=== PATIENT | female | born 1945 | race Caucasian/White ===

== ENCOUNTER → 2021-01-07 12:57 | Outpatient (BNVA) | payer MEDICARE, MEDICAID, SELFPAY | PROVIDERS: Family Provider Family Medicine; PCP Family Medicine; Referring Provider Family Medicine; Visit Provider Anesthesiology Pain Medicine | DX: G89.29 Other chronic pain (principal); M54.9 Dorsalgia, unspecified; M51.36 Other intervertebral disc degeneration, lumbar region; M47.816 Spondylosis without myelopathy or radiculopathy, lumbar region; M51.16 Intervertebral disc disorders with radiculopathy, lumbar region; Z79.891 Long term (current) use of opiate analgesic | CPT/HCPCS: 99205 ==

== ENCOUNTER 2021-06-14 12:58 | Emergency (ER) | payer MEDICARE, MEDICAID, SELFPAY ==
[2021-06-14] VITALS (8 sets, daily range): BP systolic 112–143; BP diastolic 52–79; PULSE 60–91; RESP 14–20; TEMP 37.1; O2SAT 90–98; BMI 28.3
--- NOTE | 2021-06-14 13:04 | CT_ITS ---
WS: [id number] CT HEAD TECHNIQUE: Noncontrast CT of the head obtained from the skullbase to the vertex. CLINICAL INFORMATION: AMS COMPARISON: None. DLP: 799.[address] scans at [facility] use at least one of these dose optimization techniques: automat ed exposure control; mA and/or kV adjustment per patient size (includes targeted exams where dose is matched to clinical indication); or iterative reconstruction. FINDINGS: No evidence of intracranial hemorrhage or mass effect. Ventricular system and basal cisterns are agarwal nt. Mild small vessel changes with moderate parenchymal volume loss. Mild prominence of the lateral v entricles and third ventricle can be seen with normal pressure hydrocephalus in the appropriate clini sukumar setting. No transependymal edema. Chronic lacunar infarcts in the ruben. . Paranasal sinuses and mastoid air cells are well aerated. .Normal visualized soft tissues. CT/CT head wo con* [id number] IMPRESSION: 1. No evidence of intracranial hemorrhage or mass effect. 2. Moderate small vessel changes with moderate parenchymal volume loss. 3. Mild prominence of the lateral ventricles and third ventricle may be incide ntal but can be seen with normal pressure hydrocephalus in the appropriate clin ical setting. No transependymal edema. 4. Chronic lacunar infarcts in the ruben.
--- NOTE | 2021-06-14 13:04 | XRR_ITS ---
PROCEDURE INFORMATION: Exam: XR Chest Exam date and time: 06/14/2021 1:04 PM Age: 75 years old Clinical indication: Cough and dyspnea; Patient HX: AMS; Additional info: Dyspnea/cough TECHNIQUE: Imaging protocol: XR of the chest. Views: 1 view. COMPARISON: CR Chest 1 [place] [id number] 07/03/2019 11:19 AM FINDINGS: Lungs: Unremarkable. No consolidation. Pleural spaces: Unremarkable. No pleural effusion. No pneumothorax. Heart/Mediastinum: Unremarkable. No cardiomegaly. Bones/joints: Unremarkable. XR/XR chest 1V portable [id number] IMPRESSION: No acute findings.
--- NOTE | 2021-06-14 13:05 | ECG_ITS ---
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 Measurements Intervals [place] Rate: 60 P: 27 WY: 152 QRS: 64 QRSD: 102 T: 43 QT: 430 QTc: 430 Interpretive Statements SINUS RHYTHM Compared to ECG 07/03/2019 11:09:48 Short W[place] interval no longer present Electronically Signed On 06-14-2021 17:26:31 CDT by Jj Veronica M.D. [email or web address]
--- NOTE | 2021-06-14 14:16 | W.ED.AMS ---
HPI - Altered Mental Status General: Chief Complaint: Altered Mental Status Stated Complaint: AMS/ INCONTINENCE Time Seen by Provider: 06/14/21 13:04 History of Present Illness: HPI narrative: 75-year-old female rise did ER via the nurse EMS. She is brought in from home she was found unable to get up altered mental status and incontinence. She denies any particular pain she will respond verbally but only gives nonsensical responses to questions. She is aware she is in [place] but not where she is at or why she is here. She denies any fever shortness of breath she states she is not had any pain or burning with urination though denies diarrhea or abdominal pain. MD complaint: confusion Onset (ago): hour(s) Timing confirmed by: family member Severity: mild Consistency of symptoms: Waxing and Waning Associated symptoms: Deny auditory hallucinations, visual hallucinations or delusions Review of Systems Const: Denies: fever(s), chills, body aches, change in appetite, fatigue or malaise ENMT: Denies: throat pain, ear or mastoid pain, nasal discharge or nasal congestion Card: Denies: chest pain, edema, dyspnea on exertion or orthopnea Resp: Denies: dyspnea, productive cough or non-productive cough GI: Denies: abdominal pain, nausea, vomiting, hematemesis, coffee ground emesis, diarrhea, constipation, bloating, hematochezia or melena : Denies: flank pain, difficulty voiding, dysuria, urinary frequency or urinary urgency Skin/Breast: Denies: rash or pruritus Psych: Denies: visual hallucinations or auditory hallucinations Physical Exam Const: COMMON NORMALS: no acute distress GENERAL APPEARANCE: cooperative and comfortable ORIENTATION/CONSCIOUSNESS: Yes awake HENMT: COMMON NORMALS: normocephalic and hearing grossly normal bilaterally HEAD & SCALP: normocephalic Neck/C-Spine: COMMON NORMALS: no JVD Resp: COMMON NORMALS: normal respiratory effort, No retractions, No use of accessory muscles and clear to auscultation bilaterally AUSCULTATION: clear to auscultation bilaterally Cardio: COMMON NORMALS: no JVD, regular rate, regular rhythm and No murmurs present (Cardio) RATE: regular rate RHYTHM: regular rhythm GI: COMMON NORMALS: Soft to palpation and No hepatosplenomegaly present AUSCULTATION: Yes normoactive bowel sounds PALPATION: Yes Soft to palpation, No Tenderness to palpation present (GI), No Guarding due to palpation present (GI) and Yes No hepatosplenomegaly present Extremity: COMMON NORMALS: normal to inspection, capillary refill normal, no clubbing, cyanosis or edema, no calf tenderness and no pedal edema Psych: THOUGHT CONTENT: No delusions Skin: COMMON NORMALS: no rashes or lesions noted GENERAL SKIN EXAM: no rashes or lesions noted Course Vital Signs: Vital signs: Vital Signs Temperature 98.7 F 06/14/21 13:35 Pulse Rate 91 06/14/21 23:26 Respiratory Rate 18 06/14/21 23:26 Blood Pressure 115/78 06/14/21 23:26 Pulse Oximetry 98 06/14/21 23:26 MDM - Altered Mental Status MDM Narrative: Medical decision making narrative: Patient has a mild cystitis and hypokalemia potassium replaced him. We will go ahead and discharge her back home. Was given Rocephin here. Time that he signed the chart the prescription for Macrobid had fallen off of the discharge sequence however it is on the discharge papers that the patient was sent home with 400 mg twice daily for 7 days. Lab Data: Labs: Lab Results 06/14/21 06/14/21 06/14/21 Range/Units 15:45 15:45 15:45 WBC 8.1 (4.0-10.0) 10^3/ uL RBC 5.06 (4.1-5.3) 10^6/u L Hgb 12.0 (11.5-15.3) g/dL Hct 38.2 (37.0-47.0) % MCV 75.5 L (81-99) fL MCH 23.7 L (28.0-34.0) pg MCHC 31.4 (30.0-36.0) g/dL RDW 14.8 (12.1-15.1) % Plt Count 386 (130-400) 10^3/c mm MPV 10.9 H (7.4-10.4) fL Neut % (Auto) 69.9 % Lymph % (Auto) 21.1 % O'Brien % (Auto) 7.2 % Eos % (Auto) 0.9 % Baso % (Auto) 0.2 % Neut # (Auto) 5.67 (1.8-7.7) 10^3/u L Lymph # (Auto) 1.7 (0.8-4.8) 10^3/u L O'Brien # (Auto) 0.6 (0.2-0.9) 10^3/u L Eos # (Auto) 0.1 (0.0-0.8) 10^3/u L Baso # (Auto) 0.0 (0.0-0.1) 10^3/u L Nucleated RBC % (a uto) 0 % Nucleated RBCs # 0.0 /100WBC Sodium 136 (136-145) mmol/L Potassium 2.6 L* (3.5-5.1) mmol/L Chloride 96 L (98-107) mmol/L Carbon Dioxide 25 (22-29) mmol/L Anion Gap 17.6 (5-19) BUN 6 L (8-23) mg/dL Creatinine 0.7 (0.5-0.9) mg/dL GFR Calculation Not Reportable Glucose 156 H (65-115) mg/dL Calculated Osmolal ity 283 L (285-295) mOsm/k g Lactic Acid 1.2 (0.5-2.2) mmol/L Calcium 9.3 (8.5-10.5) mg/dL Magnesium 2.0 (1.7-2.3) mg/dL Total Bilirubin 0.8 (0.15-1.2) mg/dL AST 15 (0-32) U/L ALT 8 (0-33) U/L Alkaline Phosphata se 98 (35-105) IU/L Creatine Kinase 125 (26-192) U/L Troponin T Baselin e (0-10) ng/L Troponin T 120 Min [place] (0-10) ng/L Delta Troponin T (0-10) ABS# Total Protein 7.6 (6.6-8.7) g/dL Albumin 3.7 (3.5-5.2) g/dL Globulin 3.9 (1.3-4.6) g/dL Lipase 31 (13-60) U/L Serum Ketones (Negative) 06/14/21 06/14/21 06/14/21 Range/Units 15:45 15:45 18:05 WBC (4.0-10.0) 10^3/ uL RBC (4.1-5.3) 10^6/u L Hgb (11.5-15.3) g/dL Hct (37.0-47.0) % MCV (81-99) fL MCH (28.0-34.0) pg MCHC (30.0-36.0) g/dL RDW (12.1-15.1) % Plt Count (130-400) 10^3/c mm MPV (7.4-10.4) fL Neut % (Auto) % Lymph % (Auto) % O'Brien % (Auto) % Eos % (Auto) % Baso % (Auto) % Neut # (Auto) (1.8-7.7) 10^3/u L Lymph # (Auto) (0.8-4.8) 10^3/u L O'Brien # (Auto) (0.2-0.9) 10^3/u L Eos # (Auto) (0.0-0.8) 10^3/u L Baso # (Auto) (0.0-0.1) 10^3/u L Nucleated RBC % (a uto) % Nucleated RBCs # /100WBC Sodium (136-145) mmol/L Potassium (3.5-5.1) mmol/L Chloride (98-107) mmol/L Carbon Dioxide (22-29) mmol/L Anion Gap (5-19) BUN (8-23) mg/dL Creatinine (0.5-0.9) mg/dL GFR Calculation Glucose (65-115) mg/dL Calculated Osmolal ity (285-295) mOsm/k g Lactic Acid (0.5-2.2) mmol/L Calcium (8.5-10.5) mg/dL Magnesium (1.7-2.3) mg/dL Total Bilirubin (0.15-1.2) mg/dL AST (0-32) U/L ALT (0-33) U/L Alkaline Phosphata se (35-105) IU/L Creatine Kinase (26-192) U/L Troponin T Baselin e 9 (0-10) ng/L Troponin T 120 Min [place] 9.29 (0-10) ng/L Delta Troponin T 0.29 (0-10) ABS# Total Protein (6.6-8.7) g/dL Albumin (3.5-5.2) g/dL Globulin (1.3-4.6) g/dL Lipase (13-60) U/L Serum Ketones Negative (Negative) 06/14/21 Range/Units 19:54 WBC (4.0-10.0) 10^3/ uL RBC (4.1-5.3) 10^6/u L Hgb (11.5-15.3) g/dL Hct (37.0-47.0) % MCV (81-99) fL MCH (28.0-34.0) pg MCHC (30.0-36.0) g/dL RDW (12.1-15.1) % Plt Count (130-400) 10^3/c mm MPV (7.4-10.4) fL Neut % (Auto) % Lymph % (Auto) % O'Brien % (Auto) % Eos % (Auto) % Baso % (Auto) % Neut # (Auto) (1.8-7.7) 10^3/u L Lymph # (Auto) (0.8-4.8) 10^3/u L O'Brien # (Auto) (0.2-0.9) 10^3/u L Eos # (Auto) (0.0-0.8) 10^3/u L Baso # (Auto) (0.0-0.1) 10^3/u L Nucleated RBC % (a uto) % Nucleated RBCs # /100WBC Sodium (136-145) mmol/L Potassium 3.5 (3.5-5.1) mmol/L Chloride (98-107) mmol/L Carbon Dioxide (22-29) mmol/L Anion Gap (5-19) BUN (8-23) mg/dL Creatinine (0.5-0.9) mg/dL GFR Calculation Glucose (65-115) mg/dL Calculated Osmolal ity (285-295) mOsm/k g Lactic Acid (0.5-2.2) mmol/L Calcium (8.5-10.5) mg/dL Magnesium (1.7-2.3) mg/dL Total Bilirubin (0.15-1.2) mg/dL AST (0-32) U/L ALT (0-33) U/L Alkaline Phosphata se (35-105) IU/L Creatine Kinase (26-192) U/L Troponin T Baselin e (0-10) ng/L Troponin T 120 Min [place] (0-10) ng/L Delta Troponin T (0-10) ABS# Total Protein (6.6-8.7) g/dL Albumin (3.5-5.2) g/dL Globulin (1.3-4.6) g/dL Lipase (13-60) U/L Serum Ketones (Negative) Discharge Plan Discharge Patient Disposition: Home Clinical Impression: Cystitis, Hypokalemia Condition: Stable Prescriptions: New potassium chloride 20 mEq tablet,ER particles/crystals 20 meq PO BID Qty: 20 RF: 0 No Action Myrbetriq 50 mg tablet extended release 24 hr 50 mg PO DAILY RF: 0 metformin 1,000 mg tablet 1,000 mg PO BID RF: 0 potassium chloride 10 mEq capsule, extended release 10 meq PO DAILY RF: 0 sucralfate 1 gram tablet 1 g PO BID RF: 0 spironolactone 25 mg tablet 12.5 mg PO DAILY RF: 0 levothyroxine 75 mcg tablet 75 mcg PO DAILY RF: 0 tamsulosin 0.4 mg capsule 0.4 mg PO DAILY RF: 0 fluticasone propionate 50 mcg/actuation spray,suspension 2 spray INTRANASAL DAILY RF: 0 Discharge Orders: Discharge ED (Routine); Ordered 06/14/21 Ordered By: Robert Leigh Referrals: Zeus Young DO [Primary Care Provider] - Discharge Diet: Usual diet Discharge Activity: Resume usual activity Patient Instructions: Opioid Safety Activity Restrictions/Additional Instructions: Follow-up with your primary care doctor in the next 2 days to recheck your potassium. Start oral antibiotics tomorrow as prescribed if you have any worsening or changes symptoms recheck. Coding Level of Care Code ED Center Punch Operator for Clayton Fwd Exam Comprehensive
[2021-06-14 16:11] LABS: Basophils % 0.2 %; Eosinophils # 0.1 10^3/uL (0.0-0.8); Eosinophils % 0.9 %; Hematocrit 38.2 % (37.0-47.0); Lymphocytes # 1.7 10^3/uL (0.8-4.8); Lymphocytes % 21.1 %; Mean Corpuscular HGB Conc 31.4 g/dL (30.0-36.0); Mean Corpuscular Hemoglobin 23.7 pg (28.0-34.0); Mean Corpuscular Volume 75.5 fL (81-99); Mean Platelet Volume 10.9 fL (7.4-10.4); Monocytes # 0.6 10^3/uL (0.2-0.9); Monocytes % 7.2 %; Neutrophils # 5.67 10^3/uL (1.8-7.7); Neutrophils % 69.9 %; Nucleated Red Blood Cells % 0 %; Platelet Count 386 10^3/cmm (130-400); Red Blood Count 5.06 10^6/uL (4.1-5.3); Red Cell Distribution Width 14.8 % (12.1-15.1); White Blood Count 8.1 10^3/uL (4.0-10.0)
[2021-06-14 16:29] LABS: Ketone (Acetest) Serum Negative (Negative)
[2021-06-14 16:51] LABS: Alanine Aminotransferase 8 U/L (0-33); Albumin Level 3.7 g/dL (3.5-5.2); Alkaline Phosphatase 98 IU/L (35-105); Anion Gap 17.6 (5-19); Aspartate Amino Transferase 15 U/L (0-32); Blood Urea Nitrogen 6 mg/dL (8-23); Calcium 9.3 mg/dL (8.5-10.5); Carbon Dioxide 25 mmol/L (22-29); Chloride 96 mmol/L (98-107); Creatine Phosphokinase 125 U/L (26-192); Globulin 3.9 g/dL (1.3-4.6); Glucose 156 mg/dL (65-115); Lipase 31 U/L (13-60); Osmolality Calculated 283 mOsm/kg (285-295); Sodium 136 mmol/L (136-145); Total Bilirubin 0.8 mg/dL (0.15-1.2); Total Protein 7.6 g/dL (6.6-8.7)
[2021-06-14 16:57] LABS: Potassium 2.6 mmol/L (3.5-5.1)
[2021-06-14] MEDS: lidocaine 1% 5 ML in potassium chloride premix 100 ML 25 ML IV (17:22)
[2021-06-14 17:23] LABS: Lactic Sepsis W/Reflex 1.2 mmol/L (0.5-2.2)
[2021-06-14 17:24] LABS: Troponin(5th) Baseline 9 ng/L (0-10)
[2021-06-14] MEDS: cefTRIAXone 2,000 MG in sodium chloride 0.9% (plus) 50 ML 100 MG IV (17:33)
[2021-06-14 18:42] LABS: Troponin 5 2HR 9.29 ng/L (0-10); Troponin 5 2HR Delta 0.29 ABS# (0-10)
[2021-06-14] MEDS: potassium chloride oral liq 20 mEq/15 mL UDC 60 MEQ PO (18:44)
[2021-06-14] MEDS: sodium chloride 0.9% 250 ML 25 ML IV (18:46)
[2021-06-14 20:32] LABS: Potassium 3.5 mmol/L (3.5-5.1)
== END 2021-06-14 23:27 | disposition home or self-care (01) ==
PROVIDERS: Emergency Provider Family Medicine; PCP Family Medicine
DX: N30.90 Cystitis, unspecified without hematuria (principal); E87.6 Hypokalemia
CPT/HCPCS: 36415; 70450; 71045; 80053; 82009; 82550; 83605; 83690; 83735; 84132; 84484; 85025; 87040; 93005; 96361; 96365; 99284; J0696; J3480; J7050

== ENCOUNTER 2021-10-21 13:55 | Emergency (ER) | payer MEDICARE, MEDICAID, SELFPAY ==
[2021-10-21 14:30] VITALS: BP 156/113; PULSE 79; RESP 16; TEMP 36.2; O2SAT 98
[2021-10-21 14:44] VITALS: BP 161/69; PULSE 69; RESP 16; O2SAT 97
--- NOTE | 2021-10-21 14:50 | USCV_ITS ---
Maria Luz Finney Age: 75 Gender: F : 1945 Exam Date: 10/21/2021 15:19 Ordering Phys: Angelo Blanca Technologist: Alexia Del Rosario Exam Location: [facility] [place] Indication: LLE PAIN AND SWELLING H/O DVT ON BLOOD THINNERS HISTORY: Lower extremity swelling. Lower extremity pain. History of deep venous thrombosis. PROCEDURES: Venous duplex imaging was performed in only the left lower extremity. The following venous structures were evaluated: common femoral vein, profunda vein, proximal portion of the greater saphenous vein, superficial femoral vein, and the popliteal vein. In addition, the posterior tibial and peroneal trunk were evaluated. Serial compression, augmentation maneuvers, and spectral Doppler flow evaluation were performed. FINDINGS: Normal 2-D Doppler and augmentation and compressibility throughout the lower extremity venous structures. Additional imaging through the proximal calf veins also reveals no thrombus. Limited evaluation of the greater saphenous vein is patent with no thrombus. CONCLUSIONS No DVT left lower extremity. Dr. Melissa Tee DO (Electronically Signed) Final Date: 21 October 2021 16:01 S
--- NOTE | 2021-10-21 14:54 | W.ED.EXTPRO ---
HPI - Extremity Problem General: Chief complaint: Extremity Problem,Nontraumatic Stated complaint: LEFT KNEE PAIN, WOUND ON RIGHT CALF Time Seen by Provider: 10/21/21 14:45 History of Present Illness: HPI Narrative: Patient is a 75-year-old female comes to the ED with pain and swelling to left lower leg. Patient has a history of blood clots and is currently on Eliquis. She states that 2 days ago she started having some pain and swelling and left lower leg. Denies any injury, fall or trauma to cause pain and swelling. She says her symptoms feel like her previous blood clots. Denies any chest pain, shortness of breath or hemoptysis. Associated symptoms: Deny chest pain, fever(s) or rash Review of Systems Const: Denies: fever(s), chills or fatigue Eyes: Denies: change in vision or eye discomfort ENMT: Denies: throat pain, odynophagia, nasal discharge or nasal congestion Card: Denies: chest pain, palpitations, edema, swelling of feet/ankles, dyspnea on exertion or orthopnea Resp: Denies: dyspnea, productive cough or non-productive cough GI: Denies: abdominal pain, nausea, vomiting, diarrhea, constipation or hematochezia : Denies: flank pain, dysuria or hematuria Musc: Reports: extremity pain (left lower leg) and extremity swelling (left lower leg); Denies: neck pain or back pain Skin/Breast: Denies: rash or new lesions Neuro: Denies: headache(s), numbness in extremities or weakness in extremities Physical Exam Const: COMMON NORMALS: no acute distress, patient oriented x3 and alert GENERAL APPEARANCE: cooperative and comfortable HENMT: COMMON NORMALS: normocephalic HEAD & SCALP: normocephalic MOUTH: Normal oral and palatal mucosa present THROAT: posterior oropharynx normal and uvula midline Neck/C-Spine: COMMON NORMALS: supple GENERAL: Yes normal visual inspection Resp: COMMON NORMALS: normal respiratory effort, No retractions, No use of accessory muscles and clear to auscultation bilaterally AUSCULTATION: clear to auscultation bilaterally Cardio: COMMON NORMALS: regular rate, regular rhythm, S1 normal heart sound present, S2 normal heart sound present, No gallops present (Cardio), No clicks present (Cardio), No murmurs present (Cardio) and Peripheral pulses 2+ throughout RATE: regular rate RHYTHM: regular rhythm HEART SOUNDS: S1 normal heart sound present and S2 normal heart sound present PERIPHERAL PULSES: Peripheral pulses 2+ throughout GI: COMMON NORMALS: Normal to inspection, nondistended, normoactive bowel sounds present, Soft to palpation, non-tender and no masses PALPATION: Yes Soft to palpation : COMMON NORMALS: Yes no CVA tenderness BLADDER/KIDNEY EXAM: Yes no CVA tenderness Back/Pelvis: COMMON NORMALS: no CVA tenderness Extremity: COMMON NORMALS: no pedal edema GENERAL: Yes calf tenderness (Left calf) Neuro: COMMON NORMALS: patient oriented x3 and moves all extremities SENSORIUM/ORIENTATION: Yes alert Skin: GENERAL SKIN EXAM: dry skin Course Vital Signs: Vital signs: Vital Signs Temperature 97.1 F L 10/21/21 14:30 Pulse Rate 69 10/21/21 14:44 Respiratory Rate 16 10/21/21 14:44 Blood Pressure 161/69 10/21/21 14:44 Pulse Oximetry 97 10/21/21 14:44 MDM - Extremity (Nontraumatic) MDM Narrative: Medical decision making narrative: Patient is a 75-year-old female comes to the ED with nontraumatic left lower leg pain and swelling. Has a history of blood clots and is currently on Eliquis. Denies any chest pain, shortness of breath or hemoptysis. Patient has no lower extremity pedal edema and pedal pulse 2+ bilaterally in the lower extremities. She has some left calf tenderness. Ultrasound venous duplex of left lower extremity showed no DVT or blood clots seen. Patient was diagnosed with musculoskeletal left leg pain and discharged home. Rest ice and elevate left leg to help with symptoms. She was told to follow-up with her PCP in 5 to 7 days for reevaluation. Return ED precautions given. Patient stood agree with plan. Imaging Data^: US Vascular: Attestation: I personally reviewed and interpreted this imaging study as follows: Radiologist's impression: Ultrasound venous duplex of left lower extremity?prelim report?no DVT or blood clots seen. Discharge Plan Discharge Patient Disposition: Home Clinical Impression: Musculoskeletal pain of lower extremity Qualifiers: Laterality: left Qualified Code(s): M79.605 - Pain in left leg Condition: Stable Prescriptions: No Action Myrbetriq 50 mg tablet extended release 24 hr 50 mg PO DAILY RF: 0 metformin 1,000 mg tablet 1,000 mg PO BID RF: 0 potassium chloride 10 mEq capsule, extended release 10 meq PO DAILY RF: 0 sucralfate 1 gram tablet 1 g PO BID RF: 0 spironolactone 25 mg tablet 12.5 mg PO DAILY RF: 0 levothyroxine 75 mcg tablet 75 mcg PO DAILY RF: 0 tamsulosin 0.4 mg capsule 0.4 mg PO DAILY RF: 0 fluticasone propionate 50 mcg/actuation spray,suspension 2 spray INTRANASAL DAILY RF: 0 potassium chloride 20 mEq tablet,ER particles/crystals 20 meq PO BID Qty: 20 RF: 0 Discharge Orders: Discharge ED (Routine); Ordered 10/21/21 Ordered By: Angelo Blanca Referrals: Zeus Young, [Primary Care Provider] - Discharge Diet: Regular Discharge Activity: Increase activity as tolerated Patient Instructions: Musculoskeletal Pain (ED) Activity Restrictions/Additional Instructions: Follow-up with medical provider as directed in 5 to 7 days for reevaluation. Continue taking all home medications as previously prescribed. Rest, ice and elevate left leg to help with symptoms. Take [id number] Tylenol for pain. Return to the ER or your medical provider if condition worsens. Please read and understand discharge instructions. Thank you for choosing [facility] for your healthcare needs today. Please realize this is an emergency room and that we are providing you with a medical screening exam and this may not be complete and all inclusive of all the testing and or work up that you may need to determine your ailment or severity of your illness. It is very important that you follow up as instructed or that you return to the Emergency Department should you have concerns or if your condition changes or worsens in any way. Coding Level of Care Code ED Stem Sizer for Clayton Espinoza Exam Comprehensive
== END 2021-10-21 15:50 | disposition home or self-care (01) ==
PROVIDERS: Emergency Provider Physician Assistant; PCP Family Medicine
DX: M79.605 Pain in left leg (principal)
CPT/HCPCS: 93971; 99282

== ENCOUNTER 2021-12-20 13:35 | Emergency (ER) | payer MEDICARE, MEDICAID, SELFPAY ==
[2021-12-20 13:42] VITALS: BP 151/68; PULSE 72; RESP 18; TEMP 36.8; O2SAT 95; BMI 26.2
[2021-12-20 13:57] VITALS: BP 151/68; PULSE 72; RESP 18; TEMP 36.8; O2SAT 95
--- NOTE | 2021-12-20 14:09 | ECG_ITS ---
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 Measurements Intervals [place] Rate: 65 P: 57 UT: 140 QRS: 60 QRSD: 90 T: 58 QT: 402 QTc: 420 Interpretive Statements SINUS RHYTHM NONSPECIFIC T-WAVE ABNORMALITY Compared to ECG 06/14/2021 16:27:26 T-wave abnormality now present Electronically Signed On 12-20-2021 18:06:49 TEXTILE ENGINEER by Jj Veronica M.D. [id number]
--- NOTE | 2021-12-20 14:09 | XRR_ITS ---
PROCEDURE INFORMATION: Exam: XR Chest Exam date and time: 12/20/2021 2:09 PM Age: 75 years old Clinical indication: Pain; Angina pectoris; Additional info: Chest pain TECHNIQUE: Imaging protocol: XR of the chest. Views: 1 view. COMPARISON: CR XR chest 1V portable [id number] 06/14/2021 2:11 PM FINDINGS: Lungs: Unremarkable. No consolidation. Pleural spaces: Unremarkable. No pleural effusion. No pneumothorax. Heart/Mediastinum: Unremarkable. No cardiomegaly. Bones/joints: Surgical hardware is seen in the cervical spine. XR/XR chest 1V portable [id number] IMPRESSION: 1. No acute findings. 2. Surgical hardware cervical spine
--- NOTE | 2021-12-20 14:11 | ED_ITS ---
HPI - Chest Pain General: Chief Complaint: Chest Pain Stated Complaint: CHEST PAIN, SOB Time Seen by Provider: 12/20/21 13:46 History of Present Illness: 85-year-old female presents emergency room chief complaint of chest pain. Stated began today around 11:00 while she was watching TV. Patient was given aspirin nitro and oxygen in route and reports improvement of chest pain he seems to have relatively minimal chest pain now. The oxygen was stopped before I got in room oxygen sat was normal. States pain radiates into her back and her neck Chaar arms. MD complaint: chest pain Onset (ago): hour(s) Timing of current episode: episodic Pain radiation: none Quality: aching and heaviness Relieving factors: nothing Exacerbating factors: nothing Associated symptoms: Deny abdominal pain, diaphoresis, dyspnea, fever(s), leg edema, nausea, palpitations, sense of impending doom, syncope or vomiting Treatment prior to arrival: none Review of Systems Const: Denies: fever(s) or diaphoresis Card: Denies: palpitations or syncope Resp: Denies: dyspnea GI: Denies: abdominal pain, nausea or vomiting PFSH ED PFSH: Medical History (Updated 12/20/21 @ 17:12 by Robert Leigh DO) Degenerative lumbar disc Diabetes mellitus Facet arthropathy, lumbar Hematuria Lumbar disc disease with radiculopathy UTI (urinary tract infection) Physical Exam Const: COMMON NORMALS: no acute distress GENERAL APPEARANCE: cooperative and comfortable HENMT: COMMON NORMALS: normocephalic, atraumatic and hearing grossly normal bilaterally HEAD & SCALP: normocephalic and atraumatic Neck/C-Spine: COMMON NORMALS: no JVD Resp: COMMON NORMALS: normal respiratory effort, No retractions, No use of accessory muscles and clear to auscultation bilaterally AUSCULTATION: clear to auscultation bilaterally Cardio: COMMON NORMALS: no JVD, regular rate, regular rhythm and No murmurs present (Cardio) RATE: regular rate RHYTHM: regular rhythm GI: COMMON NORMALS: Soft to palpation and No hepatosplenomegaly present AUSCULTATION: Yes normoactive bowel sounds PALPATION: Yes Soft to palpation, No Tenderness to palpation present (GI), No Guarding due to palpation present (GI) and Yes No hepatosplenomegaly present Extremity: COMMON NORMALS: normal to inspection, capillary refill normal, no clubbing, cyanosis or edema, no calf tenderness and no pedal edema Skin: COMMON NORMALS: no rashes or lesions noted GENERAL SKIN EXAM: no rashes or lesions noted Course Vital Signs: Vital signs: Vital Signs Temperature 98.3 F 12/20/21 13:57 Pulse Rate 68 12/20/21 16:03 Respiratory Rate 16 12/20/21 16:03 Blood Pressure 161/81 12/20/21 16:03 Pulse Oximetry 96 12/20/21 16:03 MDM - Chest Pain Medical Decision Making Labs and EKG reviewed no acute ST changes patient has no discomfort at this time will discharge home on aspirin Isorbid mononitrate 30 mg once daily and have her follow-up with an outpatient Lexiscan sestamibi stress test. Medical Records I reviewed the patient's medical records. Lab Data I reviewed the patient's lab results. : 12/20/21 Unknown 12/20/21 Unknown Radiology Impressions Chest X-Ray 12/20/21 14:09 IMPRESSION: 1. No acute findings. 2. Surgical hardware cervical spine Laboratory Results WBC 11.0 10^3/uL (4.0-10.0) H 12/20/21 Unknown RBC 4.87 10^6/uL (4.1-5.3) 12/20/21 Unknown Hgb 11.0 g/dL (11.5-15.3) L 12/20/21 Unknown Hct 36.6 % (37.0-47.0) L 12/20/21 Unknown MCV 75.2 fl (81-99) L 12/20/21 Unknown MCH 22.6 pg (28.0-34.0) L 12/20/21 Unknown MCHC 30.1 g/dL (30.0-36.0) 12/20/21 Unknown RDW 15.2 % (12.1-15.1) H 12/20/21 Unknown Plt Count 404 10^3/cmm (130-400) H 12/20/21 Unknown MPV 10.3 fL (7.4-10.4) 12/20/21 Unknown Neut % (Auto) 64.1 % 12/20/21 Unknown Lymph % (Auto) 28.2 % 12/20/21 Unknown [place] % (Auto) 5.6 % 12/20/21 Unknown Eos % (Auto) 1.4 % 12/20/21 Unknown Baso % (Auto) 0.3 % 12/20/21 Unknown Neut # (Auto) 7.08 10^3/uL (1.8-7.7) 12/20/21 Unknown Lymph # (Auto) 3.1 10^3/uL (0.8-4.8) 12/20/21 Unknown [place] # (Auto) 0.6 10^3/uL (0.2-0.9) 12/20/21 Unknown Eos # (Auto) 0.2 10^3/uL (0.0-0.8) 12/20/21 Unknown Baso # (Auto) 0.0 10^3/uL (0.0-0.1) 12/20/21 Unknown Nucleated RBC % (auto) 0 % 12/20/21 Unknown Nucleated RBCs # 0.0 /100WBC 12/20/21 Unknown Sodium 134 mmol/L (136-145) L 12/20/21 Unknown Potassium 3.3 mmol/L (3.5-5.1) L 12/20/21 Unknown Chloride 94 mmol/L (98-107) L 12/20/21 Unknown Carbon Dioxide 25 mmol/L (22-29) 12/20/21 Unknown Anion Gap 18.3 (5-19) 12/20/21 Unknown BUN 6 mg/dL (8-23) L 12/20/21 Unknown Creatinine 0.8 mg/dL (0.5-0.9) 12/20/21 Unknown GFR Calculation Not Reportable 12/20/21 Unknown Glucose 130 mg/dL (65-115) H 12/20/21 Unknown Calculated Osmolality 277 mOsm/kg (285-295) L 12/20/21 Unknown Calcium 9.4 mg/dL (8.5-10.5) 12/20/21 Unknown Total Bilirubin 0.3 mg/dL (0.15-1.2) 12/20/21 Unknown AST 10 U/L (0-32) 12/20/21 Unknown ALT 7 U/L (0-33) 12/20/21 Unknown Alkaline Phosphatase 152 IU/L (35-105) H 12/20/21 Unknown Troponin T Baseline 13 ng/L (0-10) H 12/20/21 Unknown Troponin T 120 Minute 12.63 ng/L (0-10) H 12/20/21 16:21 Delta Troponin T -0.37 ABS# (0-10) L 12/20/21 16:21 Total Protein 7.6 g/dL (6.6-8.7) 12/20/21 Unknown Albumin 4.6 g/dL (3.5-5.2) 12/20/21 Unknown Globulin 3.0 g/dL (1.3-4.6) 12/20/21 Unknown Discharge Plan Discharge Patient Disposition: Home Clinical Impression: Atypical chest pain Condition: Stable Prescriptions: New aspirin 81 mg tablet,delayed release (DR/EC) 81 mg PO DAILY Qty: 30 0RF isosorbide mononitrate 30 mg tablet extended release 24 hr 30 mg PO DAILY Qty: 30 0RF No Action Myrbetriq 50 mg tablet extended release 24 hr 50 mg PO DAILY 0RF metformin 1,000 mg tablet 1,000 mg PO BID 0RF potassium chloride 10 mEq capsule, extended release 10 meq PO DAILY 0RF sucralfate 1 gram tablet 1 g PO BID 0RF Rx Instructions: TAKE ON EMPTY STOMACH spironolactone 25 mg tablet 12.5 mg PO DAILY 0RF levothyroxine 75 mcg tablet 75 mcg PO DAILY 0RF tamsulosin 0.4 mg capsule 0.4 mg PO DAILY 0RF fluticasone propionate 50 mcg/actuation spray,suspension 2 spray INTRANASAL DAILY 0RF Rx Instructions: USE IN EACH NOSTRIL potassium chloride 20 mEq tablet,ER particles/crystals 20 meq PO BID Qty: 20 0RF Discharge Orders: Discharge ED (Routine); Ordered 12/20/21 Ordered By: Robert Leigh Referrals: Zeus Young DO [Primary Care Provider] - Patient Instructions: Opioid Safety Activity Restrictions/Additional Instructions: credit portfolio manager will call to set up a Lexiscan sestamibi stress test Coding Level of Care Code ED Tax Manager for Chg Fwd Exam Comprehensive
[2021-12-20 14:19] LABS: Basophils % 0.3 %; Eosinophils # 0.2 10^3/uL (0.0-0.8); Eosinophils % 1.4 %; Hematocrit 36.6 % (37.0-47.0); Lymphocytes # 3.1 10^3/uL (0.8-4.8); Lymphocytes % 28.2 %; Mean Corpuscular HGB Conc 30.1 g/dL (30.0-36.0); Mean Corpuscular Hemoglobin 22.6 pg (28.0-34.0); Mean Corpuscular Volume 75.2 fl (81-99); Mean Platelet Volume 10.3 fL (7.4-10.4); Monocytes # 0.6 10^3/uL (0.2-0.9); Monocytes % 5.6 %; Neutrophils # 7.08 10^3/uL (1.8-7.7); Neutrophils % 64.1 %; Nucleated Red Blood Cells % 0 %; Platelet Count 404 10^3/cmm (130-400); Red Blood Count 4.87 10^6/uL (4.1-5.3); Red Cell Distribution Width 15.2 % (12.1-15.1)
[2021-12-20 14:41] LABS: Alanine Aminotransferase 7 U/L (0-33); Albumin Level 4.6 g/dL (3.5-5.2); Alkaline Phosphatase 152 IU/L (35-105); Anion Gap 18.3 (5-19); Aspartate Amino Transferase 10 U/L (0-32); Blood Urea Nitrogen 6 mg/dL (8-23); Calcium 9.4 mg/dL (8.5-10.5); Carbon Dioxide 25 mmol/L (22-29); Chloride 94 mmol/L (98-107); Glucose 130 mg/dL (65-115); Osmolality Calculated 277 mOsm/kg (285-295); Potassium 3.3 mmol/L (3.5-5.1); Sodium 134 mmol/L (136-145); Total Bilirubin 0.3 mg/dL (0.15-1.2); Total Protein 7.6 g/dL (6.6-8.7)
[2021-12-20 14:43] LABS: Troponin(5th) Baseline 13 ng/L (0-10)
[2021-12-20 15:19] VITALS: BP 159/77; PULSE 68; RESP 17; O2SAT 96
[2021-12-20 16:03] VITALS: BP 161/81; PULSE 68; RESP 16; O2SAT 96
[2021-12-20 17:02] LABS: Troponin 5 2HR 12.63 ng/L (0-10)
[2021-12-20 17:03] LABS: Troponin 5 2HR Delta -0.37 ABS# (0-10)
[2021-12-20 17:23] VITALS: BP 161/62; PULSE 70; RESP 13; O2SAT 96
== END 2021-12-20 17:20 | disposition home or self-care (01) ==
PROVIDERS: Emergency Provider Family Medicine; PCP Family Medicine
DX: R07.89 Other chest pain (principal); Z79.84 Long term (current) use of oral hypoglycemic drugs; E11.9 Type 2 diabetes mellitus without complications
CPT/HCPCS: 71045; 80053; 84484; 85025; 93005; 99283

== ENCOUNTER → 2022-03-02 12:27 | Outpatient (BNVA) | payer MEDICARE, MEDICAID, SELFPAY | PROVIDERS: PCP Family Medicine; Visit Provider Internal Medicine Cardiovascular Disease | DX: Z01.810 Encounter for preprocedural cardiovascular examination (principal); R07.9 Chest pain, unspecified; I10 Essential (primary) hypertension; Z86.718 Personal history of other venous thrombosis and embolism; E11.9 Type 2 diabetes mellitus without complications; J44.9 Chronic obstructive pulmonary disease, unspecified; M51.36 Other intervertebral disc degeneration, lumbar region; Z79.01 Long term (current) use of anticoagulants; Z79.84 Long term (current) use of oral hypoglycemic drugs | CPT/HCPCS: 99204 ==

== ENCOUNTER 2022-04-06 08:47 | Outpatient (CLI) | payer MEDICARE, MEDICAID, SELFPAY ==
[2022-04-06 09:55] VITALS: BMI 24.2
--- NOTE | 2022-04-06 10:03 | ECG_ITS ---
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 Interpretive Statements NAME OF STUDY: LEXISCAN SESTAMIBI STRESS TEST INDICATION: Chest Pain; Pre OP Clearance RESULTS TO DR CISNEROS DR CISNEROS OUT OF TOWN ON DATE OF SERVICE PROCEDURE: At the baseline, the EKG revealed normal sinus rhythm with normal ST Ts. The baseline blood pressure was 165/66 mm Hg with a heart rate of 62 beats/min. Lexiscan was infused over a period of 20 seconds. A total of 0.4 milligrams of Lexiscan was infused. The stress phase was continued for a total of 5 minutes. Heart rate at the end of the stress phase was 76 with a blood pressure 160/50. The EKG at the peak infusion revealed no significant changes. Sestamibi was injected 20 seconds after the Lexiscan infusion. Blood pressure at the end of the recovery phase was 162/49 with a heart rate of 74 per minute. CONCLUSION: 1. No significant EKG changes with the LexiScan infusion 2. No LexiScan induced chest pain or cardiac arrhythmia 3. Normal blood pressure and heart rate response 4. Sestamibi/sestamibi perfusion scan pending; see separate report. Electronically Signed On 04-08-2022 12:21:46 CDT by Nael Renner M.D. [id number]
--- NOTE | 2022-04-06 10:03 | NMCV_ITS ---
NM jackie perf SPECT r/s* [id number] Maria Luz Finney Age: 76 Gender: F : 1945 Exam Date: 04/06/2022 10:24 Ordering Phys: Rosie Cisneros MD ([email or web address]) Technologist: LIANNE Cook Exam Location: [facility] Indications: CHEST PAIN STRESS TEST Please [facility] for [facility] IMAGE PROTOCOL Rest/Stress 1 Lexiscan Day Radiopharmaceutical Dose (mCi) Administration Site Administered by Rest: Tc-99m 10.7 IV LIANNE Mccullough Sestamibi Stress:Tc-99m 32.5 IV LIANNE Mccullough Sestamibi Rest: 06-Apr-2022 60 Discovery 630 Stress: 06-Apr-2022 30 Discovery 630 0.4mg Lexiscan. Supine position only as patient was unable to lay prone. SPECT RESULTS Technical Quality: Excellent Raw Data Analysis: Normal Image Corrections: No attenuation or motion correction applied Summed Stress Score: 2 Summed Rest Score: 0 Summed Difference Score: 2 PERFUSION FINDINGS Small size perfusion abnormality of mild severity of apical lateral wall on stress images. FUNCTIONAL RESULTS (calculated via Gated SPECT) Stress Image LV EF (%): 76 Stress EDV (mL):54 TID: 0.9 Stress ESV (mL):13 FUNCTIONAL FINDINGS: The left ventricle is normal in size. Transient Ischemia Dilatation of 0.9. There is normal left ventricular systolic function. The left ventricular ejection fraction is normal with a value of 76%. There is normal left ventricular wall thickening. IMPRESSIONS 1. Small sized perfusion abnormality of mild severity of apical lateral wall. This may represent small area of ischemia in LAD artery territory versus attenuation artifact (in absence of prone imaging). 2. Overall left ventricular systolic function is normal without regional wall motion abnormalities, LVEF=76%. 3. No EKG changes with Lexiscan infusion. Refer to separate report for details. Rosie Cisneros MD (Electronically Signed) Final Date: 12 April 2022 14:49 S
[2022-04-06] MEDS: regadenoson 0.4 Mg/5 ml Syringe IVP (11:05)
[2022-04-06 11:44] VITALS: BP 146/64; PULSE 76
== END 2022-04-06 08:48 | disposition home or self-care (01) ==
LOC: CDL 08:51
PROVIDERS: PCP Family Medicine; Visit Provider Internal Medicine Cardiovascular Disease
DX: Z01.818 Encounter for other preprocedural examination (principal); R07.89 Other chest pain
CPT/HCPCS: 78452; 93017; A9500; J2785

== ENCOUNTER → 2022-04-15 09:59 | Outpatient (BNVA) | payer MEDICARE, MEDICAID, SELFPAY | PROVIDERS: PCP Family Medicine; Visit Provider Urology | DX: N30.80 Other cystitis without hematuria (principal); N39.0 Urinary tract infection, site not specified | CPT/HCPCS: 51798; 99213 ==

== ENCOUNTER 2022-05-03 14:24 | Emergency (ER) | payer MEDICARE, MEDICAID, SELFPAY ==
[2022-05-03 15:02] VITALS: BP 120/70; PULSE 83; RESP 17; TEMP 37.3; O2SAT 97; BMI 29.2
[2022-05-03 15:08] VITALS: BP 126/64; PULSE 77; RESP 17; O2SAT 98
--- NOTE | 2022-05-03 15:21 | ECG_ITS ---
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 Measurements Intervals [place] Rate: 75 P: 45 MD: 144 QRS: 55 QRSD: 97 T: 77 QT: 391 QTc: 439 Interpretive Statements SINUS RHYTHM Compared to ECG 12/20/2021 13:51:18 T-wave abnormality no longer present Electronically Signed On 05-03-2022 20:06:51 CDT by Neal Renner M.D. [id number]
--- NOTE | 2022-05-03 15:21 | XR_ITS ---
WS: [id number] XR chest 1V portable [id number] REASON FOR EXAM: chest pain FINDINGS: The chest is unchanged compared to 12/20/2021. The heart and mediastinum are within normal limits. Calcified granulomatous disease in both hemithoraces. No acute pulmonary parenchymal or pleural abnormality is identified. Previous rotator cuff repair right shoulder. Mild to moderate degenerative spondylosis in the mid and lower thoracic spine. XR/XR chest 1V portable [id number] IMPRESSION: No acute chest abnormality.
--- NOTE | 2022-05-03 15:37 | ED_ITS ---
HPI - Chest Pain General: Chief Complaint: Chest Pain Stated Complaint: heartburn Time Seen by Provider: 05/03/22 15:21 Source: patient Mode of arrival: ambulatory Limitations: no limitations History of Present Illness: 76-year-old female presents to the emergency room with complaints of chest discomfort. She has been having this for several weeks she had a Lexiscan sestamibi stress test. Patient tells me she was under the impression that she had had a heart attack based on the findings of the stress test. And I read the stress test report there is a questionable area described as small sized perfusion abnormality of mild severity in the apical lateral wall may represent an area of ischemia in the LAD artery territory versus attenuation artifact . She reports she gets chest pain after she eats each time. Today got worse that resolved by the time she arrived here she did not have any radiation to the neck back or arm. MD complaint: chest pain Onset (ago): minute(s) Timing of current episode: episodic Prior episodes: Yes Onset: during rest Pain location: left chest Pain radiation: none Severity: mild Quality: sharp Relieving factors: nothing Exacerbating factors: eating Associated symptoms: Deny abdominal pain, dyspnea, fever(s), nausea, palpitat ions or vomiting Review of Systems Const: Denies: fever(s), chills, body aches, change in appetite, fatigue or malaise ENMT: Denies: throat pain, ear or mastoid pain, nasal discharge or nasal conge stion Card: Denies: chest pain, palpitations, edema, dyspnea on exertion or orthopnea Resp: Denies: dyspnea, productive cough or non-productive cough GI: Denies: abdominal pain, nausea, vomiting, hematemesis, coffee ground emesis, diarrhea, constipation, bloating, hematochezia or melena : Denies: flank pain, difficulty voiding, dysuria, urinary frequency or urinary urgency Skin/Breast: Denies: rash or pruritus PFSH ED PFSH: Medical History COPD (chronic obstructive pulmonary disease) Degenerative lumbar disc Diabetes mellitus Facet arthropathy, lumbar H/O deep venous thrombosis Hematuria HTN (hypertension) Lumbar disc disease with radiculopathy Recurrent UTI UTI (urinary tract infection) Surgical History History of neck surgery S/P coronary angiogram S/P knee surgery S/P wrist surgery Family History Mother , at age 114 Myocardial infarct Father , in his 70's Hypertension Sister Diabetes Son Diabetes Social History Smoking and tobacco status: never smoked Alcohol intake: never Marital status: / Current occupational status: retired History of recent travel: No Physical Exam Const: GENERAL APPEARANCE: cooperative and comfortable ORIENTATION/CONSCIOUSNESS: Yes awake, Yes oriented to person, Yes oriented to place and Yes oriented to time HENMT: COMMON NORMALS: normocephalic, atraumatic and hearing grossly normal bilaterally HEAD & SCALP: normocephalic and atraumatic Neck/C-Spine: COMMON NORMALS: no JVD Resp: COMMON NORMALS: normal respiratory effort, No retractions, No use of accessory muscles and clear to auscultation bilaterally AUSCULTATION: clear to auscultation bilaterally Cardio: COMMON NORMALS: no JVD, regular rate, regular rhythm and No murmurs present (Cardio) RATE: regular rate RHYTHM: regular rhythm GI: COMMON NORMALS: Soft to palpation and No hepatosplenomegaly present AUSCULTATION: Yes normoactive bowel sounds PALPATION: Yes Soft to palpation, No Tenderness to palpation present (GI), No Guarding due to palpation present (GI) and Yes No hepatosplenomegaly present : COMMON NORMALS: Yes no CVA tenderness BLADDER/KIDNEY EXAM: Yes no CVA tenderness Back/Pelvis: COMMON NORMALS: no CVA tenderness Extremity: COMMON NORMALS: normal to inspection, capillary refill normal, no clubbing, cyanosis or edema, no calf tenderness and no pedal edema Neuro: SENSORIUM/ORIENTATION: Yes oriented to person, Yes oriented to place and Yes oriented to time Skin: COMMON NORMALS: no rashes or lesions noted GENERAL SKIN EXAM: no rashes or lesions noted Course Vital Signs: Vital signs: Vital Signs Temperature 99.2 F 05/03/22 15:02 Pulse Rate 77 05/03/22 15:08 Respiratory Rate 17 05/03/22 15:08 Blood Pressure 126/64 05/03/22 15:08 Pulse Oximetry 98 06/28/22 15:08 MDM - Chest Pain Medical Decision Making Discussed different options with the patient. Doing another stress test does not seem to be helpful to this. She already has a questionably positive test. Reviewed the findings with relatively equivocal. According to cardiology notes that were going to go with medical management. Interestingly though she notes the chest pain only comes after she eats. She not been taking anything for reflux. Adilson started on pantoprazole 40 mg daily sienna increase her isosorbide mononitrate and decrease her amlodipine. We will have her follow-up with her exercise teacher later this week if she has any worsening or recurrent symptoms return. Medical Records I reviewed the patient's medical records. Lab Data I reviewed the patient's lab results. : 05/03/22 15:32 05/03/22 15:32 Radiology Impressions Chest X-Ray 05/03/22 15:21 IMPRESSION: No acute chest abnormality. Laboratory Results WBC 9.7 10^3/uL (4.0-10.0) 05/03/22 15:32 RBC 4.39 10^6/uL (4.1-5.3) 05/03/22 15:32 Hgb 10.2 g/dL (11.5-15.3) L 05/03/22 15:32 Hct 32.0 % (37.0-47.0) L 05/03/22 15:32 MCV 72.9 fl (81-99) L 05/03/22 15:32 MCH 23.2 pg (28.0-34.0) L 05/03/22 15:32 MCHC 31.9 g/dL (30.0-36.0) 05/03/22 15:32 RDW 14.8 % (12.1-15.1) 05/03/22 15:32 Plt Count 395 10^3/cmm (130-400) 05/03/22 15:32 MPV 9.9 fL (7.4-10.4) 05/03/22 15:32 Neut % (Auto) 58.8 % 05/03/22 15:32 Lymph % (Auto) 31.5 % 05/03/22 15:32 [place] % (Auto) 6.8 % 05/03/22 15:32 Eos % (Auto) 2.2 % 05/03/22 15:32 Baso % (Auto) 0.5 % 05/03/22 15:32 Neut # (Auto) 5.70 10^3/uL (1.8-7.7) 05/03/22 15:32 Lymph # (Auto) 3.1 10^3/uL (0.8-4.8) 05/03/22 15:32 [place] # (Auto) 0.7 10^3/uL (0.2-0.9) 05/03/22 15:32 Eos # (Auto) 0.2 10^3/uL (0.0-0.8) 05/03/22 15:32 Baso # (Auto) 0.1 10^3/uL (0.0-0.1) 05/03/22 15:32 Nucleated RBC % (auto) 0 % 05/03/22 15:32 Nucleated RBCs # 0.0 /100WBC 05/03/22 15:32 Sodium 136 mmol/L (136-145) 05/03/22 15:32 Potassium 3.4 mmol/L (3.5-5.1) L 05/03/22 15:32 Chloride 99 mmol/L (98-107) 05/03/22 15:32 Carbon Dioxide 24 mmol/L (22-29) 05/03/22 15:32 Anion Gap 16.4 (5-19) 05/03/22 15:32 BUN 10 mg/dL (8-23) 05/03/22 15:32 Creatinine 0.8 mg/dL (0.5-0.9) 05/03/22 15:32 GFR Calculation Not Reportable 05/03/22 15:32 Glucose 137 mg/dL (65-115) H 05/03/22 15:32 POC Glucose 127 mg/dL (70-110) H 05/03/22 17:56 Calculated Osmolality 283 mOsm/kg (285-295) L 05/03/22 15:32 Calcium 9.5 mg/dL (8.5-10.5) 05/03/22 15:32 Total Bilirubin 0.2 mg/dL (0.15-1.2) 05/03/22 15:32 AST 12 U/L (0-32) 05/03/22 15:32 ALT 9 U/L (0-33) 05/03/22 15:32 Alkaline Phosphatase 130 IU/L (35-105) H 05/03/22 15:32 Troponin T Baseline 11 ng/L (0-10) H 05/03/22 15:32 Troponin T 120 Minute 11.58 ng/L (0-10) H 05/03/22 17:32 Delta Troponin T 0.58 ABS# (0-10) 05/03/22 17:32 Total Protein 7.9 g/dL (6.6-8.7) 05/03/22 15:32 Albumin 4.2 g/dL (3.5-5.2) 05/03/22 15:32 Globulin 3.7 g/dL (1.3-4.6) 05/03/22 15:32 Discharge Plan Discharge Patient Disposition: Home Clinical Impression: Atypical chest pain, Chest pain due to GERD Condition: Stable Prescriptions: New Protonix 40 mg tablet,delayed release (DR/EC) 40 mg PO DAILY Qty: 30 0RF Changed isosorbide mononitrate 30 mg tablet extended release 24 hr 60 mg PO DAILY Qty: 30 0RF amlodipine 5 mg tablet 2.5 mg PO DAILY Qty: 0 0RF No Action Myrbetriq 50 mg tablet extended release 24 hr 50 mg PO DAILY 0RF metformin 1,000 mg tablet 1,000 mg PO BID 0RF hydroxyzine HCl 25 mg tablet 25 mg PO QID PRN (Reason: Anxiety) 0RF nitroglycerin 0.4 mg tablet, sublingual 0.4 mg sublingual Q5M PRN (Reason: chest pain) Qty: 30 3RF Rx Instructions: do not exceed 3 doses per episode nitrofurantoin monohyd/m-cryst 100 mg capsule See Rx Instructions .ROUTE .COMPLEX Qty: 60 1RF Dose Instruction: TAKE ONE CAPSULE BY MOUTH TWICE DAILY WITH FOOD Rx Instructions: TAKE ONE CAPSULE BY MOUTH TWICE DAILY WITH FOOD spironolactone 25 mg tablet 12.5 mg PO DAILY 0RF levothyroxine 75 mcg tablet 75 mcg PO DAILY 0RF tamsulosin 0.4 mg capsule 0.4 mg PO DAILY 0RF fluticasone propionate 50 mcg/actuation spray,suspension 2 spray INTRANASAL DAILY PRN (Reason: Nasal Congestion) 0RF Rx Instructions: USE IN EACH NOSTRIL aspirin 81 mg tablet,delayed release (DR/EC) 81 mg PO DAILY Qty: 30 0RF atorvastatin 20 mg Tablet 20 mg PO DAILY 0RF venlafaxine 150 mg Tablet Extended Release 24 Hr 150 mg PO DAILY 0RF Discharge Orders: Discharge ED (Routine); Ordered 05/03/22 Ordered By: Robert Leigh Referrals: Zeus Young DO [Primary Care Provider] - Discharge Diet: Usual diet Discharge Activity: Limit activity as instructed Patient Instructions: Opioid Safety Activity Restrictions/Additional Instructions: Avoid exertional activity. Decrease amlodipine to 2.5 mg (half tablet) daily. Increase isosorbide to 60 mg (2 tablets) daily. Follow-up with Dr. Camacho later this week. Coding Level of Care Code ED Machine Riveter for Fiorg Fwd Exam Comprehensive
[2022-05-03 15:43] LABS: Basophils # 0.1 10^3/uL (0.0-0.1); Basophils % 0.5 %; Eosinophils # 0.2 10^3/uL (0.0-0.8); Eosinophils % 2.2 %; Hemoglobin 10.2 g/dL (11.5-15.3); Lymphocytes # 3.1 10^3/uL (0.8-4.8); Lymphocytes % 31.5 %; Mean Corpuscular HGB Conc 31.9 g/dL (30.0-36.0); Mean Corpuscular Hemoglobin 23.2 pg (28.0-34.0); Mean Corpuscular Volume 72.9 fl (81-99); Mean Platelet Volume 9.9 fL (7.4-10.4); Monocytes # 0.7 10^3/uL (0.2-0.9); Monocytes % 6.8 %; Neutrophils % 58.8 %; Nucleated Red Blood Cells % 0 %; Platelet Count 395 10^3/cmm (130-400); Red Blood Count 4.39 10^6/uL (4.1-5.3); Red Cell Distribution Width 14.8 % (12.1-15.1); White Blood Count 9.7 10^3/uL (4.0-10.0)
--- NOTE | 2022-05-03 15:46 | PC.PHAR ---
Pt states she was taken off Eliquis 5mg BID about a month ago and no longer takes Potassium Chloride 10 meq once daily
[2022-05-03] MEDS: aspirin 81 mg Chew Tablet 324 MG PO (15:48)
[2022-05-03 16:02] LABS: Troponin(5th) Baseline 11 ng/L (0-10)
[2022-05-03 16:04] LABS: Alanine Aminotransferase 9 U/L (0-33); Albumin Level 4.2 g/dL (3.5-5.2); Alkaline Phosphatase 130 IU/L (35-105); Anion Gap 16.4 (5-19); Aspartate Amino Transferase 12 U/L (0-32); Blood Urea Nitrogen 10 mg/dL (8-23); Calcium 9.5 mg/dL (8.5-10.5); Carbon Dioxide 24 mmol/L (22-29); Chloride 99 mmol/L (98-107); Globulin 3.7 g/dL (1.3-4.6); Glucose 137 mg/dL (65-115); Osmolality Calculated 283 mOsm/kg (285-295); Potassium 3.4 mmol/L (3.5-5.1); Sodium 136 mmol/L (136-145); Total Bilirubin 0.2 mg/dL (0.15-1.2); Total Protein 7.9 g/dL (6.6-8.7)
--- NOTE | 2022-05-03 17:21 | ECG_ITS ---
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 Measurements Intervals [place] Rate: 69 P: 31 AR: 142 QRS: 55 QRSD: 93 T: 79 QT: 391 QTc: 419 Interpretive Statements SINUS RHYTHM NONSPECIFIC T-WAVE ABNORMALITY Compared to ECG 05/03/2022 15:18:05 T-wave abnormality now present Electronically Signed On 05-03-2022 20:15:30 CDT by Neal Renner M.D. [id number]
[2022-05-03 17:58] LABS: Glucose Point of Care 127 mg/dL (70-110)
[2022-05-03 17:59] LABS: Troponin 5 2HR 11.58 ng/L (0-10)
[2022-05-03 18:04] LABS: Troponin 5 2HR Delta 0.58 ABS# (0-10)
--- NOTE | 2022-05-10 07:57 | DCPLANNER ---
Addendum entered by Rosemarie Elizalde 06/29/22 12:04: Patient had a follow up appointment scheduled for 06.01.22 with [facility] - patient did attend appointment. Addendum entered by Rosemarie Elizalde 05/30/22 13:43: Patient has a follow up appointment scheduled for Wednesday, June 01, 2022 at 2:[address] Cisneros at [facility]. Clinic will notify patient with appointment information. Original Note: banking management consulting manager had message to schedule a follow up appointment for patient with cardiology. banking management consulting manager sent patients information to the front office staff at [facility]. Patients information will be printed and reviewed. Clinic will call patient with appointment information.
== END 2022-05-03 18:57 | disposition home or self-care (01) ==
PROVIDERS: Emergency Provider Family Medicine; PCP Family Medicine
DX: R07.89 Other chest pain (principal); K21.9 Gastro-esophageal reflux disease without esophagitis; Z79.84 Long term (current) use of oral hypoglycemic drugs; Z79.82 Long term (current) use of aspirin; J44.9 Chronic obstructive pulmonary disease, unspecified; E11.9 Type 2 diabetes mellitus without complications; I10 Essential (primary) hypertension
CPT/HCPCS: 36415; 36416; 71045; 80053; 82962; 84484; 85025; 93005; 99284

== ENCOUNTER → 2022-06-01 13:35 | Outpatient (BNVA) | payer MEDICARE, MEDICAID, SELFPAY | PROVIDERS: PCP Family Medicine; Visit Provider Internal Medicine Cardiovascular Disease | DX: R07.9 Chest pain, unspecified (principal); I10 Essential (primary) hypertension; Z86.718 Personal history of other venous thrombosis and embolism | CPT/HCPCS: 99214 ==

== ENCOUNTER 2022-06-08 21:26 | Emergency (ER) | payer MEDICARE, MEDICAID, SELFPAY ==
--- NOTE | 2022-06-08 21:27 | ECG_ITS ---
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 Measurements Intervals [place] Rate: 76 P: 90 MD: 140 QRS: 63 QRSD: 94 T: 61 QT: 404 QTc: 455 Interpretive Statements SINUS RHYTHM Compared to ECG 05/03/2022 17:35:23 T-wave abnormality no longer present Electronically Signed On 06-09-2022 14:22:35 CDT by Serge Del Rio M.D. [id number]
--- NOTE | 2022-06-08 21:27 | XRR_ITS ---
PROCEDURE INFORMATION: Exam: XR Chest Exam date and time: 06/08/2022 10:10 PM Age: 76 years old Clinical indication: Angina; Additional info: Chest pain TECHNIQUE: Imaging protocol: Radiologic exam of the chest. Views: 1 view. COMPARISON: CR XR chest 1V portable [id number] 05/03/2022 3:40 PM FINDINGS: Lungs: Visualized portions of the lungs are clear. Pleural spaces: Unremarkable. No pleural effusion. No pneumothorax. Heart/Mediastinum: Heart is within normal limits of size. Vasculature: Atherosclerotic calcification is present in the aortic arch. Bones/joints: Postsurgical changes are seen in the cervical spine. There are degenerative changes in the thoracic spine. XR/XR chest 1V portable [id number] IMPRESSION: No acute infiltrate.
[2022-06-08 21:40] VITALS: BP 122/59; PULSE 77; RESP 18; O2SAT 99
[2022-06-08 21:46] VITALS: BP 122/59; PULSE 79; RESP 18; TEMP 37; O2SAT 99; BMI 26.2
--- NOTE | 2022-06-08 21:58 | W.ED.CHESTPA ---
HPI - Chest Pain General: Chief Complaint: Chest Pain Stated Complaint: CP Time Seen by Provider: 06/08/22 21:44 Source: patient and EMS Mode of arrival: EMS Limitations: no limitations History of Present Illness: 76-year-old female who is states that she had chest pain while she was watching TV tonight. She states that the pain started roughly 2 to 3 hours ago it was a sharp pain in the center of her chest went to her left arm states is worse with deep inspiration patient given aspirin in route states that since then her pain has been completely resolved she feels back to her baseline denies any fever denies any nausea vomiting [facility] ED PFSH: Medical History COPD (chronic obstructive pulmonary disease) Degenerative lumbar disc Diabetes mellitus Facet arthropathy, lumbar H/O deep venous thrombosis Hematuria HTN (hypertension) Lumbar disc disease with radiculopathy Recurrent UTI UTI (urinary tract infection) Surgical History History of neck surgery S/P coronary angiogram S/P knee surgery S/P wrist surgery Family History Mother , at age 114 Myocardial infarct Father , in his 70's Hypertension Sister Diabetes Son Diabetes Social History Smoking and tobacco status: never smoked Alcohol intake: never Marital status: / Current occupational status: retired History of recent travel: No Physical Exam Const: COMMON NORMALS: no acute distress, patient oriented x3 and healthy appearing HENMT: COMMON NORMALS: normocephalic and atraumatic HEAD & SCALP: normocephalic and atraumatic Eye: COMMON NORMALS: Equal, round and reactive pupils present and EOMs intact bilaterally PUPIL: Yes Equal, round and reactive pupils present Neck/C-Spine: COMMON NORMALS: full ROM and supple Chest: COMMONS NORMALS: normal inspection of the chest and normal palpation of entire chest wall Resp: COMMON NORMALS: normal respiratory effort, No retractions, No use of accessory muscles and clear to auscultation bilaterally AUSCULTATION: clear to auscultation bilaterally Cardio: COMMON NORMALS: regular rate, regular rhythm and No murmurs present (Cardio) RATE: regular rate RHYTHM: regular rhythm GI: COMMON NORMALS: Normal to inspection, nondistended, normoactive bowel sounds present, Soft to palpation, non-tender and no masses PALPATION: Yes Soft to palpation Extremity: COMMON NORMALS: normal to inspection and full ROM Neuro: COMMON NORMALS: patient oriented x3, moves all extremities and no focal motor deficits Psych: COMMON NORMALS: mental status grossly normal, Normal thought process present and cooperative THOUGHT PROCESS: Normal thought process present Skin: COMMON NORMALS: no rashes or lesions noted and no wounds GENERAL SKIN EXAM: no rashes or lesions noted Course Vital Signs: Vital signs: Vital Signs Temperature 98.6 F 06/08/22 21:46 Pulse Rate 79 06/08/22 21:46 Respiratory Rate 18 06/08/22 21:46 Blood Pressure 122/59 06/08/22 21:46 Pulse Oximetry 99 06/08/22 21:46 Oxygen Delivery Me thod 06/08/22 21:46 MDM - Chest Pain Medical Decision Making Patient presents for chest pain that is atypical in nature patient's initial repeat troponin here are both negative CTA of her chest is normal as well she feels improved she had no pain here she is stable for discharge she is to follow-up PCP and return if worsening she understands agrees to plan. Lab Data : 06/08/22 21:57 06/08/22 21:57 Radiology Impressions Chest X-Ray 06/08/22 21:27 IMPRESSION: No acute infiltrate. Chest CTA 06/08/22 23:09 IMPRESSION: No evidence of pulmonary embolism. Laboratory Results WBC 11.2 10^3/uL (4.0-10.0) H 06/08/22 21:57 RBC 4.22 10^6/uL (4.1-5.3) 06/08/22 21:57 Hgb 9.6 g/dL (11.5-15.3) L 06/08/22 21:57 Hct 31.6 % (37.0-47.0) L 06/08/22 21:57 MCV 74.9 fl (81-99) L 06/08/22 21:57 MCH 22.7 pg (28.0-34.0) L 06/08/22 21:57 MCHC 30.4 g/dL (30.0-36.0) 06/08/22 21:57 RDW 15.1 % (12.1-15.1) 06/08/22 21:57 Plt Count 409 10^3/cmm (130-400) H 06/08/22 21:57 MPV 9.8 fL (7.4-10.4) 06/08/22 21:57 Neut % (Auto) 61.8 % 06/08/22 21:57 Lymph % (Auto) 29.0 % 06/08/22 21:57 [place] % (Auto) 6.3 % 06/08/22 21:57 Eos % (Auto) 1.9 % 06/08/22 21:57 Baso % (Auto) 0.4 % 06/08/22 21:57 Neut # (Auto) 6.95 10^3/uL (1.8-7.7) 06/08/22 21:57 Lymph # (Auto) 3.3 10^3/uL (0.8-4.8) 06/08/22 21:57 [place] # (Auto) 0.7 10^3/uL (0.2-0.9) 06/08/22 21:57 Eos # (Auto) 0.2 10^3/uL (0.0-0.8) 06/08/22 21:57 Baso # (Auto) 0.0 10^3/uL (0.0-0.1) 06/08/22 21:57 Nucleated RBC % (auto) 0 % 06/08/22 21:57 Nucleated RBCs # 0.0 /100WBC 06/08/22 21:57 D-Dimer 1.69 ug/mIFEU (0-0.59) H 06/08/22 21:57 Sodium 133 mmol/L (136-145) L 06/08/22 21:57 Potassium 3.5 mmol/L (3.5-5.1) 06/08/22 21:57 Chloride 96 mmol/L (98-107) L 06/08/22 21:57 Carbon Dioxide 25 mmol/L (22-29) 06/08/22 21:57 Anion Gap 15.5 (5-19) 06/08/22 21:57 BUN 11 mg/dL (8-23) 06/08/22 21:57 Creatinine 0.8 mg/dL (0.5-0.9) 06/08/22 21:57 GFR Calculation Not Reportable 06/08/22 21:57 Glucose 142 mg/dL (65-115) H 06/08/22 21:57 Calculated Osmolality 278 mOsm/kg (285-295) L 06/08/22 21:57 Calcium 9.6 mg/dL (8.5-10.5) 06/08/22 21:57 Troponin T Baseline 10 ng/L (0-10) 06/08/22 21:57 Troponin T 120 Minute Cancelled 06/08/22 00:39 Delta Troponin T Cancelled 06/08/22 00:39 EKG Data EKG 1: I personally reviewed and interpreted this EKG as follows: EKG interpretation date: 06/08/22 EKG interpretation time: 21:47 Interpretation: sinus tach hr [address] or t wave abnormalities qrs 90 qtc 389 EKG 2: I personally reviewed and interpreted this EKG as follows: EKG interpretation date: 06/08/22 EKG interpretation time: 23:35 Interpretation: nsr hr [address] or t wave abnormalities qrs 102 qtc 425 Discharge Plan Discharge Patient Disposition: Home Clinical Impression: Chest pain Qualifiers: Chest pain type: unspecified Qualified Code(s): R07.9 - Chest pain, unspecified Condition: Stable Prescriptions: No Action Myrbetriq 50 mg tablet extended release 24 hr 50 mg PO DAILY metformin 1,000 mg tablet 1,000 mg PO BID hydroxyzine HCl 25 mg tablet 25 mg PO QID PRN (Reason: Anxiety) nitroglycerin 0.4 mg tablet, sublingual 0.4 mg sublingual Q5M PRN (Reason: chest pain) Qty: 30 3RF Rx Instructions: do not exceed 3 doses per episode isosorbide mononitrate 30 mg tablet extended release 24 hr 90 mg PO DIRECTED Qty: 230 2RF Rx Instructions: 30mg AM and 60mg PM nitrofurantoin monohyd/m-cryst 100 mg capsule See Rx Instructions .ROUTE .COMPLEX Qty: 60 1RF Dose Instruction: TAKE ONE CAPSULE BY MOUTH TWICE DAILY WITH FOOD Rx Instructions: TAKE ONE CAPSULE BY MOUTH TWICE DAILY WITH FOOD spironolactone 25 mg tablet 12.5 mg PO DAILY levothyroxine 75 mcg tablet 75 mcg PO DAILY tamsulosin 0.4 mg capsule 0.4 mg PO DAILY fluticasone propionate 50 mcg/actuation spray,suspension 2 spray INTRANASAL DAILY PRN (Reason: Nasal Congestion) Rx Instructions: USE IN EACH NOSTRIL aspirin 81 mg tablet,delayed release (DR/EC) 81 mg PO DAILY Qty: 30 0RF atorvastatin 20 mg Tablet 20 mg PO DAILY venlafaxine 150 mg Tablet Extended Release 24 Hr 150 mg PO DAILY Protonix 40 mg tablet,delayed release (DR/EC) 40 mg PO DAILY Qty: 30 0RF amlodipine 5 mg tablet 2.5 mg PO DAILY Qty: 0 0RF Discharge Orders: Discharge ED (Routine); Ordered 06/09/22 Ordered By: Chris Wild Referrals: Zeus Young DO [Primary Care Provider] - 1-3 days Discharge Diet: Advance as tolerated Discharge Activity: Resume usual activity Patient Instructions: Chest Pain (ED) Coding Level of Care Code ED Property Management Intern for Fiorg Fwd Exam Comprehensive
[2022-06-08 22:10] LABS: Basophils % 0.4 %; Eosinophils # 0.2 10^3/uL (0.0-0.8); Eosinophils % 1.9 %; Hematocrit 31.6 % (37.0-47.0); Hemoglobin 9.6 g/dL (11.5-15.3); Lymphocytes # 3.3 10^3/uL (0.8-4.8); Mean Corpuscular HGB Conc 30.4 g/dL (30.0-36.0); Mean Corpuscular Hemoglobin 22.7 pg (28.0-34.0); Mean Corpuscular Volume 74.9 fl (81-99); Mean Platelet Volume 9.8 fL (7.4-10.4); Monocytes # 0.7 10^3/uL (0.2-0.9); Monocytes % 6.3 %; Neutrophils # 6.95 10^3/uL (1.8-7.7); Neutrophils % 61.8 %; Nucleated Red Blood Cells % 0 %; Platelet Count 409 10^3/cmm (130-400); Red Blood Count 4.22 10^6/uL (4.1-5.3); Red Cell Distribution Width 15.1 % (12.1-15.1); White Blood Count 11.2 10^3/uL (4.0-10.0)
[2022-06-08 22:34] LABS: Anion Gap 15.5 (5-19); Blood Urea Nitrogen 11 mg/dL (8-23); Calcium 9.6 mg/dL (8.5-10.5); Carbon Dioxide 25 mmol/L (22-29); Chloride 96 mmol/L (98-107); Creatinine Clr Calc Pharmacy 56.5612; Glucose 142 mg/dL (65-115); Osmolality Calculated 278 mOsm/kg (285-295); Potassium 3.5 mmol/L (3.5-5.1); Sodium 133 mmol/L (136-145)
[2022-06-08 22:36] LABS: Troponin(5th) Baseline 10 ng/L (0-10)
[2022-06-08 23:00] VITALS: BP 146/74; PULSE 70; RESP 18; O2SAT 98
[2022-06-08 23:07] LABS: D Dimer 1.69 ug/mIFEU (0-0.59)
--- NOTE | 2022-06-08 23:09 | CTR_ITS ---
PROCEDURE INFORMATION: Exam: CTA Chest With Contrast Exam date and time: 06/08/2022 11:26 PM Age: 76 years old Clinical indication: Pain and abnormal findings; Abnormal diagnostic tests; Elevated d-dimer; Shortness of breath; Chest pressure; Patient HX: C/O chest pain with SOB. Elevated d dimer. TECHNIQUE: Imaging protocol: Computed tomographic angiography of the chest with contrast. 3D rendering (Not supervised by radiologist): MIP and/or 3D reconstructed images were created by the technologist. Radiation optimization: All CT scans at this facility use at least one of these dose optimization techniques: automated exposure control; mA and/or kV adjustment per patient size (includes targeted exams where dose is matched to clinical indication); or iterative reconstruction. Contrast material: OMNI 350; Contrast volume: 70 ml; Contrast route: INTRAVENOUS (IV); COMPARISON: CTA Chest-Pulmonary Emb [id number] 07/03/2019 12:08 PM RADIATION DOSE METRICS: Total DLP (mGy-cm): 189.51 FINDINGS: Pulmonary arteries: There is no evidence of filling defects within the pulmonary arterial circulation to suggest pulmonary embolism. Aorta: There is no thoracic aortic aneurysm or dissection. Lungs: Lungs are clear. There is calcified granuloma in the right lower lobe. Pleural spaces: Unremarkable. No pneumothorax. No pleural effusion. Heart: Unremarkable. No cardiomegaly. No pericardial effusion. Lymph nodes: There is no evidence of lymphadenopathy. Diaphragm: There is a small hiatal hernia. Bones/joints: Unremarkable. No acute fracture. Soft tissues: Unremarkable. CT/CT angio chest PE protcl [id number] IMPRESSION: No evidence of pulmonary embolism.
[2022-06-08] MEDS: iohexol 350 mg/mL 100 mL Btl IV (23:34)
--- NOTE | 2022-06-08 23:35 | ECG_ITS ---
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 Measurements Intervals [place] Rate: 72 P: 52 [place]: 139 QRS: 34 QRSD: 102 T: 66 QT: 401 QTc: 440 Interpretive Statements SINUS RHYTHM NONSPECIFIC T-WAVE ABNORMALITY Compared to ECG 06/08/2022 21:59:20 T-wave abnormality now present Electronically Signed On 06-09-2022 14:26:24 CDT by Serge Del Rio M.D. [id number]
[2022-06-09 01:00] VITALS: BP 138/78; PULSE 75; RESP 16; O2SAT 99
[2022-06-09 01:29] LABS: Troponin 5 2HR 10.68 ng/L (0-10); Troponin 5 2HR Delta 0.68 ABS# (0-10)
[2022-06-09 01:30] VITALS: BP 154/68; PULSE 68; RESP 18; O2SAT 98
== END 2022-06-09 01:56 | disposition home or self-care (01) ==
PROVIDERS: Emergency Medicine; Emergency Provider Emergency Medicine; PCP Family Medicine
DX: R07.9 Chest pain, unspecified (principal); Z79.82 Long term (current) use of aspirin; Z79.84 Long term (current) use of oral hypoglycemic drugs; J44.9 Chronic obstructive pulmonary disease, unspecified; E11.9 Type 2 diabetes mellitus without complications; I10 Essential (primary) hypertension
CPT/HCPCS: 71045; 71275; 80048; 84484; 85025; 85378; 93005; 99285; Q9967

== ENCOUNTER → 2022-06-16 09:43 | Outpatient (BNVA) | payer MEDICARE, MEDICAID, SELFPAY | PROVIDERS: PCP Family Medicine; Visit Provider Urology | DX: N30.80 Other cystitis without hematuria (principal) | CPT/HCPCS: 51798; 81003; 99213 ==

== ENCOUNTER 2022-06-22 13:25 | Emergency (ER) | payer MEDICARE, MEDICAID, SELFPAY ==
[2022-06-22 13:34] VITALS: BP 125/68; PULSE 76; RESP 18; TEMP 36.8; O2SAT 98; BMI 24.0
--- NOTE | 2022-06-22 13:44 | ECG_ITS ---
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 Measurements Intervals [place] Rate: 72 P: 55 [place]: 142 QRS: 63 QRSD: 98 T: 76 QT: 396 QTc: 435 Interpretive Statements SINUS RHYTHM MINIMAL ST DEPRESSION [0.025+ mV ST DEPRESSION] Compared to ECG 06/08/2022 23:35:09 ST (T wave) deviation now present T-wave abnormality no longer present Electronically Signed On 06-22-2022 17:17:02 CDT by Jj Veronica M.D. [email or web address] [id number]
[2022-06-22 14:08] LABS: Basophils # 0.1 10^3/uL (0.0-0.1); Basophils % 0.4 %; Eosinophils # 0.1 10^3/uL (0.0-0.8); Eosinophils % 0.5 %; Hematocrit 35.3 % (37.0-47.0); Hemoglobin 10.5 g/dL (11.5-15.3); Lymphocytes # 2.6 10^3/uL (0.8-4.8); Lymphocytes % 17.7 %; Mean Corpuscular HGB Conc 29.7 g/dL (30.0-36.0); Mean Corpuscular Volume 77.4 fl (81-99); Mean Platelet Volume 9.5 fL (7.4-10.4); Monocytes # 0.7 10^3/uL (0.2-0.9); Monocytes % 4.9 %; Neutrophils # 11.18 10^3/uL (1.8-7.7); Nucleated Red Blood Cells % 0 %; Platelet Count 464 10^3/cmm (130-400); Red Blood Count 4.56 10^6/uL (4.1-5.3); Red Cell Distribution Width 16.8 % (12.1-15.1); White Blood Count 14.7 10^3/uL (4.0-10.0)
[2022-06-22 14:35] LABS: Alanine Aminotransferase 11 U/L (0-33); Alkaline Phosphatase 132 U/L (35-105); Anion Gap 17.9 (5-19); Aspartate Amino Transferase 14 U/L (0-32); Blood Urea Nitrogen 8 mg/dL (8-23); Calcium 9.1 mg/dL (8.5-10.5); Carbon Dioxide 23 mmol/L (22-29); Chloride 97 mmol/L (98-107); Globulin 3.9 g/dL (1.3-4.6); Glucose 257 mg/dL (65-115); Lipase 58 U/L (13-60); Osmolality Calculated 287 mOsm/kg (285-295); Sodium 135 mmol/L (136-145); Total Bilirubin 0.4 mg/dL (0.15-1.2); Total Protein 7.9 g/dL (6.6-8.7)
[2022-06-22 14:38] LABS: Potassium 2.9 mmol/L (3.5-5.1)
--- NOTE | 2022-06-22 14:44 | ECG_ITS ---
[facility] Test Date: 2022-06-22 Pat Name: Maria Luz Finney Department: Room: Gender: Female Tour Conductor: : 1945 Requested By: Ines Aparicio Order Number: [id number] Viry MD: Jj Veronica M.D. Measurements Intervals [place] Rate: 67 P: 40 [place]: 147 QRS: 53 QRSD: 86 T: 83 QT: 407 QTc: 430 Interpretive Statements SINUS RHYTHM Compared to ECG 06/22/2022 15:59:19 No significant changes Electronically Signed On 06-22-2022 17:16:30 CDT by Jj Veronica M.D. [id number]
--- NOTE | 2022-06-22 14:44 | XR_ITS ---
WS: [id number] Portable AP upright chest, 06/22/2022 Clinical Data: chest pain Comparison: Portable chest, 06/08/2022. Findings: No nodules, masses or effusions are seen. The heart is normal. The pulmonary vascularity is not increased. No pneumonia or pneumothorax is seen. The aortic arch shows calcification. There is a dextroscoliosis of the lower thoracic spine. There is an anterior cervical disc fusion of the lower cervical spine. There are orthopedic anchors in the right humeral head. XR/XR chest 1V portable [id number] Impression: Atherosclerosis.
[2022-06-22 15:08] LABS: Troponin(5th) Baseline 14 ng/L (0-10)
[2022-06-22] MEDS: potassium chloride oral liq 20 mEq/15 mL UDC 40 MEQ PO (15:17)
--- NOTE | 2022-06-22 15:34 | PC.NURSE ---
PT PLACED ON CONTINUOUS NIBP, SPO2, AND CM
--- NOTE | 2022-06-22 15:39 | W.ED.CHESTPA ---
HPI - Chest Pain General: Chief Complaint: Chest Pain Stated Complaint: High blood pressure Weakness Time Seen by Provider: 06/22/22 15:07 Source: patient Mode of arrival: ambulatory Limitations: no limitations History of Present Illness: 76-year-old female presents emergency room with complaints of chest pain. Evidently she was at her doctor's office today had an episode of chest pain that resolved spontaneously prior to arrival. She had a stress test in April of this year that was read is rather equivocal. And seen her after that reading the assembler carbon brushes notes they decided for essentially a medical management approach. Since I had last seen the patient in the ER she followed up with Dr. Camacho who continued the same medication changes that we had made and increase the isosorbide slightly. She has not noticed anything that exacerbates or relieves it at this point. The area of questionable ischemia was also thought to possibly be artifact. MD complaint: chest pain Onset (ago): hour(s) Timing of current episode: episodic Prior episodes: Yes Onset: during rest Pain location: left chest Pain radiation: none Severity: mild Quality: tightness, aching and heaviness Relieving factors: nothing Exacerbating factors: nothing Associated symptoms: Deny abdominal pain, diaphoresis, dyspnea, fever(s), leg edema, nausea, palpitations, sense of impending doom, syncope or vomiting Treatment prior to arrival: none Review of Systems Const: Denies: fever(s), chills, fatigue, malaise or diaphoresis ENMT: Denies: throat pain, ear or mastoid pain, nasal discharge or nasal congestion Card: Reports: chest pain; Denies: palpitations, irregular heart rhythm, edema or syncope Resp: Denies: dyspnea GI: Denies: abdominal pain, nausea or vomiting : Denies: flank pain, difficulty voiding, dysuria, urinary frequency or urinary urgency Musc: Denies: neck pain or back pain Skin/Breast: Denies: rash or pruritus PFSH ED PFSH: Medical History COPD (chronic obstructive pulmonary disease) Degenerative lumbar disc Diabetes mellitus Facet arthropathy, lumbar H/O deep venous thrombosis Hematuria HTN (hypertension) Lumbar disc disease with radiculopathy Recurrent UTI UTI (urinary tract infection) Surgical History History of neck surgery S/P coronary angiogram S/P knee surgery S/P wrist surgery Family History Mother , at age 114 Myocardial infarct Father , in his 70's Hypertension Sister Diabetes Son Diabetes Social History Smoking and tobacco status: never smoked Alcohol intake: never Marital status: / Current occupational status: retired History of recent travel: No Physical Exam Const: COMMON NORMALS: no acute distress GENERAL APPEARANCE: cooperative and comfortable ORIENTATION/CONSCIOUSNESS: Yes awake, Yes oriented to person, Yes oriented to place and Yes oriented to time HENMT: COMMON NORMALS: normocephalic, atraumatic and hearing grossly normal bilaterally HEAD & SCALP: normocephalic and atraumatic Resp: COMMON NORMALS: normal respiratory effort, No retractions, No use of accessory muscles and clear to auscultation bilaterally AUSCULTATION: clear to auscultation bilaterally Cardio: COMMON NORMALS: regular rate, regular rhythm and No murmurs present (Cardio) RATE: regular rate RHYTHM: regular rhythm GI: COMMON NORMALS: Soft to palpation and No hepatosplenomegaly present AUSCULTATION: Yes normoactive bowel sounds PALPATION: Yes Soft to palpation, No Tenderness to palpation present (GI), No Guarding due to palpation present (GI) and Yes No hepatosplenomegaly present Extremity: COMMON NORMALS: normal to inspection, capillary refill normal, no clubbing, cyanosis or edema, no calf tenderness and no pedal edema Neuro: SENSORIUM/ORIENTATION: Yes oriented to person, Yes oriented to place and Yes oriented to time Skin: COMMON NORMALS: no rashes or lesions noted GENERAL SKIN EXAM: no rashes or lesions noted Course Vital Signs: Vital signs: Vital Signs Temperature 98.2 F 06/22/22 13:34 Pulse Rate 72 06/22/22 17:21 Respiratory Rate 18 06/22/22 17:21 Blood Pressure 135/105 06/22/22 17:21 Pulse Oximetry 96 06/22/22 17:21 Oxygen Delivery Me thod 06/22/22 13:34 MDM - Chest Pain Medical Decision Making Patient hypokalemia which was treated with p.o. supplement. She is completely pain-free now and repeat EKGs troponins are unremarkable. Discussed option of the patient she has no interest in staying. She has had a couple episodes of this since her stress test. I had seen her earlier this year we started isosorbide DrAmber gonzalez had slightly increased it. We will increase it again today to 60 mg twice a day and have her follow-up with cardiology return if has further problems. Medical Records I reviewed the patient's medical records. Lab Data I reviewed the patient's lab results. : 06/22/22 13:55 06/22/22 13:55 Radiology Impressions Chest X-Ray 06/22/22 14:44 Impression: Atherosclerosis. Laboratory Results WBC 14.7 10^3/uL (4.0-10.0) H 06/22/22 13:55 RBC 4.56 10^6/uL (4.1-5.3) 06/22/22 13:55 Hgb 10.5 g/dL (11.5-15.3) L 06/22/22 13:55 Hct 35.3 % (37.0-47.0) L 06/22/22 13:55 MCV 77.4 fl (81-99) L 06/22/22 13:55 MCH 23.0 pg (28.0-34.0) L 06/22/22 13:55 MCHC 29.7 g/dL (30.0-36.0) L 06/22/22 13:55 RDW 16.8 % (12.1-15.1) H 06/22/22 13:55 Plt Count 464 10^3/cmm (130-400) H 06/22/22 13:55 MPV 9.5 fL (7.4-10.4) 06/22/22 13:55 Neut % (Auto) 76.0 % 06/22/22 13:55 Lymph % (Auto) 17.7 % 06/22/22 13:55 [place] % (Auto) 4.9 % 06/22/22 13:55 Eos % (Auto) 0.5 % 06/22/22 13:55 Baso % (Auto) 0.4 % 06/22/22 13:55 Neut # (Auto) 11.18 10^3/uL (1.8-7.7) H 06/22/22 13:55 Lymph # (Auto) 2.6 10^3/uL (0.8-4.8) 06/22/22 13:55 [place] # (Auto) 0.7 10^3/uL (0.2-0.9) 06/22/22 13:55 Eos # (Auto) 0.1 10^3/uL (0.0-0.8) 06/22/22 13:55 Baso # (Auto) 0.1 10^3/uL (0.0-0.1) 06/22/22 13:55 Nucleated RBC % (auto) 0 % 06/22/22 13:55 Nucleated RBCs # 0.0 /100WBC 06/22/22 13:55 Sodium 135 mmol/L (136-145) L 06/22/22 13:55 Potassium 2.9 mmol/L (3.5-5.1) L 06/22/22 13:55 Chloride 97 mmol/L (98-107) L 06/22/22 13:55 Carbon Dioxide 23 mmol/L (22-29) 06/22/22 13:55 Anion Gap 17.9 (5-19) 06/22/22 13:55 BUN 8 mg/dL (8-23) 06/22/22 13:55 Creatinine 0.9 mg/dL (0.5-0.9) 06/22/22 13:55 GFR Calculation Not Reportable 06/22/22 13:55 Glucose 257 mg/dL (65-115) H 06/22/22 13:55 Calculated Osmolality 287 mOsm/kg (285-295) 06/22/22 13:55 Calcium 9.1 mg/dL (8.5-10.5) 06/22/22 13:55 Total Bilirubin 0.4 mg/dL (0.15-1.2) 06/22/22 13:55 AST 14 U/L (0-32) 06/22/22 13:55 ALT 11 U/L (0-33) 06/22/22 13:55 Alkaline Phosphatase 132 U/L (35-105) H 06/22/22 13:55 Troponin T Baseline 14 ng/L (0-10) H 06/22/22 13:55 Troponin T 120 Minute 12.29 ng/L (0-10) H 06/22/22 15:50 Delta Troponin T -1.71 ABS# (0-10) L 06/22/22 15:50 Total Protein 7.9 g/dL (6.6-8.7) 06/22/22 13:55 Albumin 4.0 g/dL (3.5-5.2) 06/22/22 13:55 Globulin 3.9 g/dL (1.3-4.6) 06/22/22 13:55 Lipase 58 U/L (13-60) 06/22/22 13:55 Discharge Plan Discharge Patient Disposition: Home Clinical Impression: Chest pain, HTN (hypertension), COPD (chronic obstructive pulmonary disease) Condition: Stable Prescriptions: Changed isosorbide mononitrate 30 mg tablet extended release 24 hr 60 mg PO BID Qty: 230 2RF Rx Instructions: 30mg AM and 60mg PM No Action hydroxyzine HCl 25 mg tablet 25 mg PO QID PRN (Reason: Anxiety) nitroglycerin 0.4 mg tablet, sublingual 0.4 mg sublingual Q5M PRN (Reason: chest pain) Qty: 30 3RF Rx Instructions: do not exceed 3 doses per episode methenamine hippurate 1 gram tablet 1 g PO BID Qty: 60 12RF Rx Instructions: Take 1000 mg of vitamin C with each dose of methenamine spironolactone 25 mg tablet 12.5 mg PO DAILY levothyroxine 75 mcg tablet 75 mcg PO DAILY fluticasone propionate 50 mcg/actuation spray,suspension 2 spray INTRANASAL DAILY PRN (Reason: Nasal Congestion) Rx Instructions: USE IN EACH NOSTRIL aspirin 81 mg tablet,delayed release (DR/EC) 81 mg PO DAILY Qty: 30 0RF metformin 500 mg tablet See Rx Instructions .ROUTE .COMPLEX Rx Instructions: 1000 mg orally in the am and 500mg pm Vitamin C 1,000 mg Tablet 1,000 mg PO DAILY sucralfate 1 gram tablet 1 g PO QID atorvastatin 20 mg Tablet 20 mg PO DAILY venlafaxine 150 mg Tablet Extended Release 24 Hr 150 mg PO DAILY pantoprazole [Protonix] 40 mg tablet,delayed release (DR/EC) 40 mg PO DAILY Qty: 30 0RF amlodipine 5 mg tablet 2.5 mg PO DAILY Qty: 0 0RF Discharge Orders: Discharge ED (Routine); Ordered 06/22/22 Ordered By: Robert Leigh Referrals: Zeus Young DO [Primary Care Provider] - Patient Instructions: Opioid Safety Activity Restrictions/Additional Instructions: Follow-up with cardiology within the next week. Return to the emergency room if worsening chest pain. Coding Level of Care Code ED Chain Maker Machine for Chg Fwd Exam Detailed
[2022-06-22 16:02] VITALS: BP 134/71; PULSE 71; RESP 17; O2SAT 100
--- NOTE | 2022-06-22 16:44 | ECG_ITS ---
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 Measurements Intervals [place] Rate: 67 P: 57 [place]: 140 QRS: 56 QRSD: 90 T: 81 QT: 405 QTc: 430 Interpretive Statements SINUS RHYTHM Compared to ECG 06/22/2022 13:44:08 ST (T wave) deviation no longer present Electronically Signed On 06-22-2022 17:19:58 CDT by Jj Veronica M.D. [id number]
[2022-06-22 16:48] LABS: Troponin 5 2HR 12.29 ng/L (0-10); Troponin 5 2HR Delta -1.71 ABS# (0-10)
[2022-06-22 17:21] VITALS: BP 135/105; PULSE 72; RESP 18; O2SAT 96
== END 2022-06-22 17:21 | disposition home or self-care (01) ==
PROVIDERS: Emergency Medicine; Emergency Provider Family Medicine; PCP Family Medicine
DX: R07.9 Chest pain, unspecified (principal); I10 Essential (primary) hypertension; J44.9 Chronic obstructive pulmonary disease, unspecified; Z79.84 Long term (current) use of oral hypoglycemic drugs; Z79.82 Long term (current) use of aspirin; E11.9 Type 2 diabetes mellitus without complications
CPT/HCPCS: 36415; 71045; 80053; 83690; 84484; 85025; 93005; 99285

== ENCOUNTER 2022-09-01 13:41 | Emergency (ER) | payer MEDICARE, MEDICAID, SELFPAY ==
[2022-09-01 14:19] VITALS: BP 145/68; PULSE 72; RESP 15; TEMP 36.9; O2SAT 96; BMI 28.3
[2022-09-01 16:23] LABS: Basophils % 0.2 %; Eosinophils # 0.1 10^3/uL (0.0-0.8); Eosinophils % 0.8 %; Hematocrit 36.1 % (37.0-47.0); Hemoglobin 10.1 g/dL (11.5-15.3); Lymphocytes # 2.3 10^3/uL (0.8-4.8); Lymphocytes % 15.6 %; Mean Corpuscular Hemoglobin 21.4 pg (28.0-34.0); Mean Corpuscular Volume 76.5 fl (81-99); Mean Platelet Volume 10.7 fL (7.4-10.4); Monocytes # 0.5 10^3/uL (0.2-0.9); Monocytes % 3.1 %; Neutrophils # 11.92 10^3/uL (1.8-7.7); Neutrophils % 79.8 %; Nucleated Red Blood Cells % 0 %; Platelet Count 389 10^3/cmm (130-400); Red Blood Count 4.72 10^6/uL (4.1-5.3); Red Cell Distribution Width 15.2 % (12.1-15.1); White Blood Count 14.9 10^3/uL (4.0-10.0)
[2022-09-01] MEDS: sodium chloride 0.9% 1,000 ML 999 ML IV ×2 (17:00→19:00)
[2022-09-01] MEDS: ondansetron 2 mg/ML SDV 2 mL 4 MG IVP (17:00)
--- NOTE | 2022-09-01 17:01 | W.ED.NAVMDI ---
HPI - Nausea/Vomiting/Diarrhea General: Chief complaint: Nausea/Vomiting/Diarrhea Stated complaint: n/v/d Time Seen by Provider: 09/01/22 15:38 Source: patient Mode of arrival: ambulatory History of Present Illness: 76-year-old female presents to the emergency room with nausea vomiting diarrhea for last 2 days. She has not had any hematochezia melena hematemesis coffee-ground emesis she has had a little bit of a cough that just began today she has not had any shortness of breath. She denies dysuria urgency frequency or hematuria no real significant abdominal pain or chest pain. No recent antibiotics. MD elicited complaint: nausea, vomiting and diarrhea Onset (ago): day(s) (2) Description of vomiting: watery and bilious Description of diarrhea: watery and semi-solid Associated nausea: Yes Exacerbating factors: none Relieving factors: none Associated symtoms: Reports cough, fatigue, anorexia, malaise, nausea and weakness; Denies altered mental status, anxiety, bloating, change in vision, chest pain, diaphoresis, decreased urine output, dizziness, dysuria, epistaxis, fecal incontinence, fevers/chills, headache(s), myalgias, numbness, palpitations, rash, short of breath, syncope, tenesmus or tinnitus Review of Systems Const: Reports: fatigue and malaise; Denies: fever(s), chills or diaphoresis Eyes: Denies: change in vision ENMT: Denies: throat pain, tinnitus or epistaxis Card: Denies: chest pain, palpitations or syncope Resp: Denies: dyspnea, productive cough or non-productive cough GI: Reports: abdominal pain, nausea, vomiting and diarrhea; Denies: hematemesis, bloating, fecal incontinence or hematochezia : Denies: flank pain, difficulty voiding, dysuria, urinary frequency or urinary urgency Skin/Breast: Denies: rash or pruritus Neuro: Denies: headache(s) or dizziness Psych: Denies: anxiety PFSH ED PFSH: Medical History COPD (chronic obstructive pulmonary disease) Degenerative lumbar disc Diabetes mellitus Facet arthropathy, lumbar H/O deep venous thrombosis Hematuria HTN (hypertension) Lumbar disc disease with radiculopathy Recurrent UTI UTI (urinary tract infection) Surgical History History of neck surgery S/P coronary angiogram S/P knee surgery S/P wrist surgery Family History Mother , at age 114 Myocardial infarct Father , in his 70's Hypertension Sister Diabetes Son Diabetes Social History Smoking and tobacco status: never smoked Alcohol intake: never Marital status: / Current occupational status: retired History of recent travel: No Physical Exam Const: EXAM LIMITATIONS: no altered mental status GENERAL APPEARANCE: cooperative and comfortable ORIENTATION/CONSCIOUSNESS: Yes awake, Yes oriented to person, Yes oriented to place and Yes oriented to time HENMT: COMMON NORMALS: normocephalic, atraumatic and hearing grossly normal bilaterally HEAD & SCALP: normocephalic and atraumatic Resp: COMMON NORMALS: normal respiratory effort, No retractions, No use of accessory muscles and clear to auscultation bilaterally AUSCULTATION: clear to auscultation bilaterally Cardio: COMMON NORMALS: regular rate, regular rhythm and No murmurs present (Cardio) RATE: regular rate RHYTHM: regular rhythm GI: COMMON NORMALS: Soft to palpation and No hepatosplenomegaly present AUSCULTATION: Yes normoactive bowel sounds PALPATION: Yes Soft to palpation, No Tenderness to palpation present (GI), No Guarding due to palpation present (GI) and Yes No hepatosplenomegaly present Extremity: COMMON NORMALS: normal to inspection, capillary refill normal, no clubbing, cyanosis or edema, no calf tenderness and no pedal edema Neuro: SENSORIUM/ORIENTATION: Yes oriented to person, Yes oriented to place and Yes oriented to time Skin: COMMON NORMALS: no rashes or lesions noted GENERAL SKIN EXAM: no rashes or lesions noted Course Vital Signs: Vital signs: Vital Signs Temperature 98.5 F 09/01/22 14:19 Pulse Rate 68 09/01/22 19:17 Respiratory Rate 20 H 09/01/22 19:17 Blood Pressure 168/80 09/01/22 19:17 Pulse Oximetry 99 09/01/22 19:17 Oxygen Delivery Me thod 09/01/22 14:19 MDM - Nausea/Vomiting/Diarrhea Medical Decision Making Labs unremarkable. Potassium slightly low we will give her potassium supplement. Discharge patient home with promethazine to use as needed follow-up with her primary care doctor persist. Medical Records I reviewed the patient's medical records. Lab Data I reviewed the patient's lab results. : 09/01/22 16:12 09/01/22 16:12 Laboratory Results WBC 14.9 10^3/uL (4.0-10.0) H 09/01/22 16:12 RBC 4.72 10^6/uL (4.1-5.3) 09/01/22 16:12 Hgb 10.1 g/dL (11.5-15.3) L 09/01/22 16:12 Hct 36.1 % (37.0-47.0) L 09/01/22 16:12 MCV 76.5 fl (81-99) L 09/01/22 16:12 MCH 21.4 pg (28.0-34.0) L 09/01/22 16:12 MCHC 28.0 g/dL (30.0-36.0) L 09/01/22 16:12 RDW 15.2 % (12.1-15.1) H 09/01/22 16:12 Plt Count 389 10^3/cmm (130-400) 09/01/22 16:12 MPV 10.7 fL (7.4-10.4) H 09/01/22 16:12 Neut % (Auto) 79.8 % 09/01/22 16:12 Lymph % (Auto) 15.6 % 09/01/22 16:12 [place] % (Auto) 3.1 % 09/01/22 16:12 Eos % (Auto) 0.8 % 09/01/22 16:12 Baso % (Auto) 0.2 % 09/01/22 16:12 Neut # (Auto) 11.92 10^3/uL (1.8-7.7) H 09/01/22 16:12 Lymph # (Auto) 2.3 10^3/uL (0.8-4.8) 09/01/22 16:12 [place] # (Auto) 0.5 10^3/uL (0.2-0.9) 09/01/22 16:12 Eos # (Auto) 0.1 10^3/uL (0.0-0.8) 09/01/22 16:12 Baso # (Auto) 0.0 10^3/uL (0.0-0.1) 09/01/22 16:12 Nucleated RBC % (auto) 0 % 09/01/22 16:12 Nucleated RBCs # 0.0 /100WBC 09/01/22 16:12 Sodium 134 mmol/L (136-145) L 09/01/22 16:12 Potassium 3.3 mmol/L (3.5-5.1) L 09/01/22 16:12 Chloride 97 mmol/L (98-107) L 09/01/22 16:12 Carbon Dioxide 19 mmol/L (22-29) L 09/01/22 16:12 Anion Gap 21.3 (5-19) H 09/01/22 16:12 BUN 7 mg/dL (8-23) L 09/01/22 16:12 Creatinine 0.8 mg/dL (0.5-0.9) 09/01/22 16:12 GFR Calculation Not Reportable 09/01/22 16:12 Glucose 145 mg/dL (65-115) H 09/01/22 16:12 Calculated Osmolality 279 mOsm/kg (285-295) L 09/01/22 16:12 Calcium 9.3 mg/dL (8.5-10.5) 09/01/22 16:12 Magnesium 1.8 mg/dL (1.7-2.3) 09/01/22 16:12 Total Bilirubin 0.4 mg/dL (0.15-1.2) 09/01/22 16:12 AST 12 U/L (0-32) 09/01/22 16:12 ALT 8 U/L (0-33) 09/01/22 16:12 Alkaline Phosphatase 158 U/L (35-105) H 09/01/22 16:12 Total Protein 8.0 g/dL (6.6-8.7) 09/01/22 16:12 Albumin 4.1 g/dL (3.5-5.2) 09/01/22 16:12 Globulin 3.9 g/dL (1.3-4.6) 09/01/22 16:12 Lipase 31 U/L (13-60) 09/01/22 16:12 Discharge Plan Discharge Patient Disposition: Home Clinical Impression: Nausea & vomiting, Diarrhea Condition: Stable Prescriptions: New promethazine 25 mg tablet 25 mg PO Q6H PRN (Reason: nausea and vomiting) Qty: 20 0RF No Action hydroxyzine HCl 25 mg tablet 25 mg PO QID PRN (Reason: Anxiety) nitroglycerin 0.4 mg tablet, sublingual 0.4 mg sublingual Q5M PRN (Reason: chest pain) Qty: 30 3RF Rx Instructions: do not exceed 3 doses per episode methenamine hippurate 1 gram tablet 1 g PO BID Qty: 60 12RF Rx Instructions: Take 1000 mg of vitamin C with each dose of methenamine spironolactone 25 mg tablet 12.5 mg PO DAILY levothyroxine 75 mcg tablet 75 mcg PO DAILY fluticasone propionate 50 mcg/actuation spray,suspension 2 spray INTRANASAL DAILY PRN (Reason: Nasal Congestion) Rx Instructions: USE IN EACH NOSTRIL aspirin 81 mg tablet,delayed release (DR/EC) 81 mg PO DAILY Qty: 30 0RF metformin 500 mg tablet See Rx Instructions .ROUTE .COMPLEX Rx Instructions: 1000 mg orally in the am and 500mg pm Vitamin C 1,000 mg Tablet 1,000 mg PO DAILY sucralfate 1 gram tablet 1 g PO QID isosorbide mononitrate 30 mg tablet extended release 24 hr 60 mg PO BID Qty: 230 2RF Rx Instructions: 30mg AM and 60mg PM atorvastatin 20 mg Tablet 20 mg PO DAILY venlafaxine 150 mg Tablet Extended Release 24 Hr 150 mg PO DAILY pantoprazole [Protonix] 40 mg tablet,delayed release (DR/EC) 40 mg PO DAILY Qty: 30 0RF amlodipine 5 mg tablet 2.5 mg PO DAILY Qty: 0 0RF Discharge Orders: Discharge ED (Routine); Ordered 09/01/22 Ordered By: Robert Leigh Referrals: Zeus Young DO [Primary Care Provider] - Discharge Diet: Clear Liquid Discharge Activity: Increase activity as tolerated Patient Instructions: Opioid Safety, Pain Management Activity Restrictions/Additional Instructions: Liquid diet for the next 24 to 48 hours and advance as tolerated. Use the promethazine as needed for nausea vomiting. If symptoms persist follow-up with your primary care doctor you may need to adjust some your medications particularly the metformin. Coding Level of Care Code ED Premium Note Interest Calculator Clerk for Chg Fwd Exam Detailed
[2022-09-01 17:42] LABS: Alanine Aminotransferase 8 U/L (0-33); Albumin Level 4.1 g/dL (3.5-5.2); Alkaline Phosphatase 158 U/L (35-105); Anion Gap 21.3 (5-19); Aspartate Amino Transferase 12 U/L (0-32); Blood Urea Nitrogen 7 mg/dL (8-23); Calcium 9.3 mg/dL (8.5-10.5); Carbon Dioxide 19 mmol/L (22-29); Chloride 97 mmol/L (98-107); Globulin 3.9 g/dL (1.3-4.6); Glucose 145 mg/dL (65-115); Lipase 31 U/L (13-60); Magnesium 1.8 mg/dL (1.7-2.3); Osmolality Calculated 279 mOsm/kg (285-295); Potassium 3.3 mmol/L (3.5-5.1); Sodium 134 mmol/L (136-145); Total Bilirubin 0.4 mg/dL (0.15-1.2)
[2022-09-01] MEDS: potassium chloride oral liq 20 mEq/15 mL UDC 40 MEQ PO (19:01)
[2022-09-01 19:17] VITALS: BP 168/80; PULSE 68; RESP 20; O2SAT 99
== END 2022-09-01 19:18 | disposition home or self-care (01) ==
PROVIDERS: Emergency Provider Family Medicine; PCP Family Medicine
DX: R11.2 Nausea with vomiting, unspecified (principal); R19.7 Diarrhea, unspecified; Z79.82 Long term (current) use of aspirin; Z79.84 Long term (current) use of oral hypoglycemic drugs; J44.9 Chronic obstructive pulmonary disease, unspecified; E11.9 Type 2 diabetes mellitus without complications; I10 Essential (primary) hypertension
CPT/HCPCS: 36415; 80053; 83690; 83735; 85025; 96361; 96374; 99284; J2405; J7030

== ENCOUNTER 2022-10-14 11:05 | Observation (INO) | payer MEDICARE, MEDICAID, SELFPAY ==
[2022-10-14] VITALS (14 sets, daily range): BP systolic 91–185; BP diastolic 57–90; PULSE 69–73; RESP 16–19; TEMP 36.7–36.8; O2SAT 96–99; BMI 24.2
--- NOTE | 2022-10-14 11:14 | XR_ITS ---
WS: [id number] EXAMINATION: XR abdomen 1V* [id number] REASON FOR EXAM: pain; n/v COMPARISON: None available. ORDER DATE: 10/14/2022 11:14 AM FINDINGS: There is a nonspecific colonic gas pattern with scattered fecal content and gas. There is no sign of significant small bowel dilation. No pathologic abdominal calcification is seen. XR/XR abdomen 1V* [id number] IMPRESSION: No acute intra-abdominal findings
--- NOTE | 2022-10-14 11:15 | W.ED.ABDPA2 ---
HPI - Abdominal Pain General: Chief Complaint: Abdominal Pain Stated Complaint: Abd pain Time Seen by Provider: 10/14/22 11:07 Source: patient Mode of arrival: EMS Limitations: no limitations History of Present Illness: See nursing assessment. Patient with complaints of mid abdominal pain and epigastric ángel pain since this morning. Patient started having nausea vomiting this morning as well. She denies any blood in her emesis or stool. She states she feels like she may have diarrhea but has not had any diarrhea at this point. Patient denies any fever or chills. She had a similar episode of nausea vomiting approximately 5 weeks ago. Pain Consistency: colicky Location: Epigastric Severity: moderate Quality: aching Radiation: none Associated Symptoms: Reports nausea, vomiting and other (Denies blood in the stool or emesis); Denies chills and fever(s) Treatments prior to arrival: other (Patient received Zofran 4 mg IV.) Review of Systems Const: Denies: fever(s) or chills Eyes: Denies: change in vision ENMT: Denies: throat pain Card: Denies: chest pain or palpitations Resp: Denies: dyspnea or wheezing GI: Reports: abdominal pain, nausea, vomiting and other (Denies blood in the stool or emesis) : Denies: flank pain Musc: Reports: back pain (Mild low back pain); Denies: neck pain Skin/Breast: Denies: rash or pruritus Neuro: Denies: headache(s) or numbness in extremities Psych: Denies: anxiety [place]ago/Lymph: Denies: enlarged lymph nodes PFSH ED PFSH: Medical History COPD (chronic obstructive pulmonary disease) Degenerative lumbar disc Diabetes mellitus Facet arthropathy, lumbar H/O deep venous thrombosis Hematuria HTN (hypertension) Lumbar disc disease with radiculopathy Recurrent UTI UTI (urinary tract infection) Surgical History History of neck surgery S/P coronary angiogram S/P knee surgery S/P wrist surgery Family History Mother , at age 114 Myocardial infarct Father , in his 70's Hypertension Sister Diabetes Son Diabetes Social History Smoking and tobacco status: never smoked Alcohol intake: never Marital status: / Current occupational status: retired History of recent travel: No Supplemental [facility] Information: Patient reports a history of hysterectomy. She states she still has her appendix and gallbladder. Physical Exam Const: COMMON NORMALS: no acute distress, patient oriented x3, no limitations and well nourished GENERAL APPEARANCE: cooperative HENMT: COMMON NORMALS: normocephalic and atraumatic HEAD & SCALP: normocephalic and atraumatic FACE & SINUS: normal facial exam Eye: COMMON NORMALS: EOMs intact bilaterally Neck/C-Spine: COMMON NORMALS: full ROM, no lymphadenopathy, supple and no meningeal signs GENERAL: Yes normal visual inspection Lymph: LYMPHATIC: no lymphadenopathy noted Chest: COMMONS NORMALS: normal inspection of the chest and normal palpation of entire chest wall CHEST: No Ecchymosis present and No rash Resp: COMMON NORMALS: normal respiratory effort, No retractions and clear to auscultation bilaterally EFFORT & INSPECTION: No respiratory distress AUSCULTATION: clear to auscultation bilaterally Cardio: COMMON NORMALS: regular rate, regular rhythm and Peripheral pulses 2+ throughout JUGULAR VENOUS DISTENTION: no JVD RATE: regular rate RHYTHM: regular rhythm PERIPHERAL PULSES: Peripheral pulses 2+ throughout GI: COMMON NORMALS: Soft to palpation, No hepatosplenomegaly present, no masses and no bruits AUSCULTATION: Yes normoactive bowel sounds PALPATION: Yes Soft to palpation, No Firmness to palpation present (GI), Yes Tenderness to palpation present (GI) (Mild epigastric abdominal pain with palpation. No masses palpated no bruit), No Guarding due to palpation present (GI), No Rigid due to palpation, Yes No hepatosplenomegaly present and Yes Other GI palpation findings present (No pulsatile masses.) : COMMON NORMALS: Yes no CVA tenderness BLADDER/KIDNEY EXAM: Yes no CVA tenderness OTHER: Rectal exam shows nonthrombosed hemorrhoids, stool is very soft and brown. Guaiac negative Back/Pelvis: COMMON NORMALS: no CVA tenderness Extremity: COMMON NORMALS: normal to inspection, full ROM and capillary refill normal Neuro: COMMON NORMALS: patient oriented x3, CN's II-XII intact bilaterally, no focal motor deficits and no sensory deficits noted MENINGEAL SIGNS: Yes no meningeal signs Psych: COMMON NORMALS: mental status grossly normal and Normal thought process present THOUGHT PROCESS: Normal thought process present Skin: COMMON NORMALS: no rashes or lesions noted and no wounds GENERAL SKIN EXAM: no rashes or lesions noted Course Vital Signs: Vital signs: Vital Signs Blood Pressure 127/81 10/14/22 13:31 Pulse Oximetry 97 10/14/22 13:31 MDM - Abdominal Pain Medical Decision Making Patient with epigastric pain with nausea vomiting. Patient may have viral gastroenteritis versus obstruction versus colitis 1245: Sons have arrived. They state patient has had poor appetite for the past few days. Patient is complained of gastric reflux for the past 3 weeks. Patient has occasional nausea and vomiting and epigastric abdominal pain. Lab Data On 09/01/2022, white blood cell count 14.9 hemoglobin 10.1 hematocrit 36.1. On 06/22/2022 white blood cell count 14.7 hemoglobin 10.5 hematocrit 35.3 platelet count 464,000. The stool specimen collected and did Hemoccult on was negative. However, lab called and stated they had a stool specimen over there that was Hemoccult positive. I will have the lab clarify. 1243: ep tech states stool specimen has not been analyzed yet. Therefore, will await final result of stool heomoccult test. 1450: Discussed with hospitalist Dr. Richard. He agreed to observe the patient in the hospital. He would like IV Cipro and metronidazole given now. 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 Generalized colitis Laboratory Results WBC 14.4 10^3/uL (4.0-10.0) H 10/14/22 11:20 RBC 4.38 10^6/uL (4.1-5.3) 10/14/22 11:20 Hgb 9.2 g/dL (11.5-15.3) L 10/14/22 11:20 Hct 31.3 % (37.0-47.0) L 10/14/22 11:20 MCV 71.5 fl (81-99) L 10/14/22 11:20 MCH 21.0 pg (28.0-34.0) L 10/14/22 11:20 MCHC 29.4 g/dL (30.0-36.0) L 10/14/22 11:20 RDW 16.5 % (12.1-15.1) H 10/14/22 11:20 Plt Count 484 10^3/cmm (130-400) H 10/14/22 11:20 MPV 10.4 fL (7.4-10.4) 10/14/22 11:20 Neut % (Auto) 74.0 % 10/14/22 11:20 Lymph % (Auto) 20.4 % 10/14/22 11:20 [place] % (Auto) 3.9 % 10/14/22 11:20 Eos % (Auto) 0.8 % 10/14/22 11:20 Baso % (Auto) 0.3 % 10/14/22 11:20 Neut # (Auto) 10.68 10^3/uL (1.8-7.7) H 10/14/22 11:20 Lymph # (Auto) 3.0 10^3/uL (0.8-4.8) 10/14/22 11:20 [place] # (Auto) 0.6 10^3/uL (0.2-0.9) 10/14/22 11:20 Eos # (Auto) 0.1 10^3/uL (0.0-0.8) 10/14/22 11:20 Baso # (Auto) 0.0 10^3/uL (0.0-0.1) 10/14/22 11:20 Nucleated RBC % (auto) 0 % 10/14/22 11:20 Nucleated RBCs # 0.0 /100WBC 10/14/22 11:20 Sodium 135 mmol/L (136-145) L 10/14/22 11:20 Potassium 3.3 mmol/L (3.5-5.1) L 10/14/22 11:20 Chloride 99 mmol/L (98-107) 10/14/22 11:20 Carbon Dioxide 20 mmol/L (22-29) L 10/14/22 11:20 Anion Gap 19.3 (5-19) H 10/14/22 11:20 BUN 8 mg/dL (8-23) 10/14/22 11:20 Creatinine 1.0 mg/dL (0.5-0.9) H 10/14/22 11:20 GFR Calculation Not Reportable 10/14/22 11:20 Glucose 270 mg/dL (65-115) H 10/14/22 11:20 POC Glucose 279 mg/dL (70-110) H 10/14/22 11:44 Calculated Osmolality 288 mOsm/kg (285-295) 10/14/22 11:20 Calcium 9.2 mg/dL (8.5-10.5) 10/14/22 11:20 Total Bilirubin 0.3 mg/dL (0.15-1.2) 10/14/22 11:20 AST 16 U/L (0-32) 10/14/22 11:20 ALT 6 U/L (0-33) 10/14/22 11:20 Alkaline Phosphatase 150 U/L (35-105) H 10/14/22 11:20 Total Protein 7.7 g/dL (6.6-8.7) 10/14/22 11:20 Albumin 3.8 g/dL (3.5-5.2) 10/14/22 11:20 Globulin 3.9 g/dL (1.3-4.6) 10/14/22 11:20 Lipase 35 U/L (13-60) 10/14/22 11:20 Urine Color Straw (Yellow) 10/14/22 12:56 Urine Appearance Cloudy (CLEAR) A 10/14/22 12:56 Urine pH 7 (5-7) 10/14/22 12:56 Ur Specific [place] 1.010 (1.005-1.030) 10/14/22 12:56 Urine Protein Trace (Negative) 10/14/22 12:56 Urine Glucose (UA) 2+ (Normal) H 10/14/22 12:56 Urine Ketones Negative (Negative) 10/14/22 12:56 Urine Blood 2+ (Negative) H 10/14/22 12:56 Urine Nitrate Negative (Negative) 10/14/22 12:56 Urine Bilirubin Neg (Negative) 10/14/22 12:56 Urine Urobilinogen Norm mg/dL (Negative) 10/14/22 12:56 Ur Leukocyte Esterase 2+ (Negative) H 10/14/22 12:56 Urine RBC 5-10 /hpf (0-2) H 10/14/22 12:56 Urine WBC 25-40 /hpf (0-5) H 10/14/22 12:56 Ur Squamous Epith Cells 0-4 /hpf (0-5) H 10/14/22 12:56 Amorphous Sediment Not Reportable 10/14/22 12:56 Urine Bacteria 2+ /hpf (NONE) H 10/14/22 12:56 Imaging Data KUB: My impression: Nothing acute except moderate amount of stool in colon. Radiologist's impression: Ordering Provider/Ordering MD: Galdino Benavidez MD Date of Service: 10/14/22 Procedure(s): XR abdomen 1V* [id number] Accession Number(s): [id number] Report Number: [id number] WS: [id number] EXAMINATION: XR abdomen 1V* [id number] REASON FOR EXAM: pain; n/v COMPARISON: None available. ORDER DATE:? 10/14/2022 11:14 AM FINDINGS: There is a nonspecific colonic gas pattern with scattered fecal content and gas.? There is no sign of significant small bowel dilation.? No pathologic abdominal calcification is seen. XR/XR abdomen 1V* [id number] IMPRESSION: No acute intra-abdominal findings ? Dictated By: Dank Aarngo MD Signed By: Dank Arango MD Signed Date/Time: 10/14/22 1143 DD/ 1143 CT Abd/Pel: Radiologist's impression: Ordering Provider/Ordering MD: Galdino Benavidze MD Date of Service: 10/14/22 Procedure(s): CT abdomen pelvis w con* [id number] Accession Number(s): [id number] Report Number: [id number] WS: [email or web address] EXAMINATION: CT abdomen pelvis w con* [id number] REASON FOR EXAM: Epigastric abdominal pain, nausea vomiting COMPARISON: 11/26/2021 ORDER DATE: 10/14/2022 12:48 PM TOTAL EXAM DLP: 363.[address] scans at [facility] use at least one of these dose optimization techniques: automated exposure control; mA and/or kV adjustment per patient size (includes targeted exams where dose is matched to clinical indication); or iterative reconstruction. TECHNIQUE: Transaxial imaging through the abdomen and pelvis was performed with 2-D reformats following the intravenous administration of Omnipaque 350 100 ml FINDINGS: There are no acute changes in the visualized lung bases.? There is no sign of pneumoperitoneum. The liver was unremarkable. The gallbladder, spleen and pancreas were unremarkable. There is a normal appearance of both adrenal glands. There are wedge-shaped zones cortical atrophy in the upper and lower poles of the right kidney and lower pole left kidney which corresponds with previous areas of ischemia/inflammation on prior study, but are now consistent with focal infarcts.. There is moderate dilatation of the right renal pelvis and proximal ureter which tapers gradually but without sign of obstruction. No evidence of calculi. The small bowel pattern is not significantly dilated and there are no significant air-fluid levels. Right hemicolectomy. No sign of obstruction. There is diffuse wall thickening of submucosal edema in the colon suggesting mild colitis. There is scattered diverticula in the sigmoid colon.. There is no ascites or increased cul-de-sac fluid. Previous hysterectomy. The urinary bladder as imaged is unremarkable. There are degenerative disc and spine changes with generalized spondylosis. Mild disc narrowing at L3-S1. Left lateral disc protrusion with possible foraminal impingement at L4-5 and L5-S1. CT/CT abdomen pelvis w con* [id number] IMPRESSION: ? 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 Generalized colitis ? ? Dictated By: Dank Arango MD Signed By: Dank Arango MD Signed Date/Time: 10/14/22 0997 Discharge Plan Discharge Patient Disposition: Placed in Observation Clinical Impression: Colitis Abdominal pain Qualifiers: Abdominal location: epigastric Qualified Code(s): R10.13 - Epigastric pain Nausea & vomiting Qualifiers: Vomiting type: unspecified Qualified Code(s): R11.2 - Nausea with vomiting, unspecified Anemia Qualifiers: Anemia type: iron deficiency Iron deficiency anemia type: unspecified iron deficiency Qualified Code(s): D50.9 - Iron deficiency anemia, unspecified Coding Level of Care Code ED Education Program Manager for Chg Fwd History Comprehensive Exam Comprehensive Medical Decision Making High Complexity
[2022-10-14] MEDS: sodium chloride 0.9% 1,000 ML 999 ML IV (11:47)
[2022-10-14 11:49] LABS: Glucose Point of Care 279 mg/dL (70-110)
[2022-10-14 11:51] LABS: Basophils % 0.3 %; Eosinophils # 0.1 10^3/uL (0.0-0.8); Eosinophils % 0.8 %; Hematocrit 31.3 % (37.0-47.0); Hemoglobin 9.2 g/dL (11.5-15.3); Lymphocytes % 20.4 %; Mean Corpuscular HGB Conc 29.4 g/dL (30.0-36.0); Mean Corpuscular Volume 71.5 fl (81-99); Mean Platelet Volume 10.4 fL (7.4-10.4); Monocytes # 0.6 10^3/uL (0.2-0.9); Monocytes % 3.9 %; Neutrophils # 10.68 10^3/uL (1.8-7.7); Nucleated Red Blood Cells % 0 %; Platelet Count 484 10^3/cmm (130-400); Red Blood Count 4.38 10^6/uL (4.1-5.3); Red Cell Distribution Width 16.5 % (12.1-15.1); White Blood Count 14.4 10^3/uL (4.0-10.0)
[2022-10-14 12:09] LABS: Alanine Aminotransferase 6 U/L (0-33); Albumin Level 3.8 g/dL (3.5-5.2); Alkaline Phosphatase 150 U/L (35-105); Anion Gap 19.3 (5-19); Aspartate Amino Transferase 16 U/L (0-32); Blood Urea Nitrogen 8 mg/dL (8-23); Calcium 9.2 mg/dL (8.5-10.5); Carbon Dioxide 20 mmol/L (22-29); Chloride 99 mmol/L (98-107); Globulin 3.9 g/dL (1.3-4.6); Glucose 270 mg/dL (65-115); Lipase 35 U/L (13-60); Osmolality Calculated 288 mOsm/kg (285-295); Potassium 3.3 mmol/L (3.5-5.1); Sodium 135 mmol/L (136-145); Total Bilirubin 0.3 mg/dL (0.15-1.2); Total Protein 7.7 g/dL (6.6-8.7)
[2022-10-14] MEDS: metoclopramide 5 mg/mL SDV 2 mL 10 MG IVP (12:11)
--- NOTE | 2022-10-14 12:46 | CT_ITS ---
WS: [email or web address] EXAMINATION: CT abdomen pelvis w con* [id number] REASON FOR EXAM: Epigastric abdominal pain, nausea vomiting COMPARISON: 11/26/2021 ORDER DATE: 10/14/2022 12:48 PM TOTAL EXAM DLP: 363.[address] scans at [facility] use at least one of these dose optimization techniques: automated e xposure control; mA and/or kV adjustment per patient size (includes targeted exams where dose is matc hed to clinical indication); or iterative reconstruction. TECHNIQUE: Transaxial imaging through the abdomen and pelvis was performed with 2-D reformats followi ng the intravenous administration of Omnipaque 350 100 ml FINDINGS: There are no acute changes in the visualized lung bases. There is no sign of pneumoperitoneum. The liver was unremarkable. The gallbladder, spleen and pancreas were unremarkable. There is a normal appearance of both adrenal glands. There are wedge-shaped zones cortical atrophy in the upper and lower poles of the right kidney and lo wer pole left kidney which corresponds with previous areas of ischemia/inflammation on prior study, b ut are now consistent with focal infarcts.. There is moderate dilatation of the right renal pelvis an d proximal ureter which tapers gradually but without sign of obstruction. No evidence of calculi. The small bowel pattern is not significantly dilated and there are no significant air-fluid levels. R ight hemicolectomy. No sign of obstruction. There is diffuse wall thickening of submucosal edema in t he colon suggesting mild colitis. There is scattered diverticula in the sigmoid colon.. There is no ascites or increased cul-de-sac fluid. Previous hysterectomy. The urinary bladder as imag ed is unremarkable. There are degenerative disc and spine changes with generalized spondylosis. Mild disc narrowing at L3 -S1. Left lateral disc protrusion with possible foraminal impingement at L4-5 and L5-S1. 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 Generalized colitis
[2022-10-14] MEDS: iohexol 350 mg/mL 500 mL Btl (per mL) IV (13:20)
[2022-10-14 13:22] LABS: Add Urine Culture? Yes; Add Urine Microscopic? YES; Bacteria Urine 2+ /hpf; Bilirubin Urine Neg (Negative); Blood Urine 2+ (Negative); Glucose Urine UA 2+ (Normal); Ketones Urine Negative (Negative); Leukocyte Esterase Urine 2+ (Negative); Nitrate Urine Negative (Negative); Protein Urine Trace (Negative); Squamous Epithelial Cell Urine 0-4 /hpf (0-5); Urine Appearance Cloudy (CLEAR); Urine Color Straw (Yellow); Urobilinogen Urine Norm (Negative); WBC Urine 25-40 /hpf (0-5); pH Urine 7 (5-7)
[2022-10-14] MEDS: ciprofloxacin 400 MG/200 ML PREMIX 200 MG IV (15:43)
[2022-10-14] MEDS: dextrose 5%-sod chloride 0.45% 1,000 ML 125 ML IV (15:43)
[2022-10-14] MEDS: metroNIDAZOLE IV 500 MG/100 ML PREMIX 100 MG IV ×2 (15:43→23:06)
--- NOTE | 2022-10-14 15:50 | PM.HP ---
Providers/Chief Complaint Admitting Physician: Fredy Richard Primary Care Provider: Zeus Young DO Chief Complaint: Abd pain History of Present Illness 76-year-old lady has had GI problems since this morning, including diarrhea, nausea and vomiting, abdominal pain, denies any blood in vomit or stool, no melena. A few days ago also reported having burning with urination. She has been having trouble keeping anything down at home other than sweet tea. In ER found to have pancolitis on imaging. Recently for several weeks she has been having also heartburn, and at the same time also having some cough. Denies any antibiotic therapy recently. Had a colonoscopy about 7 years ago. Denies any NSAID use or EtOH. Review of Systems Const: Reports: change in appetite Eyes: Denies: change in vision, eye discomfort or eye redness ENMT: Denies: throat pain, oral sores or ear or mastoid pain Card: Denies: chest pain, edema, pre-syncope or dyspnea on exertion Resp: Reports: non-productive cough; Denies: dyspnea, productive cough, change in phlegm color or hemoptysis GI: Reports: nausea, vomiting, heartburn and diarrhea; Denies: abdominal pain, constipation, hematochezia or melena : Denies: flank pain, urinary frequency or hematuria Musc: Denies: back pain, joint swelling or joint redness Skin/Breast: Denies: rash or new lesions Neuro: Denies: headache(s), numbness in extremities, weakness in extremities, dizziness, confusion or seizure-like activity Endo: Denies: polyuria or polydipsia Dago/Lymph: Denies: easy bleeding or tender lymph nodes All/Imm: Denies: urticaria or tongue swelling Medications/Allergies Home Medications Medication Instructions Recorded Confirmed Last Taken Type spironolactone 25 mg tablet 12.5 mg PO DAILY 06/14/21 10/14/22 06/21/22 History hydroxyzine HCl 25 mg tablet 25 mg PO QID PRN Anxiety 03/02/22 10/14/22 Unknown History nitroglycerin 0.4 mg sublingual 0.4 mg sublingual Q5M PRN chest 03/02/22 10/14/22 Unknown Rx tablet pain #30 tabs atorvastatin 20 mg tablet 20 mg PO DAILY 05/03/22 10/14/22 06/21/22 History venlafaxine 150 mg tablet,extended 150 mg PO DAILY 05/03/22 10/14/22 06/21/22 History release 24 hr metformin 500 mg tablet See Rx Instructions .Route .COMPLEX 06/22/22 10/14/22 06/21/22 History amlodipine 5 mg tablet 5 mg PO DAILY 10/14/22 10/14/22 Unknown History Allergies Allergy/AdvReac Type Severity Reaction Status Date / Time morphine AdvReac Intermediate vomiting Verified 10/14/22 12:14 pneumococcal vaccine AdvReac Intermediate Unknown Verified 10/14/22 12:14 PFSH Acute PFSH: Medical History (Updated 10/14/22 @ 16:13 by Fredy Richard MD) COPD (chronic obstructive pulmonary disease) Degenerative lumbar disc Diabetes mellitus Facet arthropathy, lumbar H/O deep venous thrombosis Hematuria History of myocardial infarction HTN (hypertension) Lumbar disc disease with radiculopathy Recurrent UTI UTI (urinary tract infection) Surgical History History of neck surgery Hx of knee surgery S/P coronary angiogram S/P knee surgery S/P wrist surgery Family History Mother , at age 114 Myocardial infarct Father , in his 70's Hypertension Sister Diabetes Son Diabetes Social History Smoking and tobacco status: never smoked Alcohol intake: never Marital status: / Current occupational status: retired History of recent travel: No Vitals/I&O/Wt Last Vital Signs BP 127/81 10/14/22 13:31 Pulse Ox 97 10/14/22 13:31 10/14/22 10/14/22 10/14/22 06:59 14:59 22:59 Intake Total 1000 / 1000 Balance 1000 / 1000 Weight last 48 hrs Weight 54.431 kg Physical Exam Narrative: Accompanied by her sons Const: COMMON NORMALS: patient oriented x3 and alert GENERAL APPEARANCE: cooperative ORIENTATION/CONSCIOUSNESS: Yes awake HENMT: COMMON NORMALS: oropharynx normal Neck/C-Spine: COMMON NORMALS: no JVD Resp: COMMON NORMALS: normal respiratory effort and clear to auscultation bilaterally AUSCULTATION: clear to auscultation bilaterally Cardio: COMMON NORMALS: no JVD, regular rhythm, S1 normal heart sound present, S2 normal heart sound present and No murmurs present (Cardio) RHYTHM: regular rhythm HEART SOUNDS: S1 normal heart sound present and S2 normal heart sound present GI: COMMON NORMALS: Soft to palpation PALPATION: Yes Soft to palpation Extremity: COMMON NORMALS: no joint enlargement and no pedal edema Neuro: COMMON NORMALS: patient oriented x3 and moves all extremities SENSORIUM/ORIENTATION: Yes alert Skin: COMMON NORMALS: no rashes or lesions noted GENERAL SKIN EXAM: no rashes or lesions noted Sepsis: Is patient septic: Yes Focused sepsis exam performed: Yes Data 10/14/22 11:20 10/14/22 11:20 Micro: Microbiology 10/14/22 11:29 Occult Blood (FIT) - Final Stool A&P Assessment and plan (1) Colitis: Colitis, sepsis, leukocytosis 14.4, tachycardia 96. Colitis on CT. Received Cipro, Flagyl. Collect blood culture, check lactic acid. Continue antibiotics. Check stool for C. difficile, stool culture, ova and parasites. NPO sips, chips. Lab stool Hemoccult reported positive. Follow-up colonoscopy in 6 weeks after recovers. (2) UTI (urinary tract infection): Cipro as above. Follow-up urine culture. (3) Heartburn: PPI If symptoms persistent consider follow-up with endoscopy after carcinoma. (4) Cough: May be related to heartburn symptoms she has been having recently. As above PPI. Antitussives as needed. Albuterol as needed. Check chest x-ray. Check COVID-19. (5) Microcytic anemia: Check iron studies. Reassess hemoglobin. (6) Hypokalemia: Replace. Check magnesium. Plan COPD: Albuterol as needed. DM: Mild SSI HTN: For now medications held as she is currently dehydrated, has not been eating or drinking. Other medical problems Attestations Medical Necessity Statement*: Place in observation for additional cyst management of colitis, sepsis. Coding Level of Care Code Acute [employer] for [facility] Fwd Diagnoses Colitis K52.9 UTI (urinary tract infection) N39.0 Heartburn R12 Cough R05.9 Microcytic anemia D50.9 Hypokalemia E87.6
--- NOTE | 2022-10-14 16:33 | XR_ITS ---
WS: [id number] EXAMINATION: XR chest 1V portable [id number] REASON FOR EXAM: cough COMPARISON: 06/22/2022 ORDER DATE: 10/14/2022 4:33 PM TECHNIQUE: A single, portable frontal chest x-ray was obtained. X-RAY FINDINGS: The lungs are clear. Pleural spaces are clear. No pleural effusions or pneumothorax. Cardiomediastinal silhouette is unremarkable except for atherosclerotic aortic calcification. Soft tissue and osseous structures are unremarkable. Rotator cuff repair anchors noted in the right humeral head. Previous cervical fusion change. XR/XR chest 1V portable [id number] IMPRESSION: Unremarkable frontal portable chest x-ray.
[2022-10-14 17:04] LABS: Magnesium 1.8 mg/dL (1.7-2.3)
[2022-10-14] MEDS: lactated ringers 1,000 ML 75 ML IV (17:09)
[2022-10-14] MEDS: lidocaine 1% 5 ML in potassium chloride premix 100 ML 50 ML IV (17:10)
[2022-10-14] MEDS: pantoprazole 40 mg SDV IVP (17:10)
[2022-10-14 17:21] LABS: Glucose Point of Care 174 mg/dL (70-110)
[2022-10-14 18:55] LABS: Lactic Sepsis W/Reflex 2.4 mmol/L (0.5-2.2)
[2022-10-14 20:09] LABS: Reflex Lactate Order REFLEX LACTIC ORDERD
[2022-10-14 20:49] LABS: Lactic Acid level (Lactate) 1.2 mmol/L (0.5-2.2)
[2022-10-14 22:42] LABS: Glucose Point of Care 115 mg/dL (70-110)
[2022-10-15] VITALS (8 sets, daily range): BP systolic 128–163; BP diastolic 56–78; PULSE 61–66; RESP 15–18; TEMP 36.4–37.2; O2SAT 95–99
[2022-10-15 00:34] LABS: Glucose Point of Care 118 mg/dL (70-110)
[2022-10-15] MEDS: ciprofloxacin 400 MG/200 ML PREMIX 200 MG IV (03:25)
[2022-10-15 04:56] LABS: Basophils # 0.1 10^3/uL (0.0-0.1); Basophils % 0.5 %; Eosinophils # 0.1 10^3/uL (0.0-0.8); Eosinophils % 1.1 %; Hematocrit 28.7 % (37.0-47.0); Hemoglobin 8.4 g/dL (11.5-15.3); Lymphocytes # 2.3 10^3/uL (0.8-4.8); Lymphocytes % 22.1 %; Mean Corpuscular HGB Conc 29.3 g/dL (30.0-36.0); Mean Corpuscular Hemoglobin 21.3 pg (28.0-34.0); Mean Corpuscular Volume 72.7 fl (81-99); Mean Platelet Volume 9.9 fL (7.4-10.4); Monocytes # 0.6 10^3/uL (0.2-0.9); Monocytes % 5.3 %; Neutrophils % 70.6 %; Nucleated Red Blood Cells % 0 %; Platelet Count 378 10^3/cmm (130-400); Red Blood Count 3.95 10^6/uL (4.1-5.3); Red Cell Distribution Width 16.4 % (12.1-15.1); White Blood Count 10.3 10^3/uL (4.0-10.0)
[2022-10-15 04:58] LABS: Adenovirus Not Detected (NOT DETECT); Chlamydia Pneumoniae Not Detected (NOT DETECT); Coronavirus 229E,HKU1,NL63,OC4 Not Detected (NOT DETECT); Human Metapneumovirus Not Detected (NOT DETECT); Human Rhinovirus/Enterovirus Not Detected (NOT DETECT); Influenza A Not Detected (NOT DETECT); Influenza A H1 Not Detected (NOT DETECT); Influenza A H1-2009 Not Detected (NOT DETECT); Influenza A H3 Not Detected (NOT DETECT); Influenza B Not Detected (NOT DETECT); Mycoplasma Pneumoniae Not Detected (NOT DETECT); Parainfluenza Virus Type 1 Not Detected (NOT DETECT); Parainfluenza Virus Type 2 Not Detected (NOT DETECT); Parainfluenza Virus Type 3 Not Detected (NOT DETECT); Parainfluenza Virus Type 4 Not Detected (NOT DETECT); Respiratory Syncytial Virus A Not Detected (NOT DETECT); Respiratory Syncytial Virus B Not Detected (NOT DETECT); SARS-COV-2 Not Detected (NOT DETECT)
[2022-10-15 05:26] LABS: Alanine Aminotransferase < 5 U/L (0-33); Albumin Level 3.3 g/dL (3.5-5.2); Alkaline Phosphatase 149 U/L (35-105); Anion Gap 12.5 (5-19); Aspartate Amino Transferase 10 U/L (0-32); Blood Urea Nitrogen 5 mg/dL (8-23); Calcium 9.1 mg/dL (8.5-10.5); Carbon Dioxide 25 mmol/L (22-29); Chloride 101 mmol/L (98-107); Ferritin 18 ng/mL (15-150); Globulin 3.6 g/dL (1.3-4.6); Glucose 166 mg/dL (65-115); Iron 17 ug/dL (37-145); Osmolality Calculated 281 mOsm/kg (285-295); Percent Saturation 5.6 % (20-50); Potassium 3.5 mmol/L (3.5-5.1); Sodium 135 mmol/L (136-145); Total Bilirubin 0.4 mg/dL (0.15-1.2); Total Iron Binding Capacity 300 mcg/dl; Total Protein 6.9 g/dL (6.6-8.7); Unsaturated Iron Binding 283 ug/dL (112-347)
[2022-10-15] MEDS: metroNIDAZOLE IV 500 MG/100 ML PREMIX 100 MG IV ×2 (06:30→14:32)
[2022-10-15 07:56] LABS: Glucose Point of Care 174 mg/dL (70-110)
[2022-10-15] MEDS: insulin lispro 100 unit/1 mL SUBCUT (09:13)
[2022-10-15] MEDS: lactated ringers 1,000 ML 75 ML IV (09:14)
[2022-10-15] MEDS: venlafaxine ER (24HR) 150 mg Capsule PO (09:15)
--- NOTE | 2022-10-15 15:11 | P.DS_ITS ---
Discharge Providers Date of Admission: 10/14/22 15:48 Date of Discharge: October 15, 2022 Attending Provider at Admission: Fredy Richard Attending Provider at Discharge: Fredy Richard Primary Care Provider: Zeus Young DO Diagnoses at Discharge Discharge Diagnosis (1) Colitis: Status: Acute (2) UTI (urinary tract infection): Status: Acute (3) Heartburn: Status: Acute (4) Cough: Status: Acute (5) Microcytic anemia: Status: Acute (6) Hypokalemia: Status: Acute Reason for Visit Reason for Visit: Abd pain Brief History: 76-year-old lady has had GI problems since this morning, including diarrhea, nausea and vomiting, abdominal pain, denies any blood in vomit or stool, no melena.? A few days ago also reported having burning with urination. She has been having trouble keeping anything down at home other than sweet tea.? In ER found to have pancolitis on imaging. Recently for several weeks she has been having also heartburn, and at the same time also having some cough. Denies any antibiotic therapy recently. Had a colonoscopy about 7 years ago. Denies any NSAID use or EtOH. Hospital Course Hospital Course During hospital stay stool studies were ordered including C. difficile, she was kept on bowel rest last night with ice chips and sips, otherwise n.p.o., started on ciprofloxacin, Flagyl antibiotics, IV hydration. Antiemetic as needed. Ciprofloxacin given coverage also for urinary tract infection suspected on UA. Recently she has also been having quite a bit of heartburn. During hospitalization also noted to have iron deficiency anemia with microcytic anemia, iron deficiency on iron studies. Overnight she did well, had no further vomiting, no diarrhea so stool sample could not be collected. As she was feeling better she requested to advance to clear liquid diet which was done this morning. She tolerated breakfast without issue. At home reportedly when she was trying to have solid food is when she would have vomiting and diarrhea. She is asked to continue on clear liquids for now, advance diet slowly after 3 days as tolerating. Complete antibiotic course. Follow-up for reassessment and endoscopic evaluation both upper and lower for assessment after colitis, as well as persistent heartburn and iron deficiency anemia. Physical Exam Narrative: Accompanied by her son Const: COMMON NORMALS: patient oriented x3 and alert GENERAL APPEARANCE: cooperative ORIENTATION/CONSCIOUSNESS: Yes awake HENMT: COMMON NORMALS: oropharynx normal Neck/C-Spine: COMMON NORMALS: no JVD Resp: COMMON NORMALS: normal respiratory effort and clear to auscultation bilaterally AUSCULTATION: clear to auscultation bilaterally Cardio: COMMON NORMALS: no JVD, regular rhythm, S1 normal heart sound present, S2 normal heart sound present and No murmurs present (Cardio) RHYTHM: regular rhythm HEART SOUNDS: S1 normal heart sound present and S2 normal heart sound present GI: COMMON NORMALS: Soft to palpation and non-tender PALPATION: Yes Soft to palpation Extremity: COMMON NORMALS: no joint enlargement and no pedal edema Neuro: COMMON NORMALS: patient oriented x3 and moves all extremities SENSORIUM/ORIENTATION: Yes alert Skin: COMMON NORMALS: no rashes or lesions noted GENERAL SKIN EXAM: no rashes or lesions noted Discharge Data Studies Completed and Pending Completed Studies During Hospitalization Category Date Time Status CT abdomen pelvis w con* [id number] Urgent Cat Scan 10/14/22 12:46 Completed CXRP [XR chest 1V portable [id number]] Routine Exams 10/14/22 16:33 Completed XR abdomen 1V* [id number] Urgent Exams 10/14/22 11:14 Completed Pending at discharge Category Date Time Status Blood Culture Stat Lab 10/14/22 18:17 Results C DIFF [Clostridioides Difficile PCR] Routine Lab 10/14/22 14:54 Ordered Complete Blood Count w/Auto AM LABS Lab 10/16/22 04:00 Ordered Complete Blood Count w/Auto AM LABS Lab 10/17/22 04:00 Ordered Comprehensive Metabolic Panel AM LABS Lab 10/16/22 04:00 Ordered Comprehensive Metabolic Panel AM LABS Lab 10/17/22 04:00 Ordered OVA and Parasites, Conc and PE Routine Lab 10/14/22 16:33 Ordered Stool Culture, Bacterial [Enteric Bacterial Panel by Lab 10/14/22 16:33 Ordered PCR] Routine Urine Culture Stat Lab 10/14/22 12:56 Results Radiology Impressions Abdomen X-Ray 10/14/22 11:14 IMPRESSION: No acute intra-abdominal findings Abdomen/Pelvis CT 10/14/22 12:46 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 Generalized colitis Chest X-Ray 10/14/22 16:33 IMPRESSION: Unremarkable frontal portable chest x-ray. Laboratory Results WBC 10.3 10^3/uL (4.0-10.0) H 10/15/22 04:34 RBC 3.95 10^6/uL (4.1-5.3) L 10/15/22 04:34 Hgb 8.4 g/dL (11.5-15.3) L 10/15/22 04:34 Hct 28.7 % (37.0-47.0) L 10/15/22 04:34 MCV 72.7 fl (81-99) L 10/15/22 04:34 MCH 21.3 pg (28.0-34.0) L 10/15/22 04:34 MCHC 29.3 g/dL (30.0-36.0) L 10/15/22 04:34 RDW 16.4 % (12.1-15.1) H 10/15/22 04:34 Plt Count 378 10^3/cmm (130-400) 10/15/22 04:34 MPV 9.9 fL (7.4-10.4) 10/15/22 04:34 Neut % (Auto) 70.6 % 10/15/22 04:34 Lymph % (Auto) 22.1 % 10/15/22 04:34 [place] % (Auto) 5.3 % 10/15/22 04:34 Eos % (Auto) 1.1 % 10/15/22 04:34 Baso % (Auto) 0.5 % 10/15/22 04:34 Neut # (Auto) 7.30 10^3/uL (1.8-7.7) 10/15/22 04:34 Lymph # (Auto) 2.3 10^3/uL (0.8-4.8) 10/15/22 04:34 [place] # (Auto) 0.6 10^3/uL (0.2-0.9) 10/15/22 04:34 Eos # (Auto) 0.1 10^3/uL (0.0-0.8) 10/15/22 04:34 Baso # (Auto) 0.1 10^3/uL (0.0-0.1) 10/15/22 04:34 Nucleated RBC % (auto) 0 % 10/15/22 04:34 Nucleated RBCs # 0.0 /100WBC 10/15/22 04:34 Sodium 135 mmol/L (136-145) L 10/15/22 04:36 Potassium 3.5 mmol/L (3.5-5.1) 10/15/22 04:36 Chloride 101 mmol/L (98-107) 10/15/22 04:36 Carbon Dioxide 25 mmol/L (22-29) 10/15/22 04:36 Anion Gap 12.5 (5-19) 10/15/22 04:36 BUN 5 mg/dL (8-23) L 10/15/22 04:36 Creatinine 1.0 mg/dL (0.5-0.9) H 10/15/22 04:36 GFR Calculation Not Reportable 10/15/22 04:36 Glucose 166 mg/dL (65-115) H 10/15/22 04:36 POC Glucose 174 mg/dL (70-110) H 10/15/22 07:53 Calculated Osmolality 281 mOsm/kg (285-295) L 10/15/22 04:36 Lactic Acid 2.4 mmol/L (0.5-2.2) H 10/14/22 18:06 Lactic Acid (Sepsis) 1.2 mmol/L (0.5-2.2) 10/14/22 20:23 Calcium 9.1 mg/dL (8.5-10.5) 10/15/22 04:36 Magnesium 1.8 mg/dL (1.7-2.3) 10/14/22 11:20 Iron 17 ug/dL (37-145) L 10/15/22 04:36 TIBC 300 mcg/dl 10/15/22 04:36 % Saturation 5.6 % (20-50) L 10/15/22 04:36 Unsat Iron Binding 283 ug/dL (112-347) 10/15/22 04:36 Ferritin 18 ng/mL (15-150) 10/15/22 04:36 Total Bilirubin 0.4 mg/dL (0.15-1.2) 10/15/22 04:36 AST 10 U/L (0-32) 10/15/22 04:36 ALT < 5 U/L (0-33) 10/15/22 04:36 Alkaline Phosphatase 149 U/L (35-105) H 10/15/22 04:36 Total Protein 6.9 g/dL (6.6-8.7) 10/15/22 04:36 Albumin 3.3 g/dL (3.5-5.2) L 10/15/22 04:36 Globulin 3.6 g/dL (1.3-4.6) 10/15/22 04:36 Lipase 35 U/L (13-60) 10/14/22 11:20 Urine Color Straw (Yellow) 10/14/22 12:56 Urine Appearance Cloudy (CLEAR) A 10/14/22 12:56 Urine pH 7 (5-7) 10/14/22 12:56 Ur Specific [place] 1.010 (1.005-1.030) 10/14/22 12:56 Urine Protein Trace (Negative) 10/14/22 12:56 Urine Glucose (UA) 2+ (Normal) H 10/14/22 12:56 Urine Ketones Negative (Negative) 10/14/22 12:56 Urine Blood 2+ (Negative) H 10/14/22 12:56 Urine Nitrate Negative (Negative) 10/14/22 12:56 Urine Bilirubin Neg (Negative) 10/14/22 12:56 Urine Urobilinogen Norm mg/dL (Negative) 10/14/22 12:56 Ur Leukocyte Esterase 2+ (Negative) H 10/14/22 12:56 Urine RBC 5-10 /hpf (0-2) H 10/14/22 12:56 Urine WBC 25-40 /hpf (0-5) H 10/14/22 12:56 Ur Squamous Epith Cells 0-4 /hpf (0-5) H 10/14/22 12:56 Amorphous Sediment Not Reportable 10/14/22 12:56 Urine Bacteria 2+ /hpf (NONE) H 10/14/22 12:56 Coronavirus 229E (PCR) Not detected (NOT DETECT) 10/14/22 17:35 SARS-CoV-2 (PCR) Not detected (NOT DETECT) 10/14/22 17:35 Vitals Last Vital Signs Temp 97.6 F 10/15/22 11:40 Pulse 66 10/15/22 11:40 Resp 15 10/15/22 11:40 BP 148/58 10/15/22 11:40 Pulse Ox 98 10/15/22 11:40 O2 Del Method 10/15/22 11:40 Discharge Plan Discharge Patient Disposition: Home Condition: Stable Prescriptions: New ciprofloxacin HCl 500 mg tablet 500 mg PO BID Qty: 6 0RF pantoprazole 40 mg tablet,delayed release (DR/EC) 40 mg PO DAILY 42 Days Qty: 42 0RF metronidazole 500 mg tablet 500 mg PO Q8H 6 Days Qty: 18 0RF Continued hydroxyzine HCl 25 mg tablet 25 mg PO QID PRN (Reason: Anxiety) nitroglycerin 0.4 mg tablet, sublingual 0.4 mg sublingual Q5M PRN (Reason: chest pain) Qty: 30 3RF Rx Instructions: do not exceed 3 doses per episode spironolactone 25 mg tablet 12.5 mg PO DAILY amlodipine 5 mg tablet 5 mg PO DAILY atorvastatin 20 mg Tablet 20 mg PO DAILY venlafaxine 150 mg Tablet Extended Release 24 Hr 150 mg PO DAILY Held metformin 500 mg tablet See Rx Instructions .ROUTE .COMPLEX Hold Instructions: Resume on 10/18/22. Rx Instructions: 1000 mg orally in the am and 500mg pm Discharge Orders: Discharge Order (Routine); Ordered 10/15/22 Ordered By: Fredy Richard Referrals: Zeus Young, [Primary Care Provider] - 4-7 days (Please call primary c are provider's office Monday morning to schedule a hospital follow up appointment within 1 week. ) Discharge Diet: As Directed and Clear Liquid Discharge Activity: Increase activity as tolerated Patient Instructions: Ciprofloxacin (By mouth), Metronidazole (By mouth), Pantoprazole (By mouth), Iron Deficiency Anemia (GEN), GERD (Gastroesophageal R eflux Disease) (GEN), Abdominal Pain (ED), Colitis (ED), Opioid Safety Activity Restrictions/Additional Instructions: Continue clear liquid diet for the next 3 days, consider adding [employer] Jell-O or clear protein supplement/drink. Advance as tolerated to full liquid then GI soft bland diet, avoid spicy and acidic foods. Consider avoiding dairy product covering. Hold metformin for now monitoring as well and metformin can contribute to diarrhea. Follow-up with your primary doctor for reassessment of colitis for improvement for acute illness, as well as follow-up for endoscopic evaluation in 6 weeks with colonoscopy. He will also need upper endoscopic relation due to persistent heartburn as well as iron deficiency anemia. Ciprofloxacin is also covering for urinary tract infection. Urine culture is currently pending. Please follow-up with your primary doctor for reassessment. Discharge Attestations Time Spent in Discharge Care*: greater than 30 min Quality Metrics Clinical Quality Measures [ No reported AMI, CVA or VTE this stay] Coding Level of Care Code Acute Chg [facility] note Diagnoses Colitis K52.9 UTI (urinary tract infection) N39.0 Heartburn R12 Cough R05.9 Microcytic anemia D50.9 Hypokalemia E87.6
== END 2022-10-15 16:06 | disposition home or self-care (01) ==
LOC: ER 15:05 → MEDSURG 15:49
PROVIDERS: Admitting Provider Internal Medicine; Emergency Provider Family Medicine; PCP Family Medicine; Visit Provider Internal Medicine
DX: K52.9 Noninfective gastroenteritis and colitis, unspecified (principal); N39.0 Urinary tract infection, site not specified; R12 Heartburn; D50.9 Iron deficiency anemia, unspecified; E87.6 Hypokalemia; R05.9 Cough, unspecified; J44.9 Chronic obstructive pulmonary disease, unspecified; I10 Essential (primary) hypertension; Z86.718 Personal history of other venous thrombosis and embolism
CPT/HCPCS: 36415; 36416; 51701; 71045; 74018; 74177; 80053; 81001; 82274; 82728; 82962; 83540; 83550; 83605; 83690; 83735; 85025; 87040; 87077; 87086; 87186; 87635; 96365; 96366; 96367; 96372; 96375; 99285; C9113; G0378; J0744; J1815; J2765; J3480; J3490; J7030; J7120; J7799; Q9967

== ENCOUNTER 2022-10-19 19:17 | Inpatient (IN) | payer MEDICARE, MEDICAID, SELFPAY ==
[2022-10-19] VITALS (32 sets, daily range): BP systolic 147–191; BP diastolic 72–96; PULSE 90–107; RESP 18–20; TEMP 37.9–38.8; O2SAT 96–99; BMI 28.3
--- NOTE | 2022-10-19 19:36 | W.ED.NAVMDI ---
HPI - Nausea/Vomiting/Diarrhea General: Chief complaint: General Medical Stated complaint: vomiting Time Seen by Provider: 10/19/22 19:36 History of Present Illness: Ms. Finney is a 76-year-old lady with recent history of hospitalization for colitis presenting to the emergency department due to inability tolerate oral intake. She reports essentially since discharge having continued symptoms despite taking her medications and she was no longer able to tolerate her medications this morning. Continues to have just generalized malaise. Denies fevers or chills. Intensity symptoms moderate. Course is worsened. No other specific changes in health, exacerbating, or alleviating factors identified. Onset (ago): day(s) Description of vomiting: watery Description of diarrhea: watery Associated nausea: Yes Associated abdominal pain: Yes Location of pain: Diffuse Severity: moderate Exacerbating factors: eating Relieving factors: none Associated symtoms: Reports nausea Review of Systems General: Reports: 10 or more systems reviewed and unremarkable except in HPI and below GI: Reports: nausea PFSH ED PFSH: Medical History COPD (chronic obstructive pulmonary disease) Degenerative lumbar disc Diabetes mellitus Facet arthropathy, lumbar H/O deep venous thrombosis Hematuria History of myocardial infarction HTN (hypertension) Lumbar disc disease with radiculopathy Recurrent UTI UTI (urinary tract infection) Surgical History History of neck surgery Hx of knee surgery S/P coronary angiogram S/P knee surgery S/P wrist surgery Family History Mother , at age 114 Myocardial infarct Father , in his 70's Hypertension Sister Diabetes Son Diabetes Social History Smoking and tobacco status: never smoked Alcohol intake: never Marital status: / Current occupational status: retired History of recent travel: No Physical Exam Const: COMMON NORMALS: alert GENERAL APPEARANCE: cooperative, well developed and ill appearing (Somewhat) HENMT: COMMON NORMALS: normocephalic and atraumatic HEAD & SCALP: normocephalic and atraumatic THROAT: posterior oropharynx normal Eye: COMMON NORMALS: conjunctivae normal CONJUNCTIVA: Yes conjunctivae normal SCLERA: sclerae normal Neck/C-Spine: COMMON NORMALS: supple GENERAL: Yes trachea midline Resp: COMMON NORMALS: normal respiratory effort and clear to auscultation bilaterally EFFORT & INSPECTION: Yes able to speak in complete sentences AUSCULTATION: clear to auscultation bilaterally Cardio: COMMON NORMALS: regular rhythm RATE: tachycardic RHYTHM: regular rhythm GI: COMMON NORMALS: Soft to palpation PALPATION: Yes Soft to palpation, Yes Tenderness to palpation present (GI), No Guarding due to palpation present (GI) and No Rigid due to palpation Extremity: GENERAL: Yes normal exam except as noted and No edema Neuro: COMMON NORMALS: moves all extremities SENSORIUM/ORIENTATION: Yes alert and No Orientation impaired Psych: COMMON NORMALS: mental status grossly normal and Normal thought process present THOUGHT PROCESS: Normal thought process present Course Vital Signs: Vital signs: Vital Signs Temperature 98.2 F 10/23/22 10:49 Pulse Rate 62 10/23/22 10:49 Respiratory Rate 16 10/23/22 10:49 Blood Pressure 174/74 10/23/22 10:49 Pulse Oximetry 91 10/23/22 10:49 Oxygen Delivery Me thod 10/23/22 07:36 MDM - Nausea/Vomiting/Diarrhea Medical Decision Making 76-year-old lady with recent hospitalization for colitis and UTI presenting with worsening symptoms and inability to tolerate medications at home. Exam as above. Labs notable for leukocytosis, microcytic anemia. Metabolic panel with dehydration and hypokalemia as well as hypomagnesemia. Continues to have evidence of UTI. X-ray without evidence of acute pathology. Patient treated with antiemetic, IV fluids, potassium and magnesium replenishment, antibiotics. Given degree of derangement and inability to tolerate home treatment patient requires hospitalization. Most likely etiology of symptoms is UTI and associated metabolic derangement. The results of ED evaluation were discussed with the patient including plan for admission due to requirement for level of care not available if discharged to prevent significant worsening/deterioration. Patient agreeable with plan. Discussed with hospitalist service who was agreeable to admit patient. Medical Records I reviewed the patient's medical records. Lab Data I reviewed the patient's lab results. 10/19/22 19:53 10/19/22 19:53 Radiology Impressions Abdomen X-Ray 10/19/22 19:59 IMPRESSION: No acute findings. Abdomen/Pelvis CT 10/20/22 09:40 IMPRESSION: 1. Previously described RIGHT hydroureter has improved with mild dilatation of the RIGHT ureter. No obstructing renal or ureteral calculi. Dilatation RIGHT renal pelvis has improved. No significant hydronephrosis. 2. Previously described colitis appears improved/resolved. 3. Esophageal hiatal hernia with air-fluid level. Fluid level in stomach. 4. No other significant changes compared to previous. Laboratory Results WBC 12.3 10^3/uL (4.0-10.0) H 10/19/22 19:53 RBC 4.20 10^6/uL (4.1-5.3) 10/19/22 19:53 Hgb 8.9 g/dL (11.5-15.3) L 10/19/22 19:53 Hct 30.4 % (37.0-47.0) L 10/19/22 19:53 MCV 72.4 fl (81-99) L 10/19/22 19:53 MCH 21.2 pg (28.0-34.0) L 10/19/22 19:53 MCHC 29.3 g/dL (30.0-36.0) L 10/19/22 19:53 RDW 17.0 % (12.1-15.1) H 10/19/22 19:53 Plt Count 420 10^3/cmm (130-400) H 10/19/22 19:53 MPV 9.8 fL (7.4-10.4) 10/19/22 19:53 Neut % (Auto) 90.4 % 10/19/22 19:53 Lymph % (Auto) 3.5 % 10/19/22 19:53 [place] % (Auto) 5.1 % 10/19/22 19:53 Eos % (Auto) 0.1 % 10/19/22 19:53 Baso % (Auto) 0.4 % 10/19/22 19:53 Neut # (Auto) 11.08 10^3/uL (1.8-7.7) H 10/19/22 19:53 Lymph # (Auto) 0.4 10^3/uL (0.8-4.8) L 10/19/22 19:53 [place] # (Auto) 0.6 10^3/uL (0.2-0.9) 10/19/22 19:53 Eos # (Auto) 0.0 10^3/uL (0.0-0.8) 10/19/22 19:53 Baso # (Auto) 0.1 10^3/uL (0.0-0.1) 10/19/22 19:53 Nucleated RBC % (auto) 0 % 10/19/22 19:53 Nucleated RBCs # 0.0 /100WBC 10/19/22 19:53 Sodium 130 mmol/L (136-145) L 10/19/22 19:53 Potassium 2.7 mmol/L (3.5-5.1) L* 10/19/22 19:53 Chloride 93 mmol/L (98-107) L 10/19/22 19:53 Carbon Dioxide 23 mmol/L (22-29) 10/19/22 19:53 Anion Gap 16.7 (5-19) 10/19/22 19:53 BUN 4 mg/dL (8-23) L 10/19/22 19:53 Creatinine 1.1 mg/dL (0.5-0.9) H 10/19/22 19:53 GFR Calculation Not Reportable 10/19/22 19:53 Glucose 181 mg/dL (65-115) H 10/19/22 19:53 Calculated Osmolality 271 mOsm/kg (285-295) L 10/19/22 19:53 Lactic Acid 1.6 mmol/L (0.5-2.2) 10/19/22 21:46 Calcium 8.9 mg/dL (8.5-10.5) 10/19/22 19:53 Magnesium 1.6 mg/dL (1.7-2.3) L 10/19/22 19:53 Total Bilirubin 0.4 mg/dL (0.15-1.2) 10/19/22 19:53 AST 11 U/L (0-32) 10/19/22 19:53 ALT 6 U/L (0-33) 10/19/22 19:53 Alkaline Phosphatase 133 U/L (35-105) H 10/19/22 19:53 Total Protein 7.7 g/dL (6.6-8.7) 10/19/22 19:53 Albumin 3.8 g/dL (3.5-5.2) 10/19/22 19:53 Globulin 3.9 g/dL (1.3-4.6) 10/19/22 19:53 Vitamin B12 437 pg/mL (232-1245) 10/19/22 19:53 Procalcitonin 0.70 ng/mL (0-0.5) H 10/19/22 19:53 Urine Color Yellow (Yellow) 10/19/22 20:43 Urine Appearance Sl hazy (CLEAR) A 10/19/22 20:43 Urine pH 6 (5-7) 10/19/22 20:43 Ur Specific [place] 1.010 (1.005-1.030) 10/19/22 20:43 Urine Protein Neg (Negative) 10/19/22 20:43 Urine Glucose (UA) Trace (Normal) H 10/19/22 20:43 Urine Ketones Negative (Negative) 10/19/22 20:43 Urine Blood Trace (Negative) H 10/19/22 20:43 Urine Nitrate Positive (Negative) H 10/19/22 20:43 Urine Bilirubin Neg (Negative) 10/19/22 20:43 Urine Urobilinogen Norm mg/dL (Negative) 10/19/22 20:43 Ur Leukocyte Esterase 1+ (Negative) H 10/19/22 20:43 Urine RBC 0-4 /hpf (0-2) H 10/19/22 20:43 Urine WBC 55-80 /hpf (0-5) H 10/19/22 20:43 Ur Squamous Epith Cells 0-4 /hpf (0-5) H 10/19/22 20:43 Amorphous Sediment Not Reportable 10/19/22 20:43 Urine Bacteria 4+ /hpf (NONE) H 10/19/22 20:43 Discharge Plan Discharge Patient Disposition: Admitted As Inpatient Admit Provider: Annie Newby Clinical Impression: Recurrent UTI, Nausea and vomiting, Hypokalemia, Leukocytosis, Dehydration Condition: Stable Discharge Diet: Advance as tolerated Discharge Activity: Resume usual activity and Increase activity as tolerated Coding Level of Care Code ED 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
--- NOTE | 2022-10-19 19:59 | XRR_ITS ---
PROCEDURE INFORMATION: Exam: XR Abdomen Exam date and time: 10/19/2022 8:02 PM Age: 76 years old Clinical indication: Vomiting; Additional info: N/v, recent hospitalization for colitis TECHNIQUE: Imaging protocol: Radiologic exam of the abdomen. Views: Frontal supine view of the abdomen. 1 View. COMPARISON: CT abdomen pelvis w con* [id number] 10/14/2022 1:18 PM FINDINGS: Gastrointestinal tract: Nonspecific bowel gas pattern with no obvious bowel obstruction or pneumatosis. Moderate colorectal stool burden. Bones/joints: Mild bilateral hip joint space narrowing consistent with early degenerative disease. Other findings: Single supine views submitted. XR/XR abdomen 1V* [id number] IMPRESSION: No acute findings.
[2022-10-19 20:07] LABS: Basophils # 0.1 10^3/uL (0.0-0.1); Basophils % 0.4 %; Eosinophils % 0.1 %; Hematocrit 30.4 % (37.0-47.0); Hemoglobin 8.9 g/dL (11.5-15.3); Lymphocytes # 0.4 10^3/uL (0.8-4.8); Lymphocytes % 3.5 %; Mean Corpuscular HGB Conc 29.3 g/dL (30.0-36.0); Mean Corpuscular Hemoglobin 21.2 pg (28.0-34.0); Mean Corpuscular Volume 72.4 fl (81-99); Mean Platelet Volume 9.8 fL (7.4-10.4); Monocytes # 0.6 10^3/uL (0.2-0.9); Monocytes % 5.1 %; Neutrophils # 11.08 10^3/uL (1.8-7.7); Neutrophils % 90.4 %; Nucleated Red Blood Cells % 0 %; Platelet Count 420 10^3/cmm (130-400); White Blood Count 12.3 10^3/uL (4.0-10.0)
[2022-10-19] MEDS: sodium chloride 0.9% 1,000 ML 999 ML IV ×2 (20:09→22:37)
[2022-10-19] MEDS: ondansetron 2 mg/ML SDV 2 mL 4 MG IVP (20:09)
[2022-10-19 20:25] LABS: Alanine Aminotransferase 6 U/L (0-33); Albumin Level 3.8 g/dL (3.5-5.2); Alkaline Phosphatase 133 U/L (35-105); Anion Gap 16.7 (5-19); Aspartate Amino Transferase 11 U/L (0-32); Blood Urea Nitrogen 4 mg/dL (8-23); Calcium 8.9 mg/dL (8.5-10.5); Carbon Dioxide 23 mmol/L (22-29); Chloride 93 mmol/L (98-107); Globulin 3.9 g/dL (1.3-4.6); Glucose 181 mg/dL (65-115); Osmolality Calculated 271 mOsm/kg (285-295); Sodium 130 mmol/L (136-145); Total Bilirubin 0.4 mg/dL (0.15-1.2); Total Protein 7.7 g/dL (6.6-8.7)
[2022-10-19 20:30] LABS: Potassium 2.7 mmol/L (3.5-5.1)
[2022-10-19] MEDS: potassium chloride ER 20 mEq Tablet 40 MEQ PO (20:43)
[2022-10-19 20:48] LABS: Magnesium 1.6 mg/dL (1.7-2.3)
[2022-10-19] MEDS: lidocaine 1% 5 ML in potassium chloride premix 100 ML 25 ML IV (20:50)
[2022-10-19 21:03] LABS: Bilirubin Urine Neg (Negative); Blood Urine Trace (Negative); Glucose Urine UA Trace (Normal); Ketones Urine Negative (Negative); Nitrate Urine Positive (Negative); Protein Urine Neg (Negative); Urine Appearance SL Hazy (CLEAR); Urine Color Yellow (Yellow); Urobilinogen Urine Norm (Negative); pH Urine 6 (5-7)
[2022-10-19 21:04] LABS: Add Urine Culture? Yes; Add Urine Microscopic? YES; Bacteria Urine 4+ /hpf; Leukocyte Esterase Urine 1+ (Negative); RBC Urine 0-4 /hpf (0-2); Squamous Epithelial Cell Urine 0-4 /hpf (0-5); WBC Urine 55-80 /hpf (0-5)
--- NOTE | 2022-10-19 22:00 | P.HP_ITS ---
Providers/Chief Complaint Primary Care Provider: Zeus Young DO Chief Complaint: vomiting History of Present Illness Maria Luz Finney is a 76 year old female who was recently discharged from the hospital on 10/15 on ciprofloxacin for UTI, her urine culture is showing E. coli which is resistant to ciprofloxacin and she is returning back to the hospital with chief complaint of recurrent emesis. In the ER she has been diagnosed with sepsis related to UTI. I have requested septic bolus lactic acid is pending. She meets sepsis criteria with temp 100.3, tachycardia and leukocytosis. Dr. Richard recommended endoscopy for her colitis and iron deficiency anemia. Is stating that since her discharge from the hospital her vomiting never improved, she has been noticing chills, subjective fevers, diarrhea has improved. She is extremely tired and fatigued. Her last proper meal was roughly 48 hours ago, she is not able to keep anything down. 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 and generalized colitis Review of Systems Const: Reports: fever(s), chills, body aches, change in appetite and fatigue Eyes: Denies: change in vision ENMT: Denies: throat pain Card: Denies: chest pain Resp: Denies: dyspnea GI: Reports: nausea and vomiting : Reports: flank pain Musc: Denies: neck pain Skin/Breast: Denies: rash Neuro: Denies: headache(s) Psych: Reports: anxiety Endo: Denies: polyuria Dago/Lymph: Denies: easy bruising All/Imm: Denies: urticaria Medications/Allergies Home Medications Medication Instructions Recorded Confirmed Last Taken Type spironolactone 25 mg tablet 12.5 mg PO DAILY 06/14/21 10/14/22 06/21/22 History hydroxyzine HCl 25 mg tablet 25 mg PO QID PRN Anxiety 03/02/22 10/14/22 Unknown History nitroglycerin 0.4 mg sublingual 0.4 mg sublingual Q5M PRN chest 03/02/22 10/14/22 Unknown Rx tablet pain #30 tabs atorvastatin 20 mg tablet 20 mg PO DAILY 05/03/22 10/14/22 06/21/22 History venlafaxine 150 mg tablet,extended 150 mg PO DAILY 05/03/22 10/14/22 06/21/22 History release 24 hr metformin 500 mg tablet See Rx Instructions .Route .COMPLEX 06/22/22 10/14/22 06/21/22 History amlodipine 5 mg tablet 5 mg PO DAILY 10/14/22 10/14/22 Unknown History ciprofloxacin HCl 500 mg tablet 500 mg PO BID #6 tabs 10/15/22 Unknown Rx metronidazole 500 mg tablet 500 mg PO Q8H 6 days #18 tabs 10/15/22 Unknown Rx pantoprazole 40 mg tablet,delayed 40 mg PO DAILY 6 weeks #42 tabs 10/15/22 Unknown Rx release Allergies Allergy/AdvReac Type Severity Reaction Status Date / Time morphine AdvReac Intermediate vomiting Verified 10/19/22 19:40 pneumococcal vaccine AdvReac Intermediate Unknown Verified 10/19/22 19:40 PFSH Acute PFSH: Medical History COPD (chronic obstructive pulmonary disease) Degenerative lumbar disc Diabetes mellitus Facet arthropathy, lumbar H/O deep venous thrombosis Hematuria History of myocardial infarction HTN (hypertension) Lumbar disc disease with radiculopathy Recurrent UTI UTI (urinary tract infection) Surgical History History of neck surgery Hx of knee surgery S/P coronary angiogram S/P knee surgery S/P wrist surgery Family History Mother , at age 114 Myocardial infarct Father , in his 70's Hypertension Sister Diabetes Son Diabetes Social History Smoking and tobacco status: never smoked Alcohol intake: never Marital status: / Current occupational status: retired History of recent travel: No Vitals/I&O/Wt Last Vital Signs Temp 100.3 F H 10/19/22 19:35 Pulse 107 H 10/19/22 19:35 Resp 18 10/19/22 19:35 BP 191/79 10/19/22 20:00 Pulse Ox 98 10/19/22 21:15 O2 Del Method 10/19/22 19:35 Weight last 48 hrs Weight 63.503 kg Physical Exam Narrative: Pleasant cooperative early female Looks dehydrated No audible stridor or wheezing Currently on room air Hemodynamically stable S1, S2 No signs of fluid overload EOMI, PERRLA Nonfocal neuro exam Appropriate mood and affect No sign of cellulitis Abdomen soft to palpate Data 10/19/22 19:53 10/19/22 19:53 Micro: Microbiology 10/19/22 21:46 Blood Culture - Preliminary Blood SPECIMEN COLLECTED 10/19/22 21:40 Blood Culture - Preliminary Blood SPECIMEN COLLECTED A&P Assessment and plan (1) Nausea and vomiting: (2) Hypokalemia: (3) Dehydration: (4) Hypokalemia: (5) Microcytic anemia: (6) UTI (urinary tract infection): (7) Sepsis: Plan Sepsis related to recurrent UTI Patient was discharged on ciprofloxacin according to culture and sensitivity E. coli was resistant to ciprofloxacin She is dehydrated Hyponatremic hypokalemic hypomagnesemic Sepsis criteria met with tachypnea tachycardia, T-max 100.3 with leukocytosis, lactic acid is pending, endorgan damage of KATLYN of creatinine 1.1 I will start patient on IV Zosyn repeat urine culture Hydrate her with IV fluids Septic bolus requested in the ER Patient was recommended EGD and colonoscopy for iron deficiency anemia and generalized colitis work-up Hemoglobin has remained stable Hemodynamically stable She is diabetic we will keep her on sliding scale COPD without acute exacerbation Full code [place] diet KATLYN related to dehydration anticipating provement with IV fluids Attestations Medical Necessity Statement*: More than 2 midnights anticipated for sepsis related to UTI Time Spent in Patient Care: 40 Coding Level of Care Code Acute Hospice Aide for [facility] Fwd Diagnoses Nausea and vomiting R11.2 Hypokalemia E87.6 Dehydration E86.0 Hypokalemia E87.6 Microcytic anemia D50.9 UTI (urinary tract infection) N39.0 Sepsis A41.9
[2022-10-19] MEDS: piperacillin-tazobactam 4.5 GM in sodium chloride 0.9% (plus) 50 ML IV (22:36)
[2022-10-19 22:37] LABS: Lactic Sepsis W/Reflex 1.6 mmol/L (0.5-2.2)
--- NOTE | 2022-10-19 22:43 | PC.NURSE ---
Report given to Vera ALEJANDRO.
[2022-10-20] VITALS (8 sets, daily range): BP systolic 130–188; BP diastolic 65–71; PULSE 70–84; RESP 15–22; TEMP 36.3–38.2; O2SAT 95–97; BMI 24.9
[2022-10-20] MEDS: heparin 5,000 unit/mL INJ 1 mL 5000 UNIT SUBCUT ×3 (00:05→23:11)
[2022-10-20] MEDS: acetaminophen 500 mg Tablet PO ×2 (00:05→11:52)
[2022-10-20] MEDS: sodium chlor 0.9% + KCl 40 mEq 40 MEQ/1,000 ML BAG 75 MEQ IV ×2 (00:07→18:10)
[2022-10-20] MEDS: magnesium sulfate premix 2 GM/50 ML PIGGYBACK IV (00:51)
[2022-10-20 05:01] LABS: Basophils % 0.3 %; Eosinophils % 0.1 %; Hematocrit 27.3 % (37.0-47.0); Hemoglobin 7.9 g/dL (11.5-15.3); Lymphocytes # 0.7 10^3/uL (0.8-4.8); Lymphocytes % 9.7 %; Mean Corpuscular HGB Conc 28.9 g/dL (30.0-36.0); Mean Corpuscular Hemoglobin 20.9 pg (28.0-34.0); Mean Corpuscular Volume 72.2 fl (81-99); Mean Platelet Volume 9.7 fL (7.4-10.4); Monocytes # 0.5 10^3/uL (0.2-0.9); Monocytes % 7.1 %; Neutrophils # 6.04 10^3/uL (1.8-7.7); Neutrophils % 82.1 %; Nucleated Red Blood Cells % 0 %; Platelet Count 341 10^3/cmm (130-400); Red Blood Count 3.78 10^6/uL (4.1-5.3); Red Cell Distribution Width 17.2 % (12.1-15.1); White Blood Count 7.4 10^3/uL (4.0-10.0)
[2022-10-20 05:30] LABS: Blood Urea Nitrogen 5 mg/dL (8-23); C Reactive Protein 75.9 mg/L (0.0-4.9); Calcium 8.3 mg/dL (8.5-10.5); Carbon Dioxide 21 mmol/L (22-29); Chloride 105 mmol/L (98-107); Glucose 140 mg/dL (65-115); Magnesium 2.2 mg/dL (1.7-2.3); Osmolality Calculated 282 mOsm/kg (285-295); Phosphorus 1.9 mg/dL (2.5-4.5); Sodium 136 mmol/L (136-145)
[2022-10-20 05:52] LABS: Vitamin B12 437 pg/mL (232-1245)
[2022-10-20 06:45] LABS: Glucose Point of Care 138 mg/dL (70-110)
[2022-10-20] MEDS: insulin lispro 100 unit/1 mL SUBCUT (09:20)
[2022-10-20] MEDS: venlafaxine ER (24HR) 150 mg Capsule PO (09:20)
[2022-10-20] MEDS: amlodipine 5 mg Tablet PO (09:21)
[2022-10-20] MEDS: pantoprazole DR 40 mg Tablet PO (09:21)
[2022-10-20] MEDS: piperacillin-tazobactam 3.375 GM in sodium chloride 0.9% (plus) 50 ML IV ×2 (09:21→17:59)
--- NOTE | 2022-10-20 09:40 | CT_ITS ---
WS: [id number] CT ABDOMEN PELVIS TECHNIQUE: Noncontrast CT of the abdomen and pelvis with coronal and sagittal reformatted images. CLINICAL INFORMATION: evalute for pyelonpehritis, obstcrution COMPARISON: CT October 14, 2022 DLP: 368.[address] scans at [facility] use at least one of these dose optimization techniques: automated e xposure control; mA and/or kV adjustment per patient size (includes targeted exams where dose is matc hed to clinical indication); or iterative reconstruction. FINDINGS: Moderate dilatation of the RIGHT ureter has improved compared to the recent CT. Mild dilatation RIGHT renal pelvis. No significant hydronephrosis. No hydronephrosis in the LEFT kidney. No obstructing re nal or ureteral calculi. Urine distended bladder. Previously described colitis appears improved compared to previous. No evide nce of high-grade small or large bowel obstruction. No free fluid in the abdomen or pelvis. A few sig moid diverticuli. Lung bases are well aerated. Noncontrast liver is normal. Normal noncontrast gallbl adder. Small esophageal hiatal hernia with air-fluid level. Air-fluid level in the stomach. Fluid distended stomach. Fat-containing umbilical hernia. Fatty atrophy of the pancreas. Splenic artery calcification . Normal caliber abdominal aorta. Aortic calcification. Adrenal glands are normal. Mild lumbar curve. Disc space narrowing worse L5-S1. Mobile cecum and RIGHT colon in the upper abdomen and LEFT upper q uadrant. This is unchanged from the prior studies. CT/CT kidney stone [id number] IMPRESSION: 1. Previously described RIGHT hydroureter has improved with mild dilatation of the RIGHT ureter. No obstructing renal or ureteral calculi. Dilatation RIGHT r enal pelvis has improved. No significant hydronephrosis. 2. Previously described colitis appears improved/resolved. 3. Esophageal hiatal hernia with air-fluid level. Fluid level in stomach. 4. No other significant changes compared to previous.
--- NOTE | 2022-10-20 10:30 | PC.CHAP ---
Pastoral Care Encounter/Spiritual Assessment Type of Contact [] Declined manager home improvement visit [] Patient/Family/Request visit [] Outpatient visit [] Follow-up visit [] Physician referral [] Code/Alert [x] Routine visit [] Staff referral [] Actively dying [] Patient sleeping [] Family support [] [] Out of room [] Palliative care [] [x] Receiving care in room [] Pre-surgical visit [] Trauma [] Long length of stay [] ICU visit [] Other: Relational/Emotional Strength [x] Patient feels connected with others/family/visitors/staff [] Distress [] Loneliness/isolation [] Abandonment Spirituality of Patient [] Person of Rosamaria [] Attends Anglican of their Rosamaria [] Believes in Prayer [] Reads Bible or Yazidism materials [] There are Spiritual issues to be addressed Continuous Churn Buttermaker Interventions [] Prayer [] Active listening [] Non-anxious presence [] Spiritual/emotional support [] Crisis/trauma care [] Spiritual counseling [] Bereavement support [] Provided bereavement packet [] Provided Bible/devotional materials [] Provided toy/stuffed animal, coloring book to patient or family member [] Provided Communion [] Anointing/[place] [] Salvation [] Completed spiritual assessment [] Other: Impact on Illness or Injury [] Angry [] Fearful [x] Anxious [] Often cries [] Exhaustion [] Unable to work [] Unable to attend gnosticist [] Unable to walk/stand [] Unable to read [] Unable to drive [] Unable to eat/drink [] Unable to sleep [] Unable to be with family [] Patient intubated [] Other: Summary unable to keep food stomack has a good attitude Time spent with patient 10 mins
[2022-10-20 11:23] LABS: Glucose Point of Care 126 mg/dL (70-110)
--- NOTE | 2022-10-20 13:21 | PC.NURSE ---
Patient had an episode of vomiting after eating her lunch.
[2022-10-20 17:12] LABS: Glucose Point of Care 125 mg/dL (70-110)
--- NOTE | 2022-10-20 17:20 | P.PN_ITS ---
Subjective Subjective: Continues to be nauseous. Still having fever. States that she has been coughing a lot and trying to bring up phlegm. States that most of her vomitus is in the setting of trying to cough up some phlegm. CT of the abdomen and pelvis was performed today which was negative for any hydronephrosis. No perinephric stranding. Colitis is much improved compared to previously. Medications: Reviewed: Yes Vitals/I&O/Wt Last Vital Signs Temp 97.4 F L 10/20/22 16:31 Pulse 74 10/20/22 16:31 Resp 16 10/20/22 16:31 BP 130/68 10/20/22 16:31 Pulse Ox 96 10/20/22 16:31 O2 Del Method 10/20/22 16:31 10/20/22 10/20/22 10/20/22 06:59 14:59 22:59 Intake Total 1305 / 2305 240 / 240 Balance 1305 / 2305 240 / 240 Weight last 48 hrs Weight 55.962 kg Weight 63.503 kg Physical Exam Narrative: General: No acute distress, AO x3 HEENT: PERRLA, pupils bilaterally equal and reactive, pallors not present Chest: Normal vesicular breath sounds, no added sounds, equal good air entry bilaterally CVS: S1-S2 regular, no murmurs, no tachycardia, no gallops, no rubs Abdomen: Soft, nontender, no organomegaly, bowel sounds present Neuro: No focal deficits, no facial deformity, AO x3, power 5/5 in all limbs Data 10/20/22 03:41 10/20/22 03:41 Micro: Microbiology 10/19/22 21:46 Blood Culture - Preliminary Blood SPECIMEN COLLECTED 10/19/22 21:40 Blood Culture - Preliminary Blood SPECIMEN COLLECTED A&P Assessment and plan (1) Nausea and vomiting: (2) Hypokalemia: (3) Dehydration: (4) Microcytic anemia: (5) UTI (urinary tract infection): (6) Sepsis: Plan Sepsis without any endorgan damage. Source is currently under evaluation. Possibilities include a urinary tract infection given a positive UA, recent urine culture with E. coli which was resistant to ciprofloxacin, patient's most recent antibiotic. CT of the abdomen and pelvis without signs of obstructive hydronephrosis. Her chief complaint right now is cough, we will check a viral respiratory panel. Chest x-ray without any gross consolidation. Hyponatremic hypokalemic hypomagnesemic all currently improving with IV hydration Continue empirically piperacillin tazobactam, pending current urine culture Patient was recommended EGD and colonoscopy for iron deficiency anemia and gene ralized colitis work-up. Will likely need to wait 3 weeks before undergoing colonoscopy after an active colitis. Colitis in itself is significantly improved. She is diabetic we will keep her on sliding scale COPD without acute exacerbation Full code [place] diet KATLYN related to dehydration anticipating provement with IV fluids Attestations Medical Necessity Statement*: Need for IV antibiotic panel today. Coding Level of Care Code Acute Potato Grader for Chg Fwd Diagnoses Nausea and vomiting R11.2 Hypokalemia E87.6 Dehydration E86.0 Microcytic anemia D50.9 UTI (urinary tract infection) N39.0 Sepsis A41.9
[2022-10-20 20:58] LABS: Glucose Point of Care 146 mg/dL (70-110)
[2022-10-21] VITALS (7 sets, daily range): BP systolic 132–190; BP diastolic 74–81; PULSE 72–87; RESP 15–19; TEMP 36.9–37.7; O2SAT 95–98
[2022-10-21] MEDS: piperacillin-tazobactam 3.375 GM in sodium chloride 0.9% (plus) 50 ML IV ×2 (01:19→08:18)
[2022-10-21 05:13] LABS: Basophils % 0.6 %; Eosinophils # 0.1 10^3/uL (0.0-0.8); Eosinophils % 0.7 %; Hemoglobin 8.9 g/dL (11.5-15.3); Lymphocytes # 0.9 10^3/uL (0.8-4.8); Lymphocytes % 13.1 %; Mean Corpuscular HGB Conc 30.7 g/dL (30.0-36.0); Mean Corpuscular Hemoglobin 21.5 pg (28.0-34.0); Mean Corpuscular Volume 70.2 fl (81-99); Mean Platelet Volume 11.3 fL (7.4-10.4); Monocytes # 0.5 10^3/uL (0.2-0.9); Monocytes % 6.7 %; Neutrophils # 5.25 10^3/uL (1.8-7.7); Neutrophils % 78.5 %; Nucleated Red Blood Cells % 0 %; Platelet Count 410 10^3/cmm (130-400); Red Blood Count 4.13 10^6/uL (4.1-5.3); Red Cell Distribution Width 17.3 % (12.1-15.1); White Blood Count 6.7 10^3/uL (4.0-10.0)
[2022-10-21 06:15] LABS: Glucose Point of Care 131 mg/dL (70-110)
[2022-10-21 06:37] LABS: Alanine Aminotransferase 6 U/L (0-33); Albumin Level 4.1 g/dL (3.5-5.2); Alkaline Phosphatase 109 U/L (35-105); Anion Gap 16.2 (5-19); Aspartate Amino Transferase 15 U/L (0-32); Blood Urea Nitrogen 5 mg/dL (8-23); Calcium 8.8 mg/dL (8.5-10.5); Carbon Dioxide 21 mmol/L (22-29); Chloride 96 mmol/L (98-107); Globulin 3.4 g/dL (1.3-4.6); Glucose 116 mg/dL (65-115); Osmolality Calculated 266 mOsm/kg (285-295); Potassium 4.2 mmol/L (3.5-5.1); Sodium 129 mmol/L (136-145); Total Bilirubin 0.4 mg/dL (0.15-1.2); Total Protein 7.5 g/dL (6.6-8.7)
[2022-10-21 07:35] LABS: Adenovirus Not Detected (NOT DETECT); Chlamydia Pneumoniae Not Detected (NOT DETECT); Coronavirus 229E,HKU1,NL63,OC4 Not Detected (NOT DETECT); Human Metapneumovirus Not Detected (NOT DETECT); Human Rhinovirus/Enterovirus Not Detected (NOT DETECT); Influenza A Detected (NOT DETECT); Influenza A H1 Not Detected (NOT DETECT); Influenza A H1-2009 Not Detected (NOT DETECT); Influenza A H3 Detected (NOT DETECT); Influenza B Not Detected (NOT DETECT); Mycoplasma Pneumoniae Not Detected (NOT DETECT); Parainfluenza Virus Type 1 Not Detected (NOT DETECT); Parainfluenza Virus Type 2 Not Detected (NOT DETECT); Parainfluenza Virus Type 3 Not Detected (NOT DETECT); Parainfluenza Virus Type 4 Not Detected (NOT DETECT); Respiratory Syncytial Virus A Not Detected (NOT DETECT); Respiratory Syncytial Virus B Not Detected (NOT DETECT); SARS-COV-2 Not Detected (NOT DETECT)
[2022-10-21] MEDS: sodium chlor 0.9% + KCl 40 mEq 40 MEQ/1,000 ML BAG 75 MEQ IV ×2 (08:15→19:57)
[2022-10-21] MEDS: venlafaxine ER (24HR) 150 mg Capsule PO (08:18)
[2022-10-21] MEDS: amlodipine 5 mg Tablet PO (08:18)
[2022-10-21] MEDS: pantoprazole DR 40 mg Tablet PO (08:18)
[2022-10-21 10:52] LABS: Glucose Point of Care 158 mg/dL (70-110)
[2022-10-21] MEDS: insulin lispro 100 unit/1 mL SUBCUT (12:43)
[2022-10-21] MEDS: heparin 5,000 unit/mL INJ 1 mL 5000 UNIT SUBCUT ×2 (12:43→22:25)
--- NOTE | 2022-10-21 13:15 | PM.PN ---
Subjective Subjective: Afebrile, hemodynamically stable. Still complains of extreme weakness. States that she got out of bed and felt a little bit dizzy. Saturating well on room air. Sodium is at 129 today, dropped from 136 yesterday. Hemoglobin stable at 8.9. Influenza A positive. Medications: Reviewed: Yes Vitals/I&O/Wt Last Vital Signs Temp 98.5 F 10/21/22 11:49 Pulse 77 10/21/22 11:49 Resp 15 10/21/22 11:49 BP 132/74 10/21/22 11:49 Pulse Ox 96 10/21/22 11:49 O2 Del Method 10/21/22 11:49 10/20/22 10/21/22 10/21/22 22:59 06:59 14:59 Intake Total 880 / 2170 1050 / 3220 1240 / 1240 Balance 880 / 2170 1050 / 3220 1240 / 1240 Weight last 48 hrs Weight 53.433 kg Weight 55.962 kg Weight 63.503 kg Physical Exam Narrative: General: No acute distress, AO x3 HEENT: PERRLA, pupils bilaterally equal and reactive, pallors not present Chest: Normal vesicular breath sounds, no added sounds, equal good air entry bilaterally CVS: S1-S2 regular, no murmurs, no tachycardia, no gallops, no rubs Abdomen: Soft, nontender, no organomegaly, bowel sounds present Neuro: No focal deficits, no facial deformity, AO x3, power 5/5 in all limbs Data 10/21/22 03:52 10/21/22 06:13 Micro: Microbiology 10/19/22 21:46 Blood Culture - Preliminary Blood NEGATIVE TO DATE 10/19/22 21:40 Blood Culture - Preliminary Blood NEGATIVE TO DATE A&P Assessment and plan (1) Nausea and vomiting: (2) Hypokalemia: (3) Dehydration: (4) Microcytic anemia: (5) UTI (urinary tract infection): (6) Sepsis: (7) Influenza A: Plan Sepsis suspected on admission, ruled out now. Patient's fever and all her symptoms are related to influenza A. Also has a UTI positive UA, recent urine culture with E. coli which was resistant to ciprofloxacin, patient's most recent antibiotic. CT of the abdomen and pelvis without signs of obstructive hydronephrosis. Colitis was resolved. Chest x-ray without any gross consolidation. Hyponatremic hypokalemic hypomagnesemic all currently improving with IV hydration, sodium initially corrected to 136 after which IV fluids were discontinued, now resumed again with sodium dropped to 129. Still not able to have adequate p.o. intake. Change antibiotic to ceftriaxone 1 g IV daily in keeping with past urine cultures. Patient was recommended EGD and colonoscopy for iron deficiency anemia and generalized colitis work-up. Will likely need to wait 3 weeks before undergoing colonoscopy after an active colitis. Colitis in itself is significantly improved. She is diabetic we will keep her on sliding scale COPD without acute exacerbation Full code Attestations Medical Necessity Statement*: Hyponatremia sodium 129, fluid positive, started Tamiflu today, awaiting urine culture, on empiric antibiotics until then Coding Level of Care Code Acute Director Translation for Chg Fwd Diagnoses Nausea and vomiting R11.2 Hypokalemia E87.6 Dehydration E86.0 Microcytic anemia D50.9 UTI (urinary tract infection) N39.0 Sepsis A41.9 Influenza A J10.1
[2022-10-21] MEDS: cefTRIAXone 1,000 MG in sodium chloride 0.9% (plus) 50 ML 100 MG IV (14:44)
[2022-10-21 15:28] LABS: Glucose Point of Care 130 mg/dL (70-110)
[2022-10-21 17:39] LABS: Glucose Point of Care 120 mg/dL (70-110)
[2022-10-21] MEDS: oseltamivir phosphate 75 mg Capsule PO (17:39)
[2022-10-21 21:37] LABS: Glucose Point of Care 145 mg/dL (70-110)
[2022-10-22] VITALS (8 sets, daily range): BP systolic 144–159; BP diastolic 64–83; PULSE 63–84; RESP 16–22; TEMP 36.7–37.1; O2SAT 93–97
--- NOTE | 2022-10-22 03:05 | PC.NURSE ---
Patient incontinent. Unable to measure urine output.
[2022-10-22 05:42] LABS: Basophils % 0.5 %; Eosinophils # 0.1 10^3/uL (0.0-0.8); Eosinophils % 2.7 %; Hematocrit 32.3 % (37.0-47.0); Hemoglobin 9.5 g/dL (11.5-15.3); Lymphocytes # 1.5 10^3/uL (0.8-4.8); Lymphocytes % 36.2 %; Mean Corpuscular HGB Conc 29.4 g/dL (30.0-36.0); Mean Corpuscular Hemoglobin 21.2 pg (28.0-34.0); Mean Corpuscular Volume 71.9 fl (81-99); Mean Platelet Volume 10.1 fL (7.4-10.4); Monocytes # 0.4 10^3/uL (0.2-0.9); Monocytes % 10.3 %; Neutrophils # 2.02 10^3/uL (1.8-7.7); Neutrophils % 49.8 %; Nucleated Red Blood Cells % 0 %; Platelet Count 361 10^3/cmm (130-400); Red Blood Count 4.49 10^6/uL (4.1-5.3); Red Cell Distribution Width 17.4 % (12.1-15.1); White Blood Count 4.1 10^3/uL (4.0-10.0)
[2022-10-22 06:16] LABS: Alanine Aminotransferase 7 U/L (0-33); Albumin Level 3.7 g/dL (3.5-5.2); Alkaline Phosphatase 113 U/L (35-105); Aspartate Amino Transferase 17 U/L (0-32); Blood Urea Nitrogen 5 mg/dL (8-23); Carbon Dioxide 21 mmol/L (22-29); Globulin 3.7 g/dL (1.3-4.6); Glucose 105 mg/dL (65-115); Total Bilirubin 0.2 mg/dL (0.15-1.2); Total Protein 7.4 g/dL (6.6-8.7)
[2022-10-22 06:24] LABS: Glucose Point of Care 104 mg/dL (70-110)
[2022-10-22 06:47] LABS: Osmolality Calculated 270 mOsm/kg (285-295)
[2022-10-22] MEDS: venlafaxine ER (24HR) 150 mg Capsule PO (09:41)
[2022-10-22] MEDS: oseltamivir phosphate 75 mg Capsule PO ×2 (09:41→17:24)
[2022-10-22] MEDS: pantoprazole DR 40 mg Tablet PO (09:41)
[2022-10-22] MEDS: amlodipine 5 mg Tablet PO (09:41)
[2022-10-22] MEDS: sodium chlor 0.9% + KCl 40 mEq 40 MEQ/1,000 ML BAG 75 MEQ IV ×2 (09:41→22:28)
[2022-10-22 10:52] LABS: Glucose Point of Care 139 mg/dL (70-110)
[2022-10-22 11:15] LABS: Chloride 98 mmol/L (98-107)
[2022-10-22 11:16] LABS: Sodium 131 mmol/L (136-145)
--- NOTE | 2022-10-22 11:20 | PM.PN ---
Subjective Subjective: seen this am no acute events overnight. pt seen having breakfast offers no complaints Vitals/I&O/Wt Last Vital Signs Temp 98.8 F 10/22/22 07:43 Pulse 84 10/22/22 09:07 Resp 18 10/22/22 09:07 BP 159/73 10/22/22 07:43 Pulse Ox 95 10/22/22 09:07 O2 Del Method 10/22/22 09:07 10/21/22 10/22/22 10/22/22 22:59 06:59 14:59 Intake Total 1547.5 / 3027.5 600 / 3627.5 1000 / 1000 Balance 1547.5 / 3027.5 600 / 3627.5 1000 / 1000 Weight last 48 hrs Weight 53.342 kg Weight 53.433 kg Physical Exam Narrative: General: No acute distress, AO x3 HEENT: pupils bilaterally equal and reactive, pallors not present Chest: Normal vesicular breath sounds, no added sounds, equal good air entry bilaterally CVS: S1-S2 regular, no murmurs, no tachycardia, no gallops, no rubs Abdomen: Soft, nontender, no organomegaly, bowel sounds present Neuro: No focal deficits, no facial deformity, AO x3 Data 10/22/22 05:15 10/22/22 05:15 Micro: Microbiology 10/19/22 20:43 Urine Culture - Preliminary Urine,Clean Catch Gram Negative Rods A&P Assessment and plan (1) Nausea and vomiting: (2) Hypokalemia: (3) Dehydration: (4) Microcytic anemia: (5) UTI (urinary tract infection): (6) Sepsis: (7) Influenza A: Plan Sepsis suspected on admission, ruled out now. Patient's fever and all her symptoms are related to influenza A. Also has a UTI positive UA, recent urine culture with E. coli which was resistant to ciprofloxacin, patient's most recent antibiotic. UCx obtained this admission is growing gram negative rods. Awaiting sensitivity. CT of the abdomen and pelvis without signs of obstructive hydronephrosis. Colitis was resolved. Chest x-ray without any gross consolidation. Continue ceftriaxone 1 g IV daily in keeping with past urine cultures. - Sodium 131 today. Continue to monitor. Patient was recommended EGD and colonoscopy for iron deficiency anemia and generalized colitis work-up. Will likely need to wait 3 weeks before undergoing colonoscopy after an active colitis. Colitis in itself is significantly improved. Denies abdominal pain today. She is diabetic we will keep her on sliding scale COPD without acute exacerbation Full code Attestations Medical Necessity Statement*: Continue to monitor in hospital. Awaiting urine culture. Coding Level of Care Code Acute [place] Worker for Chg Fwd Diagnoses Nausea and vomiting R11.2 Hypokalemia E87.6 Dehydration E86.0 Microcytic anemia D50.9 UTI (urinary tract infection) N39.0 Sepsis A41.9 Influenza A J10.1
--- NOTE | 2022-10-22 12:04 | PC.SOCIAL ---
Pg 2 IMM Explained to pt Pg 2 IMM. No questions voiced. Provided pt a copy. Initialed, dated, & timed a copy & placed in chart.
[2022-10-22] MEDS: heparin 5,000 unit/mL INJ 1 mL 5000 UNIT SUBCUT ×2 (12:08→22:28)
[2022-10-22] MEDS: cefTRIAXone 1,000 MG in sodium chloride 0.9% (plus) 50 ML 100 MG IV (12:55)
[2022-10-22 16:51] LABS: Glucose Point of Care 100 mg/dL (70-110)
[2022-10-22 21:37] LABS: Glucose Point of Care 100 mg/dL (70-110)
[2022-10-23] VITALS: BP 138/62; PULSE 68; RESP 19; TEMP 36.9; O2SAT 98
[2022-10-23 04:00] VITALS: BP 148/71; PULSE 65; RESP 18; TEMP 36.8; O2SAT 96
[2022-10-23 06:16] LABS: Glucose Point of Care 88 mg/dL (70-110)
[2022-10-23 07:36] VITALS: BP 174/74; PULSE 62; RESP 16; TEMP 36.8; O2SAT 91
[2022-10-23] MEDS: oseltamivir phosphate 75 mg Capsule PO (08:33)
[2022-10-23] MEDS: venlafaxine ER (24HR) 150 mg Capsule PO (08:33)
[2022-10-23] MEDS: amlodipine 5 mg Tablet PO (08:33)
[2022-10-23] MEDS: pantoprazole DR 40 mg Tablet PO (08:34)
--- NOTE | 2022-10-23 08:34 | PM.DCS ---
Discharge Providers Date of Admission: 10/19/22 23:04 Date of Discharge: October 23, 2022 Attending Provider at Admission: Annie Newby MD Attending Provider at Discharge: Lorena Turner MD Primary Care Provider: Zeus Young DO Diagnoses at Discharge Discharge Diagnosis (1) Nausea and vomiting: Status: Acute (2) Hypokalemia: Status: Acute (3) Dehydration: Status: Acute (4) Microcytic anemia: Status: Acute (5) UTI (urinary tract infection): Status: Acute (6) Sepsis: Status: Acute (7) Influenza A: Status: Acute Reason for Visit Reason for Visit: vomiting Hospital Course Hospital Course Maria Luz Finney is a 76 year old female who was recently discharged from the hospital on 10/15 on ciprofloxacin for UTI and colitis, she returned to the hospital on 10/19 with fever, recurrent vomiting, bouts of cough. Initial diagnosis was that of UTI since her last urine cx had shown cipro resistant E.coli, however patient has no urinary symptoms, therefore this is considered less likely to be the caus eof her worsening. She tested positive for influenza A,sepsis suspected at admission has been ruled out. CT abdomen was repeated to evaluate for possible obstructive uropathy or worsened colitis- negative for both. Colitis is significantly improved, no signs of obstructive uropathy. She was treated with Tamiflu, Ceftriaxone and improved with treatment. She remained on room air during course of admission. CXR without consolidation. She had hyponatremia likely as result of dehydration from vomiting, improving at discharge with Iv hydration. She is being discharged today in stable to improved condition, She was noted to have anemia on last admission and has been recommended colonoscopy as outpatient. to be completed 3 weeks post hospital discharge. For the colitis, she has had overall 10 days of abx. Improving as of most recent CT. For her UTI, she received 5 days of inpatient abx, being stopped at discharge. Tecommended to follow up with Dr. Boothe for chronic UTI. Physical Exam Narrative: General: No acute distress, AO x3, dry cough HEENT: PERRLA, pupils bilaterally equal and reactive, pallors not present Chest: Normal vesicular breath sounds, no added sounds, equal good air entry bilaterally CVS: S1-S2 regular, no murmurs, no tachycardia, no gallops, no rubs Abdomen: Soft, nontender, no organomegaly, bowel sounds present Neuro: No focal deficits, no facial deformity, AO x3, power 5/5 in all limbs Discharge Data Studies Completed and Pending Completed Studies During Hospitalization Category Date Time Status CT abdomen renal stone [CT kidney stone [id number]] Routine Cat Scan 10/20/22 09:40 Completed XR abdomen 1V* [id number] Stat Exams 10/19/22 19:59 Completed Pending at discharge Category Date Time Status BMP [Basic Metabolic Panel] Routine Lab 10/22/22 11:22 Ordered Blood Culture Stat Lab 10/19/22 21:46 Results C DIFF [Clostridioides Difficile PCR] Routine Lab 10/20/22 09:40 Uncollected Fecal Occult Blood [Immunochemical Fecal OCB] Routine Lab 10/20/22 17:22 Uncollected Radiology Impressions Abdomen X-Ray 10/19/22 19:59 IMPRESSION: No acute findings. Abdomen/Pelvis CT 10/20/22 09:40 IMPRESSION: 1. Previously described RIGHT hydroureter has improved with mild dilatation of the RIGHT ureter. No obstructing renal or ureteral calculi. Dilatation RIGHT renal pelvis has improved. No significant hydronephrosis. 2. Previously described colitis appears improved/resolved. 3. Esophageal hiatal hernia with air-fluid level. Fluid level in stomach. 4. No other significant changes compared to previous. Laboratory Results WBC 4.1 10^3/uL (4.0-10.0) 10/22/22 05:15 RBC 4.49 10^6/uL (4.1-5.3) 10/22/22 05:15 Hgb 9.5 g/dL (11.5-15.3) L 10/22/22 05:15 Hct 32.3 % (37.0-47.0) L 10/22/22 05:15 MCV 71.9 fl (81-99) L 10/22/22 05:15 MCH 21.2 pg (28.0-34.0) L 10/22/22 05:15 MCHC 29.4 g/dL (30.0-36.0) L 10/22/22 05:15 RDW 17.4 % (12.1-15.1) H 10/22/22 05:15 Plt Count 361 10^3/cmm (130-400) 10/22/22 05:15 MPV 10.1 fL (7.4-10.4) 10/22/22 05:15 Neut % (Auto) 49.8 % 10/22/22 05:15 Lymph % (Auto) 36.2 % 10/22/22 05:15 Fisher % (Auto) 10.3 % 10/22/22 05:15 Eos % (Auto) 2.7 % 10/22/22 05:15 Baso % (Auto) 0.5 % 10/22/22 05:15 Neut # (Auto) 2.02 10^3/uL (1.8-7.7) 10/22/22 05:15 Lymph # (Auto) 1.5 10^3/uL (0.8-4.8) 10/22/22 05:15 Fisher # (Auto) 0.4 10^3/uL (0.2-0.9) 10/22/22 05:15 Eos # (Auto) 0.1 10^3/uL (0.0-0.8) 10/22/22 05:15 Baso # (Auto) 0.0 10^3/uL (0.0-0.1) 10/22/22 05:15 Nucleated RBC % (auto) 0 % 10/22/22 05:15 Nucleated RBCs # 0.0 /100WBC 10/22/22 05:15 Sodium 131 mmol/L (136-145) L 10/22/22 05:15 Potassium 4.0 mmol/L (3.5-5.1) 10/22/22 05:15 Chloride 98 mmol/L (98-107) 10/22/22 05:15 Carbon Dioxide 21 mmol/L (22-29) L 10/22/22 05:15 Anion Gap 16.0 (5-19) 10/22/22 05:15 BUN 5 mg/dL (8-23) L 10/22/22 05:15 Creatinine 1.0 mg/dL (0.5-0.9) H 10/22/22 05:15 GFR Calculation Not Reportable 10/22/22 05:15 Glucose 105 mg/dL (65-115) 10/22/22 05:15 POC Glucose 88 mg/dL (70-110) 10/23/22 06:02 Calculated Osmolality 270 mOsm/kg (285-295) L 10/22/22 05:15 Lactic Acid 1.6 mmol/L (0.5-2.2) 10/19/22 21:46 Calcium 9.0 mg/dL (8.5-10.5) 10/22/22 05:15 Phosphorus 1.9 mg/dL (2.5-4.5) L 10/20/22 03:41 Magnesium 2.2 mg/dL (1.7-2.3) 10/20/22 03:41 Total Bilirubin 0.2 mg/dL (0.15-1.2) 10/22/22 05:15 AST 17 U/L (0-32) 10/22/22 05:15 ALT 7 U/L (0-33) 10/22/22 05:15 Alkaline Phosphatase 113 U/L (35-105) H 10/22/22 05:15 C-Reactive Protein 75.9 mg/L (0.0-4.9) H 10/20/22 03:41 Total Protein 7.4 g/dL (6.6-8.7) 10/22/22 05:15 Albumin 3.7 g/dL (3.5-5.2) 10/22/22 05:15 Globulin 3.7 g/dL (1.3-4.6) 10/22/22 05:15 Vitamin B12 437 pg/mL (232-1245) 10/19/22 19:53 Procalcitonin 0.70 ng/mL (0-0.5) H 10/19/22 19:53 Urine Color Yellow (Yellow) 10/19/22 20:43 Urine Appearance Sl hazy (CLEAR) A 10/19/22 20:43 Urine pH 6 (5-7) 10/19/22 20:43 Ur Specific [place] 1.010 (1.005-1.030) 10/19/22 20:43 Urine Protein Neg (Negative) 10/19/22 20:43 Urine Glucose (UA) Trace (Normal) H 10/19/22 20:43 Urine Ketones Negative (Negative) 10/19/22 20:43 Urine Blood Trace (Negative) H 10/19/22 20:43 Urine Nitrate Positive (Negative) H 10/19/22 20:43 Urine Bilirubin Neg (Negative) 10/19/22 20:43 Urine Urobilinogen Norm mg/dL (Negative) 10/19/22 20:43 Ur Leukocyte Esterase 1+ (Negative) H 10/19/22 20:43 Urine RBC 0-4 /hpf (0-2) H 10/19/22 20:43 Urine WBC 55-80 /hpf (0-5) H 10/19/22 20:43 Ur Squamous Epith Cells 0-4 /hpf (0-5) H 10/19/22 20:43 Amorphous Sediment Not Reportable 10/19/22 20:43 Urine Bacteria 4+ /hpf (NONE) H 10/19/22 20:43 Nasal Influ A H1 2009 PCR Not detected (NOT DETECT) 10/20/22 05:35 Adenovirus (PCR) Not detected (NOT DETECT) 10/20/22 05:35 C. pneumoniae DNA (PCR) Not detected (NOT DETECT) 10/20/22 05:35 Coronavirus 229E (PCR) Not detected (NOT DETECT) 10/20/22 05:35 Human Metapneumovir PCR Not detected (NOT DETECT) 10/20/22 05:35 Influenza A (H1) PCR Not detected (NOT DETECT) 10/20/22 05:35 Influenza A (H3) PCR Detected (NOT DETECT) A 10/20/22 05:35 Influenza Type A (PCR) Detected (NOT DETECT) A 10/20/22 05:35 Influenza Type B (PCR) Not detected (NOT DETECT) 10/20/22 05:35 M. pneumoniae (PCR) Not detected (NOT DETECT) 10/20/22 05:35 Parainfluenza 1 (PCR) Not detected (NOT DETECT) 10/20/22 05:35 Parainfluenza 2 (PCR) Not detected (NOT DETECT) 10/20/22 05:35 Parainfluenza 3 (PCR) Not detected (NOT DETECT) 10/20/22 05:35 Parainfluenza 4 (PCR) Not detected (NOT DETECT) 10/20/22 05:35 RSV Type A (PCR) Not detected (NOT DETECT) 10/20/22 05:35 RSV Type B (PCR) Not detected (NOT DETECT) 10/20/22 05:35 Entero/Rhino (PCR) Not detected (NOT DETECT) 10/20/22 05:35 SARS-CoV-2 (PCR) Not detected (NOT DETECT) 10/20/22 05:35 Vitals Last Vital Signs Temp 98.2 F 10/23/22 07:36 Pulse 62 10/23/22 07:36 Resp 16 10/23/22 07:36 BP 174/74 10/23/22 07:36 Pulse Ox 91 10/23/22 07:36 O2 Del Method 10/23/22 07:36 Discharge Plan Discharge Patient Disposition: Home Condition: Stable Prescriptions: New dextromethorphan HBr 15 mg capsule 15 mg PO Q8H PRN (Reason: cough) Qty: 30 0RF oseltamivir 75 mg Capsule 75 mg PO BID 2 Days Qty: 4 0RF ondansetron 4 mg tablet,disintegrating 4 mg PO Q8H PRN (Reason: nausea and vomiting) 4 Days Qty: 30 0RF Continued hydroxyzine HCl 25 mg tablet 25 mg PO QID PRN (Reason: Anxiety) nitroglycerin 0.4 mg tablet, sublingual 0.4 mg sublingual Q5M PRN (Reason: chest pain) Qty: 30 3RF Rx Instructions: do not exceed 3 doses per episode spironolactone 25 mg tablet 12.5 mg PO DAILY metformin 500 mg tablet See Rx Instructions .ROUTE .COMPLEX Hold Instructions: Resume on 10/18/22. Rx Instructions: 1000 mg orally in the am and 500mg pm amlodipine 5 mg tablet 5 mg PO DAILY pantoprazole 40 mg tablet,delayed release (DR/EC) 40 mg PO DAILY 42 Days Qty: 42 0RF atorvastatin 20 mg Tablet 20 mg PO DAILY venlafaxine 150 mg Tablet Extended Release 24 Hr 150 mg PO DAILY Discontinued ciprofloxacin HCl 500 mg tablet 500 mg PO BID Qty: 6 0RF metronidazole 500 mg tablet 500 mg PO Q8H 6 Days Qty: 18 0RF Discharge Orders: Discharge Order (Routine); Ordered 10/23/22 Ordered By: Melissa Velásquez Referrals: Taran Haile DO [Physician] - 2 weeks (anemia, colitis, referral for colonoscopy ) Discharge Diet: Advance as tolerated Discharge Activity: Resume usual activity and Increase activity as tolerated Patient Instructions: Opioid Safety Discharge Attestations Time Spent in Discharge Care*: greater than 30 min Quality Metrics Clinical Quality Measures [ No reported AMI, CVA or VTE this stay] Coding Level of Care Code Acute Chg FW DC note Diagnoses Nausea and vomiting R11.2 Hypokalemia E87.6 Dehydration E86.0 Microcytic anemia D50.9 UTI (urinary tract infection) N39.0 Sepsis A41.9 Influenza A J10.1
[2022-10-23 10:03] VITALS: O2SAT 96; O2SAT 99
[2022-10-23 10:49] VITALS: BP 174/74; PULSE 62; RESP 16; TEMP 36.8; O2SAT 91
== END 2022-10-23 10:53 | disposition home or self-care (01) | DRG 866 ==
LOC: ER 22:01 → MEDSURG 23:04
PROVIDERS: Student in an Organized Health Care Education/Training Program; Admitting Provider Internal Medicine; Emergency Provider Emergency Medicine; PCP Family Medicine; Visit Provider Internal Medicine
DX: J10.2 Influenza due to other identified influenza virus with gastrointestinal manifestations (principal); E87.1 Hypo-osmolality and hyponatremia; N39.0 Urinary tract infection, site not specified; N17.9 Acute kidney failure, unspecified; Z16.29 Resistance to other single specified antibiotic; E86.0 Dehydration; K52.9 Noninfective gastroenteritis and colitis, unspecified; B96.20 Unspecified Escherichia coli [E. coli] as the cause of diseases classified elsewhere; R11.2 Nausea with vomiting, unspecified; D50.9 Iron deficiency anemia, unspecified; E87.6 Hypokalemia; E83.42 Hypomagnesemia; E11.9 Type 2 diabetes mellitus without complications; I25.2 Old myocardial infarction; I10 Essential (primary) hypertension; J44.9 Chronic obstructive pulmonary disease, unspecified; Z87.440 Personal history of urinary (tract) infections; Z82.49 Family history of ischemic heart disease and other diseases of the circulatory system; Z86.718 Personal history of other venous thrombosis and embolism; Z79.84 Long term (current) use of oral hypoglycemic drugs
CPT/HCPCS: 36415; 36416; 74018; 74176; 80048; 80053; 81001; 82607; 82962; 83605; 83735; 84100; 84145; 85025; 86140; 87040; 87077; 87086; 87186; 87486; 87581; 87633; 94760; 96365; 96367; 96372; 96375; 99285; J0696; J1644; J1815; J2405; J2543; J3475; J3480; J7030

== ENCOUNTER 2023-03-03 13:59 | Emergency (ER) | payer MEDICARE, MEDICAID, SELFPAY ==
[2023-03-03 14:02] VITALS: BP 140/53; PULSE 61; RESP 15; TEMP 36.9; O2SAT 97
[2023-03-03 14:35] VITALS: BP 140/53; PULSE 56; RESP 16; O2SAT 98
--- NOTE | 2023-03-03 14:50 | CTR_ITS ---
PROCEDURE INFORMATION: Exam: CT Abdomen And Pelvis With Contrast Exam date and time: 03/03/2023 4:54 PM Age: 77 years old Clinical indication: Nausea and vomiting; Prior surgery; Surgery date: 6+ months; Surgery type: Hyster; Additional info: N/v/d TECHNIQUE: Imaging protocol: Computed tomography of the abdomen and pelvis with contrast. Radiation optimization: All CT scans at this facility use at least one of these dose optimization techniques: automated exposure control; mA and/or kV adjustment per patient size (includes targeted exams where dose is matched to clinical indication); or iterative reconstruction. Contrast material: OMNI 350; Contrast volume: 100 ml; Contrast route: INTRAVENOUS (IV); REPORTING DATA: Count of CT and Cardiac NM exams in prior 12 months: This patient has received 4 known CTs and 0 known cardiac nuclear medicine studies in the 12 months prior to the current study. COMPARISON: CT kidney stone [id number] 10/20/2022 10:20 AM RADIATION DOSE METRICS: Total DLP (mGy-cm): 372.94 FINDINGS: Lungs: There is subpleural atelectasis of the dependent portions of the lungs. Mediastinal space: There is circumferential wall thickening of the distal esophagus that may reflect lack of distension or esophagitis. Diaphragm: A small hiatal hernia is present. Liver: There is a diffuse decrease in hepatic parenchymal density, consistent with fatty infiltration. Gallbladder and bile ducts: Normal. No calcified stones. No ductal dilation. Pancreas: The pancreas is normal. Spleen: The spleen is normal. Adrenal glands: The adrenal glands are normal. Kidneys and ureters: There is no evidence of renal calcifications. The wall of the bilateral proximal ureters and renal pelves is thickened and enhancing concerning for urinary tract infection. Stomach and bowel: Moderate diverticulosis is present in the distal colon. Gastric wall is thickened but the stomach is also partially collapsed in this may reflect lack of distension versus gastritis. There is no evidence of intestinal perforation or obstruction. There is diffuse moderate wall thickening of the remaining colon with haziness of the adjacent fat compatible with colitis. Appendix: A normal appendix is identified. A normal appendix is identified. Intraperitoneal space: Unremarkable. No free air. No significant fluid collection. No abscess. Vasculature: Unremarkable.No abdominal aortic aneurysm. Lymph nodes: There is a 1.1 cm short axis of lymph node adjacent to the gastroesophageal junction increase in the prior exam where it measured 0.9 cm. No additional adenopathy. Urinary bladder: There is nonspecific bladder wall thickening. This may be related to cystitis versus incomplete distention. Reproductive: There has been a hysterectomy. Bones/joints: There is no obstructing calculus. Mild dilatation of bilateral ureters to the level of the sacral promontory is unchanged. There is mild dextroscoliosis. Mild degenerative grade 1 spondylolisthesis of L5 on S1 is noted. There are moderate degenerative changes in the spine. No acute bony abnormality. Soft tissues: Unremarkable. Other findings: There is laxity of the pelvic floor. CT/CT abdomen pelvis w con* [id number] IMPRESSION: 1. There is diffuse moderate wall thickening of the remaining colon with haziness of the adjacent fat compatible with colitis. 2. Gastric wall is thickened but the stomach is also partially collapsed in this may reflect lack of distension versus gastritis. 3. The wall of the bilateral proximal ureters and renal pelves is thickened and enhancing concerning for urinary tract infection. Urinary bladder wall thickening may reflect cystitis versus lack of distension. 4. There is circumferential wall thickening of the distal esophagus that may reflect lack of distension or esophagitis. There is a larger lymph node adjacent to the gastroesophageal junction.
--- NOTE | 2023-03-03 14:50 | XR_ITS ---
WS: [id number] Exam: XR chest 1V portable [id number] Date/Time of Exam: 03/03/2023 2:55 PM Reason For Exam: weakness Comparison 10/14/2022. The lungs are clear and fully expanded. Normal cardiomediastinal silhouette. No pleural effusions. Th e bony thorax is intact. Fusion hardware partially visualized in the lower C-spine. Anchoring screws in the right humeral head. XR/XR chest 1V portable [id number] IMPRESSION: 1. No acute cardiopulmonary process.
--- NOTE | 2023-03-03 14:59 | W.ED.NAVMDI ---
HPI - Nausea/Vomiting/Diarrhea General: Chief complaint: Nausea/Vomiting/Diarrhea Stated complaint: N/V & Weakness Time Seen by Provider: 03/03/23 14:17 History of Present Illness: 77-year-old female presents to emergency department chief complaint of having nausea vomiting diarrhea this been ongoing for the past 1 week. Patient also presents with her son reporting that she has discontinued the use of any of her medications for her heart and for her diabetes cholesterol and thyroid over the last 2 months of which she quit because she got tired of taking her meds the Per the son the. The patient recalls last 1 week she has had several episodes of watery diarrhea followed by nonbloody emesis. 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 The patient presents to the ER for further assessment and management she reports significant weakness and fatigue. Associated nausea: Yes Associated symtoms: Reports fatigue, malaise and nausea; Denies anxiety, change in vision, chest pain, headache(s) or palpitations Review of Systems General: Reports: 10 or more systems reviewed and unremarkable except in HPI and below Const: Reports: change in appetite, fatigue and malaise; Denies: fever(s) or chills Eyes: Denies: change in vision or blurry vision Card: Denies: chest pain or palpitations Resp: Denies: dyspnea or productive cough GI: Reports: nausea, vomiting and diarrhea; Denies: abdominal pain or hematochezia : Denies: flank pain Musc: Denies: extremity pain or extremity swelling Skin/Breast: Denies: rash or pruritus Neuro: Denies: headache(s) Psych: Denies: anxiety or depression [place]ago/Lymph: Denies: easy bleeding All/Imm: Denies: urticaria, throat swelling or facial swelling PFSH ED PFSH: Medical History COPD (chronic obstructive pulmonary disease) Degenerative lumbar disc Diabetes mellitus Facet arthropathy, lumbar H/O deep venous thrombosis Hematuria History of myocardial infarction HTN (hypertension) Lumbar disc disease with radiculopathy Recurrent UTI UTI (urinary tract infection) Surgical History History of neck surgery Hx of knee surgery S/P coronary angiogram S/P knee surgery S/P wrist surgery Family History Mother , at age 114 Myocardial infarct Father , in his 70's Hypertension Sister Diabetes Son Diabetes Social History Smoking and tobacco status: never smoked Alcohol intake: never Substance/Drug Use: never Marital status: / Current occupational status: retired Physical Exam Const: COMMON NORMALS: no acute distress and patient oriented x3 OTHER: Patient appears somewhat weak and frail on exam slightly anorexic however appears in no obvious acute distress afebrile and nontoxic-appearing HENMT: COMMON NORMALS: normocephalic and atraumatic HEAD & SCALP: normocephalic and atraumatic Eye: COMMON NORMALS: Equal, round and reactive pupils present and EOMs intact bilaterally PUPIL: Yes Equal, round and reactive pupils present Neck/C-Spine: COMMON NORMALS: full ROM, supple and no JVD Lymph: LYMPHATIC: no lymphadenopathy noted Chest: COMMONS NORMALS: normal inspection of the chest and normal palpation of entire chest wall Resp: COMMON NORMALS: normal respiratory effort, No retractions and clear to auscultation bilaterally EFFORT & INSPECTION: Yes able to speak in complete sentences and Yes symmetric chest movement AUSCULTATION: clear to auscultation bilaterally Cardio: COMMON NORMALS: no JVD, regular rate and regular rhythm RATE: regular rate RHYTHM: regular rhythm GI: COMMON NORMALS: Normal to inspection, nondistended, normoactive bowel sounds present, Soft to palpation and non-tender INSPECTION: Yes normal to inspection PALPATION: Yes Soft to palpation OTHER: Abdomen is soft nontender nondistended no guarding or rebound noted normal active bowel sounds appreciated : COMMON NORMALS: Yes no CVA tenderness BLADDER/KIDNEY EXAM: Yes no CVA tenderness Back/Pelvis: COMMON NORMALS: no CVA tenderness Extremity: COMMON NORMALS: normal to inspection and full ROM Neuro: COMMON NORMALS: patient oriented x3, CN's II-XII intact bilaterally, moves all extremities and no focal motor deficits Psych: COMMON NORMALS: mental status grossly normal, Normal thought process present, cooperative and normal affect THOUGHT PROCESS: Normal thought process present Skin: COMMON NORMALS: no rashes or lesions noted GENERAL SKIN EXAM: no rashes or lesions noted Course Vital Signs: Vital signs: Vital Signs Temperature 98.4 F 03/03/23 14:02 Pulse Rate 72 03/03/23 18:43 Respiratory Rate 16 03/03/23 18:43 Blood Pressure 179/48 03/03/23 18:43 Pulse Oximetry 97 03/03/23 18:43 Oxygen Delivery Me thod Room Air 03/03/23 18:43 MDM - Nausea/Vomiting/Diarrhea Medical Decision Making Due to the patient's symptoms and condition IV established IV fluids provided for hydration medication provided for the patient's nausea we will continue to follow additional work-up will be obtained the patient's cardiac and thyroid due to the patient being off her medications last 2 months to help determine any concerns of hypothyroidism another concerning findings due to her noncompliance with the medication regimen. Patient was found to have hypokalemia she was provided both an IV and oral dose of potassium she was able to tolerate p.o. intake while she was emergency department she was also found have a urinary tract infection that she started on additional antibiotics for it advised the patient further follow-up with her primary care doctor for her colitis as well as her anemia that appears to be microcytic in nature advised further follow-up with primary care on Monday for further assessment management medication regimens which advised her to return the interim if any of her symptoms persist or worse. Lab Data 03/03/23 15:37 03/03/23 15:37 Radiology Impressions Abdomen/Pelvis CT 03/03/23 14:50 IMPRESSION: 1. There is diffuse moderate wall thickening of the remaining colon with haziness of the adjacent fat compatible with colitis. 2. Gastric wall is thickened but the stomach is also partially collapsed in this may reflect lack of distension versus gastritis. 3. The wall of the bilateral proximal ureters and renal pelves is thickened and enhancing concerning for urinary tract infection. Urinary bladder wall thickening may reflect cystitis versus lack of distension. 4. There is circumferential wall thickening of the distal esophagus that may reflect lack of distension or esophagitis. There is a larger lymph node adjacent to the gastroesophageal junction. Chest X-Ray 03/03/23 14:50 IMPRESSION: 1. No acute cardiopulmonary process. Laboratory Results WBC 10.2 10^3/uL (4.0-10.0) H 03/03/23 15:37 RBC 4.27 10^6/uL (4.1-5.3) 03/03/23 15:37 Hgb 8.9 g/dL (11.5-15.3) L 03/03/23 15:37 Hct 30.8 % (37.0-47.0) L 03/03/23 15:37 MCV 72.1 fl (81-99) L 03/03/23 15:37 MCH 20.8 pg (28.0-34.0) L 03/03/23 15:37 MCHC 28.9 g/dL (30.0-36.0) L 03/03/23 15:37 RDW 16.6 % (12.1-15.1) H 03/03/23 15:37 Plt Count 464 10^3/cmm (130-400) H 03/03/23 15:37 MPV 9.5 fL (7.4-10.4) 03/03/23 15:37 Neut % (Auto) 68.2 % 03/03/23 15:37 Lymph % (Auto) 25.3 % 03/03/23 15:37 [place] % (Auto) 5.1 % 03/03/23 15:37 Eos % (Auto) 0.7 % 03/03/23 15:37 Baso % (Auto) 0.4 % 03/03/23 15:37 Neut # (Auto) 6.93 10^3/uL (1.8-7.7) 03/03/23 15:37 Lymph # (Auto) 2.6 10^3/uL (0.8-4.8) 03/03/23 15:37 [place] # (Auto) 0.5 10^3/uL (0.2-0.9) 03/03/23 15:37 Eos # (Auto) 0.1 10^3/uL (0.0-0.8) 03/03/23 15:37 Baso # (Auto) 0.0 10^3/uL (0.0-0.1) 03/03/23 15:37 Nucleated RBC % (auto) 0 % 03/03/23 15:37 Nucleated RBCs # 0.0 /100WBC 03/03/23 15:37 Sodium 136 mmol/L (136-145) 03/03/23 15:37 Potassium 2.9 mmol/L (3.5-5.1) L 03/03/23 15:37 Chloride 96 mmol/L (98-107) L 03/03/23 15:37 Carbon Dioxide 27 mmol/L (22-29) 03/03/23 15:37 Anion Gap 15.9 (5-19) 03/03/23 15:37 BUN 7 mg/dL (8-23) L 03/03/23 15:37 Creatinine 0.9 mg/dL (0.5-0.9) 03/03/23 15:37 GFR Calculation Not Reportable 03/03/23 15:37 Glucose 121 mg/dL (65-115) H 03/03/23 15:37 Calculated Osmolality 281 mOsm/kg (285-295) L 03/03/23 15:37 Calcium 8.9 mg/dL (8.5-10.5) 03/03/23 15:37 Total Bilirubin 0.5 mg/dL (0.15-1.2) 03/03/23 15:37 AST 11 U/L (0-32) 03/03/23 15:37 ALT 7 U/L (0-33) 03/03/23 15:37 Alkaline Phosphatase 131 U/L (35-105) H 03/03/23 15:37 Troponin T Baseline 13 ng/L (0-10) H 03/03/23 15:37 Troponin T 120 Minute 12.86 ng/L (0-10) H 03/03/23 17:26 Delta Troponin T -0.14 ABS# (0-10) L 03/03/23 17:26 C-Reactive Protein 6.9 mg/L (0.0-4.9) H 03/03/23 15:37 NT-Pro-B Natriuret Pep 242 pg/mL (0-450) 03/03/23 15:37 Total Protein 7.3 g/dL (6.6-8.7) 03/03/23 15:37 Albumin 4.1 g/dL (3.5-5.2) 03/03/23 15:37 Globulin 3.2 g/dL (1.3-4.6) 03/03/23 15:37 Lipase 42 U/L (13-60) 03/03/23 15:37 TSH 3.51 uIU/mL (0.27-4.20) 03/03/23 15:37 Urine Color Light yellow (Yellow) 03/03/23 17:35 Urine Appearance Cloudy (CLEAR) A 03/03/23 17:35 Urine pH 7 (5-7) 03/03/23 17:35 Ur Specific [place] 1.010 (1.005-1.030) 03/03/23 17:35 Urine Protein Trace (Negative) 03/03/23 17:35 Urine Glucose (UA) Norm (Normal) 03/03/23 17:35 Urine Ketones Negative (Negative) 03/03/23 17:35 Urine Blood 3+ (Negative) H 03/03/23 17:35 Urine Nitrate Negative (Negative) 03/03/23 17:35 Urine Bilirubin Neg (Negative) 03/03/23 17:35 Urine Urobilinogen Norm mg/dL (Negative) 03/03/23 17:35 Ur Leukocyte Esterase 2+ (Negative) H 03/03/23 17:35 Urine RBC 15-25 /hpf (0-2) H 03/03/23 17:35 Urine WBC >100 /hpf (0-5) H 03/03/23 17:35 Ur Squamous Epith Cells 0-4 /hpf (0-5) H 03/03/23 17:35 Amorphous Sediment 2+ /hpf 03/03/23 17:35 Urine Bacteria 3+ /hpf (NONE) H 03/03/23 17:35 Urine Mucus 3+ /hpf 03/03/23 17:35 Discharge Plan Discharge Patient Disposition: Home Clinical Impression: UTI (urinary tract infection), Gastroenteritis, Dehydration, mild, Noncompliance with medication regimen, Microcytic anemia, Hypokalemia Condition: Stable Prescriptions: New Cipro 500 mg tablet 500 mg PO Q12H Qty: 14 0RF ondansetron 4 mg tablet,disintegrating 4 mg PO Q8H PRN (Reason: nausea and vomiting) 4 Days Qty: 20 0RF No Action hydroxyzine HCl 25 mg tablet 25 mg PO TID PRN (Reason: Anxiety) nitroglycerin 0.4 mg tablet, sublingual 0.4 mg sublingual Q5M PRN (Reason: chest pain) Qty: 30 3RF Rx Instructions: do not exceed 3 doses per episode spironolactone 25 mg tablet 12.5 mg PO DAILY metformin 500 mg tablet See Rx Instructions .ROUTE .COMPLEX Hold Instructions: Resume on 10/18/22. Rx Instructions: 1000 mg orally in the am and 500mg pm amlodipine 5 mg tablet 5 mg PO DAILY Vitamin C 1,000 mg Tablet 1,000 mg PO BID sucralfate 1 gram tablet 1 g PO QID isosorbide mononitrate 30 mg tablet extended release 24 hr See Rx Instructions .ROUTE .COMPLEX Rx Instructions: TAKE ONE TABLET BY MOUTH IN THE MORNING AND TAKE TWO TABLETS IN THE EVENING Aspir-81 81 mg Tablet,Delayed Release (Dr/Ec) 81 mg PO DAILY levothyroxine 75 mcg tablet 75 mcg PO DAILY methenamine hippurate 1 gram tablet 1 g PO BID Rx Instructions: take 1000mg of vitamin CAPSULE with each DOSE methenamine Flonase 50 mcg/actuation [place],Suspension 2 spray INTRANASAL DAILY PRN (Reason: Allergy Symptoms) Rx Instructions: administer into each nostril atorvastatin 20 mg Tablet 20 mg PO DAILY venlafaxine 150 mg Tablet Extended Release 24 Hr 150 mg PO DAILY Discharge Orders: Discharge ED (Routine); Ordered 03/03/23 Ordered By: Venancio Calderón Referrals: Zeus Young, DO [Primary Care Provider] - 1-3 days (For further assessment management of your medication regimen your urinary tract infection as well as your colitis) Discharge Diet: Advance as tolerated Discharge Activity: Increase activity as tolerated Patient Instructions: Gastroenteritis (ED), Acute Nausea and Vomiting (ED), Urinary Tract Infection - Women Activity Restrictions/Additional Instructions: Please further follow-up with your primary care doctor on Monday or Monday for further assessment management of your chronic anemia and your medication regimen as well as to reevaluate your regards to your current symptoms you have been found to have a urinary tract infection please take these antibiotics as prescribed please also drink lots of water in the next several days to reduce likelihood additional dehydration. Please return the interim if any of your symptoms persist or worse. Coding Level of Care Code ED Washing Machine Operator for Clayton Espinoza
--- NOTE | 2023-03-03 15:24 | ECG_ITS ---
[facility] Test Date: 2023-03-03 Pat Name: Maria Luz Finney Department: Room: Gender: Female Audit Officer: : 1945 Requested By: Venancio Calderón Order Number: [id number] Viry MD: Neal Renner M.D. Measurements Intervals [place] Rate: 59 P: 56 [place]: 153 QRS: 79 QRSD: 93 T: 100 QT: 442 QTc: 440 Interpretive Statements SINUS BRADYCARDIA Compared to ECG 06/22/2022 17:02:56 Sinus rhythm no longer present Electronically Signed On 03-04-2023 16:34:10 CDT by Neal Renner M.D. [id number]
[2023-03-03] MEDS: ondansetron 2 mg/ML SDV 2 mL 4 MG IVP (15:32)
--- NOTE | 2023-03-03 15:34 | PC.PHAR ---
pt and pts son brought in pts medications bottles-pts son states the pt hasnt been taking her meds for months-pt had a percocet 7.5/325mg paper from the pharmacy from 06/23/22 pts son states that is all gone-
[2023-03-03] MEDS: sodium chloride 0.9% 1,000 ML 999 ML IV (15:44)
[2023-03-03 15:53] LABS: Basophils % 0.4 %; Eosinophils # 0.1 10^3/uL (0.0-0.8); Eosinophils % 0.7 %; Hematocrit 30.8 % (37.0-47.0); Hemoglobin 8.9 g/dL (11.5-15.3); Lymphocytes # 2.6 10^3/uL (0.8-4.8); Lymphocytes % 25.3 %; Mean Corpuscular HGB Conc 28.9 g/dL (30.0-36.0); Mean Corpuscular Hemoglobin 20.8 pg (28.0-34.0); Mean Corpuscular Volume 72.1 fl (81-99); Mean Platelet Volume 9.5 fL (7.4-10.4); Monocytes # 0.5 10^3/uL (0.2-0.9); Monocytes % 5.1 %; Neutrophils # 6.93 10^3/uL (1.8-7.7); Neutrophils % 68.2 %; Nucleated Red Blood Cells % 0 %; Platelet Count 464 10^3/cmm (130-400); Red Blood Count 4.27 10^6/uL (4.1-5.3); Red Cell Distribution Width 16.6 % (12.1-15.1); White Blood Count 10.2 10^3/uL (4.0-10.0)
[2023-03-03 16:18] LABS: Troponin(5th) Baseline 13 ng/L (0-10)
[2023-03-03 16:26] LABS: Alanine Aminotransferase 7 U/L (0-33); Albumin Level 4.1 g/dL (3.5-5.2); Alkaline Phosphatase 131 U/L (35-105); Anion Gap 15.9 (5-19); Aspartate Amino Transferase 11 U/L (0-32); Blood Urea Nitrogen 7 mg/dL (8-23); C Reactive Protein 6.9 mg/L (0.0-4.9); Calcium 8.9 mg/dL (8.5-10.5); Carbon Dioxide 27 mmol/L (22-29); Chloride 96 mmol/L (98-107); Globulin 3.2 g/dL (1.3-4.6); Glucose 121 mg/dL (65-115); Lipase 42 U/L (13-60); NT Pro B Type Natriuretic Pept 242 pg/mL (0-450); Osmolality Calculated 281 mOsm/kg (285-295); Sodium 136 mmol/L (136-145); Thyroid Stimulating Hormone 3.51 uIU/mL (0.27-4.20); Total Bilirubin 0.5 mg/dL (0.15-1.2); Total Protein 7.3 g/dL (6.6-8.7)
[2023-03-03 16:28] LABS: Potassium 2.9 mmol/L (3.5-5.1)
[2023-03-03 16:30] VITALS: BP 140/53; PULSE 58; RESP 16; O2SAT 98
[2023-03-03] MEDS: potassium chloride premix 100 ML 25 MEQ IV (16:39)
[2023-03-03] MEDS: sodium chloride 0.9% 1,000 ML 150 ML IV (17:37)
[2023-03-03 17:56] LABS: Troponin 5 2HR 12.86 ng/L (0-10)
[2023-03-03 17:59] LABS: Troponin 5 2HR Delta -0.14 ABS# (0-10)
[2023-03-03 18:20] LABS: Add Urine Microscopic? YES; Bilirubin Urine Neg (Negative); Blood Urine 3+ (Negative); Glucose Urine UA Norm (Normal); Ketones Urine Negative (Negative); Leukocyte Esterase Urine 2+ (Negative); Nitrate Urine Negative (Negative); Protein Urine Trace (Negative); Urine Appearance Cloudy (CLEAR); Urine Color Light yellow (Yellow); Urobilinogen Urine Norm (Negative); pH Urine 7 (5-7)
[2023-03-03 18:21] LABS: Add Urine Culture? Yes; Amorphous Sediment Urine 2+ /hpf; Bacteria Urine 3+ /hpf; Mucus Urine 3+ /hpf; RBC Urine 15-25 /hpf (0-2); Squamous Epithelial Cell Urine 0-4 /hpf (0-5); WBC Urine >100 /hpf (0-5)
[2023-03-03 18:43] VITALS: BP 179/48; PULSE 72; RESP 16; O2SAT 97
[2023-03-03] MEDS: potassium chloride ER 20 mEq Tablet 40 MEQ PO (18:55)
[2023-03-04 03:14] LABS: Glucose Point of Care 110 mg/dL (70-110)
== END 2023-03-03 19:07 | disposition home or self-care (01) ==
PROVIDERS: Emergency Provider Emergency Medicine; PCP Family Medicine
DX: N39.0 Urinary tract infection, site not specified (principal); K52.9 Noninfective gastroenteritis and colitis, unspecified; E86.0 Dehydration; D50.9 Iron deficiency anemia, unspecified; E87.6 Hypokalemia; Z91.148 Patient's other noncompliance with medication regimen for other reason; Z79.82 Long term (current) use of aspirin; Z79.84 Long term (current) use of oral hypoglycemic drugs; J44.9 Chronic obstructive pulmonary disease, unspecified; E11.9 Type 2 diabetes mellitus without complications; I25.2 Old myocardial infarction; I10 Essential (primary) hypertension; Z87.440 Personal history of urinary (tract) infections
CPT/HCPCS: 36415; 36416; 71045; 74177; 80053; 81001; 82962; 83690; 83880; 84443; 84484; 85025; 86140; 87077; 87086; 87186; 93005; 96361; 96365; 96375; 99285; J2405; J3480; J7030; Q9967

== ENCOUNTER 2023-05-18 18:51 | Inpatient (IN) | payer MEDICARE, MEDICAID, SELFPAY ==
[2023-05-18] VITALS (7 sets, daily range): BP systolic 160–180; BP diastolic 57–73; PULSE 69–81; RESP 16–20; TEMP 37.4–38.1; O2SAT 95–98; BMI 26.2
--- NOTE | 2023-05-18 19:14 | XRR_ITS ---
PROCEDURE INFORMATION: Exam: XR Chest Exam date and time: 05/18/2023 7:49 PM Age: 77 years old Clinical indication: Fever TECHNIQUE: Imaging protocol: Radiologic exam of the chest. Views: 1 view. COMPARISON: CR XR chest 1V portable [id number] 03/03/2023 3:02 PM FINDINGS: Lungs: Mild atelectasis or scar in the medial right lung base and left mid lung. Small calcified granuloma in the right base. Pleural spaces: Unremarkable. No pleural effusion. No pneumothorax. Heart/Mediastinum: Unremarkable. No cardiomegaly. Diaphragm: Mild elevation of the left diaphragm. Bones/joints: C-spine fusion hardware. Anchors in the right humeral head. Degenerative changes of the shoulders with left rotator cuff arthropathy. XR/XR chest 1V portable [id number] IMPRESSION: No acute findings.
--- NOTE | 2023-05-18 19:14 | CTR_ITS ---
PROCEDURE INFORMATION: Exam: CT Head Without Contrast Exam date and time: 05/18/2023 7:46 PM Age: 77 years old Clinical indication: Altered mental status/memory loss; Additional info: AMS TECHNIQUE: Imaging protocol: Computed tomography of the head without contrast. Radiation optimization: All CT scans at this facility use at least one of these dose optimization techniques: automated exposure control; mA and/or kV adjustment per patient size (includes targeted exams where dose is matched to clinical indication); or iterative reconstruction. REPORTING DATA: Count of CT and Cardiac NM exams in prior 12 months: This patient has received 4 known CTs and 0 known cardiac nuclear medicine studies in the 12 months prior to the current study. COMPARISON: CT head wo con* [id number] 06/14/2021 2:46 PM RADIATION DOSE METRICS: Total DLP (mGy-cm): 978.57 FINDINGS: Brain: Mild diffuse cortical volume loss. Mild hypodensities in supratentorial periventricular and subcortical white matter, consistent with microangiopathy. No intracranial hemorrhage. Cerebral ventricles: Stable prominence of the lateral ventricles, temporal horns, and 3rd ventricle. Paranasal sinuses: Mucus in the left sphenoid sinus. The other sinuses are clear. Mastoid air cells: Bilateral mastoid effusions. Auditory system: Fluid in the left middle ear cavity. Orbital cavities: Prior cataract surgery. Bones/joints: Unremarkable. No acute fracture. Soft tissues: Unremarkable. Vasculature: No hyperdense artery. CT/CT head wo con* [id number] IMPRESSION: 1. No acute intracranial abnormality. 2. Stable prominence of the lateral and 3rd ventricles. This may relate to central volume loss, but normal pressure hydrocephalus is not excluded.
--- NOTE | 2023-05-18 19:15 | ECG_ITS ---
[facility] Test Date: 2023-05-18 Pat Name: Maria Luz Finney Department: Room: Gender: Female An/Syq 13 Nav/C2 Operator: : 1945 Requested By: Chris Wild Order Number: [id number] Viry MD: Rosie Cisneros M.D. Measurements Intervals [place] Rate: 79 P: 42 [place]: 145 QRS: 66 QRSD: 98 T: 59 QT: 401 QTc: 462 Interpretive Statements SINUS RHYTHM NONSPECIFIC ST & T-WAVE ABNORMALITY Compared to ECG 03/03/2023 15:24:57 T-wave abnormality now present Sinus bradycardia no longer present Electronically Signed On 05-18-2023 21:41:30 CDT by Rosie Cisneros M.D. [id number]
--- NOTE | 2023-05-18 19:20 | W.ED.AMS ---
HPI - Altered Mental Status General: Chief Complaint: Altered Mental Status Stated Complaint: weakness Time Seen by Provider: 05/18/23 18:57 Source: patient and EMS Mode of arrival: EMS History of Present Illness: 77-year-old female is brought here by EMS she has a history dementiaFamily notes she has had some weakness today she does have a fever here she states she just felt very fatigued throughout the day she has had a slight cough. She denies any pain anywhere denies any headache EMS states she had some confusion but she seems to be at her baseline here and family agrees. Review of Systems Const: Reports: fever(s), chills, fatigue and malaise; Denies: body aches Eyes: Denies: blurry vision or eye discomfort ENMT: Denies: throat pain or dental pain Card: Denies: chest pain Resp: Denies: dyspnea GI: Denies: abdominal pain, nausea, vomiting or diarrhea : Denies: dysuria Musc: Denies: neck pain or back pain Skin/Breast: Denies: rash Neuro: Reports: confusion; Denies: headache(s) PFSH ED PFSH: Medical History COPD (chronic obstructive pulmonary disease) Degenerative lumbar disc Diabetes mellitus Facet arthropathy, lumbar H/O deep venous thrombosis Hematuria History of myocardial infarction HTN (hypertension) Lumbar disc disease with radiculopathy Recurrent UTI UTI (urinary tract infection) Surgical History History of neck surgery Hx of knee surgery S/P coronary angiogram S/P knee surgery S/P wrist surgery Family History Mother , at age 114 Myocardial infarct Father , in his 70's Hypertension Sister Diabetes Son Diabetes Social History Smoking and tobacco status: never smoked Alcohol intake: never Substance/Drug Use: never Marital status: / Current occupational status: retired Physical Exam Const: COMMON NORMALS: alert; negative for patient oriented x3 GENERAL APPEARANCE: frail appearing ORIENTATION/CONSCIOUSNESS: Yes oriented to person; not oriented to place and not oriented to time HENMT: COMMON NORMALS: normocephalic and atraumatic HEAD & SCALP: normocephalic and atraumatic Eye: COMMON NORMALS: conjunctivae normal CONJUNCTIVA: Yes conjunctivae normal Neck/C-Spine: COMMON NORMALS: full ROM and no meningeal signs Chest: COMMONS NORMALS: normal inspection of the chest Resp: COMMON NORMALS: normal respiratory effort and clear to auscultation bilaterally AUSCULTATION: clear to auscultation bilaterally Cardio: COMMON NORMALS: regular rate and regular rhythm RATE: regular rate RHYTHM: regular rhythm GI: COMMON NORMALS: Normal to inspection, nondistended, normoactive bowel sounds present, Soft to palpation and non-tender PALPATION: Yes Soft to palpation Extremity: COMMON NORMALS: normal to inspection Neuro: COMMON NORMALS: moves all extremities; negative for patient oriented x3 SENSORIUM/ORIENTATION: Yes alert, Yes oriented to person, No oriented to place and No oriented to time MENINGEAL SIGNS: Yes no meningeal signs Psych: COMMON NORMALS: cooperative Skin: COMMON NORMALS: no rashes or lesions noted GENERAL SKIN EXAM: no rashes or lesions noted Course Vital Signs: Vital signs: Vital Signs Temperature 100.6 F H 05/18/23 19:06 Pulse Rate 70 05/18/23 22:13 Respiratory Rate 16 05/18/23 22:13 Blood Pressure 171/70 05/18/23 22:13 Pulse Oximetry 97 05/18/23 22:13 Oxygen Delivery Me thod Room Air 05/18/23 19:06 MDM - Altered Mental Status Medical Decision Making Patient presents here with fever along with weakness she was found to have a UTI likely causing this. Blood pressures here been stable patient has received fluids along with IV antibiotics spoke to hospitalist will admit at this time. Medical Records I reviewed the patient's medical records. Lab Data I reviewed the patient's lab results. 05/18/23 19:18 05/18/23 19:18 Radiology Impressions Chest X-Ray 05/18/23 19:14 IMPRESSION: No acute findings. Head CT 05/18/23 19:14 IMPRESSION: 1. No acute intracranial abnormality. 2. Stable prominence of the lateral and 3rd ventricles. This may relate to central volume loss, but normal pressure hydrocephalus is not excluded. Laboratory Results WBC 16.7 10^3/uL (4.0-10.0) H 05/18/23 19:18 RBC 4.00 10^6/uL (4.1-5.3) L 05/18/23 19:18 Hgb 8.4 g/dL (11.5-15.3) L 05/18/23 19:18 Hct 28.6 % (37.0-47.0) L 05/18/23 19:18 MCV 71.5 fl (81-99) L 05/18/23 19:18 MCH 21.0 pg (28.0-34.0) L 05/18/23 19:18 MCHC 29.4 g/dL (30.0-36.0) L 05/18/23 19:18 RDW 15.7 % (12.1-15.1) H 05/18/23 19:18 Plt Count 386 10^3/cmm (130-400) 05/18/23 19:18 MPV 9.7 fL (7.4-10.4) 05/18/23 19:18 Neut % (Auto) 92.3 % 05/18/23 19:18 Lymph % (Auto) 4.2 % 05/18/23 19:18 [place] % (Auto) 2.6 % 05/18/23 19:18 Eos % (Auto) 0.1 % 05/18/23 19:18 Baso % (Auto) 0.2 % 05/18/23 19:18 Neut # (Auto) 15.40 10^3/uL (1.8-7.7) H 05/18/23 19:18 Lymph # (Auto) 0.7 10^3/uL (0.8-4.8) L 05/18/23 19:18 [place] # (Auto) 0.4 10^3/uL (0.2-0.9) 05/18/23 19:18 Eos # (Auto) 0.0 10^3/uL (0.0-0.8) 05/18/23 19:18 Baso # (Auto) 0.0 10^3/uL (0.0-0.1) 05/18/23 19:18 Nucleated RBC % (auto) 0 % 05/18/23 19:18 Nucleated RBCs # 0.0 /100WBC 05/18/23 19:18 PT 14.90 SECONDS (12.1-14.9) 05/18/23 19:18 INR 1.13 (0.8-1.2) 05/18/23 19:18 Sodium 134 mmol/L (136-145) L 05/18/23 19:18 Potassium 2.9 mmol/L (3.5-5.1) L 05/18/23 19:18 Chloride 97 mmol/L (98-107) L 05/18/23 19:18 Carbon Dioxide 20 mmol/L (22-29) L 05/18/23 19:18 Anion Gap 19.9 (5-19) H 05/18/23 19:18 BUN 8 mg/dL (8-23) 05/18/23 19:18 Creatinine 1.0 mg/dL (0.5-0.9) H 05/18/23 19:18 GFR Calculation Not Reportable 05/18/23 19:18 Glucose 228 mg/dL (65-115) H 05/18/23 19:18 Calculated Osmolality 284 mOsm/kg (285-295) L 05/18/23 19:18 Lactic Acid 3.4 mmol/L (0.5-2.2) H 05/18/23 19:18 Calcium 8.8 mg/dL (8.5-10.5) 05/18/23 19:18 Magnesium 1.7 mg/dL (1.7-2.3) 05/18/23 19:18 Total Bilirubin 0.3 mg/dL (0.15-1.2) 05/18/23 19:18 AST 8 U/L (0-32) 05/18/23 19:18 ALT 6 U/L (0-33) 05/18/23 19:18 Alkaline Phosphatase 122 U/L (35-105) H 05/18/23 19:18 Total Protein 7.7 g/dL (6.6-8.7) 05/18/23 19:18 Albumin 3.7 g/dL (3.5-5.2) 05/18/23 19:18 Globulin 4.0 g/dL (1.3-4.6) 05/18/23 19:18 Urine Color Yellow (Yellow) 05/18/23 21:40 Urine Appearance Hazy (CLEAR) A 05/18/23 21:40 Urine pH 6 (5-7) 05/18/23 21:40 Ur Specific [place] 1.030 (1.005-1.030) 05/18/23 21:40 Urine Protein Neg (Negative) 05/18/23 21:40 Urine Glucose (UA) Norm (Normal) 05/18/23 21:40 Urine Ketones Negative (Negative) 05/18/23 21:40 Urine Blood Neg (Negative) 05/18/23 21:40 Urine Nitrate Positive (Negative) H 05/18/23 21:40 Urine Bilirubin Neg (Negative) 05/18/23 21:40 Urine Urobilinogen Neg mg/dL (Negative) 05/18/23 21:40 Ur Leukocyte Esterase 2+ (Negative) H 05/18/23 21:40 Urine RBC 0-4 /hpf (0-2) H 05/18/23 21:40 Urine WBC 25-40 /hpf (0-5) H 05/18/23 21:40 Ur Squamous Epith Cells None /hpf (0-5) 05/18/23 21:40 Amorphous Sediment Not Reportable 05/18/23 21:40 Urine Bacteria 4+ /hpf (NONE) H 05/18/23 21:40 SARS-CoV-2 Ag (Rapid) Negative (Negative) 05/18/23 21:34 EKG Data EKG 1: I personally reviewed and interpreted this EKG as follows: EKG interpretation date: 05/18/23 EKG interpretation time: 19:21 Interpretation: nsr hr [address] or t wave abnormalities qrs 98 qtc 436 Discharge Plan Discharge Condition: Stable Prescriptions: No Action hydroxyzine HCl 25 mg tablet 25 mg PO TID PRN (Reason: Anxiety) nitroglycerin 0.4 mg tablet, sublingual 0.4 mg sublingual Q5M PRN (Reason: chest pain) Qty: 30 3RF Rx Instructions: do not exceed 3 doses per episode spironolactone 25 mg tablet 12.5 mg PO DAILY metformin 500 mg tablet See Rx Instructions .ROUTE .COMPLEX Hold Instructions: Resume on 10/18/22. Rx Instructions: 1000 mg orally in the am and 500mg pm amlodipine 5 mg tablet 5 mg PO DAILY Vitamin C 1,000 mg Tablet 1,000 mg PO BID sucralfate 1 gram tablet 1 g PO QID isosorbide mononitrate 30 mg tablet extended release 24 hr See Rx Instructions .ROUTE .COMPLEX Rx Instructions: TAKE ONE TABLET BY MOUTH IN THE MORNING AND TAKE TWO TABLETS IN THE EVENING Aspir-81 81 mg Tablet,Delayed Release (Dr/Ec) 81 mg PO DAILY levothyroxine 75 mcg tablet 75 mcg PO DAILY methenamine hippurate 1 gram tablet 1 g PO BID Rx Instructions: take 1000mg of vitamin CAPSULE with each DOSE methenamine Flonase 50 mcg/actuation [place],Suspension 2 spray INTRANASAL DAILY PRN (Reason: Allergy Symptoms) Rx Instructions: administer into each nostril Cipro 500 mg tablet 500 mg PO Q12H Qty: 14 0RF atorvastatin 20 mg Tablet 20 mg PO DAILY venlafaxine 150 mg Tablet Extended Release 24 Hr 150 mg PO DAILY Referrals: Zeus Young DO [Primary Care Provider] - Patient Instructions: Hyponatremia (ED), Benzodiazepine Use Disorder (ED), Dementia (ED), Non-diabetic Hypoglycemia (ED), Hypoglycemia in a Person with Diabetes (ED), Concussion (ED), Alcohol Intoxication (ED), Subarachnoid Hemorrhage (GEN), Altered Mental Status (ED) Coding Level of Care Code ED Director Emergency Services for [facility]
[2023-05-18] MEDS: acetaminophen 325 mg Tablet 650 MG PO (19:33)
[2023-05-18] MEDS: sodium chloride 0.9% 1,000 ML 999 ML IV ×2 (19:33→21:09)
[2023-05-18 19:40] LABS: Basophils % 0.2 %; Eosinophils % 0.1 %; Hematocrit 28.6 % (37.0-47.0); Hemoglobin 8.4 g/dL (11.5-15.3); Lymphocytes # 0.7 10^3/uL (0.8-4.8); Lymphocytes % 4.2 %; Mean Corpuscular HGB Conc 29.4 g/dL (30.0-36.0); Mean Corpuscular Volume 71.5 fl (81-99); Mean Platelet Volume 9.7 fL (7.4-10.4); Monocytes # 0.4 10^3/uL (0.2-0.9); Monocytes % 2.6 %; Neutrophils % 92.3 %; Nucleated Red Blood Cells % 0 %; Platelet Count 386 10^3/cmm (130-400); Red Cell Distribution Width 15.7 % (12.1-15.1); White Blood Count 16.7 10^3/uL (4.0-10.0)
[2023-05-18 19:51] LABS: INR 1.13 (0.8-1.2)
[2023-05-18 19:55] LABS: Alanine Aminotransferase 6 U/L (0-33); Albumin Level 3.7 g/dL (3.5-5.2); Alkaline Phosphatase 122 U/L (35-105); Anion Gap 19.9 (5-19); Aspartate Amino Transferase 8 U/L (0-32); Blood Urea Nitrogen 8 mg/dL (8-23); Calcium 8.8 mg/dL (8.5-10.5); Carbon Dioxide 20 mmol/L (22-29); Chloride 97 mmol/L (98-107); Glucose 228 mg/dL (65-115); Magnesium 1.7 mg/dL (1.7-2.3); Osmolality Calculated 284 mOsm/kg (285-295); Sodium 134 mmol/L (136-145); Total Bilirubin 0.3 mg/dL (0.15-1.2); Total Protein 7.7 g/dL (6.6-8.7)
[2023-05-18 19:56] LABS: Lactic Sepsis W/Reflex 3.4 mmol/L (0.5-2.2); Potassium 2.9 mmol/L (3.5-5.1)
[2023-05-18] MEDS: cefTRIAXone 1,000 MG in sodium chloride 0.9% (plus) 50 ML 100 MG IV (21:09)
[2023-05-18 21:23] LABS: Reflex Lactate Order REFLEX LACTIC ORDERD
[2023-05-18 21:56] LABS: Add Urine Microscopic? YES; Bacteria Urine 4+ /hpf; Bilirubin Urine Neg (Negative); Blood Urine Neg (Negative); Glucose Urine UA Norm (Normal); Ketones Urine Negative (Negative); Leukocyte Esterase Urine 2+ (Negative); Nitrate Urine Positive (Negative); Protein Urine Neg (Negative); RBC Urine 0-4 /hpf (0-2); Urine Appearance Hazy (CLEAR); Urine Color Yellow (Yellow); Urobilinogen Urine Neg (Negative); WBC Urine 25-40 /hpf (0-5); pH Urine 6 (5-7)
[2023-05-18 21:57] LABS: Add Urine Culture? Yes
[2023-05-18 22:19] LABS: SARS Covid-2 Antigen Negative (Negative)
--- NOTE | 2023-05-18 22:19 | P.HP_ITS ---
Providers/Chief Complaint Primary Care Provider: Zeus Young DO Chief Complaint: weakness History of Present Illness Maria Luz Finney is a 77 year old female No intubation. With a past medical history of UTIs, chronic cystitis with cystitis cystica for which she is on methenamine suppression. She is brought to the emergency room today with chief complaints of weakness over the past 2 to 3 days and fever. Patient has a known history of dementia, she appeared to be more confused over her baseline and was brought to the emergency. Review of systems negative for any chest pain dyspnea palpitations syncope. Review of Systems General: Reports: 10 or more systems reviewed and unremarkable except in HPI and below Const: Denies: fever(s), chills or body aches Eyes: Denies: change in vision, blurry vision or photophobia ENMT: Reports: hoarseness; Denies: throat pain, enlarged tonsils, odynophagia or nasal congestion Card: Denies: chest pain, palpitations, irregular heart rhythm, edema, swelling of feet/ankles, lightheadedness, pre-syncope, dyspnea on exertion or orthopnea Resp: Denies: dyspnea, productive cough, non-productive cough, wheezing, stridor, pain on inspiration, change in phlegm color, hemoptysis or chest congestion GI: Denies: abdominal pain, nausea, vomiting, hematemesis, coffee ground emesis, dysphagia, heartburn, diarrhea, constipation, GI cramping, change in stool character, hematochezia or melena : Denies: flank pain, difficulty voiding, dysuria, urinary frequency, urinary urgency, urinary hesitancy or hematuria Musc: Denies: neck pain, back pain, extremity pain, joint swelling, joint warmth or deformity Neuro: Denies: headache(s), numbness in extremities, weakness in extremities, sensory changes, difficulty walking, frequent falls, dizziness, vertigo, behavioral changes, Slurred speech present or seizure-like activity Psych: Denies: anxiety, depression, suicidal ideation or homicidal ideation Endo: Denies: polyuria, polydipsia, tired all the time, cold intolerance or hot flashes Dago/Lymph: Denies: easy bruising or easy bleeding Medications/Allergies Home Medications Medication Instructions Recorded Confirmed Last Taken Type spironolactone 25 mg tablet 12.5 mg PO DAILY 06/14/21 03/03/23 3 Months Ago History ~12/03/22 hydroxyzine HCl 25 mg tablet 25 mg PO TID PRN Anxiety 03/02/22 03/03/23 3 Months Ago History ~12/03/22 nitroglycerin 0.4 mg sublingual 0.4 mg sublingual Q5M PRN chest 03/02/22 03/03/23 Unknown Rx tablet pain #30 tabs atorvastatin 20 mg tablet 20 mg PO DAILY 05/03/22 03/03/23 3 Months Ago History ~12/03/22 venlafaxine 150 mg tablet,extended 150 mg PO DAILY 05/03/22 03/03/23 3 Months Ago History release 24 hr ~12/03/22 metformin 500 mg tablet See Rx Instructions .Route .COMPLEX 06/22/22 03/03/23 3 Months Ago History ~12/03/22 amlodipine 5 mg tablet 5 mg PO DAILY 10/14/22 03/03/23 3 Months Ago History ~12/03/22 ascorbic acid (vitamin C) 1,000 mg 1,000 mg PO BID 03/03/23 03/03/23 Unknown History tablet (Vitamin C) aspirin 81 mg tablet,delayed 81 mg PO DAILY 03/03/23 03/03/23 3 Months Ago History release ~12/03/22 ciprofloxacin HCl 500 mg tablet 500 mg PO Q12H #14 tabs 03/03/23 Unknown Rx (Cipro) fluticasone propionate 50 2 spray intranasal DAILY PRN 03/03/23 03/03/23 Unknown History mcg/actuation nasal Allergy Symptoms spray,suspension isosorbide mononitrate 30 mg See Rx Instructions .Route .COMPLEX 03/03/23 03/03/23 3 Months Ago History tablet,extended release 24 hr ~12/03/22 levothyroxine 75 mcg tablet 75 mcg PO DAILY 03/03/23 03/03/23 3 Months Ago History ~12/03/22 methenamine hippurate 1 gram tablet 1 g PO BID 03/03/23 03/03/23 3 Months Ago History ~12/03/22 sucralfate 1 gram tablet 1 g PO QID 03/03/23 03/03/23 Unknown History Allergies Allergy/AdvReac Type Severity Reaction Status Date / Time morphine AdvReac Intermediate vomiting Verified 01/02/23 11:13 pneumococcal vaccine AdvReac Intermediate Unknown Verified 01/02/23 11:13 PFSH Acute PFSH: Medical History COPD (chronic obstructive pulmonary disease) Degenerative lumbar disc Diabetes mellitus Facet arthropathy, lumbar H/O deep venous thrombosis Hematuria History of myocardial infarction HTN (hypertension) Lumbar disc disease with radiculopathy Recurrent UTI UTI (urinary tract infection) Surgical History History of neck surgery Hx of knee surgery S/P coronary angiogram S/P knee surgery S/P wrist surgery Family History Mother , at age 114 Myocardial infarct Father , in his 70's Hypertension Sister Diabetes Son Diabetes Social History Smoking and tobacco status: never smoked Alcohol intake: never Substance/Drug Use: never Marital status: / Current occupational status: retired Vitals/I&O/Wt Last Vital Signs Temp 100.6 F H 05/18/23 19:06 Pulse 70 05/18/23 22:13 Resp 16 05/18/23 22:13 BP 171/70 05/18/23 22:13 Pulse Ox 97 05/18/23 22:13 O2 Del Method Room Air 05/18/23 19:06 05/18/23 05/18/23 05/18/23 06:59 14:59 22:59 Intake Total 1050 / 1050 Balance 1050 / 1050 Weight last 48 hrs Weight 58.967 kg Physical Exam Narrative: General: No acute distress, AO x3 HEENT: PERRLA, pupils bilaterally equal and reactive, pallors not present Chest: Normal vesicular breath sounds, no added sounds, equal good air entry bilaterally CVS: S1-S2 regular, no murmurs, no tachycardia, no gallops, no rubs Abdomen: Soft, nontender, no organomegaly, bowel sounds present Neuro: No focal deficits, no facial deformity, AO x3, power 5/5 in all limbs Data 05/18/23 19:18 05/18/23 19:18 Micro: Microbiology 05/18/23 20:20 Blood Culture - Preliminary Blood SPECIMEN COLLECTED 05/18/23 20:20 Blood Culture - Preliminary Blood SPECIMEN COLLECTED A&P Assessment and plan (1) Sepsis: 77-year-old lady presenting today with chief complaints of lower, generalized fatigue and malaise. Meet sepsis criteria with elevated leukocytosis, fever, elevated lactate and metabolic encephalopathy where she was noted to be more confused than at baseline by family.No signs of acute organ dysfunction. She received sepsis bolus 2 L in the emergency room. Currently on normal saline at 100 cc an hour Started empirically on treatment with ceftriaxone 1 g IV every 24 hours while awaiting urine and blood cultures. Received supplemental potassium (2) UTI (urinary tract infection): (3) Recurrent UTI: (4) Anemia: Chronic anemia with Hb stable today at 8.4 Qualifiers: Anemia type: iron deficiency Iron deficiency anemia type: unspecified iron deficiency Qualified Code(s): D50.9 - Iron deficiency anemia, unspecified Attestations Medical Necessity Statement*: > 2 midnight admission is anticipated for mangement of UTI, sepsis , iv abx and iv fluids Coding Level of Care Code Acute Code for [facility] Diagnoses Sepsis A41.9 UTI (urinary tract infection) N39.0 Recurrent UTI N39.0 Anemia D50.9 Anemia type: iron deficiency Iron deficiency anemia type: unspecified iron deficiency
[2023-05-18] MEDS: sodium chlor 0.9% + KCl 20 mEq 20 MEQ/1,000 ML BAG 100 MEQ IV (22:36)
[2023-05-18] MEDS: enoxaparin 40 mg/0.4 mL Syringe SUBCUT (22:39)
[2023-05-18 22:40] LABS: Lactic Acid level (Lactate) 1.7 mmol/L (0.5-2.2)
[2023-05-18] MEDS: lidocaine 1% 5 ML in potassium chloride premix 100 ML 26.25 ML IV (23:47)
[2023-05-19] VITALS (9 sets, daily range): BP systolic 154–188; BP diastolic 71–78; PULSE 71–78; RESP 14–16; TEMP 36.9–37.7; O2SAT 94–98
[2023-05-19 05:50] LABS: Basophils % 0.3 %; Eosinophils # 0.1 10^3/uL (0.0-0.8); Eosinophils % 0.6 %; Hematocrit 27.3 % (37.0-47.0); Hemoglobin 7.9 g/dL (11.5-15.3); Lymphocytes # 1.5 10^3/uL (0.8-4.8); Lymphocytes % 15.5 %; Mean Corpuscular HGB Conc 28.9 g/dL (30.0-36.0); Mean Corpuscular Hemoglobin 20.9 pg (28.0-34.0); Mean Corpuscular Volume 72.2 fl (81-99); Mean Platelet Volume 9.5 fL (7.4-10.4); Monocytes # 0.5 10^3/uL (0.2-0.9); Neutrophils # 7.49 10^3/uL (1.8-7.7); Neutrophils % 78.3 %; Nucleated Red Blood Cells % 0 %; Platelet Count 325 10^3/cmm (130-400); Red Blood Count 3.78 10^6/uL (4.1-5.3); White Blood Count 9.6 10^3/uL (4.0-10.0)
[2023-05-19 06:13] LABS: Lactic Sepsis W/Reflex 2.1 mmol/L (0.5-2.2)
[2023-05-19 06:14] LABS: Alanine Aminotransferase < 5 U/L (0-33); Albumin Level 3.7 g/dL (3.5-5.2); Alkaline Phosphatase 110 U/L (35-105); Anion Gap 16.3 (5-19); Aspartate Amino Transferase 14 U/L (0-32); Blood Urea Nitrogen 5 mg/dL (8-23); Calcium 8.4 mg/dL (8.5-10.5); Carbon Dioxide 20 mmol/L (22-29); Chloride 109 mmol/L (98-107); Globulin 3.4 g/dL (1.3-4.6); Glucose 139 mg/dL (65-115); Osmolality Calculated 294 mOsm/kg (285-295); Potassium 3.3 mmol/L (3.5-5.1); Sodium 142 mmol/L (136-145); Total Bilirubin 0.3 mg/dL (0.15-1.2); Total Protein 7.1 g/dL (6.6-8.7)
[2023-05-19 07:36] LABS: Reflex Lactate Order REFLEX LACTIC ORDERD
[2023-05-19] MEDS: atorvastatin 40 mg Tablet 20 MG PO (08:30)
[2023-05-19] MEDS: venlafaxine ER (24HR) 150 mg Capsule PO (08:30)
[2023-05-19] MEDS: spironolactone 25 mg Tablet 12.5 MG PO (08:31)
[2023-05-19] MEDS: pantoprazole DR 40 mg Tablet PO (08:31)
[2023-05-19] MEDS: amlodipine 5 mg Tablet PO (08:31)
[2023-05-19] MEDS: aspirin 81 mg EC Tablet PO (08:31)
[2023-05-19] MEDS: isosorbide mononitrate ER 30 mg Tablet PO (08:31)
[2023-05-19] MEDS: levothyroxine 75 mcg Tablet PO (08:31)
[2023-05-19 09:08] LABS: Glucose Point of Care 236 mg/dL (70-110)
[2023-05-19 09:45] LABS: Lactic Acid level (Lactate) 2.2 mmol/L (0.5-2.2)
[2023-05-19] MEDS: sodium chlor 0.9% + KCl 20 mEq 20 MEQ/1,000 ML BAG 100 MEQ IV ×2 (09:50→17:43)
--- NOTE | 2023-05-19 10:32 | PC.PHAR ---
05/19/23 Patient's son (Cj Finney) states pt is no longer taking the following medications: Amlodipine 5 mg, Cipro 500mg, Flonase 50 mg, Hydroxyzine 25mg, Isosorbide Monitrate 30mg ER, Levothyroxine 75 mcg, Zofran ODT 4mg, Albuterol inhaler, Methenamine Hippurate 1 gram, Spironolactone 25mg, Venlafaine 150mg ER, Vitamin C 1,000mg.
[2023-05-19 12:10] LABS: Procalcitonin 0.21 ng/mL (0-0.5); Vitamin B12 354 pg/mL (232-1245)
[2023-05-19 12:36] LABS: Thyroid Stimulating Hormone 2.86 uIU/mL (0.27-4.20)
[2023-05-19 13:17] LABS: Glucose Point of Care 172 mg/dL (70-110)
[2023-05-19 13:17] LABS: Iron 13 ug/dL (37-145); Total Iron Binding Capacity 322 mcg/dl; Unsaturated Iron Binding 309 ug/dL (112-347)
[2023-05-19] MEDS: insulin lispro 100 unit/1 mL SUBCUT ×2 (13:26→21:16)
[2023-05-19] MEDS: lidocaine 1% INJ 10 mL (per mL) 5 ML XX (13:27)
[2023-05-19] MEDS: potassium chloride premix 100 ML 25 MEQ IV (13:28)
--- NOTE | 2023-05-19 14:51 | PM.PN ---
Subjective Subjective: Again labs appreciated. Seen with son at bedside. Patient seen laying comfortably in bed, on room air, awake and alert though slow to respond. As per nursing staff there was concern for her choking today morning. Blood pressure is high since admission. Has remained afebrile. Blood work shows hemoglobin of 7.9 down from 8.4 yesterday, resolution of leukocytosis, BMP showing hypokalemia with improvement of potassium to 3.3, sodium level improving to 142, resolution of KATLYN, resolution of lactic acidosis, iron deficiency anemia Vitals/I&O/Wt Last Vital Signs Temp 99.0 F 05/19/23 12:00 Pulse 73 05/19/23 12:00 Resp 15 05/19/23 12:00 BP 172/75 05/19/23 12:00 Pulse Ox 97 05/19/23 12:00 O2 Del Method Room Air 05/19/23 03:59 05/18/23 05/19/23 05/19/23 22:59 06:59 14:59 Intake Total 1050 / 1050 1105 / 2155 1000 / 1000 Balance 1050 / 1050 1105 / 2155 1000 / 1000 Weight last 48 hrs Weight 58.967 kg Physical Exam Narrative: General: No acute distress, AO x3 though slow to respond, chronically sick appearing HEENT: PERRLA, pupils bilaterally equal and reactive, pallors present Chest: Normal vesicular breath sounds, no added sounds, equal good air entry bilaterally CVS: S1-S2 regular, no murmurs, no tachycardia, no gallops, no rubs Abdomen: Soft, nontender, no organomegaly, bowel sounds present Neuro: No focal deficits, no facial deformity, AO x3, power 5/5 in all limbs Data 05/19/23 05:39 05/19/23 05:39 Micro: Microbiology 05/18/23 20:20 Blood Culture - Preliminary Blood SPECIMEN COLLECTED 05/18/23 20:20 Blood Culture - Preliminary Blood SPECIMEN COLLECTED A&P Assessment and plan (1) Sepsis: 77-year-old lady presenting today with chief complaints of lower, generalized fatigue and malaise. Meet sepsis on admission criteria with elevated leukocytosis, fever, elevated lactate and metabolic encephalopathy where she was noted to be more confused than at baseline by family with mild KATLYN on admission. Altered mental status and KATLYN seems to have been resolved. Most likely in setting of UTI. Follow-up blood culture, urine culture. For now continue with empiric IV ceftriaxone. (2) UTI (urinary tract infection): (3) Recurrent UTI: (4) Anemia: Chronic anemia with Hb stable today at 8.4. Appreciate iron panel. Start on oral iron supplementation. Vitamin B12 within normal limits. Check folate. Awaiting stool for occult blood. Qualifiers: Anemia type: iron deficiency Iron deficiency anemia type: unspecified iron deficiency Qualified Code(s): D50.9 - Iron deficiency anemia, unspecified (5) HTN (hypertension): Uncontrolled. Goal blood pressure less than 140/90 mmHg. At home patient takes Imdur 30 mg every morning, 60 mg every afternoon, amlodipine 5 mg. Increase amlodipine to 10 mg daily, Imdur to 60 mg twice daily, add Coreg 6.25 mg twice daily. Will uptitrate as for goal blood pressures. (6) COPD (chronic obstructive pulmonary disease): No exacerbation. DuoNebs as needed (7) Diabetes mellitus: Check A1c. Insulin sliding scale at moderate dose protocol. Carb consistent diet. Plan Full code. Carb consistent cardiac diet. Lovenox for DVT prophylaxis Protonix for PUD prophylaxis. Discharge planning: Awaiting PT evaluation. SNF versus home with home health. Attestations Medical Necessity Statement*: Requires further hospitalization for further evaluation and management of sepsis, anemia Diagnoses Sepsis A41.9 UTI (urinary tract infection) N39.0 Recurrent UTI N39.0 Anemia D50.9 Anemia type: iron deficiency Iron deficiency anemia type: unspecified iron deficiency HTN (hypertension) I10 COPD (chronic obstructive pulmonary disease) J44.9 Diabetes mellitus E11.9
[2023-05-19 17:22] LABS: Glucose Point of Care 104 mg/dL (70-110)
[2023-05-19] MEDS: isosorbide mononitrate ER 60 mg Tablet PO (17:44)
[2023-05-19 21:02] LABS: Glucose Point of Care 144 mg/dL (70-110)
[2023-05-19] MEDS: enoxaparin 40 mg/0.4 mL Syringe SUBCUT (21:15)
[2023-05-19] MEDS: carvedilol 6.25 mg Tablet PO (21:16)
[2023-05-19] MEDS: cefTRIAXone 1,000 MG in sodium chloride 0.9% (plus) 50 ML 100 MG IV (21:16)
[2023-05-20] VITALS (10 sets, daily range): BP systolic 102–172; BP diastolic 7–70; PULSE 59–70; RESP 15–16; TEMP 36.4–37; O2SAT 92–97
[2023-05-20] MEDS: sodium chlor 0.9% + KCl 20 mEq 20 MEQ/1,000 ML BAG 100 MEQ IV ×2 (04:02→13:57)
[2023-05-20 05:31] LABS: Basophils % 0.5 %; Eosinophils # 0.1 10^3/uL (0.0-0.8); Eosinophils % 0.8 %; Hematocrit 25.5 % (37.0-47.0); Hemoglobin 7.3 g/dL (11.5-15.3); Lymphocytes % 23.2 %; Mean Corpuscular HGB Conc 28.6 g/dL (30.0-36.0); Mean Corpuscular Hemoglobin 20.9 pg (28.0-34.0); Mean Corpuscular Volume 73.1 fl (81-99); Mean Platelet Volume 9.7 fL (7.4-10.4); Monocytes # 0.5 10^3/uL (0.2-0.9); Neutrophils # 6.09 10^3/uL (1.8-7.7); Neutrophils % 69.2 %; Nucleated Red Blood Cells % 0 %; Platelet Count 294 10^3/cmm (130-400); Red Blood Count 3.49 10^6/uL (4.1-5.3); Red Cell Distribution Width 16.4 % (12.1-15.1); White Blood Count 8.8 10^3/uL (4.0-10.0)
[2023-05-20 05:56] LABS: Alanine Aminotransferase < 5 U/L (0-33); Albumin Level 3.3 g/dL (3.5-5.2); Alkaline Phosphatase 95 U/L (35-105); Aspartate Amino Transferase 10 U/L (0-32); Blood Urea Nitrogen 5 mg/dL (8-23); Calcium 8.3 mg/dL (8.5-10.5); Carbon Dioxide 19 mmol/L (22-29); Chloride 107 mmol/L (98-107); Glucose 109 mg/dL (65-115); Osmolality Calculated 280 mOsm/kg (285-295); Sodium 136 mmol/L (136-145); Total Bilirubin 0.3 mg/dL (0.15-1.2); Total Protein 6.3 g/dL (6.6-8.7)
[2023-05-20 06:04] LABS: Estmated Average Glucose 169; Hemoglobin A1C 7.5 % (4.0-6.0)
[2023-05-20 06:18] LABS: Folate Level 6.6 ng/mL (4.8-37.3)
[2023-05-20 06:40] LABS: Glucose Point of Care 110 mg/dL (70-110)
[2023-05-20 06:58] LABS: Chol HDL Ratio 2.91 mg/dL (0.0-4.40); Cholesterol 102 mg/dL (0-200); HDL Cholesterol 35 mg/dL (60-100); LDL Cholesterol Calculated 46 mg/dL (50-129); Triglycerides 104 mg/dL (0-150); VLDL Cholestrol Calculation 21 mg/dL (0-30)
[2023-05-20] MEDS: pantoprazole DR 40 mg Tablet PO (10:16)
[2023-05-20] MEDS: isosorbide mononitrate ER 60 mg Tablet PO ×2 (10:16→18:24)
[2023-05-20] MEDS: venlafaxine ER (24HR) 150 mg Capsule PO (10:16)
[2023-05-20] MEDS: carvedilol 6.25 mg Tablet PO ×2 (10:17→23:10)
[2023-05-20] MEDS: atorvastatin 40 mg Tablet 20 MG PO (10:17)
[2023-05-20] MEDS: amlodipine 10 mg Tablet PO (10:17)
[2023-05-20] MEDS: aspirin 81 mg EC Tablet PO (10:17)
[2023-05-20] MEDS: levothyroxine 75 mcg Tablet PO (10:17)
[2023-05-20 10:51] LABS: Glucose Point of Care 136 mg/dL (70-110)
[2023-05-20] MEDS: acetaminophen 650 mg/20.3 mL UDC PO (13:57)
--- NOTE | 2023-05-20 14:05 | PM.PN ---
Subjective Subjective: Patient is awake and alert. She is up to her bedside chair. Per report she is still confused. Her son is bedside and very supportive. He reports that she is more confused today as compared to yesterday. I discussed the lab results. Discussed anemia. He reports her last colonoscopy was definitely over 10 years ago. Patient denies any fevers, chills, nausea or emesis. Medications: Reviewed: Yes Vitals/I&O/Wt Last Vital Signs Temp 97.6 F 05/20/23 12:00 Pulse 66 05/20/23 12:00 Resp 16 05/20/23 12:00 BP 102/7 05/20/23 12:00 Pulse Ox 97 05/20/23 12:00 O2 Del Method Room Air 05/20/23 03:52 05/19/23 05/20/23 05/20/23 22:59 06:59 14:59 Intake Total 998.333 / 2238.333 1060 / 3298.333 1471.667 / 1471.667 Balance 998.333 / 2238.333 1060 / 3298.333 1471.667 / 1471.667 Weight last 48 hrs Weight 58.967 kg Physical Exam Narrative: General: Patient is awake. Frail appearing. Head: Normocephalic. Atraumatic. Neck: No JVD. Cardiovascular: RRR. No gallops. No murmurs. Lungs: Clear to auscultation, no use of accessory muscles, no crackles or wheezes. Skin: No jaundice. No rashes. Abdomen: Normal bowel sounds, abdomen soft and nontender. Extremities: No cyanosis or clubbing. Musculoskeletal: No swollen or erythematous joints. Neurological: Moves all 4 extremities. No myoclonus. Data 05/20/23 05:05 05/20/23 05:05 Micro: Microbiology 05/18/23 21:40 Urine Culture - Preliminary Urine,Clean Catch Gram Negative Rods 05/18/23 20:20 Blood Culture - Preliminary Blood NEGATIVE TO DATE 05/18/23 20:20 Blood Culture - Preliminary Blood NEGATIVE TO DATE 05/19/23 12:43 Occult Blood (FIT) - Final Stool Routine Collection A&P Assessment and plan (1) UTI (urinary tract infection): Associated with sepsis in the setting of recurrent UTIs Associated with acute metabolic encephalopathy, worsening With associated debility and physical deconditioning Prior urine cultures reviewed Continue ceftriaxone Encourage family participation in care Avoid sedating medications (2) Microcytic anemia: Hemoglobin is worsening, possible component of dilution Fecal occult reportedly negative Patient denies black or bloody stools, no black or bloody stools noted since admission Repeat hemoglobin in a.m. Continue iron supplementation (3) Diabetes mellitus: (4) HTN (hypertension): Continue Imdur Continue Coreg Continue Norvasc (5) COPD (chronic obstructive pulmonary disease): Not in acute exacerbation Continue to monitor Plan DVT prophylaxis: Lovenox CODE STATUS: Full code Attestations Medical Necessity Statement*: Patient remains with altered mental status secondary to UTI and sepsis requiring ongoing hospitalization for serial labs, cultures, and IV antibiotics. Coding Level of Care Code Acute Code for [facility] Diagnoses UTI (urinary tract infection) N39.0 Microcytic anemia D50.9 Diabetes mellitus E11.9 HTN (hypertension) I10 COPD (chronic obstructive pulmonary disease) J44.9
[2023-05-20 18:25] LABS: Glucose Point of Care 174 mg/dL (70-110)
[2023-05-20 21:58] LABS: Glucose Point of Care 165 mg/dL (70-110)
[2023-05-20] MEDS: cefTRIAXone 1,000 MG in sodium chloride 0.9% (plus) 50 ML 100 MG IV (23:12)
[2023-05-20] MEDS: enoxaparin 40 mg/0.4 mL Syringe SUBCUT (23:14)
[2023-05-20] MEDS: insulin lispro 100 unit/1 mL SUBCUT (23:15)
[2023-05-21] VITALS (7 sets, daily range): BP systolic 101–175; BP diastolic 59–71; PULSE 55–65; RESP 15–16; TEMP 36.2–36.8; O2SAT 92–99
[2023-05-21] MEDS: sodium chlor 0.9% + KCl 20 mEq 20 MEQ/1,000 ML BAG 100 MEQ IV ×2 (03:28→16:56)
[2023-05-21 05:55] LABS: Basophils % 0.4 %; Eosinophils # 0.1 10^3/uL (0.0-0.8); Hematocrit 26.2 % (37.0-47.0); Hemoglobin 7.3 g/dL (11.5-15.3); Lymphocytes # 1.7 10^3/uL (0.8-4.8); Mean Corpuscular HGB Conc 27.9 g/dL (30.0-36.0); Mean Corpuscular Hemoglobin 20.9 pg (28.0-34.0); Mean Corpuscular Volume 75.1 fl (81-99); Mean Platelet Volume 9.8 fL (7.4-10.4); Monocytes # 0.4 10^3/uL (0.2-0.9); Neutrophils # 8.04 10^3/uL (1.8-7.7); Neutrophils % 78.1 %; Nucleated Red Blood Cells % 0 %; Platelet Count 275 10^3/cmm (130-400); Red Blood Count 3.49 10^6/uL (4.1-5.3); Red Cell Distribution Width 16.2 % (12.1-15.1); White Blood Count 10.3 10^3/uL (4.0-10.0)
[2023-05-21 06:12] LABS: Albumin Level 3.5 g/dL (3.5-5.2); Anion Gap 15.1 (5-19); Blood Urea Nitrogen 5 mg/dL (8-23); Calcium 8.1 mg/dL (8.5-10.5); Carbon Dioxide 18 mmol/L (22-29); Chloride 103 mmol/L (98-107); Glucose 107 mg/dL (65-115); Magnesium 1.7 mg/dL (1.7-2.3); Phosphorus 3.3 mg/dL (2.5-4.5); Potassium 4.1 mmol/L (3.5-5.1); Sodium 132 mmol/L (136-145)
[2023-05-21 06:55] LABS: Glucose Point of Care 112 mg/dL (70-110)
[2023-05-21] MEDS: aspirin 81 mg EC Tablet PO (09:04)
[2023-05-21] MEDS: carvedilol 6.25 mg Tablet PO ×2 (09:04→20:27)
[2023-05-21] MEDS: atorvastatin 40 mg Tablet 20 MG PO (09:04)
[2023-05-21] MEDS: pantoprazole DR 40 mg Tablet PO (09:04)
[2023-05-21] MEDS: venlafaxine ER (24HR) 150 mg Capsule PO (09:04)
[2023-05-21] MEDS: levothyroxine 75 mcg Tablet PO (09:04)
[2023-05-21] MEDS: amlodipine 10 mg Tablet PO (09:04)
[2023-05-21] MEDS: isosorbide mononitrate ER 60 mg Tablet PO ×2 (09:04→16:56)
--- NOTE | 2023-05-21 09:47 | PC.OT ---
per OT weekend protocol: patient to be evaluated for OT services on Monday.
[2023-05-21 11:48] LABS: Glucose Point of Care 143 mg/dL (70-110)
--- NOTE | 2023-05-21 13:41 | PC.SOCIAL ---
Pg 2 IMM Explained to pt & son Pg 2 IMM. No questions voiced. Provided pt a copy. Initialed, dated, & timed a copy & placed in chart.
--- NOTE | 2023-05-21 14:00 | PM.PN ---
Subjective Subjective: Patient's c diff came back positive last evening for which she was started on vancomycin. She is up to chair. Son is bedside and supportive. She reports she is feeling a little better today. Endorses left knee pain. Continues to have diarrhea. Endorses diffuse weakness. Denies fevers, chills, or emesis. Medications: Reviewed: Yes Vitals/I&O/Wt Last Vital Signs Temp 97.2 F L 05/21/23 12:00 Pulse 58 L 05/21/23 12:00 Resp 16 05/21/23 12:00 BP 145/71 05/21/23 12:00 Pulse Ox 97 05/21/23 12:00 O2 Del Method Room Air 05/21/23 12:00 05/20/23 05/21/23 05/21/23 22:59 06:59 14:59 Intake Total 240 / 6280.491 9702 / 2761.667 1720 / 1720 Balance 240 / 3290.730 1625 / 2761.667 1720 / 1720 Physical Exam Narrative: General: Patient is awake. Frail appearing. Sitting in bedside chair. Pleasant. Head: Normocephalic. Atraumatic. Neck: No JVD. Cardiovascular: RRR. No gallops. No murmurs. Lungs: Clear to auscultation, no use of accessory muscles, no crackles or wheezes. Skin: No jaundice. No rashes. Abdomen: Normal bowel sounds, abdomen soft and nontender. Extremities: No cyanosis or clubbing. Musculoskeletal: No erythematous joints. Left knee is swollen. Neurological: Moves all 4 extremities. No myoclonus. Data 05/21/23 05:30 05/21/23 05:30 Micro: Microbiology 05/20/23 17:20 C.difficile Toxin B Gene (PCR) - Final Stool Routine Collection 05/19/23 14:58 MRSA Culture - Final Nose 05/18/23 21:40 Urine Culture - Preliminary Urine,Clean Catch Gram Negative Rods A&P Assessment and plan (1) UTI (urinary tract infection): Associated with sepsis in the setting of recurrent UTIs Associated with acute metabolic encephalopathy, improving With associated debility and physical deconditioning Prior urine cultures reviewed Current Ux w/ GNB, follow up C&S Continue ceftriaxone Encourage family participation in care Avoid sedating medications (2) C. difficile colitis: Continue oral vancomycin (3) Left knee pain: Hx of fall Knee is swollen Plan films ordered Analgesics as needed (4) Debility: Debility and physical deconditioning Treat underlying infections Continue therapy Will need post acute when medically ready (5) Microcytic anemia: HGB stable Continue iron supplementation (6) Diabetes mellitus: SSI Avoid hypoglycemia (7) HTN (hypertension): Continue Imdur Continue Coreg Continue Norvasc (8) COPD (chronic obstructive pulmonary disease): Not in acute exacerbation Continue to monitor Plan DVT prophylaxis: Lovenox CODE STATUS: Full code Attestations Medical Necessity Statement*: Patient requires ongoing hospitalization for IV abx, serial labs, telemetry, and supportive care. Coding Level of Care Code Acute Code for [facility] Diagnoses UTI (urinary tract infection) N39.0 C. difficile colitis A04.72 Left knee pain M25.562 Debility R53.81 Microcytic anemia D50.9 Diabetes mellitus E11.9 HTN (hypertension) I10 COPD (chronic obstructive pulmonary disease) J44.9
--- NOTE | 2023-05-21 14:05 | XRR_ITS ---
PROCEDURE INFORMATION: Exam: XR Left Knee Exam date and time: 05/21/2023 2:29 PM Age: 77 years old Clinical indication: Pain and swollen knee, HX of fall TECHNIQUE: Imaging protocol: Radiologic exam of the left knee. Views: 1 or 2 views. COMPARISON: No relevant prior studies available. FINDINGS: Bones/joints: Tricompartmental primary osteoarthritic changes including joint space narrowing, subchondral cystic/sclerotic changes, and marginal osteophyte formations. Joint space narrowing is most severe across the medial joint compartment. Soft tissues: Normal. XR/XR knee LT 1-2V [id number] IMPRESSION: Tricompartmental osteoarthritic changes are present as described above. No visualized acute fracture.
[2023-05-21] MEDS: acetaminophen 650 mg/20.3 mL UDC PO (14:40)
[2023-05-21 16:48] LABS: Glucose Point of Care 123 mg/dL (70-110)
[2023-05-21] MEDS: cefTRIAXone 1,000 MG in sodium chloride 0.9% (plus) 50 ML 100 MG IV (20:26)
[2023-05-21 21:47] LABS: Glucose Point of Care 156 mg/dL (70-110)
[2023-05-21] MEDS: enoxaparin 40 mg/0.4 mL Syringe SUBCUT (21:54)
[2023-05-21] MEDS: insulin lispro 100 unit/1 mL SUBCUT (21:54)
[2023-05-22] VITALS (10 sets, daily range): BP systolic 109–166; BP diastolic 57–77; PULSE 60–73; RESP 16–18; TEMP 36.4–37.1; O2SAT 91–97
[2023-05-22] MEDS: sodium chlor 0.9% + KCl 20 mEq 20 MEQ/1,000 ML BAG 100 MEQ IV ×2 (02:54→14:45)
[2023-05-22 06:20] LABS: Basophils % 0.2 %; Eosinophils % 0.5 %; Hematocrit 26.2 % (37.0-47.0); Hemoglobin 7.6 g/dL (11.5-15.3); Lymphocytes # 1.4 10^3/uL (0.8-4.8); Lymphocytes % 15.4 %; Mean Corpuscular Hemoglobin 21.1 pg (28.0-34.0); Mean Corpuscular Volume 72.8 fl (81-99); Mean Platelet Volume 9.3 fL (7.4-10.4); Monocytes # 0.3 10^3/uL (0.2-0.9); Neutrophils # 7.08 10^3/uL (1.8-7.7); Neutrophils % 80.3 %; Nucleated Red Blood Cells % 0 %; Platelet Count 327 10^3/cmm (130-400); Red Cell Distribution Width 16.2 % (12.1-15.1); White Blood Count 8.8 10^3/uL (4.0-10.0)
[2023-05-22 06:48] LABS: Albumin Level 3.5 g/dL (3.5-5.2); Anion Gap 16.6 (5-19); Blood Urea Nitrogen 5 mg/dL (8-23); Calcium 8.3 mg/dL (8.5-10.5); Carbon Dioxide 18 mmol/L (22-29); Chloride 106 mmol/L (98-107); Glucose 136 mg/dL (65-115); Magnesium 1.8 mg/dL (1.7-2.3); Potassium 4.6 mmol/L (3.5-5.1); Sodium 136 mmol/L (136-145)
[2023-05-22 06:57] LABS: Glucose Point of Care 110 mg/dL (70-110)
[2023-05-22] MEDS: pantoprazole DR 40 mg Tablet PO (08:29)
[2023-05-22] MEDS: atorvastatin 40 mg Tablet 20 MG PO (08:29)
[2023-05-22] MEDS: aspirin 81 mg EC Tablet PO (08:29)
[2023-05-22] MEDS: venlafaxine ER (24HR) 150 mg Capsule PO (08:29)
[2023-05-22] MEDS: carvedilol 6.25 mg Tablet PO ×2 (08:29→21:26)
[2023-05-22] MEDS: amlodipine 10 mg Tablet PO (08:30)
[2023-05-22] MEDS: isosorbide mononitrate ER 60 mg Tablet PO ×2 (08:30→17:57)
[2023-05-22] MEDS: levothyroxine 75 mcg Tablet PO (08:30)
[2023-05-22 11:31] LABS: Glucose Point of Care 141 mg/dL (70-110)
[2023-05-22] MEDS: oxyCODONE-APAP 5-325 mg Tablet 1 TAB PO (11:59)
[2023-05-22 18:10] LABS: Glucose Point of Care 131 mg/dL (70-110)
--- NOTE | 2023-05-22 18:58 | PM.PN ---
Subjective Subjective: Patient is complaining of diarrhea. Has been afebrile. Medications: Reviewed: Yes Medication Review Details: Generic Name Dose Route Start Last Admin Trade Name Marshal PRN Reason Stop Dose Admin Acetaminophen 650 mg 05/20/23 12:45 05/21/23 14:40 Acetaminophen 65 0 Mg/20.3 Ml Udc PO 650 mg ONCE SAAD Administration Amlodipine Besylat e 10 mg 05/20/23 09:00 05/22/23 08:30 Amlodipine 10 Mg Tablet PO 10 mg DAILY SAAD Administration Aspirin 81 mg 05/19/23 09:00 05/22/23 08:29 Aspirin 81 Mg Ec Tablet PO 81 mg DAILY SAAD Administration Atorvastatin Calci um 20 mg 05/19/23 09:00 05/22/23 08:29 Atorvastatin 40 Mg Tablet PO 20 mg DAILY SAAD Administration Carvedilol 6.25 mg 05/19/23 21:00 05/22/23 08:29 Carvedilol 6.25 Mg Tablet PO 6.25 mg BID@0900,2100 SAAD Administration Enoxaparin Sodium 40 mg 05/18/23 22:15 05/21/23 21:54 Enoxaparin 40 Mg /0.4 Ml Syringe SUBCUT 40 mg Q24H SAAD Administration Potassium Chloride /Sodium Chloride 20 meq in 1,000 m ls @ 100 mls/hr 05/18/23 22:15 05/22/23 14:45 Sodium Chlor 0.9 % + Kcl 20 Meq IV 100 mls/hr .Q10H SAAD Administration Ceftriaxone Sodium 1,000 mg/ 50 mls @ 100 mls/ hr 05/19/23 21:00 05/21/23 21:18 Sodium Chloride IV Infused Q24H SAAD Infusion Protocol Insulin Human Lisp ro 0 unit 05/19/23 12:00 05/22/23 17:40 Insulin Lispro 1 00 Unit/1 Ml SUBCUT Not Given WM&BEDTIME SAAD Protocol Isosorbide Mononit rate 60 mg 05/19/23 18:00 05/22/23 17:57 Isosorbide [place] itrate Er 60 Mg Ta blet PO 60 mg BID SAAD Administration Levothyroxine Sodi um 75 mcg 05/19/23 09:00 05/22/23 08:30 Levothyroxine 75 Mcg Tablet PO 75 mcg DAILY SAAD Administration Oxycodone/Acetamin ophen 1 tab 05/21/23 14:05 05/22/23 11:59 Oxycodone-Apap 5 -325 Mg Tablet PO 1 tab Q4H PRN Administration MODERATE PAIN Pantoprazole Sodiu m 40 mg 05/19/23 09:00 05/22/23 08:[address] 40 Mg Tablet PO 40 mg DAILY SAAD Administration Vancomycin HCl 125 mg 05/20/23 21:30 05/22/23 14:46 Vancomycin 1,000 Mg Oral Caitlyn (Btl) PO 125 mg Q6H SAAD Administration Venlafaxine HCl 150 mg 05/19/23 09:00 05/22/23 08:29 Venlafaxine Er ( 24hr) 150 Mg Capsu le PO 150 mg DAILY SAAD Administration Vitals/I&O/Wt Last Vital Signs Temp 98.3 F 05/22/23 16:00 Pulse 73 05/22/23 16:00 Resp 16 05/22/23 16:00 BP 114/67 05/22/23 16:00 Pulse Ox 91 05/22/23 16:00 O2 Del Method Room Air 05/22/23 03:54 05/22/23 05/22/23 05/22/23 06:59 14:59 22:59 Intake Total 996.667 / 3126.667 1240 / 1240 240 / 1480 Balance 996.667 / 3126.667 1240 / 1240 240 / 1480 Physical Exam HENMT: COMMON NORMALS: normocephalic and atraumatic HEAD & SCALP: normocephalic and atraumatic Resp: COMMON NORMALS: clear to auscultation bilaterally AUSCULTATION: clear to auscultation bilaterally Cardio: COMMON NORMALS: regular rate, regular rhythm, S1 normal heart sound present, S2 normal heart sound present, No gallops present (Cardio), No murmurs present (Cardio), No rub (Cardio) and Peripheral pulses 2+ throughout RATE: regular rate RHYTHM: regular rhythm HEART SOUNDS: S1 normal heart sound present and S2 normal heart sound present PERIPHERAL PULSES: Peripheral pulses 2+ throughout GI: COMMON NORMALS: Normal to inspection, nondistended, normoactive bowel sounds present, Soft to palpation, non-tender, No hepatosplenomegaly present and no masses AUSCULTATION: Yes normoactive bowel sounds PALPATION: Yes Soft to palpation and Yes No hepatosplenomegaly present RECTAL EXAM: deferred Extremity: COMMON NORMALS: no clubbing, cyanosis or edema and no pedal edema Data 05/22/23 06:11 05/22/23 06:11 Micro: Microbiology 05/18/23 21:40 Urine Culture - Final Urine,Clean Catch Escherichia coli 05/20/23 17:20 Enteric Pathogens (PCR) - Final Stool Routine Collection A&P Assessment and plan (1) Sepsis: 77-year-old lady presenting today with chief complaints of lower, generalized fatigue and malaise. Meet sepsis on admission criteria with elevated leukocytosis, fever, elevated lactate and metabolic encephalopathy where she was noted to be more confused than at baseline by family with mild KATLYN on admission. Altered mental status and KATLYN seems to have been resolved. Most likely in setting of UTI. Follow-up blood culture, urine culture. For now continue with empiric IV ceftriaxone. (2) UTI (urinary tract infection): (3) Recurrent UTI: (4) Anemia: Chronic anemia with Hb stable today at 8.4. Appreciate iron panel. Start on oral iron supplementation. Vitamin B12 within normal limits. Check folate. Awaiting stool for occult blood. Qualifiers: Anemia type: iron deficiency Iron deficiency anemia type: unspecified iron deficiency Qualified Code(s): D50.9 - Iron deficiency anemia, unspecified (5) HTN (hypertension): Uncontrolled. Goal blood pressure less than 140/90 mmHg. At home patient takes Imdur 30 mg every morning, 60 mg every afternoon, amlodipine 5 mg. Increase amlodipine to 10 mg daily, Imdur to 60 mg twice daily, add Coreg 6.25 mg twice daily. Will uptitrate as for goal blood pressures. (6) COPD (chronic obstructive pulmonary disease): No exacerbation. DuoNebs as needed (7) Diabetes mellitus: Check A1c. Insulin sliding scale at moderate dose protocol. Carb consistent diet. Plan Full code. Carb consistent cardiac diet. Lovenox for DVT prophylaxis Protonix for PUD prophylaxis. Discharge planning: Awaiting placement to SNF. Attestations Medical Necessity Statement*: Currently awaiting placement. Coding Level of Care Code Acute Code for Chg Fwd Diagnoses Sepsis A41.9 UTI (urinary tract infection) N39.0 Recurrent UTI N39.0 Anemia D50.9 Anemia type: iron deficiency Iron deficiency anemia type: unspecified iron deficiency HTN (hypertension) I10 COPD (chronic obstructive pulmonary disease) J44.9 Diabetes mellitus E11.9
[2023-05-22] MEDS: cefTRIAXone 1,000 MG in sodium chloride 0.9% (plus) 50 ML 100 MG IV (21:26)
[2023-05-22 21:47] LABS: Glucose Point of Care 131 mg/dL (70-110)
[2023-05-22] MEDS: enoxaparin 40 mg/0.4 mL Syringe SUBCUT (22:51)
[2023-05-23] VITALS (8 sets, daily range): BP systolic 112–160; BP diastolic 58–80; PULSE 69–72; RESP 14–18; TEMP 36.6–37; O2SAT 90–97
[2023-05-23] MEDS: sodium chlor 0.9% + KCl 20 mEq 20 MEQ/1,000 ML BAG 100 MEQ IV ×2 (01:00→12:03)
[2023-05-23 06:55] LABS: Glucose Point of Care 94 mg/dL (70-110)
[2023-05-23] MEDS: venlafaxine ER (24HR) 150 mg Capsule PO (09:23)
[2023-05-23] MEDS: amlodipine 10 mg Tablet PO (09:23)
[2023-05-23] MEDS: atorvastatin 40 mg Tablet 20 MG PO (09:23)
[2023-05-23] MEDS: pantoprazole DR 40 mg Tablet PO (09:23)
[2023-05-23] MEDS: aspirin 81 mg EC Tablet PO (09:23)
[2023-05-23] MEDS: isosorbide mononitrate ER 60 mg Tablet PO ×2 (09:23→17:32)
[2023-05-23] MEDS: levothyroxine 75 mcg Tablet PO (09:24)
[2023-05-23] MEDS: carvedilol 6.25 mg Tablet PO ×2 (10:42→20:52)
[2023-05-23 11:53] LABS: Glucose Point of Care 135 mg/dL (70-110)
--- NOTE | 2023-05-23 12:43 | USCV_ITS ---
Reg Maria Luz Age: 77 Gender: F : 1945 Exam Date: 05/23/2023 14:04 Ordering Phys: Praneeth Lozoya MD Technologist: Anselmo Garg Exam Location: [facility] [place]_ Indication: lt leg pain and swelling hx of dvt HISTORY: Lower extremity swelling. PROCEDURES: Venous duplex imaging was performed in only the left lower extremity. The following venous structures were evaluated: common femoral vein, profunda vein, proximal portion of the greater saphenous vein, superficial femoral vein, and the popliteal vein. In addition, the posterior tibial and peroneal trunk were evaluated. FINDINGS: Normal 2-D Doppler and augmentation and compressibility throughout the lower extremity venous structures. Additional imaging through the proximal calf veins also reveals no thrombus. Limited evaluation of the greater saphenous vein is patent with no thrombus. CONCLUSIONS No evidence of left lower extremity DVT. Refugio Benson MD (Electronically Signed) Final Date: 23 May 2023 16:39 S
[2023-05-23 15:35] LABS: SARS Covid-2 Antigen negative (Negative)
[2023-05-23 17:10] LABS: Glucose Point of Care 128 mg/dL (70-110)
--- NOTE | 2023-05-23 19:38 | P.PN_ITS ---
Subjective Subjective: Patient was seen and examined this morning, diarrhea has resolved, she was complaining of left lower extremity pain, left lower extremity Doppler vein is negative for DVT, has prior history of left lower extremity DVT. Medications: Reviewed: Yes Medication Review Details: Generic Name Dose Route Start Last Admin Trade Name Marshal PRN Reason Stop Dose Admin Acetaminophen 650 mg 05/20/23 12:45 05/21/23 14:40 Acetaminophen 65 0 Mg/20.3 Ml Udc PO 650 mg ONCE SAAD Administration Amlodipine Besylat e 10 mg 05/20/23 09:00 05/22/23 08:30 Amlodipine 10 Mg Tablet PO 10 mg DAILY SAAD Administration Aspirin 81 mg 05/19/23 09:00 05/22/23 08:29 Aspirin 81 Mg Ec Tablet PO 81 mg DAILY SAAD Administration Atorvastatin Calci um 20 mg 05/19/23 09:00 05/22/23 08:29 Atorvastatin 40 Mg Tablet PO 20 mg DAILY SAAD Administration Carvedilol 6.25 mg 05/19/23 21:00 05/22/23 08:29 Carvedilol 6.25 Mg Tablet PO 6.25 mg BID@0900,2100 SAAD Administration Enoxaparin Sodium 40 mg 05/18/23 22:15 05/21/23 21:54 Enoxaparin 40 Mg /0.4 Ml Syringe SUBCUT 40 mg Q24H SAAD Administration Potassium Chloride /Sodium Chloride 20 meq in 1,000 m ls @ 100 mls/hr 05/18/23 22:15 05/22/23 14:45 Sodium Chlor 0.9 % + Kcl 20 Meq IV 100 mls/hr .Q10H SAAD Administration Ceftriaxone Sodium 1,000 mg/ 50 mls @ 100 mls/ hr 05/19/23 21:00 05/21/23 21:18 Sodium Chloride IV Infused Q24H SAAD Infusion Protocol Insulin Human Lisp ro 0 unit 05/19/23 12:00 05/22/23 17:40 Insulin Lispro 1 00 Unit/1 Ml SUBCUT Not Given WM&BEDTIME SAAD Protocol Isosorbide Mononit rate 60 mg 05/19/23 18:00 05/22/23 17:57 Isosorbide [place] itrate Er 60 Mg Ta blet PO 60 mg BID SAAD Administration Levothyroxine Sodi um 75 mcg 05/19/23 09:00 05/22/23 08:30 Levothyroxine 75 Mcg Tablet PO 75 mcg DAILY SAAD Administration Oxycodone/Acetamin ophen 1 tab 05/21/23 14:05 05/22/23 11:59 Oxycodone-Apap 5 -325 Mg Tablet PO 1 tab Q4H PRN Administration MODERATE PAIN Pantoprazole Sodiu m 40 mg 05/19/23 09:00 05/22/23 08:[address] 40 Mg Tablet PO 40 mg DAILY SAAD Administration Vancomycin HCl 125 mg 05/20/23 21:30 05/22/23 14:46 Vancomycin 1,000 Mg Oral Caitlyn (Btl) PO 125 mg Q6H SAAD Administration Venlafaxine HCl 150 mg 05/19/23 09:00 05/22/23 08:29 Venlafaxine Er ( 24hr) 150 Mg Capsu le PO 150 mg DAILY SAAD Administration Vitals/I&O/Wt Last Vital Signs Temp 98.4 F 05/23/23 15:32 Pulse 69 05/23/23 15:32 Resp 18 05/23/23 15:32 BP 125/67 05/23/23 15:32 Pulse Ox 90 05/23/23 15:32 O2 Del Method Room Air 05/23/23 15:32 05/23/23 05/23/23 05/23/23 06:59 14:59 22:59 Intake Total 1000 / 2530 1240 / 1240 240 / 1480 Balance 1000 / 2530 1240 / 1240 240 / 1480 Physical Exam HENMT: COMMON NORMALS: normocephalic and atraumatic HEAD & SCALP: normocephalic and atraumatic Resp: COMMON NORMALS: clear to auscultation bilaterally AUSCULTATION: clear to auscultation bilaterally Cardio: COMMON NORMALS: regular rate, regular rhythm, S1 normal heart sound present, S2 normal heart sound present, No gallops present (Cardio), No murmurs present (Cardio), No rub (Cardio) and Peripheral pulses 2+ throughout RATE: regular rate RHYTHM: regular rhythm HEART SOUNDS: S1 normal heart sound present and S2 normal heart sound present PERIPHERAL PULSES: Peripheral pulses 2+ throughout GI: COMMON NORMALS: Normal to inspection, nondistended, normoactive bowel sounds present, Soft to palpation, non-tender, No hepatosplenomegaly present and no masses AUSCULTATION: Yes normoactive bowel sounds PALPATION: Yes Soft to palpation and Yes No hepatosplenomegaly present RECTAL EXAM: deferred Extremity: COMMON NORMALS: no clubbing, cyanosis or edema and no pedal edema Data 05/22/23 06:11 05/22/23 06:11 A&P Assessment and plan (1) Sepsis: 77-year-old lady presenting today with chief complaints of lower, generalized fatigue and malaise. Meet sepsis on admission criteria with elevated leukocytosis, fever, elevated lactate and metabolic encephalopathy where she was noted to be more confused than at baseline by family with mild KATLYN on admission. Altered mental status and KATLYN seems to have been resolved. Most likely in setting of UTI. Urine culture is growing E. coli Blood culture is negative MRSA PCR negative Stool C. difficile positive Stool enteric PCR negative. CT head without contrast no acute intracranial pathology Has been on ceftriaxone, will discharge her on p.o. Augmentin for additional 7 d ays. Currently she is also on p.o. vancomycin 125 p.o. every 6h will complete 7-day course. (2) UTI (urinary tract infection): (3) Recurrent UTI: (4) Anemia: Chronic anemia with Hb stable today at 8.4. Appreciate iron panel. Start on oral iron supplementation. Vitamin B12 within normal limits. Check folate. FOBT is negative Qualifiers: Anemia type: iron deficiency Iron deficiency anemia type: unspecified iron deficiency Qualified Code(s): D50.9 - Iron deficiency anemia, unspecified (5) HTN (hypertension): Uncontrolled. Goal blood pressure less than 140/90 mmHg. At home patient takes Imdur 30 mg every morning, 60 mg every afternoon, amlodipine 5 mg. Increase amlodipine to 10 mg daily, Imdur to 60 mg twice daily, add Coreg 6.25 mg twice daily. Will uptitrate as for goal blood pressures. (6) COPD (chronic obstructive pulmonary disease): No exacerbation. DuoNebs as needed (7) Diabetes mellitus: Check A1c. Insulin sliding scale at moderate dose protocol. Carb consistent diet. (8) C. difficile diarrhea: Currently she is on p.o. vancomycin 125 p.o. every 6h will complete 7-day course. Plan Full code. Carb consistent cardiac diet. Lovenox for DVT prophylaxis Protonix for PUD prophylaxis. Discharge planning: Awaiting placement to SNF. Discharge tomorrow in the morni ng. Attestations Medical Necessity Statement*: Awaiting placement to SNF. Coding Level of Care Code Acute Code for Chg Fwd Diagnoses Sepsis A41.9 UTI (urinary tract infection) N39.0 Recurrent UTI N39.0 Anemia D50.9 Anemia type: iron deficiency Iron deficiency anemia type: unspecified iron deficiency HTN (hypertension) I10 COPD (chronic obstructive pulmonary disease) J44.9 Diabetes mellitus E11.9 C. difficile diarrhea A04.72
[2023-05-23] MEDS: cefTRIAXone 1,000 MG in sodium chloride 0.9% (plus) 50 ML 100 MG IV (20:51)
[2023-05-23 21:21] LABS: Glucose Point of Care 139 mg/dL (70-110)
[2023-05-23] MEDS: enoxaparin 40 mg/0.4 mL Syringe SUBCUT (23:14)
[2023-05-24] VITALS: BP 110/49; PULSE 70; RESP 14; TEMP 36.9; O2SAT 93
[2023-05-24 04:00] VITALS: BP 129/57; PULSE 62; RESP 14; TEMP 36.8; O2SAT 89
[2023-05-24 06:30] LABS: Glucose Point of Care 112 mg/dL (70-110)
[2023-05-24 08:00] VITALS: BP 138/72; PULSE 68; RESP 17; TEMP 37.1; O2SAT 95
[2023-05-24] MEDS: atorvastatin 40 mg Tablet 20 MG PO (08:16)
[2023-05-24] MEDS: venlafaxine ER (24HR) 150 mg Capsule PO (08:16)
[2023-05-24] MEDS: amlodipine 10 mg Tablet PO (08:17)
[2023-05-24] MEDS: pantoprazole DR 40 mg Tablet PO (08:17)
[2023-05-24] MEDS: carvedilol 6.25 mg Tablet PO (08:17)
[2023-05-24] MEDS: levothyroxine 75 mcg Tablet PO (08:17)
[2023-05-24] MEDS: aspirin 81 mg EC Tablet PO (08:17)
[2023-05-24] MEDS: isosorbide mononitrate ER 60 mg Tablet PO (08:17)
--- NOTE | 2023-05-24 10:18 | PM.DCS ---
Discharge Providers Date of Admission: 05/18/23 22:14 Date of Discharge: May 24, 2023 Attending Provider at Admission: Melissa Velásquez MD Attending Provider at Discharge: Praneeth Lozoya MD Primary Care Provider: Zeus Young DO Diagnoses at Discharge Discharge Diagnosis (1) Sepsis: Status: Resolved (2) UTI (urinary tract infection): Status: Acute (3) Recurrent UTI: Status: Acute (4) Anemia: Status: Inactive Qualifiers: Anemia type: iron deficiency Iron deficiency anemia type: unspecified iron deficiency Qualified Code(s): D50.9 - Iron deficiency anemia, unspecified (5) HTN (hypertension): Status: Acute (6) COPD (chronic obstructive pulmonary disease): Status: Acute (7) Diabetes mellitus: Status: Acute (8) C. difficile diarrhea: Status: Acute Reason for Visit Reason for Visit: weakness Hospital Course Hospital Course 77 year old female? No intubation.? With a past medical history of UTIs, chronic cystitis with cystitis cystica for which she is on methenamine suppression.? She is brought to the emergency room today with chief complaints of weakness over the past 2 to 3 days?, confusion and fever.During the hospital stay she was managed for sepsis secondary to UTI, blood culture was negative, urine culture grew E. coli, MRSA PCR was negative, she was also found to be C. difficile positive, stool enteric pathogen PCR negative, during the hospital stay she was kept on IV fluids, ceftriaxone, p.o. vancomycin, she was discharged on p.o. Augmentin, for another 5 days to complete the antibiotic course for UTI, she was also discharged on p.o. vancomycin for another 4 days to complete total 7-day course of p.o. vancomycin for C. difficile diarrhea. At the time of discharge her diarrhea had significantly improved, altered mental status which was likely secondary to sepsis KATLYN UTI, had resolved at the time of discharge, she was at her baseline mentation, CT head without contrast failed to show any acute intracranial pathology. During the hospital stay she was also complaining of left lower extremity pain x-ray left knee showed: Tricompartmental primary osteoarthritic changes including joint space narrowing, subchondral cystic/sclerotic changes, and marginal osteophyte formations. Joint space narrowing is most severe across the medial joint compartment.Left lower extremity Doppler vein was negative for DVT. She was discharged on extra strength Tylenol for pain control.Patient appropriately responded to above medical manage, at the time of discharge she was hemodynamically stable afebrile, though she had significant weakness, and hence, she was discharged for short-term rehab to SNF. She will continue to follow her PCP as outpatient Physical Exam HENMT: COMMON NORMALS: normocephalic and atraumatic HEAD & SCALP: normocephalic and atraumatic Resp: COMMON NORMALS: clear to auscultation bilaterally AUSCULTATION: clear to auscultation bilaterally Cardio: COMMON NORMALS: regular rate, regular rhythm, S1 normal heart sound present, S2 normal heart sound present, No gallops present (Cardio), No murmurs present (Cardio), No rub (Cardio) and Peripheral pulses 2+ throughout RATE: regular rate RHYTHM: regular rhythm HEART SOUNDS: S1 normal heart sound present and S2 normal heart sound present PERIPHERAL PULSES: Peripheral pulses 2+ throughout GI: COMMON NORMALS: Normal to inspection, nondistended, normoactive bowel sounds present, Soft to palpation, non-tender, No hepatosplenomegaly present and no masses AUSCULTATION: Yes normoactive bowel sounds PALPATION: Yes Soft to palpation and Yes No hepatosplenomegaly present RECTAL EXAM: deferred Extremity: COMMON NORMALS: no clubbing, cyanosis or edema and no pedal edema Discharge Data Studies Completed and Pending Completed Studies During Hospitalization Category Date Time Status CT head wo con* [id number] Stat Cat Scan 05/18/23 19:14 Completed XR chest 1V portable [id number] Stat Exams 05/18/23 19:14 Completed XR knee LT 1-2V [id number] Routine Exams 05/21/23 14:05 Completed US venous duplex lower extremity LT [CV venous duplex Ultrasound 05/23/23 12:43 [place] [id number]] Routine Pending at discharge Category Date Time Status SARS Covid-2 Antigen Routine Lab 05/24/23 08:24 Uncollected Radiology Impressions Chest X-Ray 05/18/23 19:14 IMPRESSION: No acute findings. Head CT 05/18/23 19:14 IMPRESSION: 1. No acute intracranial abnormality. 2. Stable prominence of the lateral and 3rd ventricles. This may relate to central volume loss, but normal pressure hydrocephalus is not excluded. Knee X-Ray 05/21/23 14:05 IMPRESSION: Tricompartmental osteoarthritic changes are present as described above. No visualized acute fracture. Laboratory Results WBC 8.8 10^3/uL (4.0-10.0) 05/22/23 06:11 RBC 3.60 10^6/uL (4.1-5.3) L 05/22/23 06:11 Hgb 7.6 g/dL (11.5-15.3) L 05/22/23 06:11 Hct 26.2 % (37.0-47.0) L 05/22/23 06:11 MCV 72.8 fl (81-99) L 05/22/23 06:11 MCH 21.1 pg (28.0-34.0) L 05/22/23 06:11 MCHC 29.0 g/dL (30.0-36.0) L 05/22/23 06:11 RDW 16.2 % (12.1-15.1) H 05/22/23 06:11 Plt Count 327 10^3/cmm (130-400) 05/22/23 06:11 MPV 9.3 fL (7.4-10.4) 05/22/23 06:11 Neut % (Auto) 80.3 % 05/22/23 06:11 Lymph % (Auto) 15.4 % 05/22/23 06:11 [place] % (Auto) 3.0 % 05/22/23 06:11 Eos % (Auto) 0.5 % 05/22/23 06:11 Baso % (Auto) 0.2 % 05/22/23 06:11 Neut # (Auto) 7.08 10^3/uL (1.8-7.7) 05/22/23 06:11 Lymph # (Auto) 1.4 10^3/uL (0.8-4.8) 05/22/23 06:11 [place] # (Auto) 0.3 10^3/uL (0.2-0.9) 05/22/23 06:11 Eos # (Auto) 0.0 10^3/uL (0.0-0.8) 05/22/23 06:11 Baso # (Auto) 0.0 10^3/uL (0.0-0.1) 05/22/23 06:11 Nucleated RBC % (auto) 0 % 05/22/23 06:11 Nucleated RBCs # 0.0 /100WBC 05/22/23 06:11 PT 14.90 SECONDS (12.1-14.9) 05/18/23 19:18 INR 1.13 (0.8-1.2) 05/18/23 19:18 Sodium 136 mmol/L (136-145) 05/22/23 06:11 Potassium 4.6 mmol/L (3.5-5.1) 05/22/23 06:11 Chloride 106 mmol/L (98-107) 05/22/23 06:11 Carbon Dioxide 18 mmol/L (22-29) L 05/22/23 06:11 Anion Gap 16.6 (5-19) 05/22/23 06:11 BUN 5 mg/dL (8-23) L 05/22/23 06:11 Creatinine 0.8 mg/dL (0.5-0.9) 05/22/23 06:11 GFR Calculation Not Reportable 05/22/23 06:11 Glucose 136 mg/dL (65-115) H 05/22/23 06:11 POC Glucose 112 mg/dL (70-110) H 05/24/23 06:24 Estimat Average Glucose 169 05/20/23 05:05 Hemoglobin A1c 7.5 % (4.0-6.0) H 05/20/23 05:05 Calculated Osmolality 280 mOsm/kg (285-295) L 05/20/23 05:05 Lactic Acid 2.1 mmol/L (0.5-2.2) 05/19/23 05:39 Lactic Acid (Sepsis) 2.2 mmol/L (0.5-2.2) 05/19/23 09:10 Calcium 8.3 mg/dL (8.5-10.5) L 05/22/23 06:11 Phosphorus 4.0 mg/dL (2.5-4.5) 05/22/23 06:11 Magnesium 1.8 mg/dL (1.7-2.3) 05/22/23 06:11 Iron 13 ug/dL (37-145) L 05/19/23 05:39 TIBC 322 mcg/dl 05/19/23 05:39 % Saturation 4.0 % (20-50) L 05/19/23 05:39 Unsat Iron Binding 309 ug/dL (112-347) 05/19/23 05:39 Total Bilirubin 0.3 mg/dL (0.15-1.2) 05/20/23 05:05 AST 10 U/L (0-32) 05/20/23 05:05 ALT < 5 U/L (0-33) 05/20/23 05:05 Alkaline Phosphatase 95 U/L (35-105) 05/20/23 05:05 Total Protein 6.3 g/dL (6.6-8.7) L 05/20/23 05:05 Albumin 3.5 g/dL (3.5-5.2) 05/22/23 06:11 Globulin 3.0 g/dL (1.3-4.6) 05/20/23 05:05 Triglycerides 104 mg/dL (0-150) 05/20/23 05:05 Cholesterol 102 mg/dL (0-200) 05/20/23 05:05 LDL Cholesterol, Calc 46 mg/dL (50-129) L 05/20/23 05:05 Total VLDL Cholesterol 21 mg/dL (0-30) 05/20/23 05:05 HDL Cholesterol 35 mg/dL (60-100) L 05/20/23 05:05 Cholesterol/HDL Ratio 2.91 mg/dL (0.0-4.40) 05/20/23 05:05 Vitamin B12 354 pg/mL (232-1245) 05/19/23 05:39 Folate 6.6 ng/mL (4.8-37.3) 05/20/23 05:05 Procalcitonin 0.21 ng/mL (0-0.5) 05/19/23 05:39 TSH 2.86 uIU/mL (0.27-4.20) 05/19/23 05:39 Urine Color Yellow (Yellow) 05/18/23 21:40 Urine Appearance Hazy (CLEAR) A 05/18/23 21:40 Urine pH 6 (5-7) 05/18/23 21:40 Ur Specific [place] 1.030 (1.005-1.030) 05/18/23 21:40 Urine Protein Neg (Negative) 05/18/23 21:40 Urine Glucose (UA) Norm (Normal) 05/18/23 21:40 Urine Ketones Negative (Negative) 05/18/23 21:40 Urine Blood Neg (Negative) 05/18/23 21:40 Urine Nitrate Positive (Negative) H 05/18/23 21:40 Urine Bilirubin Neg (Negative) 05/18/23 21:40 Urine Urobilinogen Neg mg/dL (Negative) 05/18/23 21:40 Ur Leukocyte Esterase 2+ (Negative) H 05/18/23 21:40 Urine RBC 0-4 /hpf (0-2) H 05/18/23 21:40 Urine WBC 25-40 /hpf (0-5) H 05/18/23 21:40 Ur Squamous Epith Cells None /hpf (0-5) 05/18/23 21:40 Amorphous Sediment Not Reportable 05/18/23 21:40 Urine Bacteria 4+ /hpf (NONE) H 05/18/23 21:40 SARS-CoV-2 Ag (Rapid) negative (Negative) 05/23/23 13:48 Vitals Last Vital Signs Temp 98.7 F 05/24/23 08:00 Pulse 68 05/24/23 08:00 Resp 17 05/24/23 08:00 BP 138/72 05/24/23 08:00 Pulse Ox 95 05/24/23 08:00 O2 Del Method Room Air 05/24/23 08:00 Discharge Plan Discharge Patient Disposition: Home Condition: Stable Prescriptions: New venlafaxine 150 mg Capsule,Extended Release 24hr 150 mg PO DAILY 30 Days Qty: 30 2RF levothyroxine 75 mcg Tablet 75 mcg PO DAILY 30 Days Qty: 30 2RF isosorbide mononitrate 60 mg Tablet Extended Release 24 Hr 60 mg PO BID 30 Days Qty: 60 2RF spironolactone 25 mg tablet 25 mg PO DAILY 30 Days Qty: 30 0RF amlodipine 5 mg tablet 5 mg PO DAILY 30 Days Qty: 30 3RF Augmentin 500-125 mg tablet 1 tab PO BID 5 Days Qty: 10 0RF vancomycin 1,000 mg Recon Soln 125 mg PO Q6H 4 Days Qty: 16 0RF Pain Relief ES (acetaminophen) 500 mg tablet 500 mg PO Q6H PRN (Reason: pain) Qty: 14 0RF Continued nitroglycerin 0.4 mg tablet, sublingual 0.4 mg sublingual Q5M PRN (Reason: chest pain) Qty: 30 3RF Rx Instructions: do not exceed 3 doses per episode metformin 500 mg tablet See Rx Instructions .ROUTE .COMPLEX Hold Instructions: Resume on 10/18/22. Rx Instructions: 1000 mg orally in the am and 500mg pm aspirin 81 mg Tablet,Delayed Release (Dr/Ec) 81 mg PO DAILY atorvastatin 20 mg Tablet 20 mg PO DAILY Discharge Orders: Discharge Order (Routine); Ordered 05/24/23 Ordered By: Praneeth Lozoya Referrals: Zeus Young DO [Primary Care Provider] - Patient Instructions: Levothyroxine (By mouth), Amoxicillin/Clavulanate Potassium (By mouth), Amlodipine (By mouth), Vancomycin (By mouth), C. Diff (Clostridioides Difficile) Infection (GEN) Discharge Attestations Time Spent in Discharge Care*: less than 30 min Quality Metrics Clinical Quality Measures [ No reported AMI, CVA or VTE this stay] Coding Level of Care Code Acute Code for Chg Fwd Diagnoses Sepsis A41.9 UTI (urinary tract infection) N39.0 Recurrent UTI N39.0 Anemia D50.9 Anemia type: iron deficiency Iron deficiency anemia type: unspecified iron deficiency HTN (hypertension) I10 COPD (chronic obstructive pulmonary disease) J44.9 Diabetes mellitus E11.9 C. difficile diarrhea A04.72
[2023-05-24] MEDS: ondansetron 2 mg/ML SDV 2 mL 4 MG IVP (10:39)
[2023-05-24 10:56] LABS: Glucose Point of Care 131 mg/dL (70-110)
[2023-05-24 11:25] VITALS: BP 138/72; PULSE 68; RESP 17; TEMP 37.1; O2SAT 95
== END 2023-05-24 11:29 | disposition skilled nursing facility (03) | DRG 871 ==
LOC: ER 19:24 → MEDSURG 22:39
PROVIDERS: Internal Medicine; Student in an Organized Health Care Education/Training Program; Admitting Provider Student in an Organized Health Care Education/Training Program; Emergency Provider Emergency Medicine; PCP Family Medicine; Visit Provider Internal Medicine
DX: A41.51 Sepsis due to Escherichia coli [E. coli] (principal); G93.41 Metabolic encephalopathy; A04.72 Enterocolitis due to Clostridium difficile, not specified as recurrent; N17.9 Acute kidney failure, unspecified; N30.20 Other chronic cystitis without hematuria; Z87.440 Personal history of urinary (tract) infections; Z79.2 Long term (current) use of antibiotics; M17.12 Unilateral primary osteoarthritis, left knee; Z79.84 Long term (current) use of oral hypoglycemic drugs; Z79.82 Long term (current) use of aspirin; F03.90 Unspecified dementia, unspecified severity, without behavioral disturbance, psychotic disturbance, mood disturbance, and anxiety; J44.9 Chronic obstructive pulmonary disease, unspecified; E11.65 Type 2 diabetes mellitus with hyperglycemia; M54.16 Radiculopathy, lumbar region; Z86.718 Personal history of other venous thrombosis and embolism; I25.2 Old myocardial infarction; D50.9 Iron deficiency anemia, unspecified; Z91.81 History of falling; M79.662 Pain in left lower leg; E87.6 Hypokalemia
CPT/HCPCS: 36415; 36416; 70450; 71045; 73560; 80053; 80061; 80069; 81001; 82274; 82607; 82746; 82962; 83036; 83540; 83550; 83605; 83735; 84145; 84443; 85025; 85610; 87040; 87077; 87086; 87186; 87426; 87493; 87506; 87641; 92523; 92526; 92610; 93005; 93971; 96365; 96367; 96372; 97110; 97116; 97161; 97166; 97530; 99285; J0696; J1650; J1815; J2405; J3370; J3480; J7030; Q3014

== ENCOUNTER 2023-06-10 17:47 | Observation (INO) | payer MEDICARE, MEDICAID, SELFPAY ==
[2023-06-10 17:54] VITALS: BP 142/68; PULSE 73; RESP 14; TEMP 36.8; O2SAT 97
[2023-06-10 18:28] LABS: Basophils # 0.1 10^3/uL (0.0-0.1); Basophils % 0.6 %; Eosinophils # 0.1 10^3/uL (0.0-0.8); Eosinophils % 1.1 %; Hematocrit 28.9 % (37.0-47.0); Hemoglobin 8.5 g/dL (11.5-15.3); Lymphocytes # 2.8 10^3/uL (0.8-4.8); Lymphocytes % 24.5 %; Mean Corpuscular HGB Conc 29.4 g/dL (30.0-36.0); Mean Corpuscular Hemoglobin 21.2 pg (28.0-34.0); Mean Corpuscular Volume 72.1 fl (81-99); Mean Platelet Volume 9.3 fL (7.4-10.4); Monocytes # 0.7 10^3/uL (0.2-0.9); Monocytes % 5.7 %; Neutrophils # 7.74 10^3/uL (1.8-7.7); Neutrophils % 67.9 %; Nucleated Red Blood Cells % 0 %; Platelet Count 501 10^3/cmm (130-400); Red Blood Count 4.01 10^6/uL (4.1-5.3); Red Cell Distribution Width 16.3 % (12.1-15.1); White Blood Count 11.4 10^3/uL (4.0-10.0)
[2023-06-10 19:02] LABS: Alanine Aminotransferase 8 U/L (0-33); Albumin Level 4.4 g/dL (3.5-5.2); Alkaline Phosphatase 111 U/L (35-105); Anion Gap 17.6 (5-19); Aspartate Amino Transferase 14 U/L (0-32); Blood Urea Nitrogen 14 mg/dL (8-23); Calcium 9.7 mg/dL (8.5-10.5); Carbon Dioxide 24 mmol/L (22-29); Chloride 92 mmol/L (98-107); Globulin 3.6 g/dL (1.3-4.6); Glucose 117 mg/dL (65-115); Osmolality Calculated 270 mOsm/kg (285-295); Potassium 4.6 mmol/L (3.5-5.1); Sodium 129 mmol/L (136-145); Total Bilirubin 0.3 mg/dL (0.15-1.2)
--- NOTE | 2023-06-10 19:55 | W.ED.ABDPA2 ---
HPI - Abdominal Pain General: Chief Complaint: Abdominal Pain Stated Complaint: c-diff, called Time Seen by Provider: 06/10/23 19:55 History of Present Illness: 77-year-old lady with recent history of C. difficile and discharged to group home presenting with weakness and recurrent diarrhea. Apparently she was discharged from the group home today and much had profuse diarrhea since she got home. She feels generalized weakness. Moderate intensity. No other specific changes in health, exacerbating, or alleviating factors identified. Onset (ago): hour(s) Pain Consistency: intermittent Severity: moderate Quality: cramping Associated Symptoms: Reports diarrhea, nausea and other Review of Systems General: Reports: 10 or more systems reviewed and unremarkable except in HPI and below GI: Reports: nausea, diarrhea and other PFSH ED PFSH: Medical History Anemia C. difficile colitis C. difficile diarrhea COPD (chronic obstructive pulmonary disease) Cystitis cystica Debility Degenerative lumbar disc Dehydration Diabetes mellitus Facet arthropathy, lumbar H/O deep venous thrombosis Heartburn Hematuria History of myocardial infarction HTN (hypertension) Incomplete bladder emptying Influenza A Left knee pain Lumbar disc disease with radiculopathy Microcytic anemia Recurrent UTI UTI (urinary tract infection) Surgical History History of neck surgery Hx of knee surgery S/P coronary angiogram S/P knee surgery S/P wrist surgery Family History Mother , at age 114 Myocardial infarct Father , in his 70's Hypertension Sister Diabetes Son Diabetes Social History Smoking and tobacco status: never smoked Alcohol intake: never Substance/Drug Use: never Marital status: / Current occupational status: retired Physical Exam Const: COMMON NORMALS: alert GENERAL APPEARANCE: cooperative and well developed HENMT: COMMON NORMALS: normocephalic and atraumatic HEAD & SCALP: normocephalic and atraumatic Eye: COMMON NORMALS: conjunctivae normal CONJUNCTIVA: Yes conjunctivae normal SCLERA: sclerae normal Neck/C-Spine: COMMON NORMALS: supple GENERAL: Yes trachea midline Resp: COMMON NORMALS: normal respiratory effort EFFORT & INSPECTION: Yes able to speak in complete sentences Cardio: COMMON NORMALS: regular rate and regular rhythm RATE: regular rate RHYTHM: regular rhythm GI: COMMON NORMALS: Soft to palpation PALPATION: Yes Soft to palpation, Yes Tenderness to palpation present (GI), No Guarding due to palpation present (GI) and No Rigid due to palpation Extremity: GENERAL: Yes normal exam except as noted and No edema Neuro: COMMON NORMALS: moves all extremities SENSORIUM/ORIENTATION: Yes alert and No Orientation impaired Psych: COMMON NORMALS: mental status grossly normal and Normal thought process present THOUGHT PROCESS: Normal thought process present Course Vital Signs: Vital signs: Vital Signs Temperature 98.1 F 06/15/23 13:12 Pulse Rate 65 06/15/23 13:12 Respiratory Rate 16 06/15/23 13:12 Blood Pressure 132/72 06/15/23 13:12 Pulse Oximetry 99 06/15/23 13:12 Oxygen Delivery Me thod Room Air 06/15/23 11:32 MDM - Abdominal Pain Medical Decision Making 77-year-old lady presenting with abdominal symptoms. Exam as above abdominal tenderness with no evidence of acute surgical abdomen. Labs with mild leukocytosis, microcytic anemia. Metabolic panel with dehydration. Suspected UTI CT with diarrheal illness. Patient did have catheter insertion which likely is the cause of gas in the bladder additionally she she has fluid-filled appendix. No specific right lower quadrant abdominal tenderness. Challenging finding. Treated with fluids and antibiotics. Overall continues to be largely unchanged. Unable to ambulate. The results of ED evaluation were discussed with the patient including plan for admission due to requirement for level of care not available if discharged to prevent significant worsening/deterioration. Patient agreeable with plan. Discussed with hospitalist service who was agreeable to admit patient. Low clinical suspicion for appendicitis however patient will be seen by general surgery and inpatient setting. Medical Records I reviewed the patient's medical records. Lab Data I reviewed the patient's lab results. 06/13/23 05:32 06/13/23 05:32 Labs/Radiology: Radiology Impressions Abdomen/Pelvis CT 06/10/23 21:39 IMPRESSION: 1. Fluid-filled appendix measures up to 10 mm. Findings may reflect appendiceal mucocele. Mild or early acute appendicitis could also have this appearance. 2. There is also extensive fecal debris throughout the colon suggesting an acute diarrheal illness. No transmural inflammatory change. 3. Gas in the urinary bladder may also reflect infection with a gas-forming organism. ADDENDUM: 06/10/23 [id number] THIS REPORT CONTAINS FINDINGS THAT MAY BE CRITICAL TO PATIENT CARE. The findings were verbally communicated via telephone conference with Milo Ring at 11:54 PM CDT on 06/10/2023. The findings were acknowledged and understood. Laboratory Results WBC 11.4 10^3/uL (4.0-10.0) H 06/10/23 18:22 RBC 4.01 10^6/uL (4.1-5.3) L 06/10/23 18:22 Hgb 8.5 g/dL (11.5-15.3) L 06/10/23 18: Hct 28.9 % (37.0-47.0) L 06/10/23 18: MCV 72.1 fl (81-99) L 06/10/23 18: MCH 21.2 pg (28.0-34.0) L 06/10/23 18: MCHC 29.4 g/dL (30.0-36.0) L 06/10/23 18:22 RDW 16.3 % (12.1-15.1) H 06/10/23 18: Plt Count 501 10^3/cmm (130-400) H 06/10/23 18:22 MPV 9.3 fL (7.4-10.4) 06/10/23 18:22 Neut % (Auto) 67.9 % 06/10/23 18: Lymph % (Auto) 24.5 % 06/10/23 18:22 [place] % (Auto) 5.7 % 06/10/23 18: Eos % (Auto) 1.1 % 06/10/23 18:22 Baso % (Auto) 0.6 % 06/10/23 18:22 Neut # (Auto) 7.74 10^3/uL (1.8-7.7) H 06/10/23 18:22 Lymph # (Auto) 2.8 10^3/uL (0.8-4.8) 06/10/23 18:22 [place] # (Auto) 0.7 10^3/uL (0.2-0.9) 06/10/23 18:22 Eos # (Auto) 0.1 10^3/uL (0.0-0.8) 06/10/23 18:22 Baso # (Auto) 0.1 10^3/uL (0.0-0.1) 06/10/23 18:22 Nucleated RBC % (auto) 0 % 06/10/23 18:22 Nucleated RBCs # 0.0 /100WBC 06/10/23 18:22 Sodium 129 mmol/L (136-145) L 06/10/23 18:22 Potassium 4.6 mmol/L (3.5-5.1) 06/10/23 18:22 Chloride 92 mmol/L (98-107) L 06/10/23 18:22 Carbon Dioxide 24 mmol/L (22-29) 06/10/23 18:22 Anion Gap 17.6 (5-19) 06/10/23 18:22 BUN 14 mg/dL (8-23) 06/10/23 18:22 Creatinine 1.0 mg/dL (0.5-0.9) H 06/10/23 18:22 GFR Calculation Not Reportable 06/10/23 18:22 Glucose 117 mg/dL (65-115) H 06/10/23 18:22 Calculated Osmolality 270 mOsm/kg (285-295) L 06/10/23 18:22 Calcium 9.7 mg/dL (8.5-10.5) 06/10/23 18:22 Total Bilirubin 0.3 mg/dL (0.15-1.2) 06/10/23 18:22 AST 14 U/L (0-32) 06/10/23 18:22 ALT 8 U/L (0-33) 06/10/23 18:22 Alkaline Phosphatase 111 U/L (35-105) H 06/10/23 18:22 Total Protein 8.0 g/dL (6.6-8.7) 06/10/23 18:22 Albumin 4.4 g/dL (3.5-5.2) 06/10/23 18:22 Globulin 3.6 g/dL (1.3-4.6) 06/10/23 18:22 Urine Color Straw (Yellow) 06/10/23 21:41 Urine Appearance Clear (CLEAR) 06/10/23 21:41 Urine pH 5 (5-7) 06/10/23 21:41 Ur Specific [place] 1.005 (1.005-1.030) 06/10/23 21:41 Urine Protein Neg (Negative) 06/10/23 21:41 Urine Glucose (UA) Norm (Normal) 06/10/23 21:41 Urine Ketones 1+ (Negative) H 06/10/23 21:41 Urine Blood Neg (Negative) 06/10/23 21:41 Urine Nitrate Negative (Negative) 06/10/23 21:41 Urine Bilirubin 1+ (Negative) H 06/10/23 21:41 Urine Urobilinogen Norm mg/dL (Negative) 06/10/23 21:41 Ur Leukocyte Esterase 1+ (Negative) H 06/10/23 21:41 Urine RBC 0-4 /hpf (0-2) H 06/10/23 21:41 Urine WBC 80-100 /hpf (0-5) H 06/10/23 21:41 Ur Squamous Epith Cells 0-4 /hpf (0-5) H 06/10/23 21:41 Amorphous Sediment Not Reportable 06/10/23 21:41 Urine Bacteria Trace /hpf (NONE) 06/10/23 21:41 Urine Mucus Trace /hpf 06/10/23 21:41 Discharge Plan Discharge Patient Disposition: Placed in Observation Admit Provider: Angelo Castillo Clinical Impression: Acute diarrhea, History of Clostridium difficile colitis, Recurrent UTI, Dehydration, Abnormal CT of the abdomen Discharge Diet: Usual diet Discharge Activity: Resume usual activity Coding Level of Care Code ED [employer] for Clayton Espinoza
[2023-06-10] MEDS: sodium chloride 0.9% 1,000 ML 999 ML IV (21:28)
--- NOTE | 2023-06-10 21:39 | CTR_ITS ---
PROCEDURE INFORMATION: Exam: CT Abdomen And Pelvis With Contrast Exam date and time: 06/10/2023 10:51 PM Age: 77 years old Clinical indication: Abdominal pain; Generalized; Prior surgery; Surgery date: 6+ months; Surgery type: Coronary stent; Patient HX: Abd pain with diarrhea. C diff +; Additional info: Abd pain, weakness TECHNIQUE: Imaging protocol: Computed tomography of the abdomen and pelvis with contrast. Radiation optimization: All CT scans at this facility use at least one of these dose optimization techniques: automated exposure control; mA and/or kV adjustment per patient size (includes targeted exams where dose is matched to clinical indication); or iterative reconstruction. Contrast material: OMNI 350; Contrast volume: 75 ml; Contrast route: INTRAVENOUS (IV); REPORTING DATA: Count of CT and Cardiac NM exams in prior 12 months: This patient has received 4 known CTs and 0 known cardiac nuclear medicine studies in the 12 months prior to the current study. COMPARISON: CT abdomen pelvis w con* [id number] 03/03/2023 4:54 PM RADIATION DOSE METRICS: Total DLP (mGy-cm): 356.93 FINDINGS: Lungs: Clear basilar lung parenchyma. Pleural spaces: No pleural fluid. Heart: Normal heart size. Diaphragm: Sliding hiatal hernia. Liver: Normal configuration. Homogeneous parenchyma. Gallbladder and bile ducts: No regional inflammation. No calcified stones. No ductal dilation. Pancreas: Normal. No ductal dilation. Spleen: Calcified granulomata are noted in the 8.5 cm spleen. Adrenal glands: Normal configuration. Kidneys and ureters: Mild renal parenchymal scarring. No evidence of renal obstruction, mass, or inflammation. Stomach and bowel: There is very large volume fecal debris throughout the entire colon concerning for acute diarrheal illness. No transmural inflammatory change of the colon. Appendix: The appendix is fluid-filled measuring 10 mm in diameter. Intraperitoneal space: No free air. No significant fluid collection. Vasculature: Mild aortoiliac calcific atherosclerosis. Lymph nodes: No enlarged lymph nodes. Urinary bladder: There is a small focus of gas in the urinary bladder. There is enhancement of bladder mucosa. Reproductive: Prior hysterectomy. No evidence of vaginal cuff or adnexal mass. Bones/joints: Mild lumbar degenerative disc and facet disease. Patent spinal canal. Mild bilateral sacroiliac osteoarthritis. Diffuse lumbar dextroscoliosis is noted. Moderate bilateral hip osteoarthritis. Soft tissues: Unremarkable. CT/CT abdomen pelvis w con* [id number] IMPRESSION: 1. Fluid-filled appendix measures up to 10 mm. Findings may reflect appendiceal mucocele. Mild or early acute appendicitis could also have this appearance. 2. There is also extensive fecal debris throughout the colon suggesting an acute diarrheal illness. No transmural inflammatory change. 3. Gas in the urinary bladder may also reflect infection with a gas-forming organism.
[2023-06-10 22:05] VITALS: BP 179/50; PULSE 71; RESP 22; O2SAT 97
[2023-06-10 22:14] LABS: Urine Appearance Clear (CLEAR); Urine Color Straw (Yellow)
[2023-06-10 22:15] LABS: Add Urine Microscopic? YES; Bilirubin Urine 1+ (Negative); Blood Urine Neg (Negative); Glucose Urine UA Norm (Normal); Ketones Urine 1+ (Negative); Leukocyte Esterase Urine 1+ (Negative); Nitrate Urine Negative (Negative); Protein Urine Neg (Negative); Specific Gravity, Urine 1.005 (1.005-1.030); Urobilinogen Urine Norm (Negative); pH Urine 5 (5-7)
[2023-06-10 22:16] LABS: Add Urine Culture? Yes; Bacteria Urine TRACE /hpf; Mucus Urine TRACE /hpf; RBC Urine 0-4 /hpf (0-2); Squamous Epithelial Cell Urine 0-4 /hpf (0-5); WBC Urine 80-100 /hpf (0-5)
[2023-06-10] MEDS: iohexol 350 mg/mL 500 mL Btl (per mL) IV (22:52)
[2023-06-11] VITALS (7 sets, daily range): BP systolic 113–164; BP diastolic 55–75; PULSE 63–80; RESP 15–25; TEMP 36.6–37.1; O2SAT 95–99
--- NOTE | 2023-06-11 00:26 | P.HP_ITS ---
Providers/Chief Complaint Admitting Physician: Angelo Castillo MD Primary Care Provider: Zeus Young DO Chief Complaint: c-diff, called History of Present Illness Maria Luz Finney is a 77 year old female with a past medical history significant for C. difficile colitis, deep vein thrombosis, hypertension, and hypothyroidism who presents emergency department with black diarrhea. She is accompanied by her 2 sons which also help provide history. Of note, patient was recently admitted from 05/18 to 05/24 being treated for sepsis secondary to urinary tract infection and C. difficile colitis. She was discharged to nursing facility. She reports she was discharged home today. Once home, she developed severe weakness and almost constant black loose stools. She became too weak to even stand. Reports associated very mild abdominal pain in all 4 quadrants. Patient denies fevers or chills. Reports poor intake of food but reports oral intake of liquids has been okay. Review of Systems Narrative: A complete review of systems was obtained and is negative except as stated in HPI. Medications/Allergies Home Medications Medication Instructions Recorded Confirmed Last Taken Type nitroglycerin 0.4 mg sublingual 0.4 mg sublingual Q5M PRN chest 03/02/22 05/19/23 Unknown Rx tablet pain #30 tabs atorvastatin 20 mg tablet 20 mg PO DAILY 05/03/22 05/19/23 3 Months Ago History ~12/03/22 metformin 500 mg tablet See Rx Instructions .Route .COMPLEX 06/22/22 05/19/23 3 Months Ago History ~12/03/22 aspirin 81 mg tablet,delayed 81 mg PO DAILY 03/03/23 05/19/23 3 Months Ago History release ~12/03/22 acetaminophen 500 mg tablet (Pain 500 mg PO Q6H PRN pain #14 tabs 05/24/23 Unknown Rx Relief Extra Strength (acetaminophen)) amlodipine 5 mg tablet 5 mg PO DAILY 30 days #30 tabs 05/24/23 Unknown Rx isosorbide mononitrate 60 mg 60 mg PO BID 30 days #60 tabs 05/24/23 Unknown Rx tablet,extended release 24 hr levothyroxine 75 mcg tablet 75 mcg PO DAILY 30 days #30 tabs 05/24/23 Unknown Rx spironolactone 25 mg tablet 25 mg PO DAILY 30 days #30 tabs 05/24/23 Unknown Rx venlafaxine 150 mg 150 mg PO DAILY 30 days #30 caps 05/24/23 Unknown Rx capsule,extended release 24 hr Allergies Allergy/AdvReac Type Severity Reaction Status Date / Time morphine AdvReac Intermediate vomiting Verified 06/10/23 17:59 pneumococcal vaccine AdvReac Intermediate Unknown Verified 06/10/23 17:59 PFSH Acute PFSH: Medical History Anemia C. difficile colitis C. difficile diarrhea COPD (chronic obstructive pulmonary disease) Cystitis cystica Debility Degenerative lumbar disc Dehydration Diabetes mellitus Facet arthropathy, lumbar H/O deep venous thrombosis Heartburn Hematuria History of myocardial infarction HTN (hypertension) Incomplete bladder emptying Influenza A Left knee pain Lumbar disc disease with radiculopathy Microcytic anemia Recurrent UTI UTI (urinary tract infection) Surgical History History of neck surgery Hx of knee surgery S/P coronary angiogram S/P knee surgery S/P wrist surgery Family History Mother , at age 114 Myocardial infarct Father , in his 70's Hypertension Sister Diabetes Son Diabetes Social History Smoking and tobacco status: never smoked Alcohol intake: never Substance/Drug Use: never Marital status: / Current occupational status: retired Vitals/I&O/Wt Last Vital Signs Temp 98.3 F 06/10/23 17:54 Pulse 71 06/10/23 22:05 Resp 22 H 06/10/23 22:05 BP 179/50 06/10/23 22:05 Pulse Ox 97 06/10/23 22:05 O2 Del Method Room Air 06/10/23 22:05 Weight last 48 hrs Weight 51.528 kg Physical Exam 2 Narrative: General: Patient is awake. Frail appearing. Appears fatigued. Head: Normocephalic. Atraumatic. EOM intact. Dry mucous membranes. Neck: No JVD. Cardiovascular: RRR. No gallops. No murmurs. No peripheral edema. Lungs: Clear to auscultation, no use of accessory muscles, no crackles or wheezes. Skin: No jaundice. No rashes. Abdomen: Normal bowel sounds, abdomen soft and nontender. Extremities: No cyanosis or clubbing. Musculoskeletal: No swollen or erythematous joints. Neurological: Moves all 4 extremities. No myoclonus. Data 06/10/23 18:22 06/10/23 18:22 A&P Assessment and plan (1) Acute diarrhea: In the setting of recent C. difficile raises concern for recurrent C. difficile Hold off on C. difficile testing as likely be positive regardless Start oral vancomycin Stool studies (2) Recurrent UTI: Recent urine cultures reviewed Start Rocephin Follow-up urine culture (3) Dehydration: Associated with hyponatremia, hypochloremia Start IV fluids (4) Appendix disease: Abnormal appendix noted on CT imaging General surgery consulted, appreciate recommendations (5) Weakness: Likely multifactorial Start IV fluids Supportive care (6) Hypothyroidism: Continue Synthroid Plan DVT prophylaxis: SCD CODE STATUS: Full code Attestations Medical Necessity Statement*: Patient presents with recurrent diarrhea and weakness with expected hospitalization not to cross 2 midnights Coding Level of Care Code Acute Code for Chg Fwd Diagnoses Acute diarrhea R19.7 Recurrent UTI N39.0 Dehydration E86.0 Appendix disease K38.9 Weakness R53.1 Hypothyroidism E03.9
[2023-06-11] MEDS: cefTRIAXone 1,000 MG in sodium chloride 0.9% (plus) 50 ML 100 MG IV (00:47)
--- NOTE | 2023-06-11 01:18 | PC.NURSE ---
Pt was transferred to [facility]. Report called to GENA Dos Santos.
[2023-06-11] MEDS: sodium chloride 0.9% 1,000 ML 75 ML IV ×2 (01:53→14:52)
[2023-06-11 04:40] LABS: Basophils % 0.4 %; Eosinophils # 0.1 10^3/uL (0.0-0.8); Eosinophils % 1.4 %; Hematocrit 31.5 % (37.0-47.0); Hemoglobin 8.8 g/dL (11.5-15.3); Lymphocytes # 2.6 10^3/uL (0.8-4.8); Lymphocytes % 28.7 %; Mean Corpuscular HGB Conc 27.9 g/dL (30.0-36.0); Mean Corpuscular Hemoglobin 21.1 pg (28.0-34.0); Mean Corpuscular Volume 75.5 fl (81-99); Mean Platelet Volume 9.5 fL (7.4-10.4); Monocytes # 0.5 10^3/uL (0.2-0.9); Monocytes % 5.8 %; Nucleated Red Blood Cells % 0 %; Platelet Count 430 10^3/cmm (130-400); Red Blood Count 4.17 10^6/uL (4.1-5.3); Red Cell Distribution Width 16.6 % (12.1-15.1); White Blood Count 9.1 10^3/uL (4.0-10.0)
[2023-06-11 05:09] LABS: Alanine Aminotransferase 8 U/L (0-33); Albumin Level 4.3 g/dL (3.5-5.2); Alkaline Phosphatase 118 U/L (35-105); Anion Gap 19.6 (5-19); Aspartate Amino Transferase 15 U/L (0-32); Blood Urea Nitrogen 11 mg/dL (8-23); Calcium 9.5 mg/dL (8.5-10.5); Carbon Dioxide 18 mmol/L (22-29); Chloride 102 mmol/L (98-107); Globulin 2.9 g/dL (1.3-4.6); Glucose 97 mg/dL (65-115); Magnesium 1.8 mg/dL (1.7-2.3); Osmolality Calculated 279 mOsm/kg (285-295); Phosphorus 4.4 mg/dL (2.5-4.5); Potassium 4.6 mmol/L (3.5-5.1); Sodium 135 mmol/L (136-145); Total Bilirubin 0.2 mg/dL (0.15-1.2); Total Protein 7.2 g/dL (6.6-8.7)
--- NOTE | 2023-06-11 08:45 | PM.CONSULT ---
Providers/Reason For Consult Consulting Physician/Specialty*: General surgery Reason for Consult*: Abdominal pain possible acute appendicitis Attending Physician: Fredy Richard Primary Care Provider: Zeus Young DO History of Present Illness History of Present Illness Maria Luz Finney is a 77 year old female who has extensive medical history including multiple episodes of C. difficile colitis. She was recently discharged from a skilled nursing after being treated for C. difficile colitis, she then presented to our hospital complaining of abdominal pain, diarrhea and malaise. There was a mild elevation of the white count upon arrival. A CT scan was done which show evidence of apparent infectious process of the colon and an incidental finding of a dilated appendix up to 1 cm which was read as possible early appendicitis versus mucocele. I was consulted for this finding. Review of Systems Narrative: A 10 point review of system was conducted and was negative otherwise noted in HPI. Patient has history of cognitive decline which may limit the review of systems accuracy Medications/Allergies Home Medications Medication Instructions Recorded Confirmed Last Taken Type nitroglycerin 0.4 mg sublingual 0.4 mg sublingual Q5M PRN chest 03/02/22 05/19/23 Unknown Rx tablet pain #30 tabs atorvastatin 20 mg tablet 20 mg PO DAILY 05/03/22 05/19/23 3 Months Ago History ~12/03/22 metformin 500 mg tablet See Rx Instructions .Route .COMPLEX 06/22/22 05/19/23 3 Months Ago History ~12/03/22 aspirin 81 mg tablet,delayed 81 mg PO DAILY 03/03/23 05/19/23 3 Months Ago History release ~12/03/22 acetaminophen 500 mg tablet (Pain 500 mg PO Q6H PRN pain #14 tabs 05/24/23 Unknown Rx Relief Extra Strength (acetaminophen)) amlodipine 5 mg tablet 5 mg PO DAILY 30 days #30 tabs 05/24/23 Unknown Rx isosorbide mononitrate 60 mg 60 mg PO BID 30 days #60 tabs 05/24/23 Unknown Rx tablet,extended release 24 hr levothyroxine 75 mcg tablet 75 mcg PO DAILY 30 days #30 tabs 05/24/23 Unknown Rx spironolactone 25 mg tablet 25 mg PO DAILY 30 days #30 tabs 05/24/23 Unknown Rx venlafaxine 150 mg 150 mg PO DAILY 30 days #30 caps 05/24/23 Unknown Rx capsule,extended release 24 hr Allergies Allergy/AdvReac Type Severity Reaction Status Date / Time morphine AdvReac Intermediate vomiting Verified 06/10/23 17:59 pneumococcal vaccine AdvReac Intermediate Unknown Verified 06/10/23 17:59 Current Medications Generic Name Dose Route Start Last Admin Trade Name Prestonq PRN Reason Stop Dose Admin Sodium Chloride 1,000 mls @ 75 mls/hr 06/11/23 01:30 06/11/23 01:53 Sodium Chloride 0.9% IV 75 mls/hr .[id number] SAAD Administration PFSH Acute PFSH: Medical History Anemia C. difficile colitis C. difficile diarrhea COPD (chronic obstructive pulmonary disease) Cystitis cystica Debility Degenerative lumbar disc Dehydration Diabetes mellitus Facet arthropathy, lumbar H/O deep venous thrombosis Heartburn Hematuria History of myocardial infarction HTN (hypertension) Incomplete bladder emptying Influenza A Left knee pain Lumbar disc disease with radiculopathy Microcytic anemia Recurrent UTI UTI (urinary tract infection) Surgical History History of neck surgery Hx of knee surgery S/P coronary angiogram S/P knee surgery S/P wrist surgery Family History Mother , at age 114 Myocardial infarct Father , in his 70's Hypertension Sister Diabetes Son Diabetes Social History Smoking and tobacco status: never smoked Alcohol intake: never Substance/Drug Use: never Marital status: / Current occupational status: retired Vitals/I&O/Wt Last Vital Signs Temp 98.0 F 06/11/23 04:00 Pulse 65 06/11/23 04:00 Resp 17 06/11/23 04:00 BP 151/60 06/11/23 04:00 Pulse Ox 97 06/11/23 04:00 O2 Del Method Room Air 06/11/23 04:00 06/10/23 06/11/23 06/11/23 22:59 06:59 14:59 Intake Total 1150 / 1150 Output Total 0 / 0 Balance 1150 / 1150 Weight last 48 hrs Weight 113 lb 9.6 oz Physical Exam Narrative: General : Patient is well developed , no acute distress, oriented x3 Head : Normal cephalic, a-traumatic. Nose : Mucous membranes are without erythema. Lungs : Equal chest rise bilaterally, no use of accessory muscles, trachea is midline. CV : Rate and rhythm are normal. Abdomen : Soft, nondistended, there is minimal diffuse tenderness, no localized tenderness in the right lower quadrant, no evidence of McBurney or Rovsing sign Data 06/11/23 03:36 06/11/23 03:36 A&P Assessment and plan (1) History of Clostridium difficile colitis: (2) Acute diarrhea: Plan After a complete history physical examination and review of all available clinical data the following is my assessment. At this point symptoms are likely caused due to infectious process in the colon as opposed to acute appendicitis. I Personally reviewed the CT scan, while there is some mild dilation of the appendiceal lumen, appendix appears to be filled with stool, has a thin wall and no periappendiceal fat stranding. In addition abdominal exam is not consistent with a diagnosis of acute appendicitis. White count has improved since admission after initiation of antibiotic therapy. There is a high likelihood that the symptoms presented due to a recurrent episode of C. difficile colitis as this has been a problem the patient has been dealing in the long-term. If recurrent C. difficile colitis is confirmed, primary team may consider fidaxomicin as an alternative to vancomycin due to the recurrent nature of the symptoms. ? No acute surgical intervention is indicated, surgery will remain available if clinical condition changes. ? Symptoms likely caused by recurrent C. difficile colitis versus other infectious colitis ? Consider fidaxomicin if recurrent C. difficile colitis is confirmed ? Agree with IV ceftriaxone as indicated by primary team ? Appreciate all other management by hospitalist department. Coding Level of Care Code 78526 Diagnoses History of Clostridium difficile colitis Z86.19 Acute diarrhea R19.7
--- NOTE | 2023-06-11 10:01 | PC.NURSE ---
Patient refused vanc po at 9:00, wants to try again in an hour.
--- NOTE | 2023-06-11 10:01 | PC.NURSE ---
Patient transferred to [facility] at 10:00
--- NOTE | 2023-06-11 10:15 | PC.NURSE ---
Patient arrived to med/surg 273.
--- NOTE | 2023-06-11 10:15 | PC.PHAR ---
pts son kenisha [phone] verified pts medications-states the pt just got released from [facility] yesterday 06/10/23 states the pt no longer takes aspirin 81mg daily
--- NOTE | 2023-06-11 16:12 | P.PN_ITS ---
Subjective Subjective: She has overall been feeling generally weak.? Restarted with diarrhea multiple times a day.? Was unable to manage at home. Denies any vomiting.? No abdominal pain.? Tolerating small mount of fluid, although appetite has not been good, and son states stopped eating early. Vitals/I&O/Wt Last Vital Signs Temp 97.9 F 06/11/23 16:06 Pulse 63 06/11/23 16:06 Resp 17 06/11/23 16:06 BP 152/74 06/11/23 16:06 Pulse Ox 96 06/11/23 16:06 O2 Del Method Room Air 06/11/23 16:06 06/11/23 06/11/23 06/11/23 06:59 14:59 22:59 Intake Total 1150 / 1150 1453.75 / 1453.75 Output Total 0 / 0 Balance 1150 / 1150 1453.75 / 1453.75 Weight last 48 hrs Weight 51.528 kg Physical Exam Narrative: Sounds accompany her at bedside. Const: COMMON NORMALS: patient oriented x3 and alert GENERAL APPEARANCE: cooperative ORIENTATION/CONSCIOUSNESS: Yes awake OTHER: Awake, alert, sitting up in bed. Having small amount of lunch. HENMT: COMMON NORMALS: oropharynx normal Neck/C-Spine: COMMON NORMALS: no JVD Resp: COMMON NORMALS: normal respiratory effort and clear to auscultation bilaterally AUSCULTATION: clear to auscultation bilaterally Cardio: COMMON NORMALS: no JVD, regular rhythm, S1 normal heart sound present, S2 normal heart sound present and No murmurs present (Cardio) RHYTHM: regular rhythm HEART SOUNDS: S1 normal heart sound present and S2 normal heart sound present GI: COMMON NORMALS: Normal to inspection, nondistended, normoactive bowel sounds present, Soft to palpation and non-tender PALPATION: Yes Soft to palpation Extremity: COMMON NORMALS: no joint enlargement and no pedal edema Neuro: COMMON NORMALS: patient oriented x3 and moves all extremities SENSORIUM/ORIENTATION: Yes alert Skin: COMMON NORMALS: no rashes or lesions noted GENERAL SKIN EXAM: no rashes or lesions noted Data 06/11/23 03:36 06/11/23 03:36 A&P Assessment and plan (1) Acute diarrhea: Multiple liquid bowel movements in a day at risk of dehydration, symptomatic C. difficile colitis, with decreased appetite, poor oral intake per history from her sons. Risk of malnutrition. Recent C. difficile. Suspected recurrence of C. difficile. Restarted on vancomycin. Continue. Isolation precautions. Please note, fidaxomicin is not available on the formulary, but please consider prescription with discharge. Stool cultures ordered. Follow-up. Follow-up CBC, CMP requested. (2) Recurrent UTI: Urine culture is ordered. UA suggestive of recurrent UTI. Continue Rocephin. Follow-up urine culture. So far no results. CT abdomen pelvis reviewed, mild renal parenchymal scarring, no evidence of renal obstruction, mass or inflammation. (3) Dehydration: At risk of electrolyte abnormalities, has had poor appetite. Continue IV hydration. Associated with hyponatremia, hypochloremia, both doing better today. Sodium 135. Chloride 102. Continue IV fluids (4) Appendix disease: Noted general surgical consultation. Note reviewed. No surgical intervention indicated. Monitor for changes of condition. (5) Weakness: Likely multifactorial with recurrence of C. difficile colitis, UTI. Treat underlying infections. Dehydration, gentle IV hydration. Yesterday discharge from long-term after recent rehabilitation. Cannot manage at home. Will obtain PT assessment. Discussed with case management, consideration of need for additional rehabilitation after discharge. (6) Hypothyroidism: Continue Synthroid Plan [facility]. Hold oral hypoglycemics. Requesting to confirm medications from recent long-term discharge. Please review and reorder once available. DVT prophylaxis: SCD CODE STATUS: Full code Attestations Medical Necessity Statement*: Continue hospitalization for assessment management of recurrent C. difficile, UTI, generalized weakness, functional decline. Diagnoses Acute diarrhea R19.7 Recurrent UTI N39.0 Dehydration E86.0 Appendix disease K38.9 Weakness R53.1 Hypothyroidism E03.9
[2023-06-11 16:54] LABS: Glucose Point of Care 113 mg/dL (70-110)
[2023-06-11 20:55] LABS: Glucose Point of Care 117 mg/dL (70-110)
[2023-06-12] VITALS: BP 151/55; PULSE 67; RESP 16; TEMP 36.9; O2SAT 98
[2023-06-12] MEDS: cefTRIAXone 1,000 MG in sodium chloride 0.9% (plus) 50 ML 100 MG IV (01:15)
[2023-06-12] MEDS: sodium chloride 0.9% 1,000 ML 75 ML IV ×2 (03:28→18:26)
[2023-06-12 03:51] VITALS: BP 172/61; PULSE 66; RESP 15; TEMP 36.9; O2SAT 96
[2023-06-12 05:00] LABS: Basophils % 0.5 %; Eosinophils # 0.1 10^3/uL (0.0-0.8); Eosinophils % 1.6 %; Hematocrit 28.4 % (37.0-47.0); Hemoglobin 8.2 g/dL (11.5-15.3); Lymphocytes # 2.7 10^3/uL (0.8-4.8); Lymphocytes % 36.5 %; Mean Corpuscular HGB Conc 28.9 g/dL (30.0-36.0); Mean Corpuscular Hemoglobin 21.5 pg (28.0-34.0); Mean Corpuscular Volume 74.3 fl (81-99); Mean Platelet Volume 9.6 fL (7.4-10.4); Monocytes # 0.5 10^3/uL (0.2-0.9); Neutrophils # 4.02 10^3/uL (1.8-7.7); Neutrophils % 54.3 %; Nucleated Red Blood Cells % 0 %; Platelet Count 369 10^3/cmm (130-400); Red Blood Count 3.82 10^6/uL (4.1-5.3); Red Cell Distribution Width 16.9 % (12.1-15.1); White Blood Count 7.4 10^3/uL (4.0-10.0)
[2023-06-12 05:44] LABS: Alanine Aminotransferase 7 U/L (0-33); Albumin Level 3.9 g/dL (3.5-5.2); Alkaline Phosphatase 105 U/L (35-105); Anion Gap 17.1 (5-19); Aspartate Amino Transferase 13 U/L (0-32); Blood Urea Nitrogen 5 mg/dL (8-23); Calcium 9.2 mg/dL (8.5-10.5); Carbon Dioxide 20 mmol/L (22-29); Chloride 105 mmol/L (98-107); Globulin 2.6 g/dL (1.3-4.6); Glucose 88 mg/dL (65-115); Osmolality Calculated 283 mOsm/kg (285-295); Potassium 4.1 mmol/L (3.5-5.1); Sodium 138 mmol/L (136-145); Total Bilirubin 0.2 mg/dL (0.15-1.2); Total Protein 6.5 g/dL (6.6-8.7)
[2023-06-12 06:40] LABS: Glucose Point of Care 91 mg/dL (70-110)
[2023-06-12 07:17] VITALS: BP 148/93; PULSE 62; RESP 16; TEMP 36.4; O2SAT 95
[2023-06-12 10:59] VITALS: BP 169/59; PULSE 62; RESP 17; O2SAT 95
[2023-06-12 11:03] LABS: Glucose Point of Care 100 mg/dL (70-110)
[2023-06-12 15:56] VITALS: BP 133/58; PULSE 62; RESP 16; TEMP 36.7; O2SAT 95
[2023-06-12 16:39] LABS: Glucose Point of Care 96 mg/dL (70-110)
--- NOTE | 2023-06-12 18:05 | PM.PN ---
Subjective Subjective: Denies any diarrhea today. States she feels overall generalized weakness. c/o bladder pain . Tolerating p.o. vancomycin. Tolerating p.o. intake. Medications: Reviewed: Yes Vitals/I&O/Wt Last Vital Signs Temp 98.0 F 06/12/23 15:56 Pulse 62 06/12/23 15:56 Resp 16 06/12/23 15:56 BP 133/58 06/12/23 15:56 Pulse Ox 95 06/12/23 15:56 O2 Del Method Room Air 06/12/23 03:51 06/12/23 06/12/23 06/12/23 06:59 14:59 22:59 Intake Total 995 / 2928.75 Balance 995 / 2928.75 Physical Exam Narrative: General: No acute distress, AO x3 HEENT: PERRLA, pupils bilaterally equal and reactive, pallors not present Chest: Normal vesicular breath sounds, no added sounds, equal good air entry bilaterally CVS: S1-S2 regular, no murmurs, no tachycardia, no gallops, no rubs Abdomen: Soft, nontender, no organomegaly, bowel sounds present Neuro: No focal deficits, no facial deformity, AO x3, power 5/5 in all limbs Data 06/12/23 04:21 06/12/23 04:21 Micro: Microbiology 06/10/23 21:41 Urine Culture - Preliminary Urine,Clean Catch Gram Negative Rods A&P Assessment and plan (1) Acute diarrhea: (2) Recurrent UTI: (3) Dehydration: (4) Appendix disease: (5) Weakness: (6) Hypothyroidism: Plan (1) Acute diarrhea: Presumed to be C diff given recent history C diff pending current admission Diarrhea appears to have resolved today Currently on vancomycin 125mg QID. Dificid is currently not available on formulary. Appropriate disposition planning ongoing. Would likely not be able to get Dificid at discharge as it is cost prohibitive. Will plan on a prolonged vancomycin taper at discharge. (2) Recurrent UTI: Urine culture is ordered. UA suggestive of recurrent UTI.? Continue Rocephin.? Follow-up urine culture.?. CT abdomen pelvis reviewed, mild renal parenchymal scarring, no evidence of renal obstruction, mass or inflammation. (3) Dehydration: Continue IV fluid normal saline at 75 cc an hour (4) Appendix disease: Clinically no signs of appendicitis. (5) Weakness: Likely multifactorial with recurrence of C. difficile colitis, UTI.? Treat underlying infections. Dehydration, gentle IV hydration. Discussed with case management, consideration of need for additional rehabilitation after discharge. (6) Hypothyroidism: Resume home dose of Synthroid Resume home doses of Effexor, atorvastatin, Norvasc. Continue to hold Imdur given soft blood pressure. DVt ppx: Start lovenox Full code Attestations Medical Necessity Statement*: Ongoing appropriate disposition planning Coding Level of Care Code Acute Code for Chg Fwd Diagnoses Acute diarrhea R19.7 Recurrent UTI N39.0 Dehydration E86.0 Appendix disease K38.9 Weakness R53.1 Hypothyroidism E03.9
[2023-06-12] MEDS: enoxaparin 30 mg/0.3 mL Syringe SUBCUT (19:01)
[2023-06-12 20:00] VITALS: BP 164/70; PULSE 67; RESP 17; TEMP 37.1; O2SAT 93
[2023-06-12 21:32] LABS: Glucose Point of Care 103 mg/dL (70-110)
[2023-06-13] VITALS: BP 180/70; PULSE 62; RESP 16; TEMP 37.1; O2SAT 98
[2023-06-13] MEDS: cefTRIAXone 1,000 MG in sodium chloride 0.9% (plus) 50 ML 100 MG IV (02:21)
[2023-06-13 04:00] VITALS: BP 160/70; PULSE 66; RESP 16; TEMP 37.1; O2SAT 98
[2023-06-13 05:53] LABS: Basophils % 0.5 %; Eosinophils # 0.2 10^3/uL (0.0-0.8); Hematocrit 28.8 % (37.0-47.0); Hemoglobin 8.2 g/dL (11.5-15.3); Lymphocytes % 25.2 %; Mean Corpuscular HGB Conc 28.5 g/dL (30.0-36.0); Mean Corpuscular Hemoglobin 20.9 pg (28.0-34.0); Mean Corpuscular Volume 73.5 fl (81-99); Mean Platelet Volume 9.6 fL (7.4-10.4); Monocytes # 0.5 10^3/uL (0.2-0.9); Monocytes % 6.3 %; Neutrophils # 5.29 10^3/uL (1.8-7.7); Neutrophils % 65.6 %; Nucleated Red Blood Cells % 0 %; Platelet Count 378 10^3/cmm (130-400); Red Blood Count 3.92 10^6/uL (4.1-5.3); Red Cell Distribution Width 16.7 % (12.1-15.1); White Blood Count 8.1 10^3/uL (4.0-10.0)
[2023-06-13 06:16] LABS: Alanine Aminotransferase 7 U/L (0-33); Albumin Level 3.9 g/dL (3.5-5.2); Alkaline Phosphatase 108 U/L (35-105); Anion Gap 15.9 (5-19); Aspartate Amino Transferase 12 U/L (0-32); Blood Urea Nitrogen 6 mg/dL (8-23); Calcium 9.3 mg/dL (8.5-10.5); Carbon Dioxide 22 mmol/L (22-29); Chloride 104 mmol/L (98-107); Globulin 2.8 g/dL (1.3-4.6); Glucose 97 mg/dL (65-115); Osmolality Calculated 284 mOsm/kg (285-295); Potassium 3.9 mmol/L (3.5-5.1); Sodium 138 mmol/L (136-145); Total Bilirubin 0.3 mg/dL (0.15-1.2); Total Protein 6.7 g/dL (6.6-8.7)
[2023-06-13 06:34] LABS: Glucose Point of Care 95 mg/dL (70-110)
[2023-06-13] MEDS: venlafaxine ER (24HR) 150 mg Capsule PO (09:08)
[2023-06-13] MEDS: levothyroxine 75 mcg Tablet PO (09:08)
[2023-06-13] MEDS: amlodipine 5 mg Tablet PO (09:08)
[2023-06-13] MEDS: atorvastatin 40 mg Tablet 20 MG PO (09:08)
[2023-06-13] MEDS: sodium chloride 0.9% 1,000 ML 75 ML IV (09:14)
[2023-06-13 09:45] VITALS: BP 181/61; PULSE 63; RESP 17; TEMP 37.1; O2SAT 95
[2023-06-13 11:44] LABS: Glucose Point of Care 110 mg/dL (70-110)
[2023-06-13 15:44] VITALS: BP 158/72; PULSE 60; RESP 17; TEMP 36.6; O2SAT 95
[2023-06-13 16:32] LABS: Glucose Point of Care 126 mg/dL (70-110)
--- NOTE | 2023-06-13 16:42 | PM.PN ---
Subjective Subjective: No new complaints today. Diarrhea remains resolved. Yesterday patient accidentally received 1000 mg dose of oral vancomycin instead of the prescribed 125 mg. Event reported to nursing in charge. Blood pressure is poorly controlled with systolic blood pressure ranging between 158 to 180 mmHg. Medications: Reviewed: Yes Vitals/I&O/Wt Last Vital Signs Temp 97.9 F 06/13/23 15:44 Pulse 60 06/13/23 15:44 Resp 17 06/13/23 15:44 BP 158/72 06/13/23 15:44 Pulse Ox 95 06/13/23 15:44 O2 Del Method Room Air 06/13/23 15:44 06/13/23 06/13/23 06/13/23 06:59 14:59 22:59 Intake Total 50 / 1050 1240 / 1240 Balance 50 / 1050 1240 / 1240 Physical Exam Narrative: General: No acute distress, AO x3 HEENT: PERRLA, pupils bilaterally equal and reactive, pallors not present Chest: Normal vesicular breath sounds, no added sounds, equal good air entry bilaterally CVS: S1-S2 regular, no murmurs, no tachycardia, no gallops, no rubs Abdomen: Soft, nontender, no organomegaly, bowel sounds present Neuro: No focal deficits, no facial deformity, AO x3, power 5/5 in all limbs Data 06/13/23 05:32 06/13/23 05:32 Micro: Microbiology 06/10/23 21:41 Urine Culture - Final Urine,Clean Catch Pseudomonas aeruginosa A&P Assessment and plan (1) Acute diarrhea: (2) Recurrent UTI: (3) Dehydration: (4) Appendix disease: (5) Weakness: (6) Hypothyroidism: Plan (1) Acute diarrhea: Now resolved Presumed to be C diff given recent history C diff pending current admission Currently on vancomycin 125mg QID. Dificid is currently not available on formulary. Appropriate disposition planning ongoing. Would likely not be able to get Dificid at discharge as it is cost prohibitive. Will plan on a prolonged vancomycin taper at discharge. (2) Recurrent UTI: Urine culture is ordered. Return with Pseudomonas aeruginosa which is multidrug resistant Patient has not had any fever, leukocytosis during the current admission. She has been on ceftriaxone empirically thus far. 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 However given recovery of this organism there is potential for recurrent UTI with multidrug organism in the future. Will preemptively obtain susceptibilities for Avycaz, zerbaxa and Vabomere by sending isolate to [facility] in case develops a true UTI (3) Dehydration: Now resolved Discontinue IV fluids (4) Appendix disease: Clinically no signs of appendicitis. (5) Weakness: Likely multifactorial Discussed with case management, consideration of need for additional rehabilitation after discharge. Pt recommendations appreciated. Demonstartes decreased endurance and strength (6) Hypothyroidism: Continue home dose of Synthroid (7) HTn Continue amlodipine, resume imdur today DVt ppx: Start lovenox Full code Attestations Medical Necessity Statement*: appropriate disposition planning ongoing, patient demonstartes reduced endurance and strength, will likely benefit from continued rehab Coding Level of Care Code Acute Code for Chg Fwd Straight Forward/Low MDM includes number and complexity of problems actively addressed during encounter, amount and/or complexity of data reviewed/ordered and described risk of complication, morbidity or mortality of management as documented Diagnoses Acute diarrhea R19.7 Recurrent UTI N39.0 Dehydration E86.0 Appendix disease K38.9 Weakness R53.1 Hypothyroidism E03.9
[2023-06-13] MEDS: enoxaparin 30 mg/0.3 mL Syringe SUBCUT (18:28)
[2023-06-13] MEDS: isosorbide mononitrate ER 30 mg Tablet PO (18:29)
[2023-06-13 20:00] VITALS: BP 167/62; PULSE 70; RESP 18; TEMP 36.8; O2SAT 98
[2023-06-13 22:00] LABS: Glucose Point of Care 154 mg/dL (70-110)
[2023-06-13] MEDS: insulin lispro 100 unit/1 mL SUBCUT (22:18)
[2023-06-14] VITALS: BP 167/52; PULSE 63; RESP 16; TEMP 36.8; O2SAT 97
[2023-06-14 04:00] VITALS: BP 150/59; PULSE 57; RESP 17; TEMP 36.8; O2SAT 98
[2023-06-14 06:53] LABS: Glucose Point of Care 112 mg/dL (70-110)
[2023-06-14] MEDS: levothyroxine 75 mcg Tablet PO (08:20)
[2023-06-14] MEDS: isosorbide mononitrate ER 30 mg Tablet PO ×2 (08:20→17:07)
[2023-06-14] MEDS: venlafaxine ER (24HR) 150 mg Capsule PO (08:21)
[2023-06-14] MEDS: atorvastatin 40 mg Tablet 20 MG PO (08:21)
[2023-06-14] MEDS: amlodipine 10 mg Tablet PO (08:21)
--- NOTE | 2023-06-14 08:39 | PC.SOCIAL ---
IMM Update pg 2 of IMM not updated w/ patient at this time as she is currently in observation status.
[2023-06-14 11:26] VITALS: BP 119/62; PULSE 68; RESP 16; TEMP 36.9; O2SAT 96
[2023-06-14 11:43] LABS: Glucose Point of Care 159 mg/dL (70-110)
[2023-06-14] MEDS: insulin lispro 100 unit/1 mL SUBCUT ×2 (12:14→20:30)
[2023-06-14 15:49] VITALS: BP 134/66; PULSE 62; RESP 17; TEMP 36.8; O2SAT 94
--- NOTE | 2023-06-14 15:51 | P.PN_ITS ---
Subjective Subjective: no new complaints today. She remains hemodynamically stable and afebrile Medications: Reviewed: Yes Vitals/I&O/Wt Last Vital Signs Temp 98.2 F 06/14/23 15:49 Pulse 62 06/14/23 15:49 Resp 17 06/14/23 15:49 BP 134/66 06/14/23 15:49 Pulse Ox 94 06/14/23 15:49 O2 Del Method Room Air 06/14/23 04:00 06/14/23 06/14/23 06/14/23 06:59 14:59 22:59 Intake Total 1000 / 2390 480 / 480 Balance 1000 / 2390 480 / 480 Physical Exam Narrative: General: No acute distress, AO x3 HEENT: PERRLA, pupils bilaterally equal and reactive, pallors not present Chest: Normal vesicular breath sounds, no added sounds, equal good air entry bilaterally CVS: S1-S2 regular, no murmurs, no tachycardia, no gallops, no rubs Abdomen: Soft, nontender, no organomegaly, bowel sounds present Neuro: No focal deficits, no facial deformity, AO x3, power 5/5 in all limbs Data 06/13/23 05:32 06/13/23 05:32 Micro: Microbiology 06/14/23 11:20 C.difficile Toxin B Gene (PCR) - Final Stool Routine Collection Spec #: [id number] Elana: 06/14/23-1119 Status: COMP Req #: [id number] Recd: 06/14/23-[address]: Melissa Velásquez MD Src: STOOL ROUT SpDesc: Ordered: C.DIFF PCR Procedure Result Verified Site Clostridioides Difficile PCR Final 06/14/23-1436 No C. difficile toxin B gene DNA detected 06/10/23 21:41 Urine Culture - Final Urine,Clean Catch Pseudomonas aeruginosa P aerugino M.I.C. RX --------- ------ * Amikacin 32 I * Aztreonam >16 R * Cefepime >16 R * Ciprofloxacin >2 R * Gentamicin >8 R * Imipenem >8 R * Levofloxacin >4 R * Tobramycin >8 R * Piperacillin/Tazobactam >64 R A&P Assessment and plan (1) Acute diarrhea: (2) Recurrent UTI: (3) Dehydration: (4) Appendix disease: (5) Weakness: (6) Hypothyroidism: Plan (1) Acute diarrhea: Now resolved Presumed to be C diff given recent history C diff eventually negative from 06/14, not collected at admission Currently on vancomycin 125mg QID. Dificid is currently not available on formulary. Appropriate disposition planning ongoing. Would likely not be able to get Dificid at discharge as it is cost prohibitive. Will plan on a prolonged vancomycin taper at discharge. (2) Recurrent UTI: urine cx with Pseudomonas aeruginosa which is multidrug resistant Patient has not had any fever, leukocytosis during the current admission. She was on ceftriaxone empirically. Given that clinically she has not had any worsening while on ceftriaxone, likely that urine culture with Pseudomonas aeruginosa is patient admitting representative of asymptomatic bacteriuria rather than a true UTI. However given recovery of this organism there is potential for recurrent UTI with multidrug organism in the future. Will preemptively obtain susceptibilities for Avycaz, zerbaxa and Vabomere by sending isolate to [facility] in case develops a true UTI (3) Dehydration: Now resolved Discontinue IV fluids (4) Appendix disease: Clinically no signs of appendicitis. (5) Weakness: Likely multifactorial Discussed with case management, consideration of need for additional rehabilitation after discharge. Pt recommendations appreciated. Demonstrates decreased endurance and strength (6) Hypothyroidism: Continue home dose of Synthroid (7) HTn Continue amlodipine, resume imdur today DVt ppx: Start lovenox Full code Attestations Medical Necessity Statement*: Appropriate disposition planning keeps patient in the hospital, family states unable to care for her at home in her deconditioned state Coding Level of Care Code Acute Code for Chg Fwd Diagnoses Acute diarrhea R19.7 Recurrent UTI N39.0 Dehydration E86.0 Appendix disease K38.9 Weakness R53.1 Hypothyroidism E03.9
[2023-06-14 16:23] LABS: Glucose Point of Care 89 mg/dL (70-110)
[2023-06-14] MEDS: enoxaparin 30 mg/0.3 mL Syringe SUBCUT (17:07)
[2023-06-14 20:00] VITALS: BP 109/51; PULSE 62; RESP 14; TEMP 36.8; O2SAT 100
[2023-06-14 20:24] LABS: Glucose Point of Care 197 mg/dL (70-110)
[2023-06-14 23:59] VITALS: BP 130/61; PULSE 66; RESP 13; TEMP 36.9; O2SAT 93
[2023-06-15 04:00] VITALS: BP 134/68; PULSE 61; RESP 16; TEMP 36.8; O2SAT 95
[2023-06-15 06:21] LABS: Glucose Point of Care 95 mg/dL (70-110)
[2023-06-15 07:26] VITALS: BP 127/61; PULSE 63; RESP 16; TEMP 36.8; O2SAT 96
[2023-06-15] MEDS: amlodipine 10 mg Tablet PO (08:31)
[2023-06-15] MEDS: sennosides-docusate Tablet 1 TAB PO (08:31)
[2023-06-15] MEDS: levothyroxine 75 mcg Tablet PO (08:31)
[2023-06-15] MEDS: venlafaxine ER (24HR) 150 mg Capsule PO (08:31)
[2023-06-15] MEDS: isosorbide mononitrate ER 30 mg Tablet PO (08:31)
[2023-06-15] MEDS: atorvastatin 40 mg Tablet 20 MG PO (08:32)
[2023-06-15 11:32] VITALS: BP 132/72; PULSE 65; RESP 16; TEMP 36.7; O2SAT 99
[2023-06-15 11:42] LABS: Glucose Point of Care 200 mg/dL (70-110)
[2023-06-15] MEDS: insulin lispro 100 unit/1 mL SUBCUT (12:05)
[2023-06-15 13:12] VITALS: BP 132/72; PULSE 65; RESP 16; TEMP 36.7; O2SAT 99
[2023-06-15 14:25] LABS: SARS Covid-2 Antigen negative (Negative)
--- NOTE | 2023-06-15 17:48 | PM.DCS ---
Discharge Providers Date of Admission: 06/11/23 00:22 Date of Discharge: June Attending Provider at Admission: Angelo Castillo MD Attending Provider at Discharge: Melissa Velásquez MD Primary Care Provider: Zeus Young DO Diagnoses at Discharge Discharge Diagnosis (1) Acute diarrhea: Status: Acute (2) Recurrent UTI: Status: Acute (3) Dehydration: Status: Acute (4) Appendix disease: Status: Deleted (5) Weakness: Status: Acute (6) Hypothyroidism: Status: Acute Reason for Visit Reason for Visit: c-diff, called Brief History: Taken from H &P: Maria Luz Finney is a 77 year old female with a past medical history significant for C. difficile colitis, deep vein thrombosis, hypertension, and hypothyroidism who presents emergency department with black diarrhea.? She is accompanied by her 2 sons which also help provide history.? Of note, patient was recently admitted from 05/18 to 05/24 being treated for sepsis secondary to urinary tract infection and C. difficile colitis.? She was discharged to nursing facility.? She reports she was discharged home today.? Once home, she developed severe weakness and almost constant black loose stools.? She became too weak to even stand.? Reports associated very mild abdominal pain in all 4 quadrants. Hospital Course Hospital Course Hospital course as below: (1) Acute diarrhea: Now resolved Presumed to be C diff given recent history C diff eventually negative from 06/14, not collected at admission Currently on vancomycin 125mg QID. Since C diff PCR now negative, will plan to complete current 10-14 day course and then discontinue treatment (2) Recurrent UTI: urine cx with Pseudomonas aeruginosa which is multidrug resistant Patient has not had any fever, leukocytosis during the current admission.? She was on ceftriaxone empirically.? Given that clinically she has not had any worsening while on ceftriaxone, likely that urine culture with Pseudomonas aeruginosa is credit and collections representative of asymptomatic bacteriuria rather than a true UTI. However given recovery of this organism there is potential for recurrent UTI with multidrug organism in the future. Will preemptively obtain susceptibilities for Avycaz, zerbaxa and Vabomere by sending isolate to [facility] in case develops a true UTI , these are pending at discharge (3) Dehydration: Now resolved (4) Appendix disease: Clinically no signs of appendicitis. (7) HTN Continue amlodipine, imdur today Physical Exam Narrative: General: No acute distress, AO x3, flat affect HEENT: PERRLA, pupils bilaterally equal and reactive, pallors not present Chest: Normal vesicular breath sounds, no added sounds, equal good air entry bilaterally CVS: S1-S2 regular, no murmurs, no tachycardia, no gallops, no rubs Abdomen: Soft, nontender, no organomegaly, bowel sounds present Neuro: No focal deficits, no facial deformity, AO x3, power 5/5 in all limbs Extremities: Healthy surgical dressing present on the right hip, mild tenderness, soft no erythema. Discharge Data Studies Completed and Pending Completed Studies During Hospitalization Category Date Time Status CT abdomen pelvis w con* [id number] Stat Cat Scan 06/10/23 21:39 Completed Pending at discharge Category Date Time Status Miscellaneous Test Routine Lab 06/13/23 16:35 Received Radiology Impressions Abdomen/Pelvis CT 06/10/23 21:39 IMPRESSION: 1. Fluid-filled appendix measures up to 10 mm. Findings may reflect appendiceal mucocele. Mild or early acute appendicitis could also have this appearance. 2. There is also extensive fecal debris throughout the colon suggesting an acute diarrheal illness. No transmural inflammatory change. 3. Gas in the urinary bladder may also reflect infection with a gas-forming organism. ADDENDUM: 06/10/23 [id number] THIS REPORT CONTAINS FINDINGS THAT MAY BE CRITICAL TO PATIENT CARE. The findings were verbally communicated via telephone conference with Milo Ring at 11:54 PM CDT on 06/10/2023. The findings were acknowledged and understood. Laboratory Results WBC 8.1 10^3/uL (4.0-10.0) 06/13/23 05:32 RBC 3.92 10^6/uL (4.1-5.3) L 06/13/23 05:32 Hgb 8.2 g/dL (11.5-15.3) L 06/13/23 05:32 Hct 28.8 % (37.0-47.0) L 06/13/23 05:32 MCV 73.5 fl (81-99) L 06/13/23 05:32 MCH 20.9 pg (28.0-34.0) L 06/13/23 05:32 MCHC 28.5 g/dL (30.0-36.0) L 06/13/23 05:32 RDW 16.7 % (12.1-15.1) H 06/13/23 05:32 Plt Count 378 10^3/cmm (130-400) 06/13/23 05:32 MPV 9.6 fL (7.4-10.4) 06/13/23 05:32 Neut % (Auto) 65.6 % 06/13/23 05:32 Lymph % (Auto) 25.2 % 06/13/23 05:32 [place] % (Auto) 6.3 % 06/13/23 05:32 Eos % (Auto) 2.0 % 06/13/23 05:32 Baso % (Auto) 0.5 % 06/13/23 05:32 Neut # (Auto) 5.29 10^3/uL (1.8-7.7) 06/13/23 05:32 Lymph # (Auto) 2.0 10^3/uL (0.8-4.8) 06/13/23 05:32 [place] # (Auto) 0.5 10^3/uL (0.2-0.9) 06/13/23 05:32 Eos # (Auto) 0.2 10^3/uL (0.0-0.8) 06/13/23 05:32 Baso # (Auto) 0.0 10^3/uL (0.0-0.1) 06/13/23 05:32 Nucleated RBC % (auto) 0 % 06/13/23 05:32 Nucleated RBCs # 0.0 /100WBC 06/13/23 05:32 Sodium 138 mmol/L (136-145) 06/13/23 05:32 Potassium 3.9 mmol/L (3.5-5.1) 06/13/23 05:32 Chloride 104 mmol/L (98-107) 06/13/23 05:32 Carbon Dioxide 22 mmol/L (22-29) 06/13/23 05:32 Anion Gap 15.9 (5-19) 06/13/23 05:32 BUN 6 mg/dL (8-23) L 06/13/23 05:32 Creatinine 0.9 mg/dL (0.5-0.9) 06/13/23 05:32 GFR Calculation Not Reportable 06/13/23 05:32 Glucose 97 mg/dL (65-115) 06/13/23 05:32 POC Glucose 200 mg/dL (70-110) H 06/15/23 11:37 Calculated Osmolality 284 mOsm/kg (285-295) L 06/13/23 05:32 Calcium 9.3 mg/dL (8.5-10.5) 06/13/23 05:32 Phosphorus 4.4 mg/dL (2.5-4.5) 06/11/23 03:36 Magnesium 1.8 mg/dL (1.7-2.3) 06/11/23 03:36 Total Bilirubin 0.3 mg/dL (0.15-1.2) 06/13/23 05:32 AST 12 U/L (0-32) 06/13/23 05:32 ALT 7 U/L (0-33) 06/13/23 05:32 Alkaline Phosphatase 108 U/L (35-105) H 06/13/23 05:32 Total Protein 6.7 g/dL (6.6-8.7) 06/13/23 05:32 Albumin 3.9 g/dL (3.5-5.2) 06/13/23 05:32 Globulin 2.8 g/dL (1.3-4.6) 06/13/23 05:32 Urine Color Straw (Yellow) 06/10/23 21:41 Urine Appearance Clear (CLEAR) 06/10/23 21:41 Urine pH 5 (5-7) 06/10/23 21:41 Ur Specific [place] 1.005 (1.005-1.030) 06/10/23 21:41 Urine Protein Neg (Negative) 06/10/23 21:41 Urine Glucose (UA) Norm (Normal) 06/10/23 21:41 Urine Ketones 1+ (Negative) H 06/10/23 21:41 Urine Blood Neg (Negative) 06/10/23 21:41 Urine Nitrate Negative (Negative) 06/10/23 21:41 Urine Bilirubin 1+ (Negative) H 06/10/23 21:41 Urine Urobilinogen Norm mg/dL (Negative) 06/10/23 21:41 Ur Leukocyte Esterase 1+ (Negative) H 06/10/23 21:41 Urine RBC 0-4 /hpf (0-2) H 06/10/23 21:41 Urine WBC 80-100 /hpf (0-5) H 06/10/23 21:41 Ur Squamous Epith Cells 0-4 /hpf (0-5) H 06/10/23 21:41 Amorphous Sediment Not Reportable 06/10/23 21:41 Urine Bacteria Trace /hpf (NONE) 06/10/23 21:41 Urine Mucus Trace /hpf 06/10/23 21:41 SARS-CoV-2 Ag (Rapid) negative (Negative) 06/15/23 12:48 Vitals Last Vital Signs Temp 98.1 F 06/15/23 13:12 Pulse 65 06/15/23 13:12 Resp 16 06/15/23 13:12 BP 132/72 06/15/23 13:12 Pulse Ox 99 06/15/23 13:12 O2 Del Method Room Air 06/15/23 11:32 Discharge Plan Discharge Patient Disposition: Xfer SNF Condition: Stable Prescriptions: New vancomycin 50 mg/mL recon soln 125 mg PO QID 10 Days Qty: 100 0RF Continued nitroglycerin 0.4 mg tablet, sublingual 0.4 mg sublingual Q5M PRN (Reason: chest pain) Qty: 30 3RF Rx Instructions: do not exceed 3 doses per episode metformin 500 mg tablet See Rx Instructions .ROUTE .COMPLEX Hold Instructions: Resume on 10/18/22. Rx Instructions: 1000 mg orally in the am and 500mg pm ondansetron HCl 4 mg Tablet 4 mg PO Q6H PRN (Reason: Nausea And Vomiting) acetaminophen [Pain Relief (acetaminophen)] 500 mg tablet 1,000 mg PO Q6H PRN (Reason: pain) atorvastatin 20 mg Tablet 20 mg PO DAILY venlafaxine 150 mg Capsule,Extended Release 24hr 150 mg PO DAILY 30 Days Qty: 30 2RF levothyroxine 75 mcg Tablet 75 mcg PO DAILY 30 Days Qty: 30 2RF Changed amlodipine 5 mg tablet 10 mg PO DAILY 30 Days Qty: 30 3RF isosorbide mononitrate 60 mg Tablet Extended Release 24 Hr 30 mg PO BID 30 Days Qty: 60 2RF Discontinued spironolactone 25 mg tablet 25 mg PO DAILY 30 Days Qty: 30 0RF Discharge Orders: Discharge Order (Routine); Ordered 06/15/23 Ordered By: Melissa Velásquez Referrals: [facility] [Outside] Zeus Young DO [Primary Care Provider] - Discharge Diet: Usual diet Discharge Activity: Resume usual activity Patient Instructions: Vancomycin (By mouth), Opioid Safety, Pain Management Discharge Attestations Time Spent in Discharge Care*: greater than 30 min Quality Metrics Clinical Quality Measures [ No reported AMI, CVA or VTE this stay] Coding Level of Care Code Acute Code for Chg Fwd Diagnoses Acute diarrhea R19.7 Recurrent UTI N39.0 Dehydration E86.0 Appendix disease K38.9 Weakness R53.1 Hypothyroidism E03.9
== END 2023-06-15 13:40 | disposition skilled nursing facility (03) ==
LOC: ER 06-11 00:09 → CSU 06-11 00:22 → MEDSURG 06-11 10:19
PROVIDERS: Emergency Medicine; Internal Medicine; Admitting Provider Internal Medicine; Emergency Provider Emergency Medicine; PCP Family Medicine; Visit Provider Student in an Organized Health Care Education/Training Program
DX: R19.7 Diarrhea, unspecified (principal); I10 Essential (primary) hypertension; E03.9 Hypothyroidism, unspecified; J44.9 Chronic obstructive pulmonary disease, unspecified; E11.9 Type 2 diabetes mellitus without complications; Z79.84 Long term (current) use of oral hypoglycemic drugs; Z86.19 Personal history of other infectious and parasitic diseases; R53.83 Other fatigue; R82.71 Bacteriuria
CPT/HCPCS: 36415; 36416; 51702; 74177; 80053; 81001; 82962; 83735; 84100; 85025; 87077; 87086; 87186; 87426; 87493; 87506; 96361; 96372; 96374; 97110; 97116; 97161; 97530; 99254; 99285; G0378; J0696; J1650; J1815; J3370; J7030; Q9967

== ENCOUNTER 2023-06-18 11:43 | Emergency (ER) | payer MEDICARE, MEDICAID, SELFPAY ==
[2023-06-18 11:43] VITALS: BP 159/76; PULSE 75; RESP 22; TEMP 36.7; O2SAT 99; BMI 26.2
--- NOTE | 2023-06-18 11:54 | ECG_ITS ---
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 Measurements Intervals [place] Rate: 70 P: 27 VA: 146 QRS: 61 QRSD: 94 T: 70 QT: 386 QTc: 417 Interpretive Statements SINUS RHYTHM Compared to ECG 05/18/2023 19:21:13 T-wave abnormality no longer present Electronically Signed On 06-18-2023 18:24:15 CDT by Serge Del Rio M.D. [email or web address]
--- NOTE | 2023-06-18 12:14 | CTR_ITS ---
PROCEDURE INFORMATION: Exam: CT Abdomen And Pelvis Without Contrast Exam date and time: 06/18/2023 12:40 PM Age: 77 years old Clinical indication: Abdominal pain; Generalized TECHNIQUE: Imaging protocol: Computed tomography of the abdomen and pelvis without contrast. Radiation optimization: All CT scans at this facility use at least one of these dose optimization techniques: automated exposure control; mA and/or kV adjustment per patient size (includes targeted exams where dose is matched to clinical indication); or iterative reconstruction. REPORTING DATA: Count of CT and Cardiac NM exams in prior 12 months: This patient has received 5 known CTs and 0 known cardiac nuclear medicine studies in the 12 months prior to the current study. COMPARISON: CT abdomen pelvis w con* [id number] 06/10/2023 10:51 PM RADIATION DOSE METRICS: Total DLP (mGy-cm): 354.03 FINDINGS: Lungs: Lung bases are clear. Mediastinal space: There is mild thickening of the distal esophageal wall. Diaphragm: There is a small sliding-type hiatal hernia. Liver: The liver is normal. Gallbladder and bile ducts: The gallbladder is normal. There is no biliary dilation. Pancreas: There is mild atrophy of the pancreas. Spleen: The spleen is unremarkable. Adrenal glands: The adrenal glands are unremarkable. Kidneys and ureters: The kidneys are unremarkable. No hydronephrosis or stones. No ureteral dilation. Stomach and bowel: There is a non-inflamed diverticulum in the proximal duodenum. The stomach is unremarkable. The small bowel is nondilated. The colon is stool distended. The wall is thin. There is no sign of colonic inflammation. The cecum measures 7.5 cm diameter. The sigmoid colon and rectum are stool filled but nondistended. There is mild sigmoid colonic diverticulosis without evidence of diverticulitis. Appendix: The appendix is dilated measuring up to 12 mm diameter at the base and 10 mm diameter more distally. There is no periappendiceal edema. The distal appendix is well-visualized on axial series 4, image 57. Intraperitoneal space: There is no free air or significant intraperitoneal free fluid. Vasculature: There is moderate aortic atherosclerotic disease. Lymph nodes: There is no lymphadenopathy in the retroperitoneum, mesentery, pelvis or inguinal regions. Urinary bladder: The urinary bladder is decompressed, preventing meaningful evaluation of wall thickness. Reproductive: The uterus is absent. There is no adnexal mass or large cyst. Bones/joints: There is mild degenerative disease in the lumbar spine. The pelvis and hips are unremarkable. Soft tissues: The abdominal wall is intact. CT/CT abdomen pelvis wo con [id number] IMPRESSION: 1. Diffusely stool distended colon without evidence of inflammation. Correlate with clinical findings of constipation. The degree of colonic distention is similar to 06/10/2023. 2. Dilated appendix without evidence of inflammation. Appendiceal size is similar to 06/10/2023. Possible mucocele. Appendicitis cannot be excluded. 3. Mild circumferential thickening of the distal esophageal wall above a small sliding-type hiatal hernia. Possible esophagitis. 4. Incidental findings above.
--- NOTE | 2023-06-18 12:21 | ED_ITS ---
HPI - Nausea/Vomiting/Diarrhea General: Chief complaint: Nausea/Vomiting/Diarrhea Stated complaint: N/V Time Seen by Provider: 06/18/23 11:47 Source: patient Mode of arrival: ambulatory History of Present Illness: 77-year-old female presents emergency room with complaints of nausea vomiting diarrhea recently started on oral vancomycin for C. difficile. However C. difficile dated 06/14/2023 in the chart was negative. Patient is mildly confused she is currently living in care home. Family member at the bedside. Denies any abdominal pain chest pain or shortness of breath. MD elicited complaint: nausea and vomiting Onset (ago): minute(s) Description of vomiting: coffee grounds Associated nausea: Yes Location of pain: Diffuse Exacerbating factors: none Relieving factors: none Associated symtoms: Reports altered mental status and nausea; Denies anxiety, bloating, change in vision, chest pain, cough, diaphoresis, decreased urine output, dizziness, dysuria, fatigue, fecal incontinence, fev ers/chills, headache(s), anorexia, malaise, myalgias, numbness, palpitations, rash, short of breath, syncope, tenesmus, weakness or other Review of Systems 2 Const: Denies: fever(s), chills, fatigue, malaise or diaphoresis Eyes: Denies: change in vision Card: Denies: chest pain, palpitations, edema or syncope Resp: Denies: dyspnea, productive cough or non-productive cough GI: Reports: nausea and vomiting; Denies: abdominal pain, bloating or fecal incontinence : Denies: dysuria Neuro: Denies: headache(s) or dizziness Psych: Denies: anxiety PFSH ED PFSH: Medical History Anemia C. difficile colitis C. difficile diarrhea COPD (chronic obstructive pulmonary disease) Cystitis cystica Debility Degenerative lumbar disc Dehydration Diabetes mellitus Facet arthropathy, lumbar H/O deep venous thrombosis Heartburn Hematuria History of myocardial infarction HTN (hypertension) Incomplete bladder emptying Influenza A Left knee pain Lumbar disc disease with radiculopathy Microcytic anemia Recurrent UTI UTI (urinary tract infection) Surgical History History of neck surgery Hx of knee surgery S/P coronary angiogram S/P knee surgery S/P wrist surgery Family History Mother , at age 114 Myocardial infarct Father , in his 70's Hypertension Sister Diabetes Son Diabetes Social History Smoking and tobacco status: never smoked Alcohol intake: never Substance/Drug Use: never Marital status: / Current occupational status: retired Physical Exam Const: EXAM LIMITATIONS: altered mental status GENERAL APPEARANCE: cooperative and comfortable ORIENTATION/CONSCIOUSNESS: Yes awake HENMT: COMMON NORMALS: normocephalic, atraumatic and hearing grossly normal bilaterally HEAD & SCALP: normocephalic and atraumatic Resp: COMMON NORMALS: normal respiratory effort, No retractions, No use of accessory muscles and clear to auscultation bilaterally AUSCULTATION: clear to auscultation bilaterally Cardio: COMMON NORMALS: regular rate, regular rhythm and No murmurs present (Cardio) RATE: regular rate RHYTHM: regular rhythm GI: COMMON NORMALS: Soft to palpation and No hepatosplenomegaly present AUSCULTATION: Yes normoactive bowel sounds PALPATION: Yes Soft to palpation, No Tenderness to palpation present (GI), No Guarding due to palpation present (GI) and Yes No hepatosplenomegaly present Extremity: COMMON NORMALS: normal to inspection, capillary refill normal, no clubbing, cyanosis or edema, no calf tenderness and no pedal edema Skin: COMMON NORMALS: no rashes or lesions noted GENERAL SKIN EXAM: no rashes or lesions noted Course Vital Signs: Vital signs: Vital Signs Temperature 98.0 F 06/18/23 11:43 Pulse Rate 66 06/18/23 14:49 Respiratory Rate 22 H 06/18/23 11:43 Blood Pressure 167/72 06/18/23 13:16 Pulse Oximetry 98 06/18/23 14:49 Oxygen Delivery Me thod Room Air 06/18/23 13:16 MDM - Nausea/Vomiting/Diarrhea Medical Decision Making C. difficile on the chart is negative according to the discharge, vancomycin was started presumptively for suspected C. difficile. CT radiology makes comment about the appendix however patient has no discomfort in that region. There is a significant amount of retained stool. Discharge patient home on lactulose. To vancomycin. Her anion gap is slightly elevated increase fluids recheck CBC and BMP tomorrow. Medical Records I reviewed the patient's medical records. Lab Data I reviewed the patient's lab results. 06/18/23 13:05 06/18/23 13:05 Radiology Impressions Abdomen/Pelvis CT 06/18/23 12:14 IMPRESSION: 1. Diffusely stool distended colon without evidence of inflammation. Correlate with clinical findings of constipation. The degree of colonic distention is similar to 06/10/2023. 2. Dilated appendix without evidence of inflammation. Appendiceal size is similar to 06/10/2023. Possible mucocele. Appendicitis cannot be excluded. 3. Mild circumferential thickening of the distal esophageal wall above a small sliding-type hiatal hernia. Possible esophagitis. 4. Incidental findings above. Laboratory Results WBC 13.0 10^3/uL (4.0-10.0) H 06/18/23 13:05 RBC 4.26 10^6/uL (4.1-5.3) 06/18/23 13:05 Hgb 9.1 g/dL (11.5-15.3) L 06/18/23 13:05 Hct 30.5 % (37.0-47.0) L 06/18/23 13:05 MCV 71.6 fl (81-99) L 06/18/23 13:05 MCH 21.4 pg (28.0-34.0) L 06/18/23 13:05 MCHC 29.8 g/dL (30.0-36.0) L 06/18/23 13:05 RDW 17.1 % (12.1-15.1) H 06/18/23 13:05 Plt Count 427 10^3/cmm (130-400) H 06/18/23 13:05 MPV 9.9 fL (7.4-10.4) 06/18/23 13:05 Neut % (Auto) 79.6 % 06/18/23 13:05 Lymph % (Auto) 15.7 % 06/18/23 13:05 [place] % (Auto) 3.7 % 06/18/23 13:05 Eos % (Auto) 0.4 % 06/18/23 13:05 Baso % (Auto) 0.3 % 06/18/23 13:05 Neut # (Auto) 10.32 10^3/uL (1.8-7.7) H 06/18/23 13:05 Lymph # (Auto) 2.0 10^3/uL (0.8-4.8) 06/18/23 13:05 [place] # (Auto) 0.5 10^3/uL (0.2-0.9) 06/18/23 13:05 Eos # (Auto) 0.1 10^3/uL (0.0-0.8) 06/18/23 13:05 Baso # (Auto) 0.0 10^3/uL (0.0-0.1) 06/18/23 13:05 Nucleated RBC % (auto) 0 % 06/18/23 13:05 Nucleated RBCs # 0.0 /100WBC 06/18/23 13:05 PT 14.20 SECONDS (12.1-14.9) 06/18/23 13:05 INR 1.07 (0.8-1.2) 06/18/23 13:05 APTT 25.3 SECONDS (23.9-36.7) 06/18/23 13:05 Sodium 134 mmol/L (136-145) L 06/18/23 13:05 Potassium 4.2 mmol/L (3.5-5.1) 06/18/23 13:05 Chloride 94 mmol/L (98-107) L 06/18/23 13:05 Carbon Dioxide 23 mmol/L (22-29) 06/18/23 13:05 Anion Gap 21.2 (5-19) H 06/18/23 13:05 BUN 13 mg/dL (8-23) 06/18/23 13:05 Creatinine 0.8 mg/dL (0.5-0.9) 06/18/23 13:05 GFR Calculation Not Reportable 06/18/23 13:05 Glucose 128 mg/dL (65-115) H 06/18/23 13:05 Calculated Osmolality 280 mOsm/kg (285-295) L 06/18/23 13:05 Calcium 9.8 mg/dL (8.5-10.5) 06/18/23 13:05 Total Bilirubin 0.4 mg/dL (0.15-1.2) 06/18/23 13:05 AST 16 U/L (0-32) 06/18/23 13:05 ALT 13 U/L (0-33) 06/18/23 13:05 Alkaline Phosphatase 128 U/L (35-105) H 06/18/23 13:05 Total Protein 8.4 g/dL (6.6-8.7) 06/18/23 13:05 Albumin 4.5 g/dL (3.5-5.2) 06/18/23 13:05 Globulin 3.9 g/dL (1.3-4.6) 06/18/23 13:05 Discharge Plan Discharge Patient Disposition: Home Clinical Impression: Constipation Condition: Stable Prescriptions: New lactulose 20 gram/30 mL solution 20 g PO Q2H 1 Days Qty: 360 0RF Rx Instructions: until desired laxative effect No Action nitroglycerin 0.4 mg tablet, sublingual 0.4 mg sublingual Q5M PRN (Reason: chest pain) Qty: 30 3RF Rx Instructions: do not exceed 3 doses per episode metformin 500 mg tablet See Rx Instructions .ROUTE .COMPLEX Hold Instructions: Resume on 10/18/22. Rx Instructions: 1000 mg orally in the am and 500mg pm ondansetron HCl 4 mg Tablet 4 mg PO Q6H PRN (Reason: Nausea And Vomiting) acetaminophen [Pain Relief (acetaminophen)] 500 mg tablet 1,000 mg PO Q6H PRN (Reason: pain) vancomycin 50 mg/mL recon soln 125 mg PO QID 10 Days Qty: 100 0RF amlodipine 5 mg tablet 10 mg PO DAILY 30 Days Qty: 30 3RF isosorbide mononitrate 60 mg Tablet Extended Release 24 Hr 30 mg PO BID 30 Days Qty: 60 2RF atorvastatin 20 mg Tablet 20 mg PO DAILY venlafaxine 150 mg Capsule,Extended Release 24hr 150 mg PO DAILY 30 Days Qty: 30 2RF levothyroxine 75 mcg Tablet 75 mcg PO DAILY 30 Days Qty: 30 2RF Discharge Orders: Discharge ED (Routine); Ordered 06/18/23 Ordered By: Robert Leigh Referrals: Zeus Young DO [Primary Care Provider] - Discharge Diet: Usual diet Discharge Activity: Increase activity as tolerated Patient Instructions: Opioid Safety, Pain Management Activity Restrictions/Additional Instructions: You were seen today with reports of coffee-ground emesis. Your hemoglobin and BUN were normal. Recommend repeat CBC and BMP tomorrow at the care home. Your CT showed retained stool use lactulose as needed to relieve constipation if symptoms worsen or change return. Coding Level of Care Code ED Stock Transfer Clerk for Clayton Espinoza
[2023-06-18 13:16] VITALS: BP 167/72; PULSE 67; O2SAT 97
[2023-06-18 13:18] LABS: Basophils % 0.3 %; Eosinophils # 0.1 10^3/uL (0.0-0.8); Eosinophils % 0.4 %; Hematocrit 30.5 % (37.0-47.0); Hemoglobin 9.1 g/dL (11.5-15.3); Lymphocytes % 15.7 %; Mean Corpuscular HGB Conc 29.8 g/dL (30.0-36.0); Mean Corpuscular Hemoglobin 21.4 pg (28.0-34.0); Mean Corpuscular Volume 71.6 fl (81-99); Mean Platelet Volume 9.9 fL (7.4-10.4); Monocytes # 0.5 10^3/uL (0.2-0.9); Monocytes % 3.7 %; Neutrophils # 10.32 10^3/uL (1.8-7.7); Neutrophils % 79.6 %; Nucleated Red Blood Cells % 0 %; Platelet Count 427 10^3/cmm (130-400); Red Blood Count 4.26 10^6/uL (4.1-5.3); Red Cell Distribution Width 17.1 % (12.1-15.1)
[2023-06-18 13:31] LABS: INR 1.07 (0.8-1.2)
[2023-06-18 13:33] LABS: Partial Thromboplastin Time 25.3 SECONDS (23.9-36.7)
[2023-06-18 13:37] LABS: Alanine Aminotransferase 13 U/L (0-33); Albumin Level 4.5 g/dL (3.5-5.2); Alkaline Phosphatase 128 U/L (35-105); Anion Gap 21.2 (5-19); Aspartate Amino Transferase 16 U/L (0-32); Blood Urea Nitrogen 13 mg/dL (8-23); Calcium 9.8 mg/dL (8.5-10.5); Carbon Dioxide 23 mmol/L (22-29); Chloride 94 mmol/L (98-107); Globulin 3.9 g/dL (1.3-4.6); Glucose 128 mg/dL (65-115); Osmolality Calculated 280 mOsm/kg (285-295); Potassium 4.2 mmol/L (3.5-5.1); Sodium 134 mmol/L (136-145); Total Bilirubin 0.4 mg/dL (0.15-1.2); Total Protein 8.4 g/dL (6.6-8.7)
[2023-06-18 14:49] VITALS: PULSE 66; O2SAT 98
== END 2023-06-18 14:40 | disposition home or self-care (01) ==
PROVIDERS: Emergency Provider Family Medicine; PCP Family Medicine
DX: K59.09 Other constipation (principal)
CPT/HCPCS: 74176; 80053; 85025; 85610; 85730; 93005; 99285

== ENCOUNTER 2023-10-14 16:54 | Emergency (ER) | payer MEDICARE, MEDICAID, SELFPAY ==
[2023-10-14 16:59] VITALS: BP 151/59; PULSE 64; RESP 16; TEMP 36.8; O2SAT 98; BMI 22.2
--- NOTE | 2023-10-14 17:05 | XRR_ITS ---
PROCEDURE INFORMATION: Exam: XR Right Hand Exam date and time: 10/14/2023 5:23 PM Age: 77 years old Clinical indication: Swelling; Hand; Right; Additional info: R hand swelling TECHNIQUE: Imaging protocol: Radiologic exam of the right hand. Views: 3 or more views. COMPARISON: No relevant prior studies available. FINDINGS: Bones/joints: There is generalized osteopenia seen. A narrowing and sclerosis is seen inter phalangeal articulation of multiple digits. These findings correspond to osteoarthritis. Negative for acute bone abnormalities are present. Soft tissues: Unremarkable XR/XR hand RT min 3V* [id number] IMPRESSION: 1. Negative for acute bony abnormality. 2. Osteopenia and osteoarthritis. 3. Otherwise No acute findings.
--- NOTE | 2023-10-14 17:14 | ED_ITS ---
HPI - Extremity Problem 2 General: Chief complaint: Extremity Problem,Nontraumatic Stated complaint: RIGHT HAND SWELLING Time Seen by Provider: 10/14/23 17:04 Source: patient Mode of arrival: EMS History of Present Illness: 77-year-old female presents to the emerg ency room with complaints of right MP joint pain and swelling on the third finger. No trauma or injury that she can recall her and her suddenly noticed the swelling. Denies any other injuries no falls. MD Complaint: extremity pain and extremity swelling Associated symptoms: Deny arthralgias, chest pain, fever(s), myalgias, rash or short of breath Review of Systems 2 Const: Denies: fever(s) or chills Card: Denies: chest pain Resp: Denies: dyspnea GI: Denies: abdominal pain : Denies: dysuria, urinary frequency or urinary urgency Musc: Reports: joint pain and joint swelling; Denies: neck pain or back pain Skin/Breast: Denies: rash PFSH ED 2 PFSH: Medical History C. difficile diarrhea Debility C. difficile colitis Left knee pain Incomplete bladder emptying Influenza A Dehydration Microcytic anemia Heartburn History of myocardial infarction Anemia H/O deep venous thrombosis HTN (hypertension) COPD (chronic obstructive pulmonary disease) Cystitis cystica Recurrent UTI Diabetes mellitus UTI (urinary tract infection) Hematuria Lumbar disc disease with radiculopathy Facet arthropathy, lumbar Degenerative lumbar disc Surgical History Hx of knee surgery S/P wrist surgery S/P knee surgery History of neck surgery S/P coronary angiogram Family History Mother , at age 114 Myocardial infarct Father , in his 70's Hypertension Sister Diabetes Son Diabetes Social History Smoking and tobacco/nicotine status: never used tobacco/nicotine Alcohol intake: never Substance/Drug Use: never Marital status: / Current occupational status: retired Physical Exam 2 Const: COMMON NORMALS: no acute distress GENERAL APPEARANCE: cooperative and comfortable ORIENTATION/CONSCIOUSNESS: Yes awake, Yes oriented to person, Yes oriented to place and Yes oriented to time HENMT: COMMON NORMALS: normocephalic, atraumatic and hearing grossly normal bilaterally HEAD & SCALP: normocephalic and atraumatic Resp: COMMON NORMALS: normal respiratory effort, No retractions and No use of accessory muscles Extremity: COMMON NORMALS: normal to inspection and capillary refill normal OTHER: Swelling on the right third MP joint. Some bruising distally neurovascularly intact Neuro: SENSORIUM/ORIENTATION: Yes oriented to person, Yes oriented to place and Yes oriented to time Skin: COMMON NORMALS: no rashes or lesions noted GENERAL SKIN EXAM: no rashes or lesions noted Course 2 Vital Signs: Vital signs: Vital Signs Temperature 98.2 F 10/14/23 16:59 Pulse Rate 64 10/14/23 16:59 Respiratory Rate 16 10/14/23 16:59 Blood Pressure 151/59 10/14/23 16:59 Pulse Oximetry 98 10/14/23 16:59 Oxygen Delivery Me thod Room Air 10/14/23 16:59 MDM - Extremity (Nontraumatic) Medical Decision Making Fracture proximal phalanx at the MCP joint right third finger placed in a splint and have the patient follow-up with orthopedics. Medical Records I reviewed the patient's medical records. Lab Data I reviewed the patient's lab results. 10/14/23 17:20 10/14/23 17:20 Laboratory Results WBC 10.01 10^3/uL (3.29-11.43) 10/14/23 17:20 RBC 4.30 10^6/uL (3.85-5.65) 10/14/23 17:20 Hgb 10.50 g/dL (11.27-16.99) L 10/14/23 17:20 Hct 34.3 % (36-47) L 10/14/23 17:20 MCV 79.8 fl (85-98) L 10/14/23 17:20 MCH 24.4 pg (27-33) L 10/14/23 17:20 MCHC 30.6 g/dL (30-55) 10/14/23 17:20 RDW 17.6 % (12.1-15.1) H 10/14/23 17:20 Plt Count 305 10^3/cmm (157-399) 10/14/23 17:20 MPV 9.7 fL (7.4-10.4) 10/14/23 17:20 Neut % (Auto) 68.4 % 10/14/23 17:20 Lymph % (Auto) 22.9 % 10/14/23 17:20 [place] % (Auto) 6.1 % 10/14/23 17:20 Eos % (Auto) 1.6 % 10/14/23 17:20 Baso % (Auto) 0.6 % 10/14/23 17:20 Neut # (Auto) 6.85 10^3/uL (1.8-7.7) 10/14/23 17:20 Lymph # (Auto) 2.3 10^3/uL (0.8-4.8) 10/14/23 17:20 [place] # (Auto) 0.6 10^3/uL (0.2-0.9) 10/14/23 17:20 Eos # (Auto) 0.2 10^3/uL (0.0-0.8) 10/14/23 17:20 Baso # (Auto) 0.1 10^3/uL (0.0-0.1) 10/14/23 17:20 Nucleated RBC % (auto) 0 % 10/14/23 17:20 Nucleated RBCs # 0.0 /100WBC 10/14/23 17:20 All radiology interpretation(s) finalized by discharge Discharge Plan Discharge Patient Disposition: Home Clinical Impression: Closed fracture of proximal phalanx of digit of right hand Condition: Stable Prescriptions: No Action nitroglycerin 0.4 mg tablet, sublingual 0.4 mg sublingual Q5M PRN (Reason: chest pain) Qty: 30 3RF Rx Instructions: do not exceed 3 doses per episode metformin 500 mg tablet See Rx Instructions .ROUTE .COMPLEX Hold Instructions: Resume on 10/18/22. Rx Instructions: 1000 mg orally in the am and 500mg pm ondansetron HCl 4 mg Tablet 4 mg PO Q6H PRN (Reason: Nausea And Vomiting) acetaminophen [Pain Relief (acetaminophen)] 500 mg tablet 1,000 mg PO Q6H PRN (Reason: pain) amlodipine 5 mg tablet 10 mg PO DAILY 30 Days Qty: 30 3RF isosorbide mononitrate 60 mg Tablet Extended Release 24 Hr 30 mg PO BID 30 Days Qty: 60 2RF atorvastatin 20 mg Tablet 20 mg PO DAILY venlafaxine 150 mg Capsule,Extended Release 24hr 150 mg PO DAILY 30 Days Qty: 30 2RF levothyroxine 75 mcg Tablet 75 mcg PO DAILY 30 Days Qty: 30 2RF Discharge Orders: Discharge ED (Routine); Ordered 10/14/23 Ordered By: Robert Leigh Referrals: Zeus Young, [Primary Care Provider] - Discharge Diet: Usual diet Discharge Activity: Resume usual activity Patient Instructions: Opioid Safety, Pain Management Activity Restrictions/Additional Instructions: Thank you for choosing [facility] for your healthcare needs today. Please realize this is an emergency room and that we are providing you with a medical screening exam and this may not be complete and all inclusive of all the testing and or work up that you may need to determine your ailment or severity of your illness. It is very important that you follow up as instructed or that you return to the Emergency Department should you have concerns or if your condition changes or worsens in any way. You were seen today with swelling at your right metacarpal phalangeal joint. There is a small fracture at the base of the proximal metacarpal on the right third finger. You were placed in a splint and follow-up with orthopedics. manager aerospace will call with the appointment at the orthopedic clinic. Coding Level of Care Code ED Dramatic Teacher for Clayton Espinoza
[2023-10-14 17:27] LABS: Basophils # 0.1 10^3/uL (0.0-0.1); Basophils % 0.6 %; Eosinophils # 0.2 10^3/uL (0.0-0.8); Eosinophils % 1.6 %; Hematocrit 34.3 % (36-47); Lymphocytes # 2.3 10^3/uL (0.8-4.8); Lymphocytes % 22.9 %; Mean Corpuscular HGB Conc 30.6 g/dL (30-55); Mean Corpuscular Hemoglobin 24.4 pg (27-33); Mean Corpuscular Volume 79.8 fl (85-98); Mean Platelet Volume 9.7 fL (7.4-10.4); Monocytes # 0.6 10^3/uL (0.2-0.9); Monocytes % 6.1 %; Neutrophils # 6.85 10^3/uL (1.8-7.7); Neutrophils % 68.4 %; Nucleated Red Blood Cells % 0 %; Platelet Count 305 10^3/cmm (157-399); Red Cell Distribution Width 17.6 % (12.1-15.1); White Blood Count 10.01 10^3/uL (3.29-11.43)
[2023-10-14 17:46] LABS: Alanine Aminotransferase < 5 U/L (0-33); Albumin Level 4.1 g/dL (3.5-5.2); Alkaline Phosphatase 118 U/L (35-105); Anion Gap 16.6 (5-19); Aspartate Amino Transferase 10 U/L (0-32); Blood Urea Nitrogen 5 mg/dL (8-23); Calcium 9.3 mg/dL (8.5-10.5); Carbon Dioxide 28 mmol/L (22-29); Chloride 95 mmol/L (98-107); Creatinine Clr Calc Pharmacy 47.1231; Globulin 3.3 g/dL (1.3-4.6); Glucose 134 mg/dL (65-115); Osmolality Calculated 283 mOsm/kg (285-295); Sodium 137 mmol/L (136-145); Total Bilirubin 0.2 mg/dL (0.15-1.2); Total Protein 7.4 g/dL (6.6-8.7)
[2023-10-14 17:48] LABS: Potassium 2.6 mmol/L (3.5-5.1)
[2023-10-14] MEDS: potassium chloride oral liq 20 mEq/15 mL UDC 60 MEQ PO (17:52)
--- NOTE | 2023-10-16 08:08 | DCPLANNER ---
Referral was sent to ortho on 10/16/23 at 0808. Clinic to contact patient.
== END 2023-10-14 17:55 | disposition home or self-care (01) ==
PROVIDERS: Emergency Provider Family Medicine; PCP Family Medicine
DX: S62.642A Nondisplaced fracture of proximal phalanx of right middle finger, initial encounter for closed fracture (principal); X58.XXXA Exposure to other specified factors, initial encounter
CPT/HCPCS: 36415; 73130; 80053; 85025; 99284

== ENCOUNTER 2024-02-10 21:48 | Emergency (ER) | payer MEDICARE, MEDICAID, SELFPAY ==
[2024-02-10 21:49] VITALS: BP 193/60; PULSE 71; RESP 16; TEMP 37.1; O2SAT 98; BMI 24.2
--- NOTE | 2024-02-10 22:35 | CTR_ITS ---
PROCEDURE INFORMATION: Exam: CT Cervical Spine Without Contrast Exam date and time: 02/10/2024 10:48 PM Age: 78 years old Clinical indication: Injury or trauma; Blunt trauma; Prior surgery; Surgery date: 6+ months; Surgery type: Cervical fusion; Patient HX: EMS arrival for fall at home with headstrike. Abrasion to RT temporal; Additional info: Fall head inj TECHNIQUE: Imaging protocol: Computed tomography of the cervical spine without contrast. Radiation optimization: All CT scans at this facility use at least one of these dose optimization techniques: automated exposure control; mA and/or kV adjustment per patient size (includes targeted exams where dose is matched to clinical indication); or iterative reconstruction. COMPARISON: CT head wo con* [id number] 02/10/2024 10:45 PM RADIATION DOSE METRICS: Total DLP (mGy-cm): 314.37 FINDINGS: Bones/joints: No acute fracture. There is moderate cervical degenerative change with loss of disc space and osteophyte formation. No jumped, locked or perched facets are visualized. No aggressive bone lesion is noted. A C6-C7 ACDF is intact. A couple of levels of minimal chronic listhesis are probably related to facet arthropathy. Mastoid air cells: Vpii-diyrvze-zdex-right mastoid disease. Partially imaged. Lungs: Lung apices not seen. Vasculature: Advanced diffuse vascular calcification noted. Soft tissues: Unremarkable. CT/CT cervical spin wo con* [id number] IMPRESSION: 1. No acute fracture is seen in the cervical spine. 2. Moderate cervical degenerative change as discussed. Other chronic findings above.
--- NOTE | 2024-02-10 22:35 | XRR_ITS ---
PROCEDURE INFORMATION: Exam: XR Right Knee Exam date and time: 02/10/2024 10:41 PM Age: 78 years old Clinical indication: Injury or trauma; Blunt trauma; Right; Prior surgery; Surgery date: 6+ months; Surgery type: Unspecified surgery to RT knee; Patient HX: EMS arrival for fall at home. C/O RT knee pain. ; Additional info: Fall R knee pain TECHNIQUE: Imaging protocol: Radiologic exam of the right knee. Views: 3 views. COMPARISON: No relevant prior studies available. FINDINGS: Bones/joints: Osseous demineralization. Alignment is intact. No evidence of acute fracture. Mild tricompartmental degenerative change. No joint effusion. Soft tissues: Normal. XR/XR knee RT 3V* [id number] IMPRESSION: No evidence of acute fracture.
--- NOTE | 2024-02-10 22:35 | XRR_ITS ---
PROCEDURE INFORMATION: Exam: XR Right Humerus Exam date and time: 02/10/2024 10:41 PM Age: 78 years old Clinical indication: Injury or trauma; Blunt trauma (contusions or hematomas); Arm, upper; Right; Patient HX: EMS arrival for fall at home. C/O RT humeral pain. ; Additional info: Fall R arm pain TECHNIQUE: Imaging protocol: Radiologic exam of the right humerus. Views: 2 or more views. COMPARISON: CT angio chest PE protcl [id number] 06/08/2022 11:26 PM FINDINGS: Bones/joints: Osseous demineralization. Suture anchors in the right humeral head. Chronic Hill-Sachs deformity. Moderate degenerative change of the right shoulder. No acute fracture. Soft tissues: Normal. XR/[place] [id number] IMPRESSION: No acute fracture.
--- NOTE | 2024-02-10 22:35 | CTR_ITS ---
PROCEDURE INFORMATION: Exam: CT Head Without Contrast Exam date and time: 02/10/2024 10:45 PM Age: 78 years old Clinical indication: Injury or trauma; Blunt trauma (contusions or hematomas); Patient HX: EMS arrival for fall at home with headstrike. Abrasion to RT temporal; Additional info: Fall head inj TECHNIQUE: Imaging protocol: Computed tomography of the head without contrast. Radiation optimization: All CT scans at this facility use at least one of these dose optimization techniques: automated exposure control; mA and/or kV adjustment per patient size (includes targeted exams where dose is matched to clinical indication); or iterative reconstruction. COMPARISON: CT head wo con* [id number] 05/18/2023 7:46 PM RADIATION DOSE METRICS: Total DLP (mGy-cm): 977.98 FINDINGS: Brain: No focal hemorrhage or midline shift is identified. The ventricles and parenchyma show moderate atrophy and chronic bicerebral white matter ischemic change. Cerebral ventricles: No progressive ventriculomegaly or evidence of acute hydrocephalus. Paranasal sinuses: Moderate left sphenoid sinus disease. Mastoid air cells: Moderate left mastoid disease. Bones/joints: Hyperostosis frontalis internus. No fracture. Soft tissues: Unremarkable. Vasculature: Diffuse vascular calcifications are present. CT/CT head wo con* [id number] IMPRESSION: 1. No acute intracranial abnormality. 2. Moderate age-related changes. Stable chronic ventriculomegaly.
--- NOTE | 2024-02-10 22:48 | ECG_ITS ---
[facility] Test Date: 2024-02-10 Pat Name: Maria Luz Finney Department: Room: Gender: Female Senior Clinical Consultant: : 1945 Requested By: Arturo Stephens Order Number: [id number] MD: Jj Veronica M.D. Measurements Intervals [place] Rate: 66 P: 79 ND: 154 QRS: 84 QRSD: 100 T: 76 QT: 425 QTc: 446 Interpretive Statements SINUS RHYTHM Compared to ECG 06/18/2023 12:07:52 No significant changes Electronically Signed On 02-11-2024 11:06:35 CDT by Jj Veronica M.D. [id number]
[2024-02-10 23:21] VITALS: PULSE 70; RESP 16; O2SAT 96
[2024-02-10 23:29] LABS: Basophils % 0.4 %; Eosinophils # 0.1 10^3/uL (0.0-0.8); Eosinophils % 1.2 %; Hematocrit 32.3 % (36-47); Lymphocytes # 1.9 10^3/uL (0.8-4.8); Lymphocytes % 19.6 %; Mean Corpuscular HGB Conc 29.7 g/dL (30-55); Mean Corpuscular Hemoglobin 22.6 pg (27-33); Mean Platelet Volume 9.8 fL (7.4-10.4); Monocytes # 0.5 10^3/uL (0.2-0.9); Monocytes % 4.9 %; Neutrophils # 7.25 10^3/uL (1.8-7.7); Neutrophils % 73.6 %; Nucleated Red Blood Cells % 0 %; Platelet Count 327 10^3/cmm (157-399); Red Blood Count 4.25 10^6/uL (3.85-5.65); White Blood Count 9.85 10^3/uL (3.29-11.43)
[2024-02-10 23:53] LABS: Alanine Aminotransferase 6 U/L (0-33); Albumin Level 3.9 g/dL (3.5-5.2); Alkaline Phosphatase 108 U/L (35-105); Anion Gap 17.1 (5-19); Aspartate Amino Transferase 9 U/L (0-32); Blood Urea Nitrogen 10 mg/dL (8-23); C Reactive Protein 21.6 mg/L (0.0-4.9); Calcium 9.3 mg/dL (8.5-10.5); Carbon Dioxide 24 mmol/L (22-29); Chloride 98 mmol/L (98-107); Creatine Phosphokinase 60 U/L (26-192); Creatinine Clr Calc Pharmacy 41.1525; Glucose 190 mg/dL (65-115); Osmolality Calculated 286 mOsm/kg (285-295); Potassium 3.1 mmol/L (3.5-5.1); Sodium 136 mmol/L (136-145); Total Bilirubin 0.2 mg/dL (0.15-1.2); Total Protein 7.9 g/dL (6.6-8.7)
--- NOTE | 2024-02-10 23:55 | W.ED.FALL ---
HPI - Fall General: Chief Complaint: Fall Stated Complaint: FALL Time Seen by Provider: 02/10/24 22:06 History of Present Illness: 78-year-old female who has been increasingly weak at home. She presents after a fall in the bathroom striking her head. She also struck her right arm, and right knee. She complains of pain to these areas, and generalized weakness. No fever. No shortness of breath. No cough or sputum production. No other pain complaints. PFSH ED PFSH: Medical History C. difficile diarrhea Debility C. difficile colitis Left knee pain Incomplete bladder emptying Influenza A Dehydration Microcytic anemia Heartburn History of myocardial infarction Anemia H/O deep venous thrombosis HTN (hypertension) COPD (chronic obstructive pulmonary disease) Cystitis cystica Recurrent UTI Diabetes mellitus UTI (urinary tract infection) Hematuria Lumbar disc disease with radiculopathy Facet arthropathy, lumbar Degenerative lumbar disc Surgical History Hx of knee surgery S/P wrist surgery S/P knee surgery History of neck surgery S/P coronary angiogram Family History Mother , at age 114 Myocardial infarct Father , in his 70's Hypertension Sister Diabetes Son Diabetes Social History Smoking and tobacco/nicotine status: never used tobacco/nicotine Alcohol intake: never Substance/Drug Use: never Marital status: / Current occupational status: retired Course Vital Signs: Vital signs: Vital Signs Temperature 98.7 F 02/10/24 21:49 Pulse Rate 70 02/10/24 23:21 Respiratory Rate 16 02/10/24 23:21 Blood Pressure 193/60 02/10/24 21:49 Pulse Oximetry 96 02/10/24 23:21 Oxygen Delivery Me thod Room Air 02/10/24 23:21 MDM - Fall Medical Decision Making Patient is quite hypertensive here. She has normal vitals otherwise. Her hemoglobin is 9.6, white blood cell count 9.8. CTs of the head and cervical spine are negative. X-rays of the humerus and knee are negative for fracture. She does have a significant urinary tract infection, although her CRP is only mildly elevated. She is treated with Rocephin here. She will be allowed home on antibiotics. Hypertension treated with hydralazine and amlodipine here. Current blood pressure 147/50. Lab Data 02/10/24 23:25 02/10/24 23:25 Radiology Impressions Cervical Spine CT 02/10/24 22:35 IMPRESSION: 1. No acute fracture is seen in the cervical spine. 2. Moderate cervical degenerative change as discussed. Other chronic findings above. Head CT 02/10/24 22:35 IMPRESSION: 1. No acute intracranial abnormality. 2. Moderate age-related changes. Stable chronic ventriculomegaly. Humerus X-Ray 02/10/24 22:35 IMPRESSION: No acute fracture. Knee X-Ray 02/10/24 22:35 IMPRESSION: No evidence of acute fracture. Laboratory Results WBC 9.85 10^3/uL (3.29-11.43) 02/10/24 23:25 RBC 4.25 10^6/uL (3.85-5.65) 02/10/24 23:25 Hgb 9.60 g/dL (11.27-16.99) L 02/10/24 23:25 Hct 32.3 % (36-47) L 02/10/24 23:25 MCV 76.0 fl (85-98) L 02/10/24 23:25 MCH 22.6 pg (27-33) L 02/10/24 23:25 MCHC 29.7 g/dL (30-55) L 02/10/24 23:25 RDW 16.0 % (12.1-15.1) H 02/10/24 23:25 Plt Count 327 10^3/cmm (157-399) 02/10/24 23:25 MPV 9.8 fL (7.4-10.4) 02/10/24 23:25 Neut % (Auto) 73.6 % 02/10/24 23:25 Lymph % (Auto) 19.6 % 02/10/24 23:25 [place] % (Auto) 4.9 % 02/10/24 23:25 Eos % (Auto) 1.2 % 02/10/24 23:25 Baso % (Auto) 0.4 % 02/10/24 23:25 Neut # (Auto) 7.25 10^3/uL (1.8-7.7) 02/10/24 23:25 Lymph # (Auto) 1.9 10^3/uL (0.8-4.8) 02/10/24 23:25 [place] # (Auto) 0.5 10^3/uL (0.2-0.9) 02/10/24 23:25 Eos # (Auto) 0.1 10^3/uL (0.0-0.8) 02/10/24 23:25 Baso # (Auto) 0.0 10^3/uL (0.0-0.1) 02/10/24 23:25 Nucleated RBC % (auto) 0 % 02/10/24 23:25 Nucleated RBCs # 0.0 /100WBC 02/10/24 23:25 Sodium 136 mmol/L (136-145) 02/10/24 23:25 Potassium 3.1 mmol/L (3.5-5.1) L 02/10/24 23:25 Chloride 98 mmol/L (98-107) 02/10/24 23:25 Carbon Dioxide 24 mmol/L (22-29) 02/10/24 23:25 Anion Gap 17.1 (5-19) 02/10/24 23:25 BUN 10 mg/dL (8-23) 02/10/24 23:25 Creatinine 0.9 mg/dL (0.5-0.9) 02/10/24 23:25 GFR Calculation Not Reportable 02/10/24 23:25 Glucose 190 mg/dL (65-115) H 02/10/24 23:25 Calculated Osmolality 286 mOsm/kg (285-295) 02/10/24 23:25 Calcium 9.3 mg/dL (8.5-10.5) 02/10/24 23:25 Total Bilirubin 0.2 mg/dL (0.15-1.2) 02/10/24 23:25 AST 9 U/L (0-32) 02/10/24 23:25 ALT 6 U/L (0-33) 02/10/24 23:25 Alkaline Phosphatase 108 U/L (35-105) H 02/10/24 23:25 Creatine Kinase 60 U/L (26-192) 02/10/24 23:25 C-Reactive Protein 21.6 mg/L (0.0-4.9) H 02/10/24 23:25 Total Protein 7.9 g/dL (6.6-8.7) 02/10/24 23:25 Albumin 3.9 g/dL (3.5-5.2) 02/10/24 23:25 Globulin 4.0 g/dL (1.3-4.6) 02/10/24 23:25 Urine Color Colorless (Yellow) 02/11/24 00:12 Urine Appearance Hazy (CLEAR) A 02/11/24 00:12 Urine pH 8 (5-7) H 02/11/24 00:12 Ur Specific [place] 1.005 (1.005-1.030) 02/11/24 00:12 Urine Protein Neg (Negative) 02/11/24 00:12 Urine Glucose (UA) Trace (Normal) H 02/11/24 00:12 Urine Ketones Negative (Negative) 02/11/24 00:12 Urine Blood 2+ (Negative) H 02/11/24 00:12 Urine Nitrate Negative (Negative) 02/11/24 00:12 Urine Bilirubin Neg (Negative) 02/11/24 00:12 Prot Sulfosalicylic Acd Negative (Negative) 02/11/24 00:12 Urine Urobilinogen Neg mg/dL (Negative) 02/11/24 00:12 Ur Leukocyte Esterase 1+ (Negative) H 02/11/24 00:12 Urine RBC 0-4 /hpf (0-2) H 02/11/24 00:12 Urine WBC 15-25 /hpf (0-5) H 02/11/24 00:12 Ur Squamous Epith Cells 5-10 /hpf (0-5) H 02/11/24 00:12 Amorphous Sediment Not Reportable 02/11/24 00:12 Urine Bacteria 3+ /hpf (NONE) H 02/11/24 00:12 All radiology interpretation(s) finalized by discharge Discharge Plan Discharge Patient Disposition: Home Clinical Impression: Recurrent UTI, Hypertension Condition: Stable Prescriptions: New amlodipine 10 mg tablet 10 mg PO DAILY Qty: 30 0RF cefdinir 300 mg capsule 300 mg PO BID Qty: 14 0RF No Action nitroglycerin 0.4 mg tablet, sublingual 0.4 mg sublingual Q5M PRN (Reason: chest pain) Qty: 30 3RF Rx Instructions: do not exceed 3 doses per episode metformin 500 mg tablet See Rx Instructions .ROUTE .COMPLEX Hold Instructions: Resume on 10/18/22. Rx Instructions: 1000 mg orally in the am and 500mg pm ondansetron HCl 4 mg Tablet 4 mg PO Q6H PRN (Reason: Nausea And Vomiting) acetaminophen [Pain Relief (acetaminophen)] 500 mg tablet 1,000 mg PO Q6H PRN (Reason: pain) amlodipine 5 mg tablet 10 mg PO DAILY 30 Days Qty: 30 3RF isosorbide mononitrate 60 mg Tablet Extended Release 24 Hr 30 mg PO BID 30 Days Qty: 60 2RF atorvastatin 20 mg Tablet 20 mg PO DAILY venlafaxine 150 mg Capsule,Extended Release 24hr 150 mg PO DAILY 30 Days Qty: 30 2RF levothyroxine 75 mcg Tablet 75 mcg PO DAILY 30 Days Qty: 30 2RF Discharge Orders: Discharge ED (Routine); Ordered 02/11/24 Ordered By: Arturo Lion Referrals: Zeus Young DO [Primary Care Provider] - Patient Instructions: Hypertension (ED), Urinary Tract Infection in Older Adults (ED), Opioid Safety, Pain Management Activity Restrictions/Additional Instructions: Antibiotics as directed. Take your blood pressure twice daily. Write numbers down for your doctor. Follow-up with your doctor next week. If your blood pressure remains greater than 150/90, take the medication prescribed. Return for any problems. Coding Level of Care Code ED Machine Ceramic Coater for Clayton Espinoza
[2024-02-11] MEDS: ondansetron 4 MG Tablet PO (00:03)
[2024-02-11 00:51] LABS: Bilirubin Urine Neg (Negative); Blood Urine 2+ (Negative); Glucose Urine UA Trace (Normal); Ketones Urine Negative (Negative); Nitrate Urine Negative (Negative); Protein Urine Neg (Negative); Specific Gravity, Urine 1.005 (1.005-1.030); Sulfosalicylic Acid Urine Negative (Negative); Urine Appearance Hazy (CLEAR); Urine Color Colorless (Yellow); pH Urine 8 (5-7)
[2024-02-11 00:52] LABS: Add Urine Culture? Yes; Add Urine Microscopic? YES; Bacteria Urine 3+ /hpf; Leukocyte Esterase Urine 1+ (Negative); RBC Urine 0-4 /hpf (0-2); Urobilinogen Urine Neg (Negative); WBC Urine 15-25 /hpf (0-5)
[2024-02-11 01:00] VITALS: BP 216/78; PULSE 64; O2SAT 98
[2024-02-11] MEDS: amlodipine 10 mg Tablet PO (01:30)
[2024-02-11] MEDS: hyDRALAzine 20 mg/mL INJ 1 mL IVP (01:30)
[2024-02-11] MEDS: cefTRIAXone 1,000 MG in sodium chloride 0.9% (plus) 50 ML 100 MG IV (01:30)
[2024-02-11 02:43] VITALS: BP 147/55; PULSE 79; RESP 18; O2SAT 97
--- NOTE | 2024-02-12 11:18 | PC.NURSE ---
RX CALLED TO [facility]
== END 2024-02-11 02:54 | disposition home or self-care (01) ==
PROVIDERS: Emergency Provider Emergency Medicine; PCP Family Medicine
DX: I10 Essential (primary) hypertension (principal); N39.0 Urinary tract infection, site not specified; Z79.84 Long term (current) use of oral hypoglycemic drugs; I25.2 Old myocardial infarction; J44.9 Chronic obstructive pulmonary disease, unspecified; Z87.440 Personal history of urinary (tract) infections; E11.9 Type 2 diabetes mellitus without complications
CPT/HCPCS: 36415; 70450; 72125; 73060; 73562; 80053; 81001; 82550; 85025; 86140; 87077; 87086; 87186; 93005; 96365; 96375; 99285; J0360; J0696; Q0162

== ENCOUNTER 2024-10-09 12:46 | Emergency (ER) | payer MEDICARE, MEDICAID, SELFPAY ==
[2024-10-09 12:46] VITALS: BP 139/62; PULSE 70; RESP 23; O2SAT 96; BMI 25.4
--- NOTE | 2024-10-09 12:53 | CTR_ITS ---
PROCEDURE INFORMATION: Exam: CT Cervical Spine Without Contrast Exam date and time: 10/09/2024 1:17 PM Age: 78 years old Clinical indication: Injury or trauma; Fall; Blunt trauma; Additional info: Trauma, unable to clear (dementia) TECHNIQUE: Imaging protocol: Computed tomography of the cervical spine without contrast. Radiation optimization: All CT scans at this facility use at least one of these dose optimization techniques: automated exposure control; mA and/or kV adjustment per patient size (includes targeted exams where dose is matched to clinical indication); or iterative reconstruction. COMPARISON: CT cervical spin wo con* [id number] 02/10/2024 10:48 PM RADIATION DOSE METRICS: Total DLP (mGy-cm): 157.87 FINDINGS: Bones: No acute fracture. Anterior plate and fusion C6-C7. C4 through C 6 disc space narrowing and spurring, mild. Minimal anterolisthesis of C3 on C4 and of C4 on C5. No evidence of fracture. No lytic or sclerotic bone lesion. Normal alignment. No significant disc bulge or herniation. No severe spinal canal stenosis. No significant neural foraminal narrowing. Lungs: Lung apices are normal. Soft tissues: The perivertebral soft tissues are normal. CT/CT cervical spin wo con* [id number] IMPRESSION: No acute findings.
--- NOTE | 2024-10-09 12:53 | CTR_ITS ---
PROCEDURE INFORMATION: Exam: CT Head Without Contrast Exam date and time: 10/09/2024 1:14 PM Age: 78 years old Clinical indication: Injury or trauma; Fall; Blunt trauma (contusions or hematomas); Additional info: Trauma, forehead; Dementia TECHNIQUE: Imaging protocol: Computed tomography of the head without contrast. Radiation optimization: All CT scans at this facility use at least one of these dose optimization techniques: automated exposure control; mA and/or kV adjustment per patient size (includes targeted exams where dose is matched to clinical indication); or iterative reconstruction. COMPARISON: CT head wo con* [id number] 02/10/2024 10:45 PM RADIATION DOSE METRICS: Total DLP (mGy-cm): 968.68 FINDINGS: Brain: No hemorrhage. Periventricular white matter lucency represents atherosclerotic encephalopathic changes.. No mass effect. Cerebral ventricles: No ventriculomegaly. Ventricular prominence proportionate to the degree of atrophy observed and unchanged since earlier. Paranasal sinuses: Visualized sinuses are unremarkable. No fluid levels. Mastoid air cells: Visualized mastoid air cells are well aerated. Bones: Unremarkable. No acute fracture. Soft tissues: Left frontal scalp hematoma. CT/CT head wo con* [id number] IMPRESSION: No acute intracranial abnormality.
--- NOTE | 2024-10-09 12:55 | W.ED.HEATRA ---
HPI - Head Injury General: Chief complaint: Fall Stated complaint: Fall Time Seen by Provider: 10/09/24 12:50 History of Present Illness: 78-year-old female presents to the emergency department by EMS. She reportedly fell forward off of the stool while in the bathroom. She hit her forehead. She has a hematoma there. No reported loss of consciousness. Patient denies any discomfort except for right at the hematoma site. Patient has dementia. She is oriented to self only. The son that usually takes care of her is admitted to the hospital himself. The other son has been taking care of her. He is on his way. Related Data Home Medications Medication Instructions Recorded Confirmed acetaminophen 500 mg tablet (Pain 1,000 mg PO Q6H PRN pain 06/11/23 10/09/24 Relief (acetaminophen)) potassium chloride 10 mEq 10 meq PO DAILY 10/09/24 10/09/24 tablet,extended release Allergies Allergy/AdvReac Type Severity Reaction Status Date / Time morphine AdvReac Intermediate vomiting Verified 06/18/23 14:10 pneumococcal vaccine AdvReac Intermediate Unknown Verified 06/18/23 14:10 Review of Systems General: Reports: ROS unobtainable due to mental status PFSH ED PFSH: Medical History C. difficile diarrhea Debility C. difficile colitis Left knee pain Incomplete bladder emptying Influenza A Dehydration Microcytic anemia Heartburn History of myocardial infarction Anemia H/O deep venous thrombosis HTN (hypertension) COPD (chronic obstructive pulmonary disease) Cystitis cystica Recurrent UTI Diabetes mellitus UTI (urinary tract infection) Hematuria Lumbar disc disease with radiculopathy Facet arthropathy, lumbar Degenerative lumbar disc Surgical History Hx of knee surgery S/P wrist surgery S/P knee surgery History of neck surgery S/P coronary angiogram Family History Mother , at age 114 Myocardial infarct Father , in his 70's Hypertension Sister Diabetes Son Diabetes Social History Smoking and tobacco/nicotine status: never used tobacco/nicotine Alcohol intake: never Substance/Drug Use: never Marital status: / Current occupational status: retired Physical Exam Narrative: EXAM NARRATIVE: Patient is oriented to self. Her speech is normal. She moves all extremities spontaneously. She has a hematoma on her forehead. Skin is intact. No skull deformities. No other signs of head trauma. Nothing coming out of her ears or nose. Midface is stable. No dental trauma. No lacerations. Palpation of the neck does not cause any apparent pain or tenderness. The T and L-spine were similarly palpated without any pain response. Chest wall, clavicles, posterior ribs nontender. Abdomen soft and nontender. Poor range of motion in the lower extremities but passive range of motion was performed through the hips, knees, ankles and feet bilaterally and the patient does not report any discomfort. There is no deformities or laxities. Bilateral upper extremities were also put through range of motion and palpation and I could not find any injuries. Const: COMMON NORMALS: alert HENMT: COMMON NORMALS: normocephalic and external ears normal HEAD & SCALP: normocephalic EXTERNAL EAR: Yes external ears normal MOUTH: no muffled voice Eye: COMMON NORMALS: EOMs intact bilaterally, conjunctivae normal and no scleral icterus CONJUNCTIVA: Yes conjunctivae normal Neck/C-Spine: COMMON NORMALS: no JVD GENERAL: Yes normal visual inspection and Yes trachea midline Resp: COMMON NORMALS: normal respiratory effort, No use of accessory muscles and clear to auscultation bilaterally AUSCULTATION: clear to auscultation bilaterally Cardio: COMMON NORMALS: no JVD and regular rate RATE: regular rate GI: COMMON NORMALS: Soft to palpation and non-tender PALPATION: Yes Soft to palpation and No Guarding due to palpation present (GI) Extremity: COMMON NORMALS: normal to inspection Neuro: COMMON NORMALS: moves all extremities, no focal motor deficits and no sensory deficits noted SENSORIUM/ORIENTATION: Yes alert SPEECH: speech normal Psych: COMMON NORMALS: cooperative Skin: COMMON NORMALS: turgor normal and no jaundice GENERAL SKIN EXAM: turgor normal Course Vital Signs: Vital signs: Vital Signs Pulse Rate 70 10/09/24 12:46 Respiratory Rate 23 H 10/09/24 12:46 Blood Pressure 139/62 10/09/24 12:46 Pulse Oximetry 96 10/09/24 12:46 Oxygen Delivery Me thod Room Air 10/09/24 12:46 MDM - Head Injury Medcial Decision Making This appears to be isolated closed head injury. Patient does not appear to be on any blood thinners. She is at her baseline mental status by EMS report. The examination revealed single hematoma of the forehead. The only other notable finding was that her pupils were slightly different in size. The left pupil is slightly smaller than the right pupil. Both of them are relatively small. No afferent pupillary defect. No signs of trauma to the eye. This is probably chronic/physiologic. Patient reports no discomfort at time of exam. I have ordered a CT scan of her head and neck to evaluate for any trauma associated with her fall off the stool. We are going to try and get in contact with the patient's son to see if there is any additional concerns. Vital signs are reassuring on arrival.\ 1407 CT scan of the head and neck no acute abnormalities. I was able to talk to the son. She is dependent for ambulation. She has to have somebody with her. He had walked her to the bathroom and she fell forward off the stool. No other injuries reported. I repeated the trauma evaluation and no new injuries. Patient can be discharged to home. Lab Data Radiology Impressions Cervical Spine CT 10/09/24 12:53 IMPRESSION: No acute findings. Head CT 10/09/24 12:53 IMPRESSION: No acute intracranial abnormality. All radiology interpretation(s) finalized by discharge Discharge Plan Discharge Patient Disposition: Home Clinical Impression: Traumatic hematoma of forehead, Closed head injury Condition: Stable Prescriptions: No Action acetaminophen [Pain Relief (acetaminophen)] 500 mg tablet 1,000 mg PO Q6H PRN (Reason: pain) potassium chloride 10 mEq tablet extended release 10 meq PO DAILY Discharge Orders: Discharge ED (Routine); Ordered 10/09/24 Ordered By: Collins Ch Referrals: Zeus Young DO [Primary Care Provider] - Patient Instructions: Head Injury (ED), Hematoma (ED) Coding Level of Care Code ED Personnel Supervisor for Clayton Espinoza
--- NOTE | 2024-10-09 13:35 | PC.PHAR ---
Patient's son brought in 2 rx bottles sitting together at home . She takes the Potassium last fill 10/02/24 . The other bottle is sucralfate 1gm. and it was filled in 2021. Patient states she isn't taking .
[2024-10-09 14:30] VITALS: BP 161/83; PULSE 59; TEMP 37.1; O2SAT 94
== END 2024-10-09 14:15 | disposition home or self-care (01) ==
PROVIDERS: Emergency Provider Emergency Medicine; PCP Family Medicine
DX: S00.83XA Contusion of other part of head, initial encounter (principal); S09.8XXA Other specified injuries of head, initial encounter; J44.9 Chronic obstructive pulmonary disease, unspecified; E11.9 Type 2 diabetes mellitus without complications; I10 Essential (primary) hypertension; W08.XXXA Fall from other furniture, initial encounter
CPT/HCPCS: 70450; 72125; 99284